=== PATIENT | female | born 1935 | race Caucasian/White ===

== ENCOUNTER 2016-10-29 09:04 | Inpatient (IN) | payer MEDICARE, BC ==
[2016-10-29] MEDS ORDERED: Pantoprazole IV* 40 MG IV ONE (09:26)
[2016-10-29] MEDS ORDERED: Morphine INJ* 4 MG/ML 1 ML CARPUJECT IV ONE (09:26)
[2016-10-29] MEDS ORDERED: Ondansetron INJ* 2 MG/ML VIAL IV ONE ×2 (09:29→16:35)
--- NOTE | 2016-10-29 10:09 | RAD ---
Indication: Vomiting and epigastric pain. History of asthma. Multiple myeloma. Comparison: August 13, 2016 CT abdomen and chest radiograph. Technique: Upright AP 0940 hours Report: Tip of RIGHT chest port at level of superior vena cava RIGHT atrial junction. Elevated lung volumes. Diffuse mild prominence of the interstitial markings without significant change. Mild linear subsegmental atelectasis at the LEFT lower lung zone. Grossly clear pleural spaces. Negative for pneumothorax. The heart, pulmonary vasculature, and mediastinal contours are unremarkable. Negative for free air beneath the diaphragm. IMPRESSION: Stigmata of chronic obstructive pulmonary disease. Mild LEFT basilar subsegmental atelectasis.
[2016-10-29 10:40] LABS: Hematocrit 38 % (35-47); Hemoglobin 12.3 g/dl (12.0-16.0); Mean Corpuscular HGB Conc 33 g/dl (31-36); Mean Corpuscular Hemoglobin 31 pg (27-31); Mean Corpuscular Volume 95 fL (80-97); Mean Platelet Volume 10 um3 (7.4-10.4); Red Blood Count 3.95 10^6/ul (4.0-5.4); Red Cell Distribution Width 17 % (10.5-15); White Blood Count 6.1 10^3/ul (3.5-10.8)
[2016-10-29 10:53] LABS: ALT 22 U/L (7-52); AST 17 U/L (13-39); Alkaline Phosphatase 68 U/L (34-104); Anion Gap 9 mmol/L (2-11); Blood Urea Nitrogen 19 mg/dL (6-24); C Reactive Protein 21.27 mg/L (< 5.00); CO2 Carbon Dioxide 25 mmol/L (22-32); Calcium 9.4 mg/dL (8.6-10.3); Chloride 101 mmol/L (101-111); EGFR African American 98.9 (>60); EGFR Non-African American 76.9 (>60); Globulin 2.5 g/dL (2-4); Glucose 167 mg/dL (70-100); Lipase < 10 U/L (11.0-82.0); Magnesium 1.8 mg/dL (1.9-2.7); Potassium 3.8 mmol/L (3.5-5.0); Sodium 135 mmol/L (133-145); Total Protein 6.5 g/dL (6.4-8.9)
[2016-10-29 11:01] LABS: Add Diff/Slide Review? Slide Review Added; Comments Flag Yes
[2016-10-29] MEDS ORDERED: NS 0.9% 1000 ML* 1,000 ML IV ONE (11:10)
[2016-10-29] MEDS ORDERED: Iohexol 300* (CONTRAST) 10 ML SDV IV ONE (11:11)
[2016-10-29 11:37] LABS: Troponin I 0.02 ng/mL (<0.04)
[2016-10-29 12:10] LABS: Immature Granulocytes 8 % (0-9); Metamyelocytes % 1 % (0-2); Neutrophil % 65 % (38-83)
[2016-10-29 12:11] LABS: RBC Morphology Normal (Normal)
--- NOTE | 2016-10-29 12:15 | RAD ---
INDICATION: Abdominal pain. Multiple myeloma. Previous surgery for bowel obstruction in 1995. Post appendectomy. COMPARISON: August 13, 2016 CT. TECHNIQUE: Multidetector CT images were obtained from the lung bases to the ischial tuberosities with 100 mL Omnipaque 300 IV and oral contrast. Multiplanar reformation. REPORT: Minimal basilar atelectasis. The liver, gallbladder, pancreas, and spleen are unremarkable. Moderate gastric distention. Long segment jejunal small bowel dilatation measuring up to 4 cm diameter without visualized focal transition point. The ileum is decompressed. Negative for pneumatosis or perienteric inflammatory change. Diverticulosis of the colon primarily at the sigmoid colon without findings of diverticulitis. Negative for ascites or free air. Small fat-containing supraumbilical ventral hernia without inflammatory change. Normal adrenal glands. Symmetric nephrograms and pyelograms. Negative for hydronephrosis. No suspicious focal renal lesions. Unremarkable ureters and urinary bladder as well as the diminutive anteverted uterus. No suspicious adnexal region lesions. Negative for lymphadenopathy. Atherosclerotic plaque of the abdominal aorta and iliac arteries. Negative for aortoiliac aneurysm. Partially decompressed inferior vena cava indicating low volume state. Bone density appears decreased throughout. Multiple ill-defined osteolytic lesions throughout consistent with history of multiple myeloma without significant interval change. Chronic finding of mixed lytic and sclerotic lesion at the LEFT acetabulum with pathologic fracture. Advanced degenerative arthropathy of the LEFT hip joint without change. Nondisplaced fractures at the LEFT superior and inferior pubic rami with callus formation without change. Chronic compression fractures at L1, T12, and T10 no new vertebral compression fractures evident. Negative for superficial soft tissue hematoma. IMPRESSION: 1. Mid small bowel obstruction with out narrow transition zone. Unclear etiology for the small bowel obstruction. Consider potential adhesion given previous abdominal surgery. Negative for associated pneumatosis or perienteric inflammatory change. 2. Osteolytic lesions of multiple myeloma with multiple grossly unchanged pathologic fractures as described.
--- NOTE | 2016-10-29 14:21 | ED ---
Agustina Bhatt Matthew, scribed for Nii Nix MD on 10/29/16 at 0927 . Abdominal Pain/Female - HPI Summary HPI Summary: A 81 y/o female presents to the ED with constant diffuse upper abdominal pain since last night. The pain started after the patient ate and is rated 6/10 in severity currently. Associated symptoms include nausea and vomiting - brown. The patient denies diarrhea and a distended abdomen. Her last BM was this morning. She has a Hx of two bowel obstructions. The first was in 1989 and required intervention and the second was July 2016, which resolved on its own. PMHx includes multiple myeloma and her oncologist is Dr. Gonzalez. - History of Current Complaint Chief Complaint: EDAbdPain Stated Complaint: ABD PAIN Time Seen by Provider: 10/29/16 09:19 Hx Obtained From: Patient ?: No Onset/Duration: Lasting Days, Still Present Timing: Constant Severity Initially: Moderate Severity Currently: Moderate Pain Intensity: 6 Pain Scale Used: 0-10 Numeric Location: Diffuse - upper abdomen Radiates: No Associated Signs and Symptoms: Positive: Nausea, Vomiting - brown in apperance. Negative: Diarrhea Allergies/Adverse Reactions: Allergies Allergy/AdvReac Type Severity Reaction Status Date / Time Amoxicillin Allergy Shakes Verified 10/29/16 09:15 Epinephrine Allergy JITTERY Verified 10/29/16 09:15 Home Medications: Home Medications Morphine Sulfate [Ms Contin] 15 mg PO DAILY 10/29/16 [History Confirmed 10/29/16 ] Morphine Sulfate [Ms Contin] 30 mg PO DAILY 10/29/16 [History Confirmed 10/29/16 ] Omeprazole [Prilosec] 20 mg PO DAILY 10/29/16 [History Confirmed 10/29/16] celeCOXIB CAP* [CeleBREX CAP*] 200 mg PO DAILY 10/29/16 [History Confirmed 10/29] PMH/Surg Hx/FS Hx/Imm Hx Endocrine/Hematology History: Reports: Hx Bone Marrow Disease - MULTIPLE MYELOMA , Hx Anemia Denies: Hx Diabetes Cardiovascular History: Reports: Hx Hypertension - CONTROL WITH MED, Other Cardiovascular Problems/Disorders - Diastolic Malfunction Denies: Hx Pacemaker/ICD Respiratory History: Reports: Hx Asthma - PRN INHALER, Hx Seasonal Allergies GI History: Reports: Hx Diverticulosis, Hx Gastroesophageal Reflux Disease - ACID REFLUX, CONTROL WITH MEDS, Hx Irritable Bowel, Hx Obstructive Bowel - with surgery 1995 History: Denies: Hx Renal Disease Musculoskeletal History: Reports: Hx Arthritis, Hx Back Problems, Hx Osteoporosis, Hx Scoliosis, Other Musculoskeletal History Sensory History: Reports: Hx Cataracts - removed, Hx Contacts or Glasses - GLASSES Denies: Hx Hearing Aid Opthamlomology History: Reports: Hx Cataracts - removed, Hx Contacts or Glasses - GLASSES Neurological History: Reports: Other Neuro Impairments/Disorders - PAIN CLINIC PT Psychiatric History: Reports: Hx Anxiety, Hx Depression - CONTROL WITH MEDS, Hx Panic Disorder - Cancer History Cancer Type, Location and Year: MULTIPLE MYELOMA Hx Chemotherapy: Yes - oral Hx Palliative Cancer Treatment: No - Surgical History Surgery Procedure, Year, and Place: Bowel Surgery for Obstruction [place] [facility] [facility] [place]. Breast Reduction 2011 at [place] in [facility];. Appendectomy at age 20 Hx Anesthesia Reactions: No Infectious Disease History: No Infectious Disease History: Denies: Hx of Known/Suspected MRSA, Traveled Outside the in Last 30 Days - Family History Known Family History: Positive: Cardiac Disease, Hypertension Negative: Diabetes - Social History Alcohol Use: None Alcohol Amount: 1-2 glasses of wine/day Substance Use Type: Reports: None Hx Tobacco Use: No Smoking Status (MU): Never Smoked Tobacco Review of Systems Constitutional: Negative Eyes: Negative ENT: Negative Cardiovascular: Negative Respiratory: Negative Positive: Abdominal Pain - Diffuse upper abdominal pain , Vomiting, Nausea. Negative: Diarrhea Genitourinary: Negative Musculoskeletal: Negative Skin: Negative Neurological: Negative Psychological: Normal All Other Systems Reviewed And Are Negative: Yes Physical Exam Triage Information Reviewed: Yes Vital Signs On Initial Exam: Initial Vitals Temp Pulse Resp BP Pulse Ox 97.0 F 113 15 157/100 98 10/29/16 09:05 10/29/16 09:05 10/29/16 09:05 10/29/16 09:05 10/29/16 09:05 Vital Signs Reviewed: Yes Appearance: Positive: Ill-Appearing - nauseated, Obese Skin: Positive: Warm, Skin Color Reflects Adequate Perfusion Head/Face: Positive: Normal Head/Face Inspection ENT: Positive: Normal ENT inspection Neck: Positive: Supple, Nontender Respiratory/Lung Sounds: Positive: Clear to Auscultation, Breath Sounds Present Cardiovascular: Positive: Normal, RRR. Negative: Murmur Abdomen Description: Positive: Other: - mild tender epigastric Musculoskeletal: Positive: Normal, Strength/ROM Intact Neurological: Positive: Normal, Sensory/Motor Intact, Alert, Oriented to Person Place, Time, CN Intact II-III - Chelsie Coma Scale Best Eye Response: 4 - Spontaneous Best Motor Response: 6 - Obeys Commands Best Verbal Response: 5 - Oriented Diagnostics - Vital Signs Vital Signs Temp Pulse Resp BP Pulse Ox 10/29/16 09:05 97.0 F 113 15 157/100 98 - Laboratory Result Diagrams: 10/29/16 10:28 10/29/16 10:28 Lab Statement: Any lab studies that have been ordered have been reviewed, and results considered in the medical decision making process. - Radiology CXR Xray Interpretation: Positive (See Comments) - IMPRESSION: Stigmata of chronic obstructive pulmonary disease. Mild LEFT basilar subsegmental atelectasis. Radiology Interpretation Completed By: Radiologist - CT A/P CT Interpretation: Positive (See Comments) - IMPRESSION: 1. Mid small bowel obstruction with out narrow transition zone. Unclear etiology for the small bowel obstruction. Consider potential adhesion given previous abdominal surgery. Negative for associated pneumatosis or perienteric inflammatory change. 2. Osteolytic lesions of multiple myeloma with multiple grossly unchanged pathologic fractures as described. CT Interpretation Completed By: Radiologist - EKG 10:00 Cardiac Rate: NL, Tachycardia - 110 bpm EKG Rhythm: Sinus Tachycardia EKG Interpretation: Premature Atrial Complexes; T-wave Flattening in inferior leads Abdominal Pain Fem Course/Dx - Course Course Of Treatment: 81 yr old with recurrent SBO, and surgery consulted, Dr Whyte will admit. - Diagnoses Provider Diagnoses: Small bowel obstruction - Provider Notifications Discussed Care Of Patient With: Dr. Whyte (Oncology) at 12:25 -- Notified of patient's history and will admit the patient. Dr. Juarez (Surgery) at 12:31 -- Notified of patient's history and will evalute the patient. Discharge - Discharge Plan Condition: Stable Disposition: ADMITTED TO [facility] Referrals: Destinee Fitzgerald MD [Primary Care Provider] - The documentation as recorded by the Agustina rowe Matthew accurately reflects the service I personally performed and the decisions made by , Nii Nix MD.
[2016-10-29 14:44] LABS: Urine Bacteria Absent (Absent); Urine Bilirubin Negative (Negative); Urine Glucose Negative (Negative); Urine Nitrite Negative (Negative)
[2016-10-29] MEDS ORDERED: Metoprolol Tartrate IV* 1 MG/ML 5 ML VIAL IV PRN (17:17)
[2016-10-29] MEDS ORDERED: HYDROmorphone INJ* 1 MG/ML CARPUJECT SYRINGE IV SLOW PU PRN (17:17)
[2016-10-29] MEDS ORDERED: Albuterol HFA INHALER* 8 gm MDI INH PRN (17:18)
[2016-10-29] MEDS ORDERED: Mometasone 220 MCG MDI INH PRN (17:18)
[2016-10-29] MEDS ORDERED: Ondansetron INJ* 2 MG/ML VIAL IV PRN (17:20)
[2016-10-29] MEDS ORDERED: Metoclopramide IV* 5 MG/ML 2 ML VIAL IV PRN (17:20)
[2016-10-29] MEDS ORDERED: Enoxaparin(*) 40 MG/0.4 ML SYR SUBCUT SCH (18:00)
[2016-10-29] MEDS ORDERED: fentaNYL PATCH 50 MCG/HR TRANSDERM SCH ×2 (18:00→20:00)
[2016-10-29] MEDS: NS 0.9% 1000 ML* 1,000 ML IV SCH (19:04)
[2016-10-29] MEDS: Enoxaparin(*) 40 MG/0.4 ML SYR SUBCUT SCH (20:24)
[2016-10-29] MEDS: fentaNYL Patch Check Q Shift 1 NOTE SCH (20:28)
[2016-10-29] MEDS: Metoprolol Tartrate IV* 1 MG/ML 5 ML VIAL IV SCH (22:10)
--- NOTE | 2016-10-29 22:19 | HP ---
HISTORY AND PHYSICAL: DATE OF ADMISSION: 10/29/16 CHIEF COMPLAINT: Abdominal pain and vomiting. IDENTIFICATION: A 81-year-old female in followup for multiple myeloma presents with second small bowel obstruction, previously admitted in July 2016. HISTORY OF PRESENT ILLNESS: "I am doing well." Ate dinner last night and then developed fairly severe abdominal pain. It started hurting right after dinner and developed some distension. Uneasy all night and vomited at 4 a.m. This morning, still felt distended and nauseous. Came to the emergency room. Small bowel movement, has not been passing any gas through the day. She also has a heartburn feeling. No fevers or chills. No difficulty with urination. She does have chronic back pain and hip pain from myeloma for which she is on long- acting narcotics. On presentation, she has white count of 6.1, hemoglobin 12.3, platelets of 164. Creatinine 0.73, otherwise electrolytes unremarkable, lipase less than 10. Mildly elevated lactic acid at 3.0. She had a CT scan of the abdomen and pelvis , which was reviewed with Dr. Reyes. Mostly jejunal distension, no clear transition point at the distal ileum. The distal small bowel is not distended. No focal lesions. PAST MEDICAL HISTORY: 1. Multiple myeloma, diagnosed in October 2015. Light chain only disease as well as lytic bone lesions. Treated with Zometa, Revlimid, and dexamethasone. Has been stable. To take her last of 21 days' Revlimid tonight. Has been tolerating reasonably well. 2. History of breast cancer. 3. Asthma. 4. Hypertension. 5. Osteoarthritis. 6. Lumbar stenosis. 7. Dementia. She lives independently, but has a caregiver 19 hours a day. Children are responsible for IADLs. 8. Prior small bowel obstruction in 1994. 9. History of diverticulitis. PAST SURGICAL HISTORY: She had an appendectomy when she was 20 and then had surgery for small bowel obstruction in the mid . No other abdominal surgery. HOME MEDICATIONS: 1. Aspirin 81 mg a day. 2. Albuterol p.r.n. 3. Dexamethasone 40 mg weekly. 4. Diltiazem 5 q.12 p.r.n. 5. Fluconazole 1 puff b.i.d. 6. Xyzal 5 mg q.p.m. 7. Losartan 25 mg q.a.m. 8. Singulair 10 mg q.a.m. 9. MS Contin 45 mg b.i.d. and 10 mg p.r.n. 10. Omeprazole 20 mg a day. 11. Fluoxetine 20 mg a day. 12. Ambien 10 mg q.h.s. 13. Celebrex 200 mg daily p.r.n. ALLERGIES: AMOXICILLIN and EPINEPHRINE. FAMILY HISTORY: Mother at 50 of coronary artery disease. Father also had heart disease. SOCIAL HISTORY: . Never smoked. One drink per day. Living situation as discussed above. She also has Meals on Wheels. REVIEW OF SYSTEMS: Constitutional: She is weak. She states she really does not get up at all or walk around during the day just because she does not want to. No fevers, chills. Difficult time narrating the story. Allergic/ Immunologic: Negative. Eyes: Negative. HEENT: Negative. Hematologic/ Lymphatic: Revlimid, otherwise negative. Respiratory: History of COPD, but no symptoms at this time. Cardiac: Negative. GI: As above. : She is incontinent. Otherwise, negative. Musculoskeletal: Hips hurt. Back pain, on narcotics. Neurologic: Forgetful, gets dizzy at times. No focal symptoms. Psychiatric: Negative. PHYSICAL EXAMINATION GENERAL: No distress in the emergency room. VITAL SIGNS: Temperature 97.0, BP 157/100, pulse 108, respirations 15, sat 98% on nasal cannula. HEENT: Mucosa dry. No lesions. NECK: No cervical or supraclavicular lymphadenopathy. LUNGS: Clear to auscultation. HEART: Regular rate and rhythm, S1, S2. Tachy. ABDOMEN: She is distended, mildly tender, has good bowel sounds. No masses. No rebound or guarding. EXTREMITIES: No clubbing, cyanosis, or edema. NEUROLOGIC: Grossly nonfocal. Pleasant and conversational. DIAGNOSTIC/LABORATORY DATA: As noted above, as was the CT scan. Last light chains were in May. ASSESSMENT AND PLAN: A 81-year-old female treated for multiple myeloma in with her third small bowel obstruction, second within 6 months. The prior small bowel obstruction seemed to have a clear transition point, it is less clear on the CT scan today. Symptoms have been present for less than a day. 1. Small bowel obstruction. Dr. Juarez was called, but has not yet seen the patient. This is not a surgical case at this time. I will discuss with Surgery but will continue with medical management. She will be admitted with IV hydration. We will use p.r.n. antiemetics and have a chest x-ray tomorrow morning. 2. Hypertension and tachycardia: She has been on verapamil at home, which she cannot take now. We will give metoprolol 5 mg q.6 p.r.n. 3. Symptoms of heartburn. IV Protonix. 4. Pain. Can take her long-acting narcotics. We will start her on fentanyl 50 mcg and do Dilaudid p.r.n. 5. DVT prophylaxis per protocol with Lovenox. 6. Weakness at home. We will have a PT eval while she is here. I suspect the lack of activity is mostly secondary to her dementia. 7. Multiple myeloma. We are going to hold Revlimid and dexamethasone. I will recheck serum light chains and will check a 24-hour urine while she is here as well, as it is hard to do at home. [id number]/[facility] #: [id number] [facility]
[2016-10-30 00:20] LABS: Hematocrit 38 % (35-47); Mean Corpuscular HGB Conc 32 g/dl (31-36); Mean Corpuscular Hemoglobin 31 pg (27-31); Mean Corpuscular Volume 96 fL (80-97); Mean Platelet Volume 10 um3 (7.4-10.4); Red Blood Count 3.93 10^6/ul (4.0-5.4); Red Cell Distribution Width 17 % (10.5-15); White Blood Count 4.2 10^3/ul (3.5-10.8)
[2016-10-30 00:29] LABS: Albumin 3.9 g/dL (3.2-5.2); BUN/Creatinine Ratio 23.5 (8-20); Calcium 8.4 mg/dL (8.6-10.3); EGFR Non-African American 64.5 (>60); Globulin 1.9 g/dL (2-4); Magnesium 1.9 mg/dL (1.9-2.7); Potassium 4.1 mmol/L (3.5-5.0); Total Bilirubin 0.5 mg/dL (0.2-1.0); Total Protein 5.8 g/dL (6.4-8.9)
[2016-10-30] MEDS: NS 0.9% 1000 ML* 1,000 ML IV SCH ×4 (02:15→20:37)
[2016-10-30] MEDS: Metoprolol Tartrate IV* 1 MG/ML 5 ML VIAL IV SCH ×4 (04:03→22:40)
[2016-10-30] MEDS: fentaNYL Patch Check Q Shift 1 NOTE SCH (06:50)
[2016-10-30] MEDS ORDERED: Pantoprazole IV* 40 MG IV SCH (09:00)
--- NOTE | 2016-10-30 10:41 | RAD ---
Indication: Follow-up small bowel obstruction. Comparison: October 29, 2016 CT. Technique: Supine and LEFT lateral decubitus views of the abdomen Report: Persistent proximal to mid small bowel dilatation measuring up to 3.6 cm diameter at the LEFT abdomen. Small volume of gas and stool throughout the colon. Negative for free intraperitoneal air. Negative for mass effect. Chronic LEFT acetabulum pathologic fracture and advanced hip arthropathy. Calcified formation at LEFT inferior pubic ramus fracture sites. Degenerative reactive sclerosis at the pubic symphysis. IMPRESSION: No significant change in magnitude of proximal to mid small bowel dilatation compared with the CT of one day prior.
[2016-10-30] MEDS ORDERED: oxyCODONE/Acetamin 5/325 MG* TAB PO PRN (11:15)
[2016-10-30] MEDS ORDERED: Diazepam TAB(*) 5 MG PO PRN (11:15)
--- NOTE | 2016-10-30 11:23 | PN ---
Subjective Date of Service: 10/30/16 Interval History: Pt had 3 loose BM's this AM. diet advanced to clears. tolerating it well. denies abd pain. Objective Active Medications: Albuterol (Ventolin Hfa Inhaler*) 1 puff INH QID PRN PRN Reason: SOB/WHEEZING Enoxaparin Sodium (Lovenox(*)) 40 mg SUBCUT 1999 [facility] Last Admin: 10/29/16 20:24 Dose: 40 mg Hydromorphone HCl (Dilaudid Iv*) 1 mg IV SLOW PU Q4H PRN PRN Reason: PAIN Metoclopramide HCl (Reglan Iv*) 10 mg IV Q6H PRN PRN Reason: NAUSEA/VOMITING Last Admin: 10/29/16 18:52 Dose: 10 mg Metoprolol Tartrate (Lopressor Iv*) 5 mg IV Q6H [facility] Last Admin: 10/30/16 10:08 Dose: 5 mg Mometasone Furoate (Asmanex 220 Mcg Mdi *) 2 puff INH BEDTIME PRN PRN Reason: WHEEZING Ondansetron HCl (Zofran Inj*) 4 mg IV Q4H PRN PRN Reason: NAUSEA/VOMITING Last Admin: 10/29/16 20:24 Dose: 4 mg Vital Signs 10/29/16 10/29/16 10/29/16 18:00 19:05 19:21 Temperature 99.0 F 98.6 F Pulse Rate 120 86 Respiratory 14 20 Rate Blood Pressure (mmHg) O2 Sat by Pulse 93 97 Oximetry 10/29/16 10/29/16 10/29/16 19:23 20:25 22:07 Temperature 98.6 F 100.1 F Pulse Rate 124 133 Respiratory 20 18 18 Rate Blood Pressure 146/79 147/87 (mmHg) O2 Sat by Pulse 96 94 Oximetry 10/29/16 10/29/16 10/29/16 22:19 22:44 22:50 Temperature 99.1 F 98.2 F Pulse Rate 66 56 Respiratory 18 18 18 Rate Blood Pressure 166/88 159/89 (mmHg) O2 Sat by Pulse 97 96 Oximetry 10/30/16 10/30/16 10/30/16 03:59 07:47 08:00 Temperature 99.2 F 98.3 F Pulse Rate 106 93 Respiratory 18 16 18 Rate Blood Pressure 139/71 134/65 (mmHg) O2 Sat by Pulse 96 95 Oximetry Oxygen Devices in Use Now: None Appearance: 81 yo F in nAd, AAOx2, very poor short term memory Eyes: No Scleral Icterus, PERRLA Ears/Nose/Mouth/Throat: NL Teeth, Lips, Gums, Mucous Membranes Moist Neck: NL Appearance and Movements; NL JVP, Trachea Midline Respiratory: Symmetrical Chest Expansion and Respiratory Effort, Clear to Auscultation Cardiovascular: NL Sounds; No Murmurs; No JVD, RRR Abdominal: NL Sounds; No Tenderness; No Distention Lymphatic: No Cervical Adenopathy Extremities: No Edema, No Clubbing, Cyanosis Skin: No Rash or Ulcers, No Nodules or Sclerosis Neurological: NL Muscle Strength and Tone Result Diagrams: 10/29/16 23:48 10/29/16 23:48 Assess/Plan/Problems-Billing Assessment: 81 yo F with h/o dementia, MM, HTN, recurrent SBO's presents with another SBO. - Patient Problems (1) SBO (small bowel obstruction) Comment: Dr. Juarez will see pt in consult. It appears that clinicaly it is resolving, although on abd XRays -it still shows SBO. Advancing diet to clears. Restartting PO meds. (2) Multiple myeloma Comment: with painful bbony leasions. Will restart oxycontin-pt has h/o of not feeling well on Fentanyl patch. cont Oxycodone prn cotn Dexamethasone (3) HTN (hypertension) Comment: controlled Losartan restarted. (4) DVT prophylaxis Comment: lovenox (5) DNR (do not resuscitate) Comment: MOLST was updated.
[2016-10-30] MEDS: Morphine TAB Extended Release (*) 15 MG TAB.ER PO SCH (13:17)
[2016-10-30 17:25] LABS: Hematocrit 29 % (35-47); Hemoglobin 9.5 g/dl (12.0-16.0); Mean Corpuscular HGB Conc 33 g/dl (31-36); Mean Corpuscular Hemoglobin 32 pg (27-31); Mean Corpuscular Volume 96 fL (80-97); Mean Platelet Volume 9 um3 (7.4-10.4); Red Cell Distribution Width 17 % (10.5-15); White Blood Count 3.3 10^3/ul (3.5-10.8)
[2016-10-30 17:29] LABS: Comments Flag Yes
[2016-10-30 17:30] LABS: Add Diff/Slide Review? Slide Review Added
--- NOTE | 2016-10-30 19:16 | CONS ---
CONSULTATION REPORT: DATE OF CONSULT: 10/30/16 HISTORY OF PRESENT ILLNESS: The patient is a 81-year-old female admitted by Dr. Whyte with a history of multiple myeloma. She has also had previous small bowel obstruction and presents now with what appears to be recurrence of small bowel obstruction. Her previous surgical history includes an appendectomy in youth and then a small bowel obstruction requiring surgery about 20 years ago. She has had no other abdominal surgery. At the time of admission, she was having severe abdominal pain and bloating and nausea and had not been passing anything per rectum. By this morning, she does note that the pain is gone and she has passed just a little bit of loose stool and a little bit of gas. PHYSICAL EXAM: On examination today, she does not appear acutely ill, color is good. She is not diaphoretic. Vital signs show that she is afebrile with relatively normal vital signs. Abdomen is somewhat obese, soft, nontender, mild tympany, no palpable masses or hernias. Her abdominal x-ray does still show distended proximal small bowel and there is some air in the right colon, probably a little more than what we were seeing yesterday on the CT scan. DIAGNOSTIC STUDIES/LAB DATA: Her laboratory studies are unremarkable. IMPRESSION: A 81-year-old female with signs and symptoms consistent with a small bowel obstruction by clinical exam and by radiologic exam who today seems to be improving with some bowel function and resolution of pain. However, her imaging still does not show normalization, so at this stage I am hopeful that she will recover from this bowel obstruction without requiring additional surgery. However, I do not think that we are there yet. She will need to continue on some intravenous and I think it is reasonable to start some liquids and will continue to follow her along with you. Thanks for allowing us to help in her care. CC: Mat Juarez MD; [facility]; Destinee Fitzgerald MD* [id number]/[facility] #: [id number] [facility]
[2016-10-30] MEDS: Morphine TAB Extended Release (*) 30 MG TAB.ER PO SCH (20:36)
[2016-10-30] MEDS: Enoxaparin(*) 40 MG/0.4 ML SYR SUBCUT SCH (20:36)
[2016-10-30] MEDS: Zolpidem TAB* 10 MG PO SCH (20:36)
[2016-10-31] MEDS: Metoprolol Tartrate IV* 1 MG/ML 5 ML VIAL IV SCH ×4 (04:09→23:16)
[2016-10-31] MEDS: NS 0.9% 1000 ML* 1,000 ML IV SCH (04:54)
[2016-10-31 06:06] LABS: Hematocrit 27 % (35-47); Hemoglobin 8.8 g/dl (12.0-16.0); Mean Corpuscular HGB Conc 33 g/dl (31-36); Mean Corpuscular Hemoglobin 31 pg (27-31); Mean Corpuscular Volume 96 fL (80-97); Mean Platelet Volume 9 um3 (7.4-10.4); Red Blood Count 2.79 10^6/ul (4.0-5.4); Red Cell Distribution Width 18 % (10.5-15)
[2016-10-31 06:07] LABS: Comments Flag Yes; White Blood Count 3.3 10^3/ul (3.5-10.8)
[2016-10-31 06:19] LABS: BUN/Creatinine Ratio 14.5 (8-20); Calcium 6.7 mg/dL (8.6-10.3); EGFR African American 119.4 (>60); EGFR Non-African American 92.9 (>60); Potassium 3.3 mmol/L (3.5-5.0)
[2016-10-31] MEDS: Omeprazole CAP* 20 MG PO SCH (07:20)
--- NOTE | 2016-10-31 08:51 | PN ---
Progress Note - Progress Note SOAP: Subjective: [Pt. reports doing well with full liquids. Denie nausea or vomiting today.She has bee walking with walker and PTx. Pain under good control.Has noted soft BM yesterday.Denies fever or chills.] Objective: [ Vital Signs Temp Pulse Resp BP Pulse Ox 97.6 F 73 16 127/75 96 10/31/16 07:24 10/31/16 07:24 10/31/16 07:24 10/31/16 07:24 10/31/16 07:24 Laboratory Results - last 24 hr 10/30/16 10/31/16 10/31/16 17:19 04:35 05:48 WBC 3.3 L RBC 3.00 L Hgb 9.5 L Hct 29 L MCV 96 MCH 32 H MCHC 33 RDW 17 H Plt Count 137 L MPV 9 Neut % (Auto) 46.8 Lymph % (Auto) 20.6 L Carroll % (Auto) 29.2 H Eos % (Auto) 3.0 Baso % (Auto) 0.4 Absolute Neuts (auto) 1.5 Absolute Lymphs (auto) 0.7 L Absolute Monos (auto) 1.0 H Absolute Eos (auto) 0.1 Absolute Basos (auto) 0 Absolute Nucleated RBC 0.01 Nucleated RBC % 0.3 Sodium 139 Potassium 3.3 L Chloride 109 Carbon Dioxide 26 Anion Gap 4 BUN 9 Creatinine 0.62 Est GFR ( Amer) 119.4 Est GFR (Non-Af Amer) 92.9 BUN/Creatinine Ratio 14.5 Glucose 103 H Calcium 6.7 L U Random Total Protein 63 10/31/16 05:48 WBC 3.3 L RBC 2.79 L Hgb 8.8 L Hct 27 L MCV 96 MCH 31 MCHC 33 RDW 18 H Plt Count 128 L MPV 9 Neut % (Auto) 38.3 Lymph % (Auto) 27.3 Carroll % (Auto) 26.6 H Eos % (Auto) 7.2 H Baso % (Auto) 0.6 Absolute Neuts (auto) 1.3 L Absolute Lymphs (auto) 0.9 L Absolute Monos (auto) 0.9 H Absolute Eos (auto) 0.2 Absolute Basos (auto) 0 Absolute Nucleated RBC 0 Nucleated RBC % 0.1 Sodium Potassium Chloride Carbon Dioxide Anion Gap BUN Creatinine Est GFR ( Amer) Est GFR (Non-Af Amer) BUN/Creatinine Ratio Glucose Calcium U Random Total Protein Albuterol (Ventolin Hfa Inhaler*) 1 puff INH QID PRN PRN Reason: SOB/WHEEZING Aspirin (Aspirin Ec Low Dose*) 81 mg PO QAM [facility] Celecoxib (Celebrex Cap*) 200 mg PO DAILY [facility] Dexamethasone (Decadron Tab*) 10 mg PO DAILY [facility] Diazepam (Valium Tab(*)) 5 mg PO Q12H PRN PRN Reason: ANXIETY Enoxaparin Sodium (Lovenox(*)) 40 mg SUBCUT 1999 [facility] Last Admin: 10/30/16 20:36 Dose: 40 mg Hydromorphone HCl (Dilaudid Iv*) 1 mg IV SLOW PU Q4H PRN PRN Reason: PAIN Sodium Chloride (Ns 0.9% 1000 Ml*) 1,000 mls @ 75 mls/hr IV Q8H [facility] Last Admin: 10/31/16 04:54 Dose: Not Given Losartan Potassium (Cozaar Tab*) 25 mg PO QAM [facility] Metoclopramide HCl (Reglan Iv*) 10 mg IV Q6H PRN PRN Reason: NAUSEA/VOMITING Last Admin: 10/29/16 18:52 Dose: 10 mg Metoprolol Tartrate (Lopressor Iv*) 5 mg IV Q6H [facility] Last Admin: 10/31/16 04:09 Dose: 5 mg Mometasone Furoate (Asmanex 220 Mcg Mdi *) 2 puff INH BEDTIME PRN PRN Reason: WHEEZING Morphine Sulfate (Ms Contin(*)) 15 mg PO DAILY [facility] Last Admin: 10/30/16 13:17 Dose: 15 mg Morphine Sulfate (Ms Contin(*)) 30 mg PO BEDTIME [facility] Last Admin: 10/30/16 20:36 Dose: 30 mg Omeprazole (Prilosec Cap*) 20 mg PO DAILY@0730 [facility] Last Admin: 10/31/16 07:20 Dose: 20 mg Ondansetron HCl (Zofran Inj*) 4 mg IV Q4H PRN PRN Reason: NAUSEA/VOMITING Last Admin: 10/29/16 20:24 Dose: 4 mg Oxycodone/Acetaminophen (Percocet 5/325 Tab*) 1 tab PO Q8H PRN PRN Reason: PAIN - MILD TO MODERATE Last Admin: 10/31/16 07:20 Dose: 1 tab Paroxetine HCl (Paxil Tab*) 20 mg PO QAM [facility] Zolpidem Tartrate (Ambien Tab*) 10 mg PO BEDTIME [facility] Last Admin: 10/30/16 20:36 Dose: 10 mg HEENT dry Lungs CTA COR RRR S1 S2 Abdomen Decreased BS throughout ,sl. distention, NT Ext trace edema left > RT] Assessment: [81 yo with M. Myeloma a/w SBO ,treated with conservative management , fluids..Tolerating full lquid diet . DVT ppx Hypokalemia Deconditioned ] Plan: [ Will obtain AXR today if progressing will advance diet to soft Replete K+ Ambulate with PTx If doing well ..Home soon Hold revlimid/dex for now will be due for Zometa this week.]
[2016-10-31] MEDS: PARoxetine HCL TAB* 20 MG PO SCH (09:58)
[2016-10-31] MEDS: Aspirin EC Low Dose* 81 MG TAB.EC PO SCH (09:58)
[2016-10-31] MEDS: Dexamethasone TAB* 4 MG PO SCH (09:58)
[2016-10-31] MEDS: Losartan TAB* 25 MG PO SCH (09:58)
--- NOTE | 2016-10-31 09:58 | RAD ---
Indication: Small bowel obstruction. Flat and upright views of the abdomen demonstrates no free air. No dilated loops of bowel are noted. Bowel gas pattern is nonspecific. Comparison is made to previous exam dated October 30, 2016. Small bowel dilatation appears to be improved. IMPRESSION: Small bowel dilatation appears to be improved.
[2016-10-31] MEDS: Morphine TAB Extended Release (*) 15 MG TAB.ER PO SCH (09:59)
[2016-10-31] MEDS: celeCOXIB CAP* 200 MG PO SCH (10:01)
[2016-10-31] MEDS: NS 0.45% KCl 20 Meq 1000 ML* 1,000 ML IV SCH ×2 (10:35→23:00)
[2016-10-31] MEDS: Morphine TAB Extended Release (*) 30 MG TAB.ER PO SCH (20:11)
[2016-10-31] MEDS: Enoxaparin(*) 40 MG/0.4 ML SYR SUBCUT SCH (20:11)
[2016-10-31] MEDS: Zolpidem TAB* 10 MG PO SCH (21:34)
[2016-11-01] MEDS: Metoprolol Tartrate IV* 1 MG/ML 5 ML VIAL IV SCH ×2 (04:23→09:44)
[2016-11-01] MEDS: Omeprazole CAP* 20 MG PO SCH (07:38)
[2016-11-01] MEDS: Aspirin EC Low Dose* 81 MG TAB.EC PO SCH (09:35)
[2016-11-01] MEDS: Dexamethasone TAB* 4 MG PO SCH (09:36)
[2016-11-01] MEDS: celeCOXIB CAP* 200 MG PO SCH (09:36)
[2016-11-01] MEDS: Losartan TAB* 25 MG PO SCH (09:37)
[2016-11-01] MEDS: PARoxetine HCL TAB* 20 MG PO SCH (09:37)
[2016-11-01] MEDS: Morphine TAB Extended Release (*) 15 MG TAB.ER PO SCH (09:37)
[2016-11-01 10:42] LABS: BUN/Creatinine Ratio 26.4 (8-20); Calcium 6.9 mg/dL (8.6-10.3); EGFR African American 143.1 (>60); EGFR Non-African American 111.3 (>60); Potassium 3.5 mmol/L (3.5-5.0)
[2016-11-01] MEDS ORDERED: Calcium Gluconate INJ* 2 GM in NS 0.9% 100 ML* 100 ML IV ONE (11:30)
[2016-11-01 11:37] VITALS: BP 120/60
[2016-11-01] MEDS ORDERED: Calcium Carbonate TAB* 1250 MG (CALCIUM 500 MG) PO SCH (12:00)
--- NOTE | 2016-11-01 13:43 | DS ---
DISCHARGE SUMMARY: DATE OF ADMISSION: 10/29/16 DATE OF DISCHARGE: 11/01/16 DISCHARGE DIAGNOSES: 1. Small bowel obstruction: Resolving with medical management. 2. Multiple myeloma: On Revlimid (currently week off), dexamethasone and Zometa (currently on hold due to hypocalcemia). 3. Hypocalcemia: Likely related to dexamethasone treatment and potentially malnutrition, corrected calcium approximately 6.8, therefore we will plan to hold the Zometa for now. 4. Hypertension: Stable on current regimen. 5. Dementia: Lives independently with assisted living, we will add VNS as well. DISCHARGE MEDICATIONS: 1. Calcium carbonate 1250 mg p.o. every day. 2. Polyethylene glycol 17 g p.o. b.i.d. p.r.n. constipation. 3. Senna 2 tabs p.o. b.i.d. p.r.n. constipation. 4. Flovent HFA 1 puff inhaled b.i.d. p.r.n. wheezing. 5. Singulair 10 mg p.o. q.a.m. 6. Levocetirizine 5 mg p.o. at bedtime. 7. Albuterol 1 puff inhaled q.i.d. p.r.n. wheezing. 8. Paroxetine 20 mg p.o. q.a.m. 9. Oxycodone/acetaminophen (5/325 mg) 1 tab p.o. b.i.d. p.r.n. 10. Ondansetron 4 mg p.o. q.6 hours p.r.n. nausea. 11. Losartan 25 mg p.o. q.a.m. 12. Aspirin 81 mg p.o. q.a.m. 13. Dexamethasone 10 mg p.o. every day. 14. Zolpidem 10 mg p.o. at bedtime. 15. Diazepam 5 mg q.12 hours p.r.n. anxiety. 16. Celebrex 200 mg p.o. every day. 17. Omeprazole 20 mg p.o. q.a.m. 18. Morphine sulfate 15 mg p.o. q.a.m. and 30 mg p.o. at bedtime. HOSPITAL COURSE: Please see admission note for full H and P; however, briefly, Ms. Khoury was admitted with recurrent small bowel obstruction (previously admitted in July of 2016 with similar episode). She presented to the ER with acute abdominal pain and was found to have mild small bowel obstruction of unclear etiology on CT of abdomen and pelvis with contrast. She was admitted by her Oncology Service who manages her multiple myeloma with plan for medical management as well as surgical consultation. She was provided with p.r.n. antiemetics and n.p.o. status. Dr. Juarez saw her in consultation from surgery on the morning of 10/30/16. By that morning, she had improved with decreased abdominal pain. She had also passed some gas. By the morning of 10/31/16, Ms. Khoury had produced a semiformed bowel movement with improvement in nausea, no vomiting, and abdominal pain. She has been ambulating with walker and PT assessment. Yesterday on the , Ms Khoury's potassium had decreased and she was provided with IV replacement. Her x-ray yesterday on the also showed improvement in her obstruction. Dr. Juarez of Surgery agreed that she would likely be ready for discharge within the next 24 hours. This a.m., Ms. Khoury states she is feeling reasonably well with good bowel sounds and passing gas, however, no BM today. She denies nausea or vomiting, and tolerated soft diet. Plan of care was discussed with both Ms. Khoury and her daughter, Elizabeth, who agreed she is ready for discharge home. She will be discharged home with VNS services to do nursing assessment and physical therapy assessment. She will follow up with Dr. Gonzalez on the , next week. She has been instructed to hold her Revlimid until being seen by Dr. Gonzalez and we will also hold her Zometa due to her hypocalcemia. She will receive IV calcium prior to discharge and will be started on p.o. calcium replacements. All questions were answered with Elizabeth, her daughter, who is her primary care provider offering no further questions. Ms. Khoury denies further questions as well and is already setup with home care private assistance with ADLs. TIME SPENT: Greater than 40 minutes spent with greater than 30% in face-to- face counseling. VIR[place]IA PRESSLEY, DIVISION CHIEF [id number]/[facility] #: [id number] ANASTACIO
[2016-11-01 15:36] LABS: Urine Kappa Total Light Chain 27.8 mg/dL (<0.9000); Urine Kappa/Lambda Light Chain 18.2; Urine Lambda Total Light Chain 1.53 mg/dL (<0.7000)
[2016-11-01 16:08] LABS: Kappa Free Light Chain 38.4 mg/dL; Kappa/Lambda Free Light Chain 58.3
== END 2016-11-01 15:30 | disposition home or self-care (01) | DRG 389 ==
LOC: ED 09:04 → SSU 17:13
PROVIDERS: ADMIT Internal Medicine Hematology & Oncology; ATTEND Internal Medicine Hematology & Oncology
DX: K56.60 Unspecified intestinal obstruction (principal); C90.00 Multiple myeloma not having achieved remission; F03.90 Unspecified dementia, unspecified severity, without behavioral disturbance, psychotic disturbance, mood disturbance, and anxiety; E83.51 Hypocalcemia; I10 Essential (primary) hypertension; Z66 Do not resuscitate; M19.90 Unspecified osteoarthritis, unspecified site; J45.909 Unspecified asthma, uncomplicated; Z85.3 Personal history of malignant neoplasm of breast; Z79.82 Long term (current) use of aspirin; Z79.891 Long term (current) use of opiate analgesic; Z79.899 Other long term (current) drug therapy; Z88.1 Allergy status to other antibiotic agents; Z88.8 Allergy status to other drugs, medicaments and biological substances; Z82.49 Family history of ischemic heart disease and other diseases of the circulatory system
CPT/HCPCS: 36415; 71010; 74020; 74177; 80048; 80053; 81003; 81015; 83605; 83690; 83735; 83883; 84156; 84484; 85025; 85610; 86140; 93005; 99223; 99232; 99239; A9270-GY; J0610; J1642; J1650; J2270; J2405; J2765; J3490; J8540

== ENCOUNTER 2016-11-24 13:48 | Inpatient (IN) | payer MEDICARE, BC ==
[2016-11-24] MEDS ORDERED: NS 0.9% 1000 ML* 1,000 ML IV ONE (16:13)
[2016-11-24 17:03] LABS: Hematocrit 34 % (35-47); Hemoglobin 11.4 g/dl (12.0-16.0); Mean Corpuscular HGB Conc 33 g/dl (31-36); Mean Corpuscular Hemoglobin 32 pg (27-31); Mean Corpuscular Volume 95 fL (80-97); Mean Platelet Volume 9 um3 (7.4-10.4); Red Blood Count 3.59 10^6/ul (4.0-5.4); Red Cell Distribution Width 18 % (10.5-15); White Blood Count 4.9 10^3/ul (3.5-10.8)
--- NOTE | 2016-11-24 17:07 | RAD ---
INDICATION: Weakness, dizziness. Multiple myeloma. COMPARISON: October 29, [address] and chest radiograph. TECHNIQUE: Dual energy PA and routine lateral views of the chest were obtained. REPORT: Mild linear subsegmental atelectasis at the LEFT lower lobe. Minimal prominence of the interstitial markings. Elevated lung volumes with increased AP thoracic diameter. Negative for pleural effusion or pneumothorax. Mild cardiomegaly. Unremarkable central pulmonary vasculature and mediastinal contours. RIGHT chest port tip at level of superior vena cava RIGHT atrial junction. Bone density appears decreased throughout. No suspicious focal osseous lesions visualized. IMPRESSION: Stigmata of probable chronic obstructive pulmonary disease. Mild LEFT lower lobe linear atelectasis without change.
[2016-11-24 17:21] LABS: Urine Bacteria 1+ (Absent); Urine Bilirubin 1+ (Negative); Urine Glucose Negative (Negative); Urine Nitrite Negative (Negative)
[2016-11-24 17:43] LABS: TSH (Thyroid Stimulating Horm) 1.43 mcIU/mL (0.34-5.60)
[2016-11-24 17:47] LABS: Albumin 3.7 g/dL (3.2-5.2); BUN/Creatinine Ratio 16.3 (8-20); C Reactive Protein 99.77 mg/L (< 5.00); Calcium 8.6 mg/dL (8.6-10.3); EGFR African American 81.9 (>60); EGFR Non-African American 63.7 (>60); Globulin 2.4 g/dL (2-4); Magnesium 1.7 mg/dL (1.9-2.7); Potassium 3.8 mmol/L (3.5-5.0); Total Bilirubin 2.4 mg/dL (0.2-1.0); Total Protein 6.1 g/dL (6.4-8.9)
[2016-11-24 17:49] LABS: Troponin I 0.04 ng/mL (<0.04)
[2016-11-24] MEDS ORDERED: Aspirin EC TAB* 325 MG PO ONE (18:26)
[2016-11-24] MEDS ORDERED: NS 0.9% 1000 ML* 1,000 ML IV SCH ×2 (18:30→20:00)
[2016-11-24] MEDS ORDERED: Aspirin Low Dose CHEW TAB* 81 MG PO ONE (18:34)
[2016-11-24] MEDS ORDERED: Aspirin Low Dose CHEW TAB* 81 MG ONE (18:35)
--- NOTE | 2016-11-24 19:56 | RAD ---
Indication: Increased LFTs. Comparison: October 29, 2016 CT. Technique: RIGHT upper quadrant ultrasound. Report: Appropriate direction flow documented in the portal and hepatic veins. 14.9 cm cephalocaudal liver is echogenic consistent with fatty infiltration . No focal hepatic lesions or biliary dilatation. 4.4 mm common bile duct. Partially contracted gallbladder demonstrates a normal 2.6 mm wall. While incompletely distention limits assessment no stones or sludge are visualized. Negative for pericholecystic fluid. Negative for sonographic Aguilera's sign. Mild prominence of the pancreatic duct measuring up to 3 mm diameter without gross change compared with the previous exam. No focal pancreatic lesions evident. Unremarkable 11.1 x 4.3 x 4.2 cm RIGHT kidney. Negative for ascites. IMPRESSION: 1. Fatty infiltration of the liver. 2. No gross evidence for gallbladder pathology however incomplete distention due to insufficient fasting prior to exam limits assessment.
[2016-11-24] MEDS ORDERED: Famotidine IV* 10 MG/ML 2 ML (20 mg) IV SLOW PU ONE (20:08)
--- NOTE | 2016-11-24 20:10 | ED ---
Efra Bhatt Adam, scribed for Nii Navarro MD on 11/24/16 at 1614 . Complex/Multi-Sys Presentation - HPI Summary HPI Summary: Pt is a 81 year old female presenting with increasing weakness over the past 2 days. Her urine has also been very dark and she states that she has probably not been drinking enough fluids. She also c/o SOB and has been having difficulty swallowing. She denies any burning during urination, cough, fever, or chills. PMHx of multiple myeloma, osteoporosis, GERD, diverticulosis, anemia , and HTN. No Hx of CVA. - History Of Current Complaint Chief Complaint: EDWeakness Time Seen by Provider: 11/24/16 16:07 Hx Obtained From: Patient Onset/Duration: Gradual Onset, Lasting Days, Still Present Timing: Constant Severity Currently: Moderate Severity Initially: Mild Associated Signs And Symptoms: Positive: Weakness, SOB, Other - Dark urine, difficulty swallowing - Allergies/Home Medications Allergies/Adverse Reactions: Allergies Allergy/AdvReac Type Severity Reaction Status Date / Time Amoxicillin Allergy Shakes Verified 10/29/16 09:15 Epinephrine Allergy JITTERY Verified 10/29/16 09:15 Home Medications: Home Medications Lenalidomide (NF) [Revlimid (NF)] 25 mg PO SEE INSTRUCTIONS 11/24/16 [History Confirmed 11/24/16] Polyethylene Glycol 3350* [Miralax*] 17 gm PO DAILY 11/24/16 [History Confirmed 11/24/16] Rabeprazole Sodium 20 mg PO QPM 11/24/16 [History Confirmed 11/24/16] PMH/Surg Hx/FS Hx/Imm Hx Endocrine/Hematology History: Reports: Hx Bone Marrow Disease - MULTIPLE MYELOMA , Hx Anemia Denies: Hx Diabetes Cardiovascular History: Reports: Hx Hypertension, Other Cardiovascular Problems/ Disorders - Diastolic Malfunction Denies: Hx Pacemaker/ICD Respiratory History: Reports: Hx Asthma - PRN INHALER, Hx Seasonal Allergies GI History: Reports: Hx Diverticulosis, Hx Gastroesophageal Reflux Disease - ACID REFLUX, CONTROL WITH MEDS, Hx Irritable Bowel, Hx Obstructive Bowel - with surgery 1995 History: Denies: Hx Renal Disease Musculoskeletal History: Reports: Hx Arthritis, Hx Back Problems, Hx Osteoporosis, Hx Scoliosis, Other Musculoskeletal History - spinal stenosis Sensory History: Reports: Hx Cataracts - removed, Hx Contacts or Glasses - GLASSES Denies: Hx Hearing Aid Opthamlomology History: Reports: Hx Cataracts - removed, Hx Contacts or Glasses - GLASSES Neurological History: Reports: Hx Dementia Denies: Other Neuro Impairments/Disorders Psychiatric History: Reports: Hx Anxiety, Hx Depression - CONTROL WITH MEDS, Hx Panic Disorder - Cancer History Cancer Type, Location and Year: MULTIPLE MYELOMA Hx Chemotherapy: Yes - oral Hx Palliative Cancer Treatment: No - Surgical History Surgery Procedure, Year, and Place: Bowel Surgery for Obstruction Surgical Procedure at [facility] [place] 1995;. Breast Reduction 2012 at [place] in [facility];. Appendectomy at age 20 Hx Anesthesia Reactions: No Infectious Disease History: No Infectious Disease History: Denies: Hx of Known/Suspected MRSA, Traveled Outside the [place] in Last 30 Days - Family History Known Family History: Positive: Cardiac Disease, Hypertension Negative: Diabetes - Social History Occupation: Retired Lives: Alone Alcohol Use: Weekly Alcohol Amount: 1-2 glasses of wine/week Hx Substance Use: No Substance Use Type: Reports: None Hx Tobacco Use: No Smoking Status (MU): Never Smoked Tobacco Review of Systems Negative: Fever, Chills Positive: Shortness Of Breath, Other - Difficulty swallowing. Negative: Cough Positive: other - Dark urine. Negative: burning Positive: Weakness All Other Systems Reviewed And Are Negative: Yes Physical Exam - Summary Physical Exam Summary: Vital signs: reviewed General: Patient is comfortable lying in stretcher with no signs of distress HEENT: within normal limits Lungs: CTA B/L CVS: S1 & S2 present. No murmurs appreciated. ABDOMEN: Soft, non-tender. No signs of distention. No rebound no guarding, and no masses palpated. Bowel sounds are normal. EXTREMITIES: FROM in all major joints, no edema, no cyanosis or clubbing. NEURO: Alert and oriented x 3. No acute neurological deficits. Speech is normal and follows commands. SKIN: Dry and warm Triage Information Reviewed: Yes Vital Signs On Initial Exam: Initial Vitals Temp Pulse Resp BP Pulse Ox 97.5 F 100 20 94/58 98 11/24/16 14:03 11/24/16 14:03 11/24/16 14:03 11/24/16 14:03 11/24/16 14:03 Vital Signs Reviewed: Yes - Chelsie Coma Scale Coma Scale Total: 15 Diagnostics - Vital Signs Vital Signs Temp Pulse Resp BP Pulse Ox 11/24/16 15:30 91 114/67 95 11/24/16 14:03 97.5 F 100 20 94/58 98 - Laboratory Result Diagrams: 11/24/16 16:53 11/24/16 16:53 Lab Statement: Any lab studies that have been ordered have been reviewed, and results considered in the medical decision making process. - Radiology CXR Radiology Interpretation Completed By: Radiologist - IMPRESSION: Stigmata of probable chronic obstructive pulmonary disease. Mild LEFT lower lobe linear atelectasis without change. - EKG 16:09 Cardiac Rate: NL EKG Rhythm: Sinus Rhythm EKG Interpretation: No ST elevations - Additional Comments Diagnostic Additional Comments: Lactic Acid - 2.2 Troponin I - 0.04 Complex Multi-Symp Course/Dx Course Of Treatment: Pt is a 81 year old female presenting with increasing weakness over the past 2 days. Her urine has also been very dark and she states that she has probably not been drinking enough fluids. She also c/o SOB and has been having difficulty swallowing. She denies any burning during urination, cough, fever, or chills. PMHx of multiple myeloma, osteoporosis, GERD, diverticulosis, anemia, and HTN. No Hx of CVA. BW shows a slight anemia. Sodium is 132, lactic acid 2.2, increased LFT's, troponin of 0.04, CRP is 99.77. UA is contaminated. CXR shows stigmata for COPD and atelectasis. EKG shows NSR at [address] elevations. It seems that the pt's symptoms are probably secondary to an increased troponin and we will rule out ACS. Also the LFT's are elvated and therefore I will order ultrasound despite the pt having no abdominal pain. The UA is contaminated and therefore we will repeat the urine. The pt was given IV fluids and an aspirin. I discussed my PE and findings with Dr. Camp who accepted the pt for admission. Assessment/Plan: IMPRESSION: 1. Fatty infiltration of the liver. 2. No gross evidence for gallbladder pathology however incomplete distention due to. insufficient fasting prior to exam limits assessment. U/S was done since patient had increased LFT's - Diagnoses Differential Diagnoses/HQI/PQRI: Urinary Tract Infection - Pneumonia Provider Diagnoses: Increased troponin, rule out NC, Generalized weakness, Increased LFT's - Physician Notifications Discussed Care Of Patient With: Dr. Camp at 18:12. Patient will be admitted. Discharge - Discharge Plan Condition: Stable Disposition: ADMITTED TO [facility] Referrals: Destinee Fitzgerald MD [Primary Care Provider] - The documentation as recorded by the Efra rowe Adam accurately reflects the service I personally performed and the decisions made by me, Nii Navarro MD.
[2016-11-24] MEDS ORDERED: Morphine INJ* 2 MG/ML 1 ML SYRINGE IV ONE (20:41)
[2016-11-24] MEDS ORDERED: Morphine INJ* 4 MG/ML 1 ML SYRINGE ONE (20:43)
--- NOTE | 2016-11-24 21:12 | RAD ---
Indication: Weakness. Dark red urine for 2 days. Denies fever or chills. The patient had a swallowing function exam with barium today. Comparison: October 31, 2016 Technique: Supine and upright views of the abdomen. Report: Negative for free air beneath the diaphragm. Barium contrast is present in the RIGHT colon. No dilated bowel loops to indicate bowel obstruction. No suspicious calcifications or mass effect. Subchondral sclerosis at the pubic symphysis secondary to degenerative arthropathy. Advanced osteoarthritis of the LEFT hip. RIGHT chest port noted. IMPRESSION: No evidence for bowel obstruction. No conspicuous urolithiasis.
[2016-11-24] MEDS ORDERED: Al Hydrox/Mg Hydrox/Simet LIQ* 30 ML UDC PO PRN (21:15)
[2016-11-24] MEDS ORDERED: Magnesium Sulfate 2 GM IV* 2 GM/50 ML BAG IVPB ONE (21:45)
[2016-11-24] MEDS: oxyCODONE/Acetamin 5/325 MG* TAB PO PRN (22:15)
[2016-11-25] MEDS: cefTRIAXone VIAL(*) 1,000 MG in NS 0.9% 50 ML* 50 ML IVPB SCH ×2 (00:35→23:44)
--- NOTE | 2016-11-25 00:39 | HP ---
HISTORY AND PHYSICAL: DATE OF ADMISSION: 11/24/16 PRIMARY CARE PROVIDER: Destinee Fitzgerald MD. ATTENDING PHYSICIAN: Vu Guzman MD* (dictated by Debbi Toussaint NP). CHIEF COMPLAINT: Abdominal pain and weakness. HISTORY OF PRESENT ILLNESS: Ms. Khoury is a 81-year-old female with past medical history significant for bowel obstructions, multiple myeloma followed by Dr. Gonzalez, diverticulitis, hypertension, chronic back pain due to lumbar stenosis, dementia, osteoarthritis, asthma, who presents to the emergency room today with complaints of generalized weakness and abdominal pain. According to the patient, she has been feeling weak and having abdominal pain for the last 2 to 3 days. According to the patient's daughter, the patient has been weak, shaking, and confused. The patient denies any fever, chills, chest pain, nausea , vomiting, diarrhea. She denies any urinary symptoms such as dysuria, new incontinence, the patient is incontinent at baseline, changes in frequency or urgency. The patient reports shortness of breath with exertion. It is to note that the patient was last admitted, 10/29/16 to 11/01/16 for a small bowel obstruction. Based on concern for the patient's presentation, the patient's daughter brought her to the emergency room for further evaluation of her symptoms after she was unable to get a note for an appointment with her other providers today. While in the emergency room, the patient had labs that were fairly unremarkable. She did have a low magnesium with 1.7, slightly elevated lactic acid at 2.2, mildly elevated troponin at 0.04, she is anemic but appears to be near her baseline. The patient does have elevated liver function tests with a total bilirubin of 2.4, AST of 140 and ALT of 519. The patient had an EKG showing a sinus rhythm and old T- wave inversions in lead 3 and V1. The patient had a chest x-ray showing stigmata of probable COPD with a mild left lower lobe linear atelectasis with no changes. She had a urinalysis that showed RBC's 3+, squamous epithelial cells present, bacteria 1+. During the patient's time in the emergency room, she continued to complain of intermittent abdominal pain. She had an abdominal ultrasound showing fatty infiltration of the liver. No gross evidence of gallbladder pathology. However, due to insufficient fasting prior to exam the assessment was limited. Based on concern for the patient's abdominal pain and generalized weakness, the hospitalists were asked to evaluate the patient for admission. PAST MEDICAL HISTORY: 1. Bowel obstruction. 2. Multiple myeloma. 3. Diverticulitis. 4. Hypertension. 5. Chronic back pain related to lumbar stenosis. 6. Dementia. 7. Osteoarthritis. 8. Asthma. PAST SURGICAL HISTORY: 1. Status post appendectomy at age 20. 2. Status post abdominal surgery in the for bowel obstruction. HOME MEDICATIONS: Include: 1. Celebrex 200 mg oral daily. 2. Ambien 10 mg oral daily at bedtime. 3. Rabeprazole 20 mg oral every evening. 4. Paxil 20 mg oral every morning. 5. Oxycodone with acetaminophen 5/325 mg one tablet oral twice daily. 6. MS Contin 15 mg oral every morning. 7. MS Contin 30 mg oral every evening. 8. Singulair 10 mg oral every morning. 9. Cozaar 25 mg oral every morning. 10. Levocetirizine 5 mg oral every evening. 11. Dexamethasone 28 mg oral weekly, patient typically takes on Fridays but took 28 mg on 11/22/16. 12. Aspirin 81 mg oral every morning. 13. Revlimid 25 mg oral weekly, the patient takes on . 14. MiraLax 17 g oral daily. 15. Fluticasone HFA 220 mcg 1 puff inhalation twice daily as needed for shortness of breath or wheeze. 16. Diazepam 5 mg oral every 12 hours as needed for anxiety. ALLERGIES: AMOXICILLIN and EPINEPHRINE. FAMILY HISTORY: The patient's mother passed in her 50s from coronary artery disease and the patient's father had a history of coronary artery disease. The patient also reports a child with a history of coronary artery disease. The patient denies any diabetes mellitus or cancer in her family history. SOCIAL HISTORY: The patient denies tobacco, recreational drug use. She drinks 1 to 2 glasses of wine daily. The patient lives alone but has help from her children and outside help for few hours a day. 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 Her daughter Elizabeth Dewey will be her surrogate decision maker in the event that she is unable to make decisions for herself. REVIEW OF SYSTEMS: I performed a 14-point review of systems. All the pertinent positives and negatives are mentioned in the history of present illness. The remaining review of systems is negative. PHYSICAL EXAMINATION GENERAL: The patient is alert and pleasant, appears to be in no acute distress. VITAL SIGNS: Temperature 97.5, heart rate 89, respiratory rate 15, O2 sat 94% on room air, blood pressure 119/70. HEENT: Normocephalic, atraumatic. Pupils are equal, round and reactive to light. Extraocular movements are intact. RESPIRATORY: There is no accessory muscle use. Lungs are clear to auscultation bilaterally. CARDIOVASCULAR: Regular rate and rhythm. S1 and S2 present. There is no murmurs, rubs, or gallops heard. ABDOMEN: Soft, large and tender in the right upper quadrant. Bowel sounds positive. EXTREMITIES: There is no lower extremities edema. DP and PT pulses are 2+ and symmetric. MUSCULOSKELETAL: There is no clubbing or cyanosis noted. The patient exhibits good strength in all extremities. NEUROLOGIC: The patient is alert and oriented x3 with some intermittent confusion. Cranial nerves II through XII are grossly intact. PSYCHOLOGICAL: The patient is calm and cooperative. SKIN: There is no rashes or abnormalities seen. DIAGNOSTIC STUDIES/LAB DATA: Sodium 132, potassium 3.8, chloride 97, CO2 of 26 , BUN 14, creatinine 0.86, glucose 124, magnesium 1.7. White blood cell count 4.9, hemoglobin 11.4, hematocrit 34, platelet count 110. Lactic acid 2.2, troponin 0.04, CRP 99.77, TSH 1.43, AST 140, ALT 519, total bilirubin 2.4. Urinalysis shows urine protein 1+, urine bilirubin 1+, urobilinogen positive, leukocyte esterase negative, WBCs 2+, RBCs 3+, squamous epithelial cells present , bacteria 1+. EKG shows a sinus rhythm with rate of 89. There is old T-wave inversion in lead 3 and V1. This EKG is similar to previous EKG from 10/29/16 with the exception at that time the patient was noted to be in sinus tachycardia. Chest x-ray from today. Radiologist's impression: Stigmata of probable chronic obstructive pulmonary disease. Mild left lower lobe linear atelectasis without change. Abdominal ultrasound from today. Radiologist's impression: Fatty infiltration of the liver. No gross evidence of gallbladder pathology; however, incomplete distention due to insufficient fasting prior to exam limits assessment. IMPRESSION: Ms. Khoury is a 81-year-old female with past medical history significant for multiple myeloma, bowel obstruction, diverticulitis, hypertension, chronic back pain, and dementia, who presented to the emergency room with complaints of abdominal pain and generalized weakness. She will be admitted as an observation for weakness and possible urinary tract infection. ASSESSMENT: 1. Weakness. We will give the patient gentle IV fluids and have physical therapy evaluation. I suspect this could be related to possible urinary tract infection. 2. Urinary tract infection. The patient's urinalysis revealed 2+ WBCs, 3+ RBCs , bacteria 1+, and squamous epithelial cells present. Although the patient reports any urinary symptoms, she is afebrile and has leukocytosis. She has generalized weakness and some increased confusion. We will start the patient on IV ceftriaxone. 3. Abdominal pain. While in the emergency room, the patient had a gallbladder ultrasound with no significant findings. The patient does have elevated liver function panel. We will get an abdominal x-ray to rule out a bowel obstruction. I will recheck the patient's liver function tests in the morning. The patient has reported what she describes as chest discomfort but when asked where the pain is, she is having epigastric and right upper abdominal pain. This could represent acid reflux and we will place the patient on a PPI. 4. Hypertension. At this time, the patient's blood pressures are controlled. We will continue her losartan. 5. Multiple myeloma. The patient has received her weekly doses of her dexamethasone and Revlimid. 6. Chronic back pain secondary to lumbar stenosis. The patient will be continued on her home oral morphine. 7. History of dementia. The patient will be provided with supportive care. 8. Fluid, electrolytes, and nutrition. The patient will be on a regular diet as long as her abdominal x-ray does not show a bowel obstruction. 9. DVT prophylaxis. The patient is at high risk and will be placed on subcu heparin. 10. Disposition. Observation for weakness and abdominal pain and possible urinary tract infection. TIME SPENT: The time for this admission was 60 minutes; 35 minutes was spent face- to-face with the patient and daughter discussing medications, past medical history, and the events leading up to her arrival today and performing a physical examination. The case has been reviewed with the attending Dr. Guzman who agrees with the plan of care. Reviewed by DEBBI TOUSSAINT, CORY-Charissa 12/07/16 1351 CC: Destinee Fitzgerald MD* [id number]/[facility] #: [id number] ANASTACIO
[2016-11-25] MEDS: Heparin VIAL(*) 5000 UNITS/ML VIAL (FIVE THOUSAND) SUBCUT SCH ×2 (00:42→05:02)
[2016-11-25 06:08] LABS: Comments Flag Yes; Hematocrit 32 % (35-47); Hemoglobin 10.4 g/dl (12.0-16.0); Mean Corpuscular HGB Conc 32 g/dl (31-36); Mean Corpuscular Hemoglobin 32 pg (27-31); Mean Corpuscular Volume 98 fL (80-97); Mean Platelet Volume 10 um3 (7.4-10.4); Red Blood Count 3.31 10^6/ul (4.0-5.4); Red Cell Distribution Width 17 % (10.5-15); White Blood Count 3.9 10^3/ul (3.5-10.8)
[2016-11-25 06:09] LABS: Add Diff/Slide Review? Slide Review Added
[2016-11-25] MEDS: Montelukast Sodium TAB* 10 MG PO SCH (08:17)
[2016-11-25] MEDS: PARoxetine HCL TAB* 20 MG PO SCH (08:17)
[2016-11-25] MEDS: Morphine TAB Extended Release (*) 15 MG TAB.ER PO SCH (08:17)
[2016-11-25] MEDS: Losartan TAB* 25 MG PO SCH (08:17)
[2016-11-25] MEDS: Aspirin EC Low Dose* 81 MG TAB.EC PO SCH (08:17)
[2016-11-25] MEDS: celeCOXIB CAP* 200 MG PO SCH (08:18)
[2016-11-25] MEDS: Polyethylene Glycol 3350* 17 GM PACKET PO SCH (08:31)
[2016-11-25 08:33] LABS: Albumin 3.4 g/dL (3.2-5.2); BUN/Creatinine Ratio 16.4 (8-20); EGFR African American 137.1 (>60); EGFR Non-African American 106.6 (>60); Globulin 2.2 g/dL (2-4); Magnesium 2.2 mg/dL (1.9-2.7); Potassium 3.7 mmol/L (3.5-5.0); Total Bilirubin 1.7 mg/dL (0.2-1.0); Total Protein 5.6 g/dL (6.4-8.9)
[2016-11-25] MEDS ORDERED: Omeprazole CAP* 20 MG PO SCH (18:00)
[2016-11-25] MEDS ORDERED: Morphine TAB Extended Release (*) 30 MG TAB.ER PO SCH (18:00)
[2016-11-25] MEDS ORDERED: Cetirizine* 10 MG TAB PO SCH (18:00)
[2016-11-25] MEDS: oxyCODONE/Acetamin 5/325 MG* TAB PO PRN (23:37)
[2016-11-26 06:04] LABS: Hematocrit 30 % (35-47); Hemoglobin 9.7 g/dl (12.0-16.0); Mean Corpuscular HGB Conc 33 g/dl (31-36); Mean Corpuscular Hemoglobin 32 pg (27-31); Mean Corpuscular Volume 96 fL (80-97); Mean Platelet Volume 10 um3 (7.4-10.4); Red Blood Count 3.08 10^6/ul (4.0-5.4); Red Cell Distribution Width 18 % (10.5-15)
[2016-11-26 06:07] LABS: Comments Flag Yes
[2016-11-26 06:08] LABS: White Blood Count 3.2 10^3/ul (3.5-10.8)
[2016-11-26 06:29] LABS: Albumin 3.1 g/dL (3.2-5.2); Direct Bilirubin 0.3 mg/dL (0.03-0.18); Globulin 2.1 g/dL (2-4); Indirect Bilirubin 0.5 mg/dL (0.3-1.0); Total Bilirubin 0.8 mg/dL (0.2-1.0); Total Protein 5.2 g/dL (6.4-8.9)
[2016-11-26 07:28] VITALS: BP 135/72
[2016-11-26] MEDS: Aspirin EC Low Dose* 81 MG TAB.EC PO SCH (09:18)
[2016-11-26] MEDS: Losartan TAB* 25 MG PO SCH (09:18)
[2016-11-26] MEDS: Morphine TAB Extended Release (*) 15 MG TAB.ER PO SCH (09:18)
[2016-11-26] MEDS: PARoxetine HCL TAB* 20 MG PO SCH (09:19)
[2016-11-26] MEDS: Polyethylene Glycol 3350* 17 GM PACKET PO SCH (09:19)
[2016-11-26] MEDS: Montelukast Sodium TAB* 10 MG PO SCH (09:19)
[2016-11-26] MEDS: celeCOXIB CAP* 200 MG PO SCH (09:19)
--- NOTE | 2016-11-26 09:55 | PN ---
Progress Note - Progress Note SOAP: DISCHARGE NOTE Subjective: [] She feels better. Eating well over last day and no additional abdominal pain. Walking well and moving bowls. Lives alone but has support. Al Hydrox/Mg Hydrox/Simethicone (Maalox Plus*) 30 ml PO Q6H PRN PRN Reason: INDIGESTION Aspirin (Aspirin Ec Low Dose*) 81 mg PO QAM [facility] Last Admin: 11/26/16 09:18 Dose: 81 mg Celecoxib (Celebrex Cap*) 200 mg PO DAILY [facility] Last Admin: 11/26/16 09:19 Dose: 200 mg Cetirizine HCl (Zyrtec*) 10 mg PO QPM [facility] Last Admin: 11/25/16 17:29 Dose: 10 mg Ceftriaxone Sodium 1,000 mg/ (Sodium Chloride) 50 mls @ 200 mls/hr IVPB Q24H [facility] Last Admin: 11/25/16 23:44 Dose: 200 mls/hr Losartan Potassium ([facility]ar Tab*) [facility] [place] Admin: 11/26/16 09:18 Dose: 25 mg Montelukast Sodium (Singulair Tab*) [facility] Admin: 11/26/16 09:19 Dose: 10 mg Morphine Sulfate (Ms Contin(*)) [facility] [place] Admin: 11/26/16 09:18 Dose: 15 mg Morphine Sulfate (Ms Contin(*)) 30 mg PO QPM [facility] Last Admin: 11/25/16 17:28 Dose: 30 mg Omeprazole (Prilosec Cap*) 20 mg PO QPM [facility] PRN Reason: Protocol Last Admin: 11/25/16 17:28 Dose: 20 mg Oxycodone/Acetaminophen (Percocet 5/325 Tab*) 1 tab PO Q6H PRN PRN Reason: PAIN Last Admin: 11/25/16 23:37 Dose: 1 tab Paroxetine HCl (Paxil Tab*) [facility] [place] Admin: 11/26/16 09:19 Dose: 20 mg Polyethylene Glycol/Electrolytes (Miralax*) 17 gm PO DAILY [facility] Last Admin: 11/26/16 09:19 Dose: Not Given Objective: [] Vital Signs Temp Pulse Resp BP Pulse Ox 98.3 F 74 18 135/72 96 11/26/16 07:28 11/26/16 07:28 11/26/16 09:18 11/26/16 07:28 11/26/16 07:28 HEENT: mucosa moist CTA RRR S1S2 Has good BS, NT and no liver edge. No C/C/E AAOx3 Assessment: []81 yo with MM on Revlimid, pain and increased LFTs both improving. DDx: stone that passed, viral illness. Tolerating po intake well. She wants to go home Plan: []1. Discharge home. 2. Will continue home medications, add Bactrim for UTI. Sent to pharmacy from office 3. Follow up on Monday with CMP, our office will call 4. Continue Revlimid per monthly schedule.
--- NOTE | 2016-11-26 23:11 | DS ---
DISCHARGE SUMMARY: DATE OF ADMISSION: 11/25/16 DATE OF DISCHARGE: 11/26/16 IDENTIFICATION: A 81-year-old female with a history of multiple myeloma, currently on therapy with Revlimid and dexamethasone. DISCHARGE DIAGNOSES: 1. Abdominal pain. 2. Elevated liver function tests. 3. Multiple myeloma. HOSPITAL COURSE: She came in to the emergency room with 3 days of weakness and abdominal pain. She also had decreased oral intake. She reported feeling ill and weak for approximately 1 week. On pr esentation, she had elevated liver function tests including an AST of 140 and an ALT of 184. These are new elevations for her. Total bilirubin was 2.4. She was placed on IV fluids. She had an abdom inal ultrasound that did not show acute ductal dilation or stones. She had as needed pain medicatio n. She did relatively well after the first day of admission, pain subsided significantly. Last day , she restarted oral intake and near full diet and tolerated that without difficulty. Today, she fe els pain free and is eating without difficulty. Repeat LFTs today show an ALT of 267 down from a hi gh of 519 and AST of 49, down from a peak of 140 and a bilirubin that is normalized at 0.8. Differential diagnosis is gallstone that passed, acute viral illness, could have had mild pancreatit is from her dexamethasone. She wants to go home. We will plan on discharging her home today. The other issue that came up was positive urine, question of UTI and we will send her home on antibiotics. DISCHARGE MEDICATIONS: Continue: 1. Acetaminophen 325 q.6 p.r.n. 2. AcipHex 20 mg daily. 3. Ambien 10 q.h.s. p.r.n. 4. Celebrex 200 daily. 5. Compazine 10 q.6 p.r.n. 6. Dexamethasone 20 mg weekly. 7. Endocet 5/325 up to 6 a day. 8. Flovent 220 b.i.d. 9. MS Contin 45 mg b.i.d. 10. Ondansetron 4 mg q.6 p.r.n. 11. Paxil 20 mg daily. 12. MiraLAX 1 packet as needed. 13. Proventil inhaler as needed. 14. Revlimid 25 mg daily, 21 days on, 7 days off. Daughter has her schedule. 15. Singulair 10 mg. 16. Xyzal 5 mg daily. Additional medication: Bactrim double strength 1 tablet b.i.d. for 3 days. DISCHARGE INSTRUCTIONS: Followup will be on Monday morning. We will have her come to the office an d recheck her LFTs. Call me over the weekend with any change in symptoms, abdominal pain or concerns. [id number]/[facility] #: [id number]
== END 2016-11-26 11:23 | disposition home or self-care (01) | DRG 392 ==
LOC: ED 13:48 → INTOOBSV 19:54 → MEDTELE 19:54 → OBSVTOIN 11-25 10:00
PROVIDERS: ADMIT Hospitalist; ATTEND Internal Medicine Hematology & Oncology
DX: R10.31 Right lower quadrant pain (principal); C90.00 Multiple myeloma not having achieved remission; F03.90 Unspecified dementia, unspecified severity, without behavioral disturbance, psychotic disturbance, mood disturbance, and anxiety; N39.0 Urinary tract infection, site not specified; R94.5 Abnormal results of liver function studies; B34.9 Viral infection, unspecified; I10 Essential (primary) hypertension; M48.06 Spinal stenosis, lumbar region; M19.90 Unspecified osteoarthritis, unspecified site; M54.9 Dorsalgia, unspecified; J45.909 Unspecified asthma, uncomplicated; Z79.82 Long term (current) use of aspirin; Z79.891 Long term (current) use of opiate analgesic; Z79.899 Other long term (current) drug therapy; Z88.1 Allergy status to other antibiotic agents; Z88.8 Allergy status to other drugs, medicaments and biological substances; Z82.49 Family history of ischemic heart disease and other diseases of the circulatory system
CPT/HCPCS: 36415; 71020; 74020; 74230; 76705; 80053; 80076; 81003; 81015; 83605; 83735; 83880; 84443; 84484; 85025; 85060; 86140; 87086; 93005; 99232; 99239; A9270-GY; G8996-GN-CH; G8997-GN-CH; G8998-GN-CH; J0696; J1644; J2270

== ENCOUNTER 2017-04-27 12:53 | Emergency (ER) | payer MEDICARE, BC ==
[2017-04-27 13:52] LABS: Hematocrit 34 % (35-47); Mean Corpuscular HGB Conc 33 g/dl (31-36); Mean Corpuscular Hemoglobin 31 pg (27-31); Mean Corpuscular Volume 96 fL (80-97); Mean Platelet Volume 10 um3 (7.4-10.4); Red Blood Count 3.52 10^6/ul (4.0-5.4); Red Cell Distribution Width 17 % (10.5-15); White Blood Count 3.5 10^3/ul (3.5-10.8)
[2017-04-27 14:04] LABS: ALT 25 U/L (7-52); Albumin 3.5 g/dL (3.2-5.2); Alkaline Phosphatase 60 U/L (34-104); BUN/Creatinine Ratio 19.1 (8-20); Blood Urea Nitrogen 13 mg/dL (6-24); CO2 Carbon Dioxide 29 mmol/L (22-32); Calcium 8.5 mg/dL (8.6-10.3); Chloride 101 mmol/L (101-111); EGFR African American 107.3 (>60); EGFR Non-African American 83.5 (>60); Globulin 2.3 g/dL (2-4); Glucose 85 mg/dL (70-100); Sodium 134 mmol/L (133-145); Total Protein 5.8 g/dL (6.4-8.9)
[2017-04-27 14:06] LABS: Troponin I 0.02 ng/mL (<0.04)
[2017-04-27 14:14] LABS: Urine Bilirubin Negative (Negative); Urine Glucose Negative (Negative); Urine Nitrite Negative (Negative)
[2017-04-27 14:38] LABS: Anion Gap 4 mmol/L (2-11)
[2017-04-27 14:51] LABS: TSH (Thyroid Stimulating Horm) 1.41 mcIU/mL (0.34-5.60)
--- NOTE | 2017-04-27 15:03 | RAD ---
INDICATION: Weakness. COMPARISON: Comparison is made with a prior chest x-ray study from November 24, 2016. TECHNIQUE: An AP and lateral views of the chest was obtained sitting. FINDINGS: There is a power port central venous catheter present on the right side. The catheter tip projects approximately at the junction of the superior vena cava with right atrium. The heart is within normal limits in size. The lungs are underinflated. There are linear densities at both lung bases most consistent with subsegmental atelectasis. The lungs are otherwise clear. No pleural effusion is seen. IMPRESSION: NO EVIDENCE FOR ACUTE FINDING.
[2017-04-27] MEDS ORDERED: oxyCODONE/Acetamin 5/325 MG* TAB PO ONE (16:05)
--- NOTE | 2017-04-27 16:36 | RAD ---
INDICATION: Confusion COMPARISON: CT brain December 22, 2015 TECHNIQUE: Noncontrast axial source images were acquired from the skull base to the vertex. FINDINGS: Ventricles/sulci: There is age-related cortical atrophy with compensatory dilatation of the CSF spaces. Brain parenchyma: There is periventricular and subcortical white matter change compatible with chronic ischemia. Intracranial hemorrhage:None. Extra-axial spaces: There are no abnormal extra axial fluid collections or evidence of extra-axial mass. Calvarium: There is no calvarial fracture or other calvarial abnormality. Scalp: There is no evidence of scalp or extracalvarial soft tissue abnormality. Paranasal sinuses/mastoid: The paranasal sinuses and mastoid air cells are clear. Other: None. IMPRESSION: CORTICAL ATROPHY WITH CHRONIC MICROVASCULAR ISCHEMIC CHANGES. NO ACUTE FINDINGS.
[2017-04-27 17:01] LABS: Magnesium 1.6 mg/dL (1.9-2.7)
--- NOTE | 2017-04-27 18:13 | RAD ---
INDICATION: Left hip pain COMPARISON: Left hip January 16, 2017 TECHNIQUE: An AP view of the pelvis and AP views of the hip in neutral and abducted position were obtained FINDINGS: Bones: There are no acute bony findings. There are chronic fractures about the left acetabulum and left superior and inferior pubic rami. Joint spaces: The right hip joint space is preserved. There are advanced secondary osteophyte changes about the left hip with deformity of the acetabulum and femoral head. There is medial migration of the femoral head. SI joints/symphysis: The SI joints and symphysis are intact. Other: None IMPRESSION: ADVANCED DEGENERATIVE CHANGE ABOUT THE LEFT HIP WITH CHRONIC FRACTURES OF THE ACETABULUM/LEFT HEMIPELVIS AND PROTRUSIO ACETABULI, UNCHANGED.
[2017-04-27 19:23] VITALS: BP 138/65
--- NOTE | 2017-04-27 20:24 | ED ---
Matthew Bhatt Benjamin, scribed for Angel Powers MD on 04/27/17 at 1343 . Altered Mental Status - HPI Summary HPI Summary: 81yo female BIBA from [facility] for confusion and AMS. Pt's researcher brought in to [facility]. Unable to get full history from the pt. Level 5 caveat - AMS. - History Of Current Complaint Chief Complaint: EDAltMentalStatus Stated Complaint: CONFUSION/CAME FROM [facility] Time Seen by Provider: 04/27/17 12:59 Hx Obtained From: Family/Programming Instructor - researcher, EMS Hx From Patient Unobtainable Due To: Altered Mental Status Onset/Duration: Unknown, Still Present Character: Confusion Aggravating Factor(s): Unknown Alleviating Factor(s): Unknown - Allergies/Home Medications Allergies/Adverse Reactions: Allergies Allergy/AdvReac Type Severity Reaction Status Date / Time Amoxicillin Allergy Shakes Verified 04/27/17 13:39 Epinephrine Allergy JITTERY Verified 04/27/17 13:39 PMH/Surg Hx/FS Hx/Imm Hx Endocrine/Hematology History: Reports: Hx Bone Marrow Disease - MULTIPLE MYELOMA , Hx Anemia Denies: Hx Diabetes Cardiovascular History: Reports: Hx Hypertension, Other Cardiovascular Problems/ Disorders - Diastolic Malfunction Denies: Hx Pacemaker/ICD Respiratory History: Reports: Hx Asthma - PRN INHALER, Hx Seasonal Allergies GI History: Reports: Hx Diverticulosis, Hx Gastroesophageal Reflux Disease - ACID REFLUX, CONTROL WITH MEDS, Hx Irritable Bowel, Hx Obstructive Bowel - with surgery 1995 History: Denies: Hx Renal Disease Musculoskeletal History: Reports: Hx Arthritis, Hx Back Problems, Hx Osteoporosis, Hx Scoliosis, Other Musculoskeletal History - spinal stenosis Sensory History: Reports: Hx Cataracts - removed, Hx Contacts or Glasses - GLASSES, Hx Hearing Aid Opthamlomology History: Reports: Hx Cataracts - removed, Hx Contacts or Glasses - GLASSES Neurological History: Reports: Hx Dementia Denies: Other Neuro Impairments/Disorders Psychiatric History: Reports: Hx Anxiety, Hx Depression - CONTROL WITH MEDS Denies: Hx Panic Disorder - Cancer History Cancer Type, Location and Year: MULTIPLE MYELOMA Hx Chemotherapy: Yes - oral Hx Palliative Cancer Treatment: No - Surgical History Surgery Procedure, Year, and Place: BOWEL SURGERY FOR OBSTYRUCTION. BREAST REDUCTIONS. APPENDIX AGE 20 Hx Anesthesia Reactions: No Infectious Disease History: No Infectious Disease History: Denies: Hx of Known/Suspected MRSA, Traveled Outside the [place] in Last 30 Days - Family History Known Family History: Positive: Cardiac Disease, Hypertension Negative: Diabetes - Social History Occupation: Retired Lives: Alone Alcohol Use: Weekly Alcohol Amount: 1-2 glasses of wine/week Hx Substance Use: No Substance Use Type: Reports: None Hx Tobacco Use: No Smoking Status (MU): Never Smoked Tobacco Review of Systems - ROS Summary Review of Systems Summary: Level 5 caveat - AMS. Neurological: Other - AMS All Other Systems Reviewed And Are Negative: No Physical Exam Triage Information Reviewed: Yes Vital Signs On Initial Exam: Initial Vitals Temp Pulse Resp BP Pulse Ox 96.9 F 85 16 128/85 94 04/27/17 13:00 04/27/17 13:00 04/27/17 13:00 04/27/17 13:00 04/27/17 13:00 Vital Signs Reviewed: Yes Completion Of Physical Exam Limited Due To: Altered Mental Status Appearance: Positive: Well-Appearing, No Pain Distress, Obese Skin: Positive: Warm, Skin Color Reflects Adequate Perfusion, Dry Head/Face: Positive: Normal Head/Face Inspection Eyes: Positive: Normal ENT: Positive: Normal ENT inspection Neck: Positive: Supple, Nontender Respiratory/Lung Sounds: Positive: Clear to Auscultation, Breath Sounds Present Cardiovascular: Positive: RRR Abdomen Description: Positive: Nontender, Soft Bowel Sounds: Positive: Present Musculoskeletal: Positive: Strength/ROM Intact Neurological: Positive: Disoriented. Negative: Alert, Oriented to Person Place , Time Diagnostics - Vital Signs Vital Signs Temp Pulse Resp BP Pulse Ox 04/27/17 13:00 96.9 F 85 16 128/85 94 - Laboratory Lab Results: Lab Results 04/27/17 04/27/17 04/27/17 Range/Units 13:36 13:36 13:36 WBC 3.5 (3.5-10.8) 10^3/ul RBC 3.52 L (4.0-5.4) 10^6/ul Hgb 11.0 L (12.0-16.0) g/dl Hct 34 L (35-47) % MCV 96 (80-97) fL MCH 31 (27-31) pg MCHC 33 (31-36) g/dl RDW 17 H (10.5-15) % Plt Count 106 L (150-450) 10^3/ul MPV 10 (7.4-10.4) um3 Neut % (Auto) 40.1 (38-83) % Lymph % (Auto) 36.1 (25-47) % Story % (Auto) 17.6 H (1-9) % Eos % (Auto) 5.5 (0-6) % Baso % (Auto) 0.7 (0-2) % Absolute Neuts (auto) 1.4 L (1.5-7.7) 10^3/ul Absolute Lymphs (auto) 1.3 (1.0-4.8) 10^3/ul Absolute Monos (auto) 0.6 (0-0.8) 10^3/ul Absolute Eos (auto) 0.2 (0-0.6) 10^3/ul Absolute Basos (auto) 0 (0-0.2) 10^3/ul Absolute Nucleated RBC 0 10^3/ul Nucleated RBC % 0 INR (Anticoag Therapy) (0.89-1.11) Sodium 134 (133-145) mmol/L Potassium TNP Chloride 101 (101-111) mmol/L Carbon Dioxide 29 (22-32) mmol/L Anion Gap 4 (2-11) mmol/L BUN 13 (6-24) mg/dL Creatinine 0.68 (0.51-0.95) mg/dL Est GFR ( Amer) 107.3 (>60) Est GFR (Non-Af Amer) 83.5 (>60) BUN/Creatinine Ratio 19.1 (8-20) Glucose 85 (70-100) mg/dL Lactic Acid 1.0 (0.5-2.0) mmol/L Calcium 8.5 L (8.6-10.3) mg/dL Magnesium TNP Total Bilirubin 0.60 (0.2-1.0) mg/dL AST TNP ALT 25 (7-52) U/L Alkaline Phosphatase 60 (34-104) U/L Troponin I 0.02 (<0.04) ng/mL Total Protein 5.8 L (6.4-8.9) g/dL Albumin 3.5 (3.2-5.2) g/dL Globulin 2.3 (2-4) g/dL Albumin/Globulin Ratio 1.5 (1-3) TSH 1.41 (0.34-5.60) mcIU/mL Urine Color Urine Appearance Urine pH (5-9) Ur Specific [place] (1.010-1.030) Urine Protein (Negative) Urine Ketones (Negative) Urine Blood (Negative) Urine Nitrate (Negative) Urine Bilirubin (Negative) Urine Urobilinogen (Negative) Ur Leukocyte Esterase (Negative) Urine Glucose (Negative) 04/27/17 04/27/17 04/27/17 Range/Units 14:00 14:10 16:20 WBC (3.5-10.8) 10^3/ul RBC (4.0-5.4) 10^6/ul Hgb (12.0-16.0) g/dl Hct (35-47) % MCV (80-97) fL MCH (27-31) pg MCHC (31-36) g/dl RDW (10.5-15) % Plt Count (150-450) 10^3/ul MPV (7.4-10.4) um3 Neut % (Auto) (38-83) % Lymph % (Auto) (25-47) % Story % (Auto) (1-9) % Eos % (Auto) (0-6) % Baso % (Auto) (0-2) % Absolute Neuts (auto) (1.5-7.7) 10^3/ul Absolute Lymphs (auto) (1.0-4.8) 10^3/ul Absolute Monos (auto) (0-0.8) 10^3/ul Absolute Eos (auto) (0-0.6) 10^3/ul Absolute Basos (auto) (0-0.2) 10^3/ul Absolute Nucleated RBC 10^3/ul Nucleated RBC % INR (Anticoag Therapy) 0.95 (0.89-1.11) Sodium (133-145) mmol/L Potassium 3.9 Chloride (101-111) mmol/L Carbon Dioxide (22-32) mmol/L Anion Gap (2-11) mmol/L BUN (6-24) mg/dL Creatinine (0.51-0.95) mg/dL Est GFR ( Amer) (>60) Est GFR (Non-Af Amer) (>60) BUN/Creatinine Ratio (8-20) Glucose (70-100) mg/dL Lactic Acid (0.5-2.0) mmol/L Calcium (8.6-10.3) mg/dL Magnesium 1.6 L Total Bilirubin (0.2-1.0) mg/dL AST 19 ALT (7-52) U/L Alkaline Phosphatase (34-104) U/L Troponin I (<0.04) ng/mL Total Protein (6.4-8.9) g/dL Albumin (3.2-5.2) g/dL Globulin (2-4) g/dL Albumin/Globulin Ratio (1-3) TSH (0.34-5.60) mcIU/mL Urine Color Yellow Urine Appearance Clear Urine pH 6.0 (5-9) Ur Specific [place] 1.015 (1.010-1.030) Urine Protein Negative (Negative) Urine Ketones Negative (Negative) Urine Blood Negative (Negative) Urine Nitrate Negative (Negative) Urine Bilirubin Negative (Negative) Urine Urobilinogen Negative (Negative) Ur Leukocyte Esterase Negative (Negative) Urine Glucose Negative (Negative) Result Diagrams: 04/27/17 13:36 04/27/17 16:20 Lab Statement: Any lab studies that have been ordered have been reviewed, and results considered in the medical decision making process. - Radiology CXR Xray Interpretation: No Acute Changes Radiology Interpretation Completed By: Radiologist Hip XR Xray Interpretation: No Acute Changes - IMPRESSION: ADVANCED DEGENERATIVE CHANGE ABOUT THE LEFT HIP WITH CHRONIC FRACTURES OF THE ACETABULUM/LEFT HEMIPELVIS AND PROTRUSIO ACETABULI, UNCHANGED. Radiology Interpretation Completed By: Radiologist - CT CT Brain WO CT Interpretation: No Acute Changes - IMPRESSION: CORTICAL ATROPHY WITH CHRONIC MICROVASCULAR ISCHEMIC CHANGES. NO ACUTE FINDINGS. CT Interpretation Completed By: Radiologist - EKG 1315. Cardiac Rate: NL - 87bpm EKG Rhythm: Sinus Rhythm ST Segment: Non-Specific - non-specific inferior changes. Altered Mental Statu Course/Dx - Course Course Of Treatment: Reviewed pt's medications list and allergies. Assessment/Plan: Ms. Khoury has underlying dementia but seemed more confused to her caregivers this AM. They brought her in concerned about possible UTI as she has acted this way before with a UTI. No acute problem was found in this visit and she was D/C'd back to [facility]. - Diagnoses Discharge Diagnoses: Weakness, Confusion Discharge - Discharge Plan Condition: Stable Disposition: HOME Patient Education Materials: Altered Mental Status (ED), Weakness (ED) Referrals: Destinee Fitzgerald MD [Primary Care Provider] - Additional Instructions: PLEASE FOLLOW UP WITH YOUR DOCTOR TOMORROW The documentation as recorded by the Matthew rowe Benjamin accurately reflects the service I personally performed and the decisions made by me, Angel Powers MD.
== END 2017-04-27 19:23 | disposition home or self-care (01) ==
LOC: ED 12:53
DX: R53.1 Weakness (principal); R41.0 Disorientation, unspecified
CPT/HCPCS: 36415; 70450; 71020; 80053; 81003; 83605; 83735; 84443; 84484; 85025; 85610; 93005; 99285; A9270-GY

== ENCOUNTER 2017-07-19 02:20 | Emergency (ER) | payer MEDICARE, OTHER ==
[2017-07-19] MEDS ORDERED: Lidocaine 1%* 5 ML VIAL ONE (05:49)
[2017-07-19 05:58] LABS: Hematocrit 33 % (35-47); Hemoglobin 11.2 g/dl (12.0-16.0); Mean Corpuscular HGB Conc 34 g/dl (31-36); Mean Corpuscular Hemoglobin 32 pg (27-31); Mean Corpuscular Volume 93 fL (80-97); Mean Platelet Volume 9 um3 (7.4-10.4); Red Blood Count 3.57 10^6/ul (4.0-5.4); Red Cell Distribution Width 17 % (10.5-15); White Blood Count 7.4 10^3/ul (3.5-10.8)
[2017-07-19 06:11] LABS: Troponin I 0.02 ng/mL (<0.04)
[2017-07-19 06:18] LABS: Albumin 3.5 g/dL (3.2-5.2); BUN/Creatinine Ratio 27.9 (8-20); Calcium 9.1 mg/dL (8.6-10.3); EGFR African American 107.3 (>60); EGFR Non-African American 83.5 (>60); Globulin 2.3 g/dL (2-4); Potassium 4.1 mmol/L (3.5-5.0); Total Bilirubin 0.3 mg/dL (0.2-1.0); Total Protein 5.8 g/dL (6.4-8.9)
[2017-07-19] MEDS ORDERED: Morphine INJ* 4 MG/ML 1 ML CARPUJECT IV ONE (07:33)
--- NOTE | 2017-07-19 07:38 | RAD ---
HISTORY: Fall, left hip pain, injury COMPARISONS: Plain film dated May 24, 2017, CT dated October 29, 2016 TECHNIQUE: Multiple contiguous axial CT images are obtained of the pelvis, with coronal and sagittal multiplanar reconstructions, without intravenous contrast administration. FINDINGS: BONE DENSITY: There is diffuse osteopenia. BONES: There is a longitudinally oriented fracture through the roof of acetabulum, as well as a fracture through the medial wall of acetabulum at the junction with the left superior pubic ramus. There is sclerosis along the margins with callus formation suggestive of a subacute to chronic fracture. Additionally, there are chronic appearing fractures of the left inferior pubic ramus. The acetabular fractures and pubic rami fractures can be identified on the CT examination of October 29, 2016. There is subcortical lucency along the superior acetabulum. Additionally, there are lucent lesions of the left iliac wing anteriorly. These can be identified on the previous CT examination and are stable.. JOINTS: There is advanced osteoarthritis of the left hip. There is mild osteoarthritis of the right hip. There is moderate osteoarthritis of the SI joints. There is facet osteoarthritis. MUSCULATURE: Unremarkable ALIGNMENT: There is no dislocation. SOFT TISSUES: There is atherosclerosis of the abdominal aorta. There is diverticulosis of the sigmoid colon. OTHER FINDINGS: None. IMPRESSION: 1. OSTEOPENIA. 2. THERE ARE MULTIPLE FRACTURES INVOLVING THE LEFT ACETABULUM, WELL OF THE LEFT INFERIOR PUBIC RAMUS, DESCRIBED ABOVE. THESE ARE CHRONIC AND CAN BE IDENTIFIED ON THE OCTOBER 29, 2016 EXAMINATION. 3. THERE ARE STABLE OSTEOLYTIC LESIONS, INCLUDING OF THE LEFT SUPERIOR ACETABULUM, CONSISTENT WITH THE HISTORY OF MULTIPLE MYELOMA. 4. THERE IS ADVANCED OSTEOARTHRITIS OF THE LEFT HIP. THERE IS OSTEOARTHRITIS OF THE RIGHT HIP, SI JOINTS, AND FACET JOINTS
--- NOTE | 2017-07-19 08:19 | RAD ---
INDICATION: Head trauma after falling off of commode COMPARISON: Most recent comparison chest x-ray is dated April 27, 2017 TECHNIQUE: Single AP portable view of the chest was obtained. FINDINGS: Image quality is compromised due to the relative inferiority of a portable chest x-ray. Again seen is a right subclavian vein Mediport with the tip terminating at the cavoatrial junction. The heart and mediastinum exhibit normal size and contour. The lungs are grossly clear. There is no evidence of a large pleural effusion. Visualized bones are normal for the patient's age. IMPRESSION: No radiographic evidence for acute cardiopulmonary abnormality on this portable chest x-ray.
--- NOTE | 2017-07-19 08:21 | ED ---
Bryant Bhatt Abhishek, scribed for Stefan Garcia MD on 07/19/17 at 0346 . Neurological HPI - HPI Summary HPI Summary: This patient is a 81 year old F presenting to [facility] accompanied by female with a chief complaint of weakness since yesterday. The CC is described as constant. The patient rates the pain 4/10 in severity. Symptoms aggravated by nothing. Symptoms alleviated by nothing. Patient reports dizziness, vertigo, diffusive LUE pain s/p fall, and head injury s/p fall. Patient denies neck pain, CP, N/V and syncope. PMHx includes Asthma, HTN, HLD, Multiple myeloma, denies ME, COPD, CAD, DM. - History of Current Complaint Chief Complaint: EDWeakness Stated Complaint: FALL//HEAD LAC/LEFT ARM PAIN Hx Obtained From: Patient, Family/Foundation Director Onset/Duration: Started hours ago - since yesterday, Still Present Timing: Constant Pain Intensity: 4 Pain Scale Used: 0-10 Numeric Character: Dizzy, Motor Weakness, Other: - vertigo Aggravating: Nothing Alleviating: Nothing Associated Signs and Symptoms: Positive: Weakness, Dizziness. Negative: Loss of Consciousness, Decreased Level of Consciousness, Nausea/Vomiting, Chest Pain - Additional Pertinent History Primary Care Physician: - Allergy/Home Medications Allergies/Adverse Reactions: Allergies Allergy/AdvReac Type Severity Reaction Status Date / Time Amoxicillin Allergy Shakes Verified 04/27/17 13:39 Epinephrine Allergy JITTERY Verified 04/27/17 13:39 PMH/Surg Hx/FS Hx/Imm Hx Endocrine/Hematology History: Reports: Hx Bone Marrow Disease - MULTIPLE MYELOMA , Hx Anemia Denies: Hx Diabetes Cardiovascular History: Reports: Hx Hypertension, Other Cardiovascular Problems/ Disorders - Diastolic Malfunction Denies: Hx Coronary Artery Disease, Hx Myocardial Infarction, Hx Pacemaker/ ICD Respiratory History: Reports: Hx Asthma - PRN INHALER, Hx Seasonal Allergies Denies: Hx Chronic Obstructive Pulmonary Disease (COPD) GI History: Reports: Hx Diverticulosis, Hx Gastroesophageal Reflux Disease - ACID REFLUX, CONTROL WITH MEDS, Hx Irritable Bowel, Hx Obstructive Bowel - with surgery 1995 History: Denies: Hx Renal Disease Musculoskeletal History: Reports: Hx Arthritis, Hx Back Problems, Hx Osteoporosis, Hx Scoliosis, Other Musculoskeletal History - spinal stenosis Sensory History: Reports: Hx Cataracts - removed, Hx Contacts or Glasses - GLASSES, Hx Hearing Aid Opthamlomology History: Reports: Hx Cataracts - removed, Hx Contacts or Glasses - GLASSES Neurological History: Reports: Hx Dementia Denies: Other Neuro Impairments/Disorders Psychiatric History: Reports: Hx Anxiety, Hx Depression - CONTROL WITH MEDS Denies: Hx Panic Disorder - Cancer History Cancer Type, Location and Year: MULTIPLE MYELOMA Hx Chemotherapy: Yes - oral Hx Palliative Cancer Treatment: No - Surgical History Surgery Procedure, Year, and Place: BOWEL SURGERY FOR OBSTYRUCTION. BREAST REDUCTIONS. APPENDIX AGE 20 Hx Anesthesia Reactions: No Infectious Disease History: Yes Infectious Disease History: Denies: Hx of Known/Suspected MRSA, Traveled Outside the [place] in Last 30 Days - Family History Known Family History: Positive: Cardiac Disease, Hypertension Negative: Diabetes - Social History Alcohol Use: Weekly Alcohol Amount: 1-2 glasses of wine/week Hx Substance Use: No Substance Use Type: Reports: None Hx Tobacco Use: No Smoking Status (MU): Never Smoked Tobacco Review of Systems Constitutional: Negative Eyes: Negative ENT: Negative Negative: Chest Pain Respiratory: Negative Negative: Vomiting, Nausea Genitourinary: Negative Positive: Other - diffusive LUE pain s/p fall, and head injury s/p fall. Negative neck pain. Skin: Negative Neurological: Other - dizziness, vertigo, Positive: Weakness. Negative: Syncope Psychological: Normal All Other Systems Reviewed And Are Negative: Yes Physical Exam - Summary Physical Exam Summary: Appearance: Well-appearing, Well-nourished Skin: Warm Eyes: Normal ENT: no hyphema, no hypopyon, Extraocular movments intact without pain Neck: Supple, nontender Respiratory: Clear to auscultation, lung sounds normal, Cardiovascular: Normal heart sounds Abdomen: Soft, nontender Bowel: Present Musculoskeletal: Bruising around the left orbit, laceration around the left medial campus, 1 cm linear unclear if it involves tear duct. No midline tenderness, Neurological: Normal, Alert, Oriented to Person Psychiatric: Normal Triage Information Reviewed: Yes Vital Signs On Initial Exam: Initial Vitals Temp Pulse Resp BP Pulse Ox 98.2 F 111 18 141/90 93 07/19/17 02:21 07/19/17 02:21 07/19/17 02:21 07/19/17 02:21 07/19/17 02:21 Vital Signs Reviewed: Yes Diagnostics - Vital Signs Vital Signs Temp Pulse Resp BP Pulse Ox 07/19/17 02:21 98.2 F 111 18 141/90 93 - Laboratory Lab Results: Lab Results 07/19/17 07/19/17 07/19/17 Range/Units 02:37 02:37 02:37 WBC 7.4 (3.5-10.8) 10^3/ul RBC 3.57 L (4.0-5.4) 10^6/ul Hgb 11.2 L (12.0-16.0) g/dl Hct 33 L (35-47) % MCV 93 (80-97) fL MCH 32 H (27-31) pg MCHC 34 (31-36) g/dl RDW 17 H (10.5-15) % Plt Count 167 (150-450) 10^3/ul MPV 9 (7.4-10.4) um3 Neut % (Auto) 61.7 (38-83) % Lymph % (Auto) 21.9 L (25-47) % [place] % (Auto) 14.0 H (1-9) % Eos % (Auto) 1.9 (0-6) % Baso % (Auto) 0.5 (0-2) % Absolute Neuts (auto) 4.6 (1.5-7.7) 10^3/ul Absolute Lymphs (auto) 1.6 (1.0-4.8) 10^3/ul Absolute Monos (auto) 1.0 H (0-0.8) 10^3/ul Absolute Eos (auto) 0.1 (0-0.6) 10^3/ul Absolute Basos (auto) 0 (0-0.2) 10^3/ul Absolute Nucleated RBC 0 10^3/ul Nucleated RBC % 0 INR (Anticoag Therapy) 0.83 L (0.89-1.11) Sodium 136 (133-145) mmol/L Potassium 4.1 (3.5-5.0) mmol/L Chloride 102 (101-111) mmol/L Carbon Dioxide 26 (22-32) mmol/L Anion Gap 8 (2-11) mmol/L BUN 19 (6-24) mg/dL Creatinine 0.68 (0.51-0.95) mg/dL Est GFR ( Amer) 107.3 (>60) Est GFR (Non-Af Amer) 83.5 (>60) BUN/Creatinine Ratio 27.9 H (8-20) Glucose 146 H (70-100) mg/dL Calcium 9.1 (8.6-10.3) mg/dL Total Bilirubin 0.30 (0.2-1.0) mg/dL AST 19 (13-39) U/L ALT 21 (7-52) U/L Alkaline Phosphatase 92 (34-104) U/L Troponin I 0.02 (<0.04) ng/mL Total Protein 5.8 L (6.4-8.9) g/dL Albumin 3.5 (3.2-5.2) g/dL Globulin 2.3 (2-4) g/dL Albumin/Globulin Ratio 1.5 (1-3) Result Diagrams: 07/19/17 02:37 07/19/17 02:37 Lab Statement: Any lab studies that have been ordered have been reviewed, and results considered in the medical decision making process. - CT CT Head CT Interpretation Completed By: Radiologist - CT head reveals laclunar infarctions appear old. ED physicians has reviewed this radiology report and agrees. CT Cervical Spine CT Interpretation Completed By: Radiologist - CT cervical spine reveals degenerative changes in the cervical spine with no fracture. The ED physician has reviewed this report and agrees. Course/Dx - Course Assessment/Plan: ct shows old fractures consistent with osteolytic lesions associated with multiple myeloma, pt able to walk with assistance, requests dc at this time. I spoke with pt and fmaily who is comfortable with plan adn agree to fu with primary care physician and return in 5 days for suture removal. - Diagnoses Provider Diagnoses: Facial laceration, Fall Discharge - Discharge Plan Condition: Improved Disposition: HOME Patient Education Materials: Care For Your Stitches (ED), Facial Laceration (ED ), Fall Prevention for Older Adults (ED) Additional Instructions: 1. PLEASE MAKE AN APPOINTMENT FIRST THING IN THE MORNING TO BE SEEN BY YOUR HADOOP DEVELOPER SOON POSSIBLE 2. PLEASE RETURN IMMEDIATELY TO THE ER IF YOU HAVE ANY WORSENING OR CONCERNING SYMPTOMS 3. PLEASE RETURN TO THE ER IN 5 DAYS FOR SUTURE REMOVAL The documentation as recorded by the Bryant rowe Abhishek accurately reflects the service I personally performed and the decisions made by me, Stefan Garcia MD.
--- NOTE | 2017-07-19 08:21 | RAD ---
Indication: Head injury. CT of the brain was performed without IV contrast. Ventricular structures are midline. No midline shift is noted. The extra-axial spaces are unremarkable. There is no evidence of intracranial mass or hemorrhage. No other high or low density lesions are identified. Mastoid air cells and paranasal sinuses are otherwise unremarkable. IMPRESSION: No intracranial mass or hemorrhage is noted.
--- NOTE | 2017-07-19 08:26 | RAD ---
indication: Left periorbital laceration after a fall from the commode. COMPARISON: None A CT scan of the maxillofacial bones and c-spine was performed without intravenous contrast enhancement. Contiguous axial sections were obtained from the lung apices through the vertex of the skull. FACIAL BONES: There is a small amount of thickening and subcutaneous induration at the left inferior periorbital overlying soft tissues. Bones: There is no displaced fracture or dislocation. The orbital rim is intact. The zygomatic arch is intact. The pterygoid plates are intact Orbits: The globes are round. The optic nerves are symmetric. The extraocular musculature is normal. There is no post septal or intraconal inflammatory change. There is no retrobulbar hematoma. Paranasal Sinuses: The paranasal sinuses are clear. C-SPINE: There is reversal of the normal cervical lordosis of the upper cervical spine and straightening more inferiorly. The vertebral bodies and facet joints are otherwise appropriately aligned. There is no acute fracture or dislocation. There is no widening of the atlantodental interval. Multilevel degenerative changes include loss of intervertebral disc height most severe from C3 through C7 where there is varying degrees of intervertebral disc height loss, marginal osteophyte formation and sclerotic change of the articulating surfaces. On the coronal plane images there is uncovertebral hypertrophy at the same levels. There is no prevertebral soft tissue swelling. There is no hyperdense material in the cervical canal to indicate hemorrhage. The visualized musculature and soft tissues are normal. There is no gross lymphadenopathy visualized. The visualized portion of the lung apices are clear. IMPRESSION: 1. Mild left periorbital subcutaneous cutaneous edema without acute facial bone fractures. 2. Degenerative changes of the cervical spine as described above without acute fracture or dislocation..
--- NOTE | 2017-07-19 08:29 | RAD ---
INDICATION: Left upper terminate pain after a fall from a commode. COMPARISON: None. TECHNIQUE: 4 views of the left shoulder, 2 views of the humerus and 2 views of the forearm were obtained. FINDINGS: The adequately corticated bones are in normal alignment. Joint spaces appear maintained. No fracture, dislocation or focal bony abnormality is seen. IMPRESSION: NO RADIOGRAPHICALLY APPARENT ACUTE FRACTURE OR DISLOCATION INVOLVING THE LEFT UPPER EXTREMITY. If the patient's symptoms persist, follow-up imaging is recommended.
[2017-07-19 08:44] VITALS: BP 130/52
== END 2017-07-19 08:52 | disposition home or self-care (01) ==
LOC: ED 02:20
DX: S01.81XA Laceration without foreign body of other part of head, initial encounter (principal); S01.412A Laceration without foreign body of left cheek and temporomandibular area, initial encounter; W18.11XA Fall from or off toilet without subsequent striking against object, initial encounter; Y93.9 Activity, unspecified; Y92.9 Unspecified place or not applicable; M25.512 Pain in left shoulder; M25.552 Pain in left hip; R53.1 Weakness; R42 Dizziness and giddiness; I10 Essential (primary) hypertension; I50.30 Unspecified diastolic (congestive) heart failure; J45.909 Unspecified asthma, uncomplicated; K21.9 Gastro-esophageal reflux disease without esophagitis; K57.90 Diverticulosis of intestine, part unspecified, without perforation or abscess without bleeding; F41.9 Anxiety disorder, unspecified; F32.9 Major depressive disorder, single episode, unspecified; Z85.79 Personal history of other malignant neoplasms of lymphoid, hematopoietic and related tissues; Z88.1 Allergy status to other antibiotic agents; Z88.8 Allergy status to other drugs, medicaments and biological substances
CPT/HCPCS: 12011; 36415; 70450; 70486; 71010; 72125; 72192; 80053; 84484; 85025; 85610; 96374; 99283; J2270

== ENCOUNTER 2017-10-04 22:57 | Inpatient (IN) | payer MEDICARE, OTHER ==
[2017-10-05 00:04] LABS: Hematocrit 37 % (35-47); Hemoglobin 12.3 g/dl (12.0-16.0); Mean Corpuscular HGB Conc 33 g/dl (31-36); Mean Corpuscular Hemoglobin 31 pg (27-31); Mean Corpuscular Volume 94 fL (80-97); Mean Platelet Volume 8 um3 (7.4-10.4); Platelet Count 171 10^3/ul (150-450); Red Blood Count 3.92 10^6/ul (4.0-5.4); Red Cell Distribution Width 15 % (10.5-15); White Blood Count 13.9 10^3/ul (3.5-10.8)
--- OUTSIDE RECORDS SUMMARY | 2017-10-05 00:07 | XMS REPORT ---
:1935 External Reference #:[id number] Author Organization [facility] Address [address] [address] Phone [phone] Care Team Providers Name Role Phone Destinee Braun MD Primary Care Physician Unavailable Payers Type Date Identification Numbers Payment Provider Subscriber Medicare Primary Effective: Policy Number: Medicare Deloris Khoury 2002 [id number] PayID: [id number] [address] [facility]], [place] [address] Medigap Part B Effective: 2017 Policy Number: BS Kandice Khoury [id number] PayID: [id number] [address] [address] [place] [address] Medigap Part B Expires: 2017 Policy Number: [id number] BS Kandice Khoury PayID: [id number] [address] [address] [place] [address] Medigap Part B Effective: 2011 Policy Number: Kandice Khoury [id number] Expires: 2017 PayID: [id number] [address] [address] [place] [address] Problems Date Description Provider Status Onset: 07/01/2013 Dyspnea Mar Bolanos M.D. Active Onset: 07/01/2013 Essential hypertension Mar Bolanos M.D. Active Onset: 07/01/2013 Obesity Mar Bolanos M.D. Active Onset: 07/01/2013 FH: Cardiovascular disease Mar Bolanos M.D. Active Onset: 11/11/2014 Palpitations Mar Bolanos M.D. Active Onset: 09/28/2015 Localized, primary osteoarthritis of the MaryAlcira Sadler.D. Active pelvic region and thigh Onset: 09/28/2015 Localized, primary osteoarthritis Mary Carcamo M.D. Active Onset: 03/08/2017 Impaired cognition Dagmar Wild M.D. Active Note: MoCA: 09/09: ; 03/11: Onset: 09/19/2017 Chronic diastolic heart failure Mar Bolanos M.D. 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 Work Status Not Currently Working retired Cigarette Use Never Smoked Cigarettes ETOH Use consumes 1-2 glasses of wine per day Smoking Patient has never smoked Recreational Drug Use Denies Drug Use Daily Caffeine Consumes on average 2 cups of hot tea per day Exercise Type/Frequency Exercises rarely Allergies, Adverse Reactions, Alerts Date Description Reaction Status Severity Comments 03/13/2013 Epinephrine Jittery, Flushed active 07/01/2013 Amoxicillin diarrhea active Medications Medication Date Status Form Strength Qnty SIG Indications Ordering Provider Wheelchair 05/19 Active 1unit use for M16.12 s benjamin Valdivia M.D. n Dexamethasone 03/08 Active Tablets 4mg 120ta 5 tabs by Dagmar bs duglas Hays.DJustine Monday Rolling Walker 07/24 Active M16.12 Dirk /2014 Srinivasa Amos Celebrex 03/13 Active Capsules 200mg 1 po qd Dagmar Ravin Wild M.D. Singulair Active Tablets 10mg 1 po qd Unknown /0000 Paroxetine HCL Active Tablets 20mg 30tab 1 by Unknown /0000 s mouth qam Proventil HFA Active Aerosol 108(90Bas 2unit 2 puffs Unknown /0000 e) s by mouth mcg/Act every 4 hours prn Zolpidem Tartrate Active Tablets 10mg 1 tab by Unknown /0000 mouth every night at bedtime Morphine Sulfate Active Tablets 15mg 1 by Unknown /0000 mouth qam Morphine Sulfate Active Tablets 30mg 1 tab po qhs Aspirin Active Tablets 81mg 1 by Unknown /0000 mouth every day Oxycodone HCL Active Tablets 10mg qd GRUPO Saenz Rabeprazole Active Tablets DR 20mg 1 by Unknown Sodium /0000 mouth every day Levocetirizine Active Tablets 5mg [place], Dihydrochloride / Dahiana Sanchez NP Hydrochlorothiazi Active Tablets 25mg 1 by Unknown de /0000 mouth every day Vitamin B12 Active Tablets ER 1000mcg 1 by Unknown /0000 mouth every day Flovent HFA Active Aerosol 220mcg/Ac inhale 3 t puffs once poer day as needed Vitamin B-12 03/20 Hx Tablets take 1 by Dagmar mouth a Cowdery, - day M.D. 05/18 [place] 08/26 Hx Tablets 5-325mg 60tab 1 tablet M17.12 s by mouth Bordoni, - every 4-6 [employer] 03/09 hours needed for pain. Verapamil HCL ER 11/21 Hx Caps ER 240mg 90cap 1 by 785.0 Mar 24HR s mouth Luis Miguel, - every day M.D. 05/22 Fluoxetine HCL Hx Capsules 40mg 1 po qd Unknown / - 03/12 Verapamil HCL ER / Hx Tablets ER 180mg 1 po qd Unknown / - 11/21 Losartan Hx Tablets 25mg 1 po qd Unknown Potassium - 05/18 Ambien CR Hx Tablets ER 12.5mg 1 qhs prn Unknown / - 09/25 Symbicort Hx Aerosol 160-4.5mc 2 puffs Unknown / g/Act po bid - 08/[address] 20mg 1 po qd Unknown / prn - 04/04 Xalatan / Hx Solution 0.005% qhs 1 ggt Unknown / - 05/08 Flonase Hx Suspension 50mcg/Act 1unit 2 Unknown s intranasa - l puffs 03/12 to nostril daily Dicyclomine HCL Hx Capsules 10mg 30cap take 1 Unknown /0000 s capsule - by mouth 05/08 2 times per day for spasm of digestive system as needed Clonazepam Hx Tablets 0.5mg 30tab 1 po bid Unknown /0000 s prn - 05/18 Proventil HFA Hx Aerosol 108(90Bas 1Mon 2 puff(s) Unknown /0000 e) inhalatio - mcg/Act n 1 qid 08/07 prn Econazole Nitrate Hx Cream 1% 30gm apply to Unknown /0000 affected - area 05/18 twice daily as needed Flovent Diskus Hx qid Unknown /0000 - 05/18 Qnasl Hx Aerosol 80mcg/Act 8.700 2 Unknown /0000 gm inhalatio - ns in 05/08 nostril once daily prn Levocetirizine Hx Tablets 5mg 1 by Unknown Dihydrochloride /0000 mouth - every day 09/25 pr Acetaminophen-Cod Hx Tablets 300-30mg 40tab 1 tab by Unknown eine #3 /0000 s mouth at - bedtime 05/18 Xyzal Hx Tablets 5mg 30tab 1 by Unknown /0000 s mouth - every day 05/18 Tylenol With Hx Unknown Codeine #3 /0000 - 09/25 Guaifenesin ac Hx Syrup 1o ml q6h Unknown /0000 prn - 05/18 Tramadol HCL 00 Hx Tablets 50mg 1 bid as Unknown /0000 needed - 05/22 Losartan 00 Hx Tablets 25mg 1 po qd Unknown Potassium /0000 (Hold as - of 12/1611/21/14 /2014 Dicyclomine HCL Hx Capsules 10mg take one Unknown /0000 capsule - by mouth 03/07 every hours as needed Xalatan Hx Solution 0.005% both eyes Unknown /0000 every - night at 03/07 bedtime ggt Oxycodone-Acetami Hx Tablets 5-325mg take 1 Unknown nophen /0000 tablet by - mouth qid 08/29 as needed for pain Revlimid Hx Capsules 25mg 1 by Unknown /0000 mouth - every day 08/29 21 then 7 days off Losartan Hx Tablets 25mg 1 by Unknown Potassium /0000 mouth - every day 03/07 Montelukast Hx Tablets 10mg 1 by Unknown Sodium /0000 mouth - every day 05/22 Sulfamethoxazole/ Hx Tablets 800-160mg Howson, Trimethoprim DS Destinee Duarte, 04/04 Lidocaine Hx Patches 5% apply Unknown patch up - to once a day. Losartan Hx Tablets 25mg Howson, Potassium /0000 Destinee Duarte, 08/29 Medications Administered in Office Medication Date Status Form Strength Qnty SIG Indications Ordering Provider Depomedrol Administered Injection Mary 80MG 015 Srinivasa Carcamo Depomedrol Administered Injection Dirk Dandre, 80MG 014 M.DJustine Depomedrol Administered Injection Dirk Dandre, 80MG 011 M.D. Depomedrol Administered Injection Dirk Dandre, 40MG 010 M.D. Vital Signs Date Vital Result Comment 09/19/2017 Height 62 inches 5'2" Weight 206.50 lb Heart Rate 96 /min BP Systolic Sitting 108 mmHg Rue large cuff BP Diastolic Sitting 72 mmHg Rue large cuff BP Systolic Standing 98 mmHg Rue BP Diastolic Standing 70 mmHg Rue Respiratory Rate 16 /min BMI (Body Mass Index) 37.8 kg/m2 Ejection Fraction 60-65% 05/05/17 05/19/2017 Height 62 inches 5'2" Weight 207.00 lb BP Systolic 110 mmHg BP Diastolic 72 mmHg Respiratory Rate 20 /min Body Temperature 97.8 F Pain Level 6 BMI (Body Mass Index) 37.9 kg/m2 04/05/2017 Height 62 inches 5'2" Weight 207.00 lb Heart Rate 86 /min BP Systolic Sitting 130 mmHg BP Diastolic Sitting 78 mmHg Respiratory Rate 15 /min BMI (Body Mass Index) 37.9 kg/m2 03/08/2017 Height 62 inches 5'2" Weight 207.00 lb Heart Rate 92 /min BP Systolic Sitting 118 mmHg BP Diastolic Sitting 68 mmHg Respiratory Rate 14 /min BMI (Body Mass Index) 37.9 kg/m2 09/07/2016 Height 62 inches 5'2" Weight 197.00 lb Heart Rate 88 /min BP Systolic Sitting 132 mmHg BP Diastolic Sitting 86 mmHg Respiratory Rate 14 /min BMI (Body Mass Index) 36.0 kg/m2 05/23/2016 Height 62 inches 5'2" Weight 188.50 lb Heart Rate 76 /min BP Systolic Sitting 128 mmHg BP Diastolic Sitting 84 mmHg Pain Level 14 BMI (Body Mass Index) 34.5 kg/m2 09/28/2015 Height 62 inches 5'2" Weight 193.00 lb Pain Level 1 BMI (Body Mass Index) 35.3 kg/m2 08/26/2015 Height 62 inches 5'2" Weight 193.00 lb Pain Level 8 BMI (Body Mass Index) 35.3 kg/m2 08/07/2015 Height 62 inches 5'2" Weight 193.00 lb Pain Level 3 BMI (Body Mass Index) 35.3 kg/m2 05/20/2015 Height 62 inches 5'2" Weight 193.00 lb Heart Rate 18 /min BP Systolic Sitting 138 mmHg BP Diastolic Sitting 92 mmHg Respiratory Rate 14 /min BMI (Body Mass Index) 35.3 kg/m2 12/16/2014 Height 62 inches 5'2" Weight 196.00 lb w/o shoes Heart Rate 90 /min reg BP Systolic Sitting 114 mmHg LA, reg cuff BP Diastolic Sitting 72 mmHg LA, reg cuff BP Systolic Standing 108 mmHg LA BP Diastolic Standing 70 mmHg LA Respiratory Rate 16 /min BMI (Body Mass Index) 35.8 kg/m2 11/21/2014 Height 62 inches 5'2" Weight 198.00 lb no shoes Heart Rate 88 /min BP Systolic Sitting 114 mmHg Ra, Lg cuff BP Diastolic Sitting 84 mmHg Ra, Lg cuff BP Systolic Standing 114 mmHg Ra BP Diastolic Standing 80 mmHg Ra Respiratory Rate 16 /min BMI (Body Mass Index) 36.2 kg/m2 11/11/2014 Height 62 inches 5'2" Weight 196.00 lb Heart Rate 92 /min BP Systolic Sitting 108 mmHg Ra large cuff BP Diastolic Sitting 78 mmHg Ra large cuff BP Systolic Standing 106 mmHg Ra BP Diastolic Standing 78 mmHg Ra Respiratory Rate 16 /min BMI (Body Mass Index) 35.8 kg/m2 05/19/2014 Height 61.5 inches 5'1.50" Weight 188.00 lb Heart Rate 71 /min BP Systolic 110 mmHg BP Diastolic 71 mmHg BMI (Body Mass Index) 34.9 kg/m2 05/19/2014 Height 61.5 inches 5'1.50" Weight 188.00 lb BMI (Body Mass Index) 34.9 kg/m2 03/12/2014 Height 61.5 inches 5'1.50" Weight 182.00 lb Heart Rate 72 /min BP Systolic Sitting 110 mmHg BP Diastolic Sitting 76 mmHg Respiratory Rate 16 /min BMI (Body Mass Index) 33.8 kg/m2 08/07/2013 Height 61.5 inches 5'1.50" Weight 182.00 lb Heart Rate 72 /min BP Systolic Sitting 122 mmHg LA reg cuff BP Diastolic Sitting 80 mmHg LA reg cuff BP Systolic Standing 130 mmHg LA BP Diastolic Standing 80 mmHg LA BMI (Body Mass Index) 33.8 kg/m2 07/01/2013 Height 52 inches 4'4" Weight 180.00 lb Heart Rate 66 /min BP Systolic 114 mmHg Ra lg cuff BP Diastolic 78 mmHg Ra lg cuff BP Systolic Sitting 108 mmHg LA BP Diastolic Sitting 74 mmHg LA BP Systolic Standing 110 mmHg LA BP Diastolic Standing 70 mmHg LA Respiratory Rate 18 /min BMI (Body Mass Index) 46.8 kg/m2 03/13/2013 Height 61.5 inches 5'1.50" Weight 174.00 lb Heart Rate 76 /min BP Systolic 112 mmHg BP Diastolic 74 mmHg Respiratory Rate 16 /min BMI (Body Mass Index) 32.3 kg/m2 Results Test Date Test Result H/L Range Note Urinalysis Profile 03/13/2017 Urine Color Yellow 1 Urine Appearance Clear 1 Urine Specific [place] 1.021 1.010-1.030 1 Urine pH 5.0 5-9 1 Urine Urobilinogen Negative Negative 1 Urine Ketones Negative Negative 1 Urine Protein 1+(30 mg/dL) Negative 1 Urine Leukocytes 1+ Negative 1 Urine Blood Negative Negative 1 * * Negative 1, 2 Urine Nitrite Negative Negative 1 Urine Bilirubin Negative Negative 1 Urine Glucose Negative Negative 1 Urine White Blood Cell 2+(11-20/hpf) Absent 1 Urine Red Blood Cell Trace(0-2/hpf) Absent 1 Urine Bacteria Absent Absent 1 Urine Squamous Epithelial Cell Present Absent 1 Vitamin B12 And Folate Serum 03/13/2017 Vitamin B12 236 pg/mL 180-914 3 Folic Acid (Folate) > 20.00 ng/mL >3.99 4 Urinalysis Profile 03/13/2017 Urine Color Yellow Urine Appearance Cloudy Urine Specific [place] 1.015 1.010-1.030 Urine pH 6.0 5-9 Urine Urobilinogen Negative Negative Urine Ketones Negative Negative Urine Protein Negative Negative Urine Leukocytes 3+ Negative Urine Blood 1+ Negative Urine Nitrite Negative Negative Urine Bilirubin Negative Negative Urine Glucose Negative Negative Urine White Blood Cell 3+(>20/hpf) Absent Urine Red Blood Cell 1+(3-5/hpf) Absent Urine Bacteria Absent Absent Urine Squamous Epithelial Cell Present Absent Creatinine 03/13/2017 Creatinine 0.67 mg/dL 0.51-0.95 Egfr Non- 84.9 >60 Egfr 109.2 >60 5 Urine Culture And Sensitivities 03/13/2017 Urine Culture SEE RESULT BELOW 6 1 [id number] 2 *Ascorbic acid is present which may interfere with detection of blood. 3 Normal Range 180 to 914 Indeterminate Range 145 to 180 Deficient Range <145 4 Copy Result to: DESTINEE BRAUN ([id number]) URINE MAY NEED TO BE RE-COLLECTED DUE TO CONTAIMINATION WITH TOILET PAPER- SENT PT HOME WITH EXTRA URINE CONTAINER FOR RE-COLLECTION 5 Because ethnic data is not always readily available, this report includes an eGFR for both -Americans and non- Americans. The National Kidney Disease Education Program (NKDEP) does not endorse the use of the MDRD equation for patients that are not between the ages of 18 and 70, are , have extremes of body size, muscle mass, or nutritional status, or are non- or non-. According to the National Kidney Foundation, irrespective of diagnosis, the stage of the disease is based on the level of kidney function: Stage Description GFR(mL/min/1.73 m(2)) 1 Kidney damage with normal or decreased GFR 90 2 Kidney damage with mild decrease in GFR 60-89 3 Moderate decrease in GFR 30-59 4 Severe decrease in GFR 15-29 5 Kidney failure <15 (or dialysis) 6 SEE RESULT BELOW Name: DELORIS KHOURY : [address]: Dagmar Wild MD Acct: [id number] Unit: [id number] AGE: 81 Location: [facility] Re03/13/17 SEX: F Status: REG REF SPEC: [id number] AROLDO: 03/13/17-[address] [facility] DR: Dagmar Wild MD REQ: [id number] RECD: 03/13/17 STATUS: KIN FLOYD DR: Destinee Braun MD _ SOURCE: URINE SPDESC: ORDERED: Urine Culture Procedure Result Reported Site Urine Culture Final 03/15/17- 1104 ML Organism 1 STREP GROUP B [place] Count 25-50,000 (Moderate) CFU/ML Organism 2 NORMAL DOUG [place] Count 10-25,000 (Moderate) CFU/ML Susceptibility testing of penicillins and other B-lactams approved by FDA for treatment of Streptococcus pyogenes (Group A Strep) and Streptococcus agalactiae (Group B Strep) is not necessary for clinical purposes and need not be done routinely, since as with vancomycin, resistant strains have not been recognized. (CLSI U878-L12;p.66) Positive isolates will be saved for one week. Please call the Microbiology Laboratory if further susceptibility testing is needed. * ML - [facility] . END OF REPORT * ML=Testing performed at Main Lab DEPARTMENT OF PATHOLOGY, [address] [place] [address] Peng Bright M.D. Director [facility] # [id number] Procedures Date CPT Code Description Status Comment 09/19/2017 35421 EKG Tracing & Interpretation Completed 05/05/2017 73532 ECHO Transthoracic, Real-Time 2D With Doppler Completed And Color Flow 03/21/2017 57832 EEG Recording Awake & Drowsy Completed 08/26/2015 Inject/Drain Joint/Bursa Major Completed 08/26/2015 Inject/Drain Joint/Bursa Major Completed 11/13/2014 37443 Holter Monitoring 24 HR New Completed 11/11/2014 64589 EKG Tracing & Interpretation Completed 05/19/2014 13170 Xray Knee 3 Views Completed 05/19/2014 02723 Rad Exam; Knee, Ap&L Completed 05/19/201416774 Inject/Drain Joint/Bursa Major Completed KNEE 05/19/201457234 Inject/Drain Joint/Bursa Major Completed HIP 08/05/2013 04758 Stress Test Completed 07/01/2013 48769 EKG Tracing & Interpretation Completed 06/12/2013 88476 ECHO Transthoracic, Real-Time 2D With Doppler Completed And Color Flow 10/18/2010 40647 Xray Knee 3 Views Completed 10/18/2010 07108 Rad Exam; Knee, Ap&L Completed 10/18/2010 Inject/Drain Joint/Bursa Major Completed 11/30/2009 Inject/Drain Joint/Bursa Major Completed 09/23/2009 Inject/Drain Joint/Bursa Major Completed 09/16/2009 Inject/Drain Joint/Bursa Major Completed 09/10/2009 11888 Rad Exam; Knee Comp Completed 09/10/2009 Inject/Drain Joint/Bursa Major Completed Encounters Type Date Location Provider CPT E/M Dx Office Visit 05/19/2017 [facility] Mary Carcamo M.D. 28833 M25.552 3:15p Of Jannette C90.00 M16.12 Office Visit 04/05/2017 12:00p [facility] Dagmar Wild M.D. 71744 R41.89 Services Of Housecalls Nurse R90.89 Office Visit 03/08/2017 11:30a [facility] Dagmar Wild M.D. 29958 R41.89 Services Of Housecalls Nurse R90.89 C90.00 Office Visit 11/24/2016 2:12p [facility] Mayte Thibodeaux, 23586 R53.1 Assoc,pc [employer] Hospitalists N39.0 R10.11 Office Visit 10/31/2016 7:00a [facility], 30669 K56.60 Ceasar MTere Office Visit 10/30/2016 7:00a [facility], 68608 K56.69 Ceasar M.DJustine Office Visit 10/30/2016 3:01p [facility] Phyllis Blancas, 27225 K56.69 Assoc,pc Hospitalists Srinivasa C90.00 Office Visit 09/07/2016 1:00p [facility] Dagmar Wild M.D. 08066 R41.89 Services Of Housecalls Nurse G25.0 G50.0 R90.89 Office Visit 08/16/2016 7:00a [facility] [place] [address] K56.60 [facility] Office Visit 08/14/2016 7:00a [facility] [place] [address] K56.60 [facility] Office Visit 08/13/2016 7:00a [facility] [place] [address] K56.60 [facility] Office Visit 05/23/2016 11:00a [facility] Dagmar Wild, 03925 G50.0 Services Of Ceasar Bernabe G25.0 R41.89 Office Visit 09/28/2015 9:30a [facility] Mary Carcamo M.D. 19412 M54.32 C.M.A. M16.12 M17.12 M70.62 Office Visit 08/26/2015 10:45a [facility] Mary Carcamo M.D. 80942 M54.32 C.M.A. M16.12 M17.12 Office Visit 08/07/2015 11:00a [facility] Tara Garcia, 71812 M16.12 C.M.A. RPA-C M17.0 Office Visit 07/24/2015 1:00p [facility] T[facility] Garcia, 62623 M16.12 C.M.A. RPA-C Office Visit 05/20/2015 2:15p [facility] Dagmar Wild M.D. 54959 333.1 Services Of Housecalls Nurse 799.59 Office Visit 12/16/2014 11:30a [facility] GRUPO Peoples 31692 785.1 401.9 785.0 786.05 Office Visit 11/21/2014 2:00p [facility] GRUPO Peoples 33578 786.05 785.1 401.9 785.0 Office Visit 11/11/2014 3:45p [facility] Of Mar Bolanos M.D. 24123 786.05 Ceasar 401.9 785.1 Office Visit 05/19/2014 10:15a [facility] Cesar Amos M.D. 59419 726.5 C.M.A. 727.09 715.36 Office Visit 03/12/2014 11:00a [facility] Dagmar Wild M.D. 11344 333.1 Services Of [facility] 729.2 799.59 Office Visit 08/07/2013 10:15a [facility] Of Mar Bolanos M.D. 38849 786.05 [facility] 401.9 Office Visit 07/01/2013 9:45a [facility] Of Mar Bolanos M.D. 55922 786.05 [facility] 401.9 278.00 V17.49 Office Visit 03/13/2013 11:15a [facility] Dagmar Wild M.D. 70346 333.1 Services Of [facility] 729.2 Office Visit 09/12/2012 11:15a [facility] Dagmar Wild M.D. 40540 333.1 Services Of [facility] 729.2 Office Visit 11/30/2009 9:15a [facility] Cesar Amos M.D. 98145 716.96 C.M.A. 836.0 Office Visit 10/26/2009 8:30a [facility] Cesar Amos M.D. 12756 716.96 C.M.A. 836.0 Office Visit 09/10/2009 2:00p [facility] [place] [address] 715.96 C.M.A. Plan of Care Future Appointment(s):11/13/2017 3:00 pm - Mar Bolanos M.D. at [facility]10/24/2017 1:00 pm - [facility] ECHO Schedule at [facility]09/22/2017 1:00 pm - Dagmar Wild M.D. at [facility]09/19/2017 - Mar Bolanos M.D.R06.02 Shortness of breathNew Orders: [id number] Essential (primary) ctburymaxwctC39.8 Other cardiomyopathiesNew Orders:EchocardiogramFollow up:MD or PA/NPI50.32 Chronic diastolic (congestive) heart failureNew Orders:[id number] Obesity, unspecifiedComments:Medeterranian diet.You are overweight, this can lead to diabetes and other health problems.Z91.81 History of falling
[2017-10-05 00:23] LABS: EGFR Non-African American 74.5 (>60)
[2017-10-05] MEDS ORDERED: NS 0.9% 1000 ML*IV.FLUID IV ONE (00:30)
[2017-10-05] MEDS ORDERED: Cefepime(*) 2 GM in NS 0.9% 50 ML* 50 ML IVPB ONE (00:30)
[2017-10-05] MEDS ORDERED: Levofloxacin 750 MG IVPREMIX(* 750 MG/150 ML BAG IVPB ONE (00:30)
[2017-10-05 00:38] LABS: ABS Basophils 0 10^3/ul (0-0.2); ABS Eosinophils 0 10^3/ul (0-0.6); ABS Lymphocytes 1.7 10^3/ul (1.0-4.8); ABS Monocytes 1.6 10^3/ul (0-0.8); ABS Neutrophils 10.5 10^3/ul (1.5-7.7); ABS Nucleated RBC 0 10^3/ul; Eosinophil % 0.3 % (0-6); Lymphocyte % 12.3 % (25-47); Nucleated Red Blood Cells % 0
[2017-10-05] MEDS ORDERED: NS 0.9% 50 ML* 50 ML ONE (00:45)
[2017-10-05] MEDS ORDERED: Cefepime 2 GM in Dextrose(*) 2 GM/50 ML BAG IV ONE (01:00)
[2017-10-05 01:11] LABS: INR 0.91 (0.77-1.02)
[2017-10-05] MEDS ORDERED: Docusate CAP* 100 MG PO PRN (01:47)
[2017-10-05] MEDS ORDERED: Senna TAB PO PRN (01:47)
[2017-10-05] MEDS ORDERED: Al Hydrox/Mg Hydrox/Simet LIQ* 30 ML UDC PO PRN (01:47)
[2017-10-05] MEDS ORDERED: Ondansetron INJ* 2 MG/ML VIAL IV PRN (01:47)
[2017-10-05] MEDS ORDERED: Morphine INJ* 2 MG/ML 1 ML SYRINGE (TWO MG - NEW SYRINGE VERSION) IV PRN (01:47)
[2017-10-05] MEDS ORDERED: oxyCODONE/Acetamin 5/325 MG* TAB PO PRN (01:47)
[2017-10-05] MEDS ORDERED: Albuterol HFA INHALER* 8 gm MDI INH PRN (02:06)
[2017-10-05] MEDS ORDERED: celeCOXIB CAP* 200 MG PO PRN (02:09)
[2017-10-05 02:20] LABS: Urine Appearance C; Urine Color Straw
[2017-10-05 02:21] LABS: Urine Blood N (Negative); Urine Ketones Negative (Negative); Urine Protein N (Negative); Urine Urobilinogen N (Negative)
--- NOTE | 2017-10-05 03:31 | HP ---
CC: Destinee Fitzgerald MD * HISTORY AND PHYSICAL: DATE OF ADMISSION: 10/05/17 TIME OF EVALUATION: 0100. PRIMARY CARE PHYSICIAN: Destinee Fitzgerald MD CHIEF COMPLAINT: Altered mental status, lethargy. HISTORY OF PRESENT ILLNESS: This is a 81-year-old female with a past medical history of multiple myeloma, which unclear if this is a relapse or the patient is stable with the myeloma, who presents to the emergency room with acute onset of altered mental status. The patient has 24-hour care at home. The homecare person Kiara who is at the bedside states around 5 p.m. she came in, she was doing fine. She was visiting with a friend and then around 7 p.m. last evening, there was a dramatic change, she was not eating or drinking. She was very lethargic and confused and her home health aid called EMS for further evaluation. The patient states she has been coughing. She is a poor historian. She states she has some nausea. No chest pain, abdominal discomfort , no fevers or chills, no lower extremity swelling. No headache. She states she feels a lot better than she did earlier. When asked about choking episodes of food, her homecare states she does do that quite often. Last fall was 3 months ago and a railing was placed on her bed, has not fallen since. She does normally ambulate with a walker. Otherwise, remaining review of systems negative. In the emergency room, the patient had labs, imaging. She was given cefepime and 3 L of fluid and referred to the hospitalist service for further evaluation. PAST MEDICAL HISTORY: 1. Multiple myeloma, followed by Dr. Gonzalez. 2. History of small bowel obstruction. 3. History of diverticulitis. 4. Hypertension. 5. History of chronic back pain related to lumbar stenosis. 6. The patient has lytic lesions from her multiple myeloma seen on a recent bone scan from the , shows stable lesions of the skull, left and right humeri , fractures of the left acetabulum and inferior pubic ramus, osteopenia, history of stable compression fractures of T12. 7. Dementia. 8. Osteoarthritis. 9. Asthma. MEDICATIONS: Homecare aide Kiara gave the list to EMS, it is not in the chart and the nursing staff does not have it either. We will call the pharmacy in the morning to get the med rec. ALLERGIES: AMOXICILLIN, EPINEPHRINE. FAMILY HISTORY: Mother in her 50s from CAD. Father from CAD as well. SOCIAL HISTORY: The patient lives at home. She has 24-hour care, though she ambulates with a walker. No history of tobacco use. Drinks about half a glass of wine 1 to 2 times per month. Her daughter, Elizabeth Dewey, is her healthcare proxy, phone number is [phone]. 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 She did bring her MOLST form, which is a DNR/DNI and this was confirmed, there was no change. REVIEW OF SYSTEMS: A 14-point review of systems as mentioned in the HPI, otherwise negative. PHYSICAL EXAMINATION GENERAL: In no acute distress. Resting comfortably with her aide at the bedside. VITAL SIGNS: Temperature 99.4, pulse rate 124, respiratory rate 20, oxygen saturation 92% on 2 L, blood pressure 115/65. HEENT: Head: Normocephalic. Pupils are equal, reactive and anicteric. Oropharynx: Mucous membranes moist. She has noted white patches on the roof of her hard and soft palate. NECK: Supple. No lymphadenopathy. RESPIRATORY: Diminished breath sounds. Rhonchi noted on the right middle lobe. CARDIAC: Tachycardia. Soft systolic murmur heard. ABDOMEN: Soft nontender, nondistended. EXTREMITIES: Trace pretibial edema. +1 DPs. NEUROLOGIC: The patient is alert and oriented x2. Oriented to place and self. No gross focal neurologic deficits. LABORATORY DATA: White count 13.9, hemoglobin 12.3, hematocrit 37, platelets 171,000. INR is 0.91. Sodium 130, potassium 4.1, chloride 96, bicarb 25, BUN 19, creatinine 0.75, lactate is 2.4. RADIOGRAPHIC DATA: Chest x-ray shows prominent interstitial markings in the right middle lobe region and the left pleural effusion. EKG shows sinus tachycardia. ASSESSMENT/PLAN: This is a 81-year-old female with past medical history of multiple myeloma followed by Dr. Gonzalez who presents to the emergency room with acute onset of altered mental status in the setting of coughing and choking episodes with food, found to have what appears to be an aspiration pneumonia. 1. Altered mental status. Assessment: I suspect patient has aspiration pneumonia. She meets sepsis criteria. Plan: We will admit her with IV antibiotics, continue cefepime, continue IV fluids. We will place a speech and swallow eval in the morning and place her on clears for now. 2. Thrush. The patient noted to have oral thrush. We will place her on nystatin as well. 3. Chronic medical problems. We will need to obtain a med rec in the morning to order accordingly. We will contact Oncology to see if they will take over service. 4. FEN. We will place the patient as mentioned on clear liquid diet with IV fluids and we will advance once speech therapy has evaluated her. 5. DVT prophylaxis. The patient scores high risk. Placed her on heparin subcu t.i.d. 6. Code status. The patient is a DNR/DNI. TIME SPENT: Greater than 60 minutes has been spent doing the history and physical, more than half time spent in direct patient contact. [id number] #: [id number] ANASTACIO
[2017-10-05] MEDS: Nystatin SUSPENSION* 100000 UNITS/ML 5 ML UDC PO SCH ×5 (06:02→21:29)
[2017-10-05] MEDS: Heparin VIAL(*) 5000 UNITS/ML VIAL (FIVE THOUSAND) SUBCUT SCH ×3 (06:03→21:29)
[2017-10-05] MEDS: Omeprazole CAP* 20 MG PO SCH (06:03)
[2017-10-05] MEDS: NS 0.9% 1000 ML* 1,000 ML IV SCH ×2 (06:06→14:50)
[2017-10-05 07:33] LABS: ABS Basophils 0 10^3/ul (0-0.2); ABS Eosinophils 0 10^3/ul (0-0.6); ABS Lymphocytes 1.6 10^3/ul (1.0-4.8); ABS Monocytes 1.2 10^3/ul (0-0.8); ABS Nucleated RBC 0 10^3/ul; Eosinophil % 0.3 % (0-6); Hematocrit 33 % (35-47); Hemoglobin 11.6 g/dl (12.0-16.0); Lymphocyte % 14.5 % (25-47); Mean Corpuscular HGB Conc 35 g/dl (31-36); Mean Corpuscular Hemoglobin 33 pg (27-31); Mean Corpuscular Volume 94 fL (80-97); Mean Platelet Volume 8 um3 (7.4-10.4); Nucleated Red Blood Cells % 0; Platelet Count 157 10^3/ul (150-450); Red Blood Count 3.56 10^6/ul (4.0-5.4); Red Cell Distribution Width 15 % (10.5-15); White Blood Count 10.8 10^3/ul (3.5-10.8)
--- NOTE | 2017-10-05 07:48 | RAD ---
INDICATION: Confusion and tachycardia. COMPARISON: Comparison is made with a prior chest x-ray study from July 19, 2017. TECHNIQUE: Dual-energy PA and lateral views of the chest were obtained. FINDINGS: The heart is within normal limits in size. Mediastinal and hilar contours appear within normal limits. There is a power port central venous catheter present on the right side. The catheter tip projects over the right atrium. The lungs are underinflated. There is a small infiltrate at the left lung base. No pleural effusion is seen. IMPRESSION: EXPIRATORY EXAM, SMALL LEFT BASILAR INFILTRATE.
[2017-10-05] MEDS ORDERED: celeCOXIB CAP* 200 MG PO SCH (09:00)
[2017-10-05] MEDS: Aspirin EC Low Dose* 81 MG TAB.EC PO SCH (09:26)
[2017-10-05] MEDS: Morphine TAB Extended Release (*) 15 MG TAB.ER PO SCH (09:27)
[2017-10-05] MEDS: oxyCODONE TAB* 5 MG TAB PO PRN (09:28)
[2017-10-05] MEDS: Acetaminophen TAB* 325 MG PO PRN ×2 (09:29→19:14)
[2017-10-05] MEDS: PARoxetine HCL TAB* 20 MG PO SCH (09:29)
[2017-10-05] MEDS ORDERED: Cefepime(*) 1 GM in NS 0.9% 50 ML* 50 ML IVPB SCH (13:00)
[2017-10-05] MEDS ORDERED: Cefepime 1 GM in Dextrose(*) 1 GM/50 ML BAG IV SCH (13:00)
[2017-10-05] MEDS: Mometasone 220 MCG MDI INH SCH (18:02)
[2017-10-05] MEDS ORDERED: ZOSYN 3.375 GM x ONE DOSE over 30 miuntes IVPB ×2 (18:30)
--- NOTE | 2017-10-05 19:47 | RAD ---
INDICATION: Evaluate for small bowel obstruction COMPARISON: CT July 19, 2017 TECHNIQUE: A single view of the abdomen is submitted. FINDINGS: Bones: There are no acute bony findings. There are old fractures left hemipelvis to include fractures through the acetabulum. There is advanced narrowing about the joint space with hypertrophic change/sclerosis all unchanged. There is osteopenia with levoscoliosis Soft tissues: The soft tissues appear normal. The psoas margins are sharp. Bowel gas pattern: Nonspecific Calcifications: There are no abnormal calcifications. Other: None IMPRESSION: NO ACUTE DIAGNOSTIC FINDINGS.
[2017-10-05] MEDS: Morphine TAB Extended Release (*) 30 MG TAB.ER PO SCH (21:28)
[2017-10-05] MEDS ORDERED: Piperacillin/Tazobac (*) 3.375 GM BAG IVPB SCH (22:00)
[2017-10-06] MEDS: Piperacillin/Tazobactam 13.5 GM IV 24 hour continuous infusion IVPB SCH ×2 (00:30)
[2017-10-06] MEDS: Montelukast Sodium TAB* 10 MG PO SCH ×2 (00:35→22:54)
[2017-10-06] MEDS: NS 0.9% 1000 ML* 1,000 ML IV SCH ×2 (03:38→15:41)
[2017-10-06] MEDS: Omeprazole CAP* 20 MG PO SCH (06:52)
[2017-10-06] MEDS: Heparin VIAL(*) 5000 UNITS/ML VIAL (FIVE THOUSAND) SUBCUT SCH ×3 (06:52→22:59)
[2017-10-06] MEDS: Aspirin EC Low Dose* 81 MG TAB.EC PO SCH (07:48)
[2017-10-06] MEDS: Nystatin SUSPENSION* 100000 UNITS/ML 5 ML UDC PO SCH ×4 (07:48→22:58)
[2017-10-06] MEDS: Morphine TAB Extended Release (*) 15 MG TAB.ER PO SCH (07:48)
[2017-10-06] MEDS: PARoxetine HCL TAB* 20 MG PO SCH (07:48)
[2017-10-06 08:19] LABS: ABS Basophils 0 10^3/ul (0-0.2); ABS Eosinophils 0 10^3/ul (0-0.6); ABS Lymphocytes 1.7 10^3/ul (1.0-4.8); ABS Monocytes 1.1 10^3/ul (0-0.8); ABS Neutrophils 7.9 10^3/ul (1.5-7.7); ABS Nucleated RBC 0 10^3/ul; Eosinophil % 0.4 % (0-6); Hematocrit 32 % (35-47); Hemoglobin 10.9 g/dl (12.0-16.0); Mean Corpuscular HGB Conc 34 g/dl (31-36); Mean Corpuscular Hemoglobin 32 pg (27-31); Mean Corpuscular Volume 94 fL (80-97); Mean Platelet Volume 9 um3 (7.4-10.4); Nucleated Red Blood Cells % 0; Platelet Count 147 10^3/ul (150-450); Red Blood Count 3.38 10^6/ul (4.0-5.4); Red Cell Distribution Width 15 % (10.5-15); White Blood Count 10.8 10^3/ul (3.5-10.8)
[2017-10-06 08:31] LABS: EGFR Non-African American 84.9 (>60)
--- NOTE | 2017-10-06 12:47 | PN ---
Progress Note - Progress Note Date of Service: 10/06/17 SOAP: Subjective: []Seen and examined this AM @ approx. 10am. Feeling better than yesterday, though admits she really doesn't remember yesterday. Daughter does not know if she has been choking or not recently. Says she was able to get up to bathroom today but wants to use bed knox as it just wore her 'right out'. Denies difficulty breathing. Medications: Acetaminophen (Tylenol Tab*) 650 mg PO Q4H PRN PRN Reason: FEVER/PAIN Last Admin: 10/05/17 19:14 Dose: 650 mg Al Hydrox/Mg Hydrox/Simethicone (Maalox Plus*) 30 ml PO Q6H PRN PRN Reason: INDIGESTION Albuterol (Ventolin Hfa Inhaler*) 2 puff INH Q4H PRN PRN Reason: SOB/WHEEZING Aspirin (Aspirin Ec Low Dose*) 81 mg PO DAILY [facility] Last Admin: 10/06/17 07:48 Dose: 81 mg Celecoxib (Celebrex Cap*) 200 mg PO DAILY PRN PRN Reason: PAIN Docusate Sodium (Colace Cap*) 100 mg PO BID PRN PRN Reason: CONSTIPATION Last Admin: 10/05/17 09:26 Dose: 100 mg Heparin Sodium (Porcine) (Heparin Vial(*)) 5,000 units SUBCUT Q8HR [facility] Last Admin: 10/06/17 06:52 Dose: 5,000 units Sodium Chloride (Ns 0.9% 1000 Ml*) 1,000 mls @ 100 mls/hr IV PER RATE [facility] Last Admin: 10/06/17 03:38 Dose: 100 mls/hr Piperacillin Sod/Tazobactam (Sod 13.5 gm/ Sodium Chloride) 500 mls @ 20.833 mls /hr IVPB Q24H [facility] Last Admin: 10/06/17 00:30 Dose: 20.833 mls/hr Mometasone Furoate (Asmanex 220 Mcg Mdi *) 2 puff INH QPM [facility] Last Admin: 10/05/17 18:02 Dose: Not Given Montelukast Sodium (Singulair Tab*) 10 mg PO BEDTIME [facility] Last Admin: 10/06/17 00:35 Dose: 10 mg Morphine Sulfate (Morphine Inj (Syringe)*) 2 mg IV Q4H PRN PRN Reason: PAIN Morphine Sulfate (Ms Contin(*)) 15 mg PO DAILY [facility] Last Admin: 10/06/17 07:48 Dose: 15 mg Morphine Sulfate (Ms Contin(*)) 30 mg PO DAILY@2100 [facility] Last Admin: 10/05/17 21:28 Dose: 30 mg Nystatin (Nystatin Suspension*) 500,000 units PO QID [facility] Stop: 10/12/17 01:51 Last Admin: 10/06/17 12:24 Dose: 500,000 units Omeprazole (Prilosec Cap*) 20 mg PO 0600 [facility] Last Admin: 10/06/17 06:52 Dose: 20 mg Ondansetron HCl (Zofran Inj*) 4 mg IV Q4H PRN PRN Reason: NAUSEA/VOMITING Oxycodone HCl (Roxycodone Tab*) 10 mg PO Q4H PRN PRN Reason: PAIN Last Admin: 10/05/17 09:28 Dose: 10 mg Oxycodone/Acetaminophen (Percocet 5/325 Tab*) 1 tab PO Q4H PRN PRN Reason: Pain Paroxetine HCl (Paxil Tab*) 20 mg PO DAILY [facility] Last Admin: 10/06/17 07:48 Dose: 20 mg Senna (Senokot Tab*) 1 tab PO BID PRN PRN Reason: CONSTIPATION Last Admin: 10/05/17 09:29 Dose: 1 tab Objective: [] Vital Signs Temp Pulse Resp BP Pulse Ox 98.5 F 84 16 116/55 96 10/06/17 07:37 10/06/17 07:37 10/06/17 11:11 10/06/17 07:37 10/06/17 07:37 A&O, EOMI, answers questions appropriately HRR, S1S2 LS clear bilat. +BS, abd. soft and non-tender Laboratory Results - last 24 hr 10/06/17 10/06/17 10/06/17 06:30 06:30 11:08 WBC 10.8 RBC 3.38 L Hgb 10.9 L Hct 32 L MCV 94 MCH 32 H MCHC 34 RDW 15 Plt Count 147 L MPV 9 Neut % (Auto) 73.4 Lymph % (Auto) 16.0 L [place] % (Auto) 10.0 H Eos % (Auto) 0.4 Baso % (Auto) 0.2 Absolute Neuts (auto) 7.9 H Absolute Lymphs (auto) 1.7 Absolute Monos (auto) 1.1 H Absolute Eos (auto) 0 Absolute Basos (auto) 0 Absolute Nucleated RBC 0 Nucleated RBC % 0 Sodium 137 Potassium 3.7 Chloride 105 Carbon Dioxide 26 Anion Gap 6 BUN 9 Creatinine 0.67 Est GFR ( Amer) 109.2 Est GFR (Non-Af Amer) 84.9 BUN/Creatinine Ratio 13.4 Glucose 124 H Lactic Acid 1.4 Calcium 8.4 L Total Bilirubin 0.60 Direct Bilirubin 0.20 H Indirect Bilirubin 0.4 AST 16 ALT 16 Alkaline Phosphatase 62 Total Protein 5.4 L Albumin 3.2 Globulin 2.2 Albumin/Globulin Ratio 1.5 Assessment: []81 yo female followed by oncology due to her diagnosis of multiple myeloma off therapy for almost 4 months due to concern for poor tolerance and pt. declined, however her overall decline to me appears less likely related to her myeloma and more due to declining memory. Her kappa light chains have increased considerably, but I do not feel that is in direct correlation to her admission for infection. Plan: []As per hospitalists, oncology to follow.
[2017-10-06] MEDS: oxyCODONE TAB* 5 MG TAB PO PRN ×2 (14:28→23:51)
[2017-10-06] MEDS: Mometasone 220 MCG MDI INH SCH (17:18)
--- NOTE | 2017-10-06 19:15 | PN ---
Subjective Date of Service: 10/06/17 Interval History: Patient states that she feel better today. Denies N/V/D. Lawson chest pain or shortness of breath. Denies abd pain. Family History: Unchanged from Admission Social History: Unchanged from Admission Past Medical History: Unchanged from Admission Objective Active Medications: Acetaminophen (Tylenol Tab*) 650 mg PO Q4H PRN PRN Reason: FEVER/PAIN Last Admin: 10/05/17 19:14 Dose: 650 mg Al Hydrox/Mg Hydrox/Simethicone (Maalox Plus*) 30 ml PO Q6H PRN PRN Reason: INDIGESTION Albuterol (Ventolin Hfa Inhaler*) 2 puff INH Q4H PRN PRN Reason: SOB/WHEEZING Aspirin (Aspirin Ec Low Dose*) 81 mg PO DAILY [facility] Last Admin: 10/06/17 07:48 Dose: 81 mg Celecoxib (Celebrex Cap*) 200 mg PO DAILY PRN PRN Reason: PAIN Docusate Sodium (Colace Cap*) 100 mg PO BID PRN PRN Reason: CONSTIPATION Last Admin: 10/05/17 09:26 Dose: 100 mg Heparin Sodium (Porcine) (Heparin Vial(*)) 5,000 units SUBCUT Q8HR [facility] Last Admin: 10/06/17 14:21 Dose: 5,000 units Sodium Chloride (Ns 0.9% 1000 Ml*) 1,000 mls @ 100 mls/hr IV PER RATE [facility] Last Admin: 10/06/17 15:41 Dose: 100 mls/hr Piperacillin Sod/Tazobactam (Sod 13.5 gm/ Sodium Chloride) 500 mls @ 20.833 mls /hr IVPB Q24H [facility] Last Admin: 10/06/17 00:30 Dose: 20.833 mls/hr Mometasone Furoate (Asmanex 220 Mcg Mdi *) 2 puff INH QPM [facility] Last Admin: 10/06/17 17:18 Dose: 2 puff Montelukast Sodium (Singulair Tab*) 10 mg PO BEDTIME [facility] Last Admin: 10/06/17 00:35 Dose: 10 mg Morphine Sulfate (Morphine Inj (Syringe)*) 2 mg IV Q4H PRN PRN Reason: PAIN Morphine Sulfate (Ms Contin(*)) 15 mg PO DAILY [facility] Last Admin: 10/06/17 07:48 Dose: 15 mg Morphine Sulfate (Ms Contin(*)) 30 mg PO DAILY@2100 [facility] Last Admin: 10/05/17 21:28 Dose: 30 mg Nystatin (Nystatin Suspension*) 500,000 units PO QID [facility] Stop: 10/12/17 01:51 Last Admin: 10/06/17 17:21 Dose: 500,000 units Omeprazole (Prilosec Cap*) 20 mg PO 0600 [facility] Last Admin: 10/06/17 06:52 Dose: 20 mg Ondansetron HCl (Zofran Inj*) 4 mg IV Q4H PRN PRN Reason: NAUSEA/VOMITING Oxycodone HCl (Roxycodone Tab*) 10 mg PO Q4H PRN PRN Reason: PAIN Last Admin: 10/06/17 14:28 Dose: 10 mg Oxycodone/Acetaminophen (Percocet 5/325 Tab*) 1 tab PO Q4H PRN PRN Reason: Pain Paroxetine HCl (Paxil Tab*) 20 mg PO DAILY [facility] Last Admin: 10/06/17 07:48 Dose: 20 mg Senna (Senokot Tab*) 1 tab PO BID PRN PRN Reason: CONSTIPATION Last Admin: 10/05/17 09:29 Dose: 1 tab Vital Signs - 8 hr 10/06/17 10/06/17 10/06/17 11:11 11:50 14:28 Temperature 99.2 F Pulse Rate 82 Respiratory 16 20 16 Rate Blood Pressure 143/57 (mmHg) O2 Sat by Pulse 97 Oximetry 10/06/17 10/06/17 10/06/17 15:28 16:38 17:21 Temperature 98.4 F Pulse Rate 89 86 Respiratory 16 16 Rate Blood Pressure 133/65 (mmHg) O2 Sat by Pulse 95 92 94 Oximetry 10/06/17 17:22 Temperature Pulse Rate Respiratory 16 Rate Blood Pressure (mmHg) O2 Sat by Pulse Oximetry Oxygen Devices in Use Now: None Appearance: appears well, up sitting in the chair Eyes: No Scleral Icterus Ears/Nose/Mouth/Throat: Clear Oropharnyx, Mucous Membranes Moist Neck: NL Appearance and Movements; NL JVP, Trachea Midline Respiratory: Symmetrical Chest Expansion and Respiratory Effort, - - rhonchi in the left base Cardiovascular: NL Sounds; No Murmurs; No JVD, RRR, No Edema Abdominal: NL Sounds; No Tenderness; No Distention Extremities: No Edema, No Clubbing, Cyanosis Skin: No Rash or Ulcers Neurological: Alert and Oriented x 3, - Nutrition: Taking PO's Result Diagrams: 10/06/17 06:30 10/06/17 06:30 Assess/Plan/Problems-Billing Assessment: Ms. Khoury is a 81 y.o female with a history of Multiple myeloma, followed by Dr. Gonzalez.,small bowel obstruction;diverticulitis, Hypertension; History of chronic back pain related to lumbar stenosis.lytic lesions from her multiple myeloma, osteopenia, history of stable compression fractures of T12, Dementia , Osteoarthritis and Asthma. presented to the emergency room for confusion and cough. She was found to have pneumonia. - Patient Problems (1) DNR (do not resuscitate) Status: Acute Comment: MOLST was updated. (2) DVT prophylaxis Status: Acute Code(s): NMY4722 - SNOMED Code(s): 015960037 Comment: lovenox (3) HTN (hypertension) Status: Acute Code(s): I10 - ESSENTIAL (PRIMARY) HYPERTENSION SNOMED Code(s) : 16430127 Comment: controlled (4) Multiple myeloma Status: Acute Priority: High Onset Date: 12/22/15 Code(s): C90.00 - MULTIPLE MYELOMA NOT HAVING ACHIEVED REMISSION SNOMED Code(s): 804138890 Comment: with painful bony leasions. Will continue morphine and oxycodone (5) Aspiration pneumonia Status: Acute Code(s): J69.0 - PNEUMONITIS DUE TO INHALATION OF FOOD AND VOMIT SNOMED Code(s): 084863504 Comment: will continue zosyn oxygen support as needed swallow evaluation was normal Diet advanced to solids (6) Confusion Status: Acute Code(s): R41.0 - DISORIENTATION, UNSPECIFIED SNOMED Code(s): 441961916 Comment: improved today- alert and oreinted x3 suspect this is related to her pneumonia Status and Disposition: Possible discharge in the tomorrow
[2017-10-06] MEDS: Morphine TAB Extended Release (*) 30 MG TAB.ER PO SCH (22:55)
[2017-10-07] MEDS: Piperacillin/Tazobactam 13.5 GM IV 24 hour continuous infusion IVPB SCH ×2 (02:07)
[2017-10-07] MEDS: NS 0.9% 1000 ML* 1,000 ML IV SCH (02:08)
[2017-10-07] MEDS: Omeprazole CAP* 20 MG PO SCH (05:29)
[2017-10-07] MEDS: Heparin VIAL(*) 5000 UNITS/ML VIAL (FIVE THOUSAND) SUBCUT SCH (05:31)
[2017-10-07 07:55] VITALS: BP 110/68
[2017-10-07] MEDS: PARoxetine HCL TAB* 20 MG PO SCH (08:55)
[2017-10-07] MEDS: Morphine TAB Extended Release (*) 15 MG TAB.ER PO SCH (08:55)
[2017-10-07] MEDS: Nystatin SUSPENSION* 100000 UNITS/ML 5 ML UDC PO SCH ×2 (08:55→13:45)
[2017-10-07] MEDS: Aspirin EC Low Dose* 81 MG TAB.EC PO SCH (08:55)
--- NOTE | 2017-10-08 03:15 | DS ---
CC: Dr. Destinee Fitzgerald; Dr. Gonzalez * DISCHARGE SUMMARY: DATE OF ADMISSION: 10/05/17 DATE OF DISCHARGE: 10/07/17 PRIMARY CARE PROVIDER: Dr. Destinee Fitzgerald. DISCHARGE DIAGNOSES: 1. Left lower lobe pneumonia, questionable aspiration. 2. Altered mental status due to above. SECONDARY DIAGNOSES: 1. History of multiple myeloma. 2. History of progressive cognitive and physical ambulatory decline. 3. History of small bowel obstruction. 4. History of diverticulitis. 5. Hypertension. 6. History of low back pain and lumbar stenosis. 7. History of dementia. 8. Osteoarthritis. 9. Asthma. MEDICATIONS AT DISCHARGE: Include: 1. Cefdinir 300 mg p.o. b.i.d. for the next 5 days. 2. Azithromycin 250 mg p.o. daily for the next 5 days. The remaining medications are unchanged from admission and include: 1. Albuterol inhaler on a p.r.n. basis. 2. Aspirin 81 mg daily. 3. Celebrex 200 mg. 4. Flovent inhaler 3 puffs inhalation b.i.d. 5. Hydrochlorothiazide 25 mg daily. 6. Xyzal 5 mg daily. 7. Lidocaine cream on a p.r.n. basis. 8. Singulair 10 mg daily. 9. Morphine sulfate 15 mg a.m. and 30 mg q.p.m. 10. Oxycodone 5 mg every 4 hours p.r.n. 11. Paxil 20 mg daily. 12. MiraLAX 17 g daily. 13. Rabeprazole 20 mg daily. 14. Ambien 10 mg at bedtime on a p.r.n. basis. LABORATORY DATA: Studies performed during the hospital stay included: On 10/06, white blood cell count of 10.8, hemoglobin of 10.9, hematocrit of 32, and platelets of 147. Sodium was 137, potassium 3.7, chloride 105, carbon dioxide 26, BUN 9, creatinine 0.67. Liver function tests were unremarkable. Microbiology studies were unremarkable. The patient's portable chest x-ray at admission showed, impression: " exam. Small left posterior infiltrate." HOSPITALIZATION COURSE: Deloris Khoury is a 81-year-old female, who has had progressive decline for the past several months with her ambulatory status and dementia. The patient has history of multiple myeloma and was treated and that was stopped several weeks ago. She presented with altered mental status, more lethargy. She was noted to have left lower lobe pneumonia. Aspiration was questioned, although never proven. The patient's swallow evaluation was fine and the patient was okay for regular consistency diet. The patient was treated with Zosyn throughout her hospital stay and did very well. By the time of discharge, she still had ambulatory dysfunction and she ambulates with 1 person in assist. I discussed with the patient and the patient's daughter present by the bedside possibility of short-term rehabilitation placement versus going home with 24/7 care as the patient already has. The patient's daughter preferred for the patient to go home with 24/7 care. We also assisted for the patient and arranged visiting nurse association visits. PHYSICAL EXAMINATION AT THE TIME OF DISCHARGE: Blood pressure 110/78, heart rate of 78 and regular, respiratory rate 20, oxygen saturation 97% on room air, temperature 98.1. General: A very pleasant 81-year-old female, who is in no acute distress. Alert, awake, and oriented x2. HEENT: Head: Atraumatic, normocephalic. Eyes: Pupils are equal and reactive to light and accommodation. Mucosa moist. Neck: Supple. No JVD. No bruit bilaterally. Cardiovascular: Regular rate and rhythm. No murmur. Respiratory: Mild rhonchi at the left lung base, otherwise clear. Abdomen: Soft, nontender. Bowel sounds present in all 4 quadrants. Extremities: There is trace bilateral pedal edema. Pulses +2 bilaterally. There is no clubbing or cyanosis. Neuro Evaluation: Speech clear. Cranial nerves II through XII grossly intact. Motor strength is 5/5 bilaterally. Please note that this is a short summary of the patient's hospitalization. Please refer to full medical records for details. At discharge, the patient is recommended to follow up with Dr. Fitzgerald in approximately 4 to 7 days. [id number]/[facility] #: [id number] ANASTACIO
== END 2017-10-07 13:50 | disposition home health service (06) | DRG 178 ==
LOC: ED 22:57 → MEDTELE 10-05 01:47
PROVIDERS: ADMIT Pediatrics; ATTEND Internal Medicine
DX: J69.0 Pneumonitis due to inhalation of food and vomit (principal); C90.00 Multiple myeloma not having achieved remission; B37.0 Candidal stomatitis; F03.90 Unspecified dementia, unspecified severity, without behavioral disturbance, psychotic disturbance, mood disturbance, and anxiety; I10 Essential (primary) hypertension; M48.061 Spinal stenosis, lumbar region without neurogenic claudication; M19.90 Unspecified osteoarthritis, unspecified site; J45.909 Unspecified asthma, uncomplicated; Z88.1 Allergy status to other antibiotic agents; Z88.8 Allergy status to other drugs, medicaments and biological substances; Z82.49 Family history of ischemic heart disease and other diseases of the circulatory system; Z66 Do not resuscitate
CPT/HCPCS: 36415; 36591; 71046; 74018; 77075; 80048; 80053; 80076; 81003; 82140; 82232; 83605; 83883; 84443; 84484; 85025; 85610; 85730; 87040; 93005; 94640; 94760; 99231; 99283; A9270-GY; J0692; J1642; J1644; J2543

== ENCOUNTER 2017-10-20 11:29 | Inpatient (IN) | payer MEDICARE, OTHER ==
[2017-10-20 12:44] LABS: ABS Basophils 0 10^3/ul (0-0.2); ABS Eosinophils 0 10^3/ul (0-0.6); ABS Lymphocytes 0.8 10^3/ul (1.0-4.8); ABS Monocytes 0.4 10^3/ul (0-0.8); ABS Neutrophils 7.1 10^3/ul (1.5-7.7); ABS Nucleated RBC 0 10^3/ul; Eosinophil % 0.5 % (0-6); Hematocrit 34 % (35-47); Hemoglobin 11.8 g/dl (12.0-16.0); Lymphocyte % 9.2 % (25-47); Mean Corpuscular HGB Conc 34 g/dl (31-36); Mean Corpuscular Hemoglobin 32 pg (27-31); Mean Corpuscular Volume 93 fL (80-97); Mean Platelet Volume 8 um3 (7.4-10.4); Nucleated Red Blood Cells % 0; Platelet Count 197 10^3/ul (150-450); Red Blood Count 3.68 10^6/ul (4.0-5.4); Red Cell Distribution Width 15 % (10.5-15); White Blood Count 8.3 10^3/ul (3.5-10.8)
--- NOTE | 2017-10-20 13:04 | RAD ---
HISTORY: Shortness of breath COMPARISONS: October 04, 2017 VIEWS: 2: Frontal and lateral views of the chest. FINDINGS: CARDIOMEDIASTINAL SILHOUETTE: The cardiomediastinal silhouette is normal. YANELY: The yanely are normal. PLEURA: The costophrenic angles are sharp. No pleural abnormalities are noted. LUNG PARENCHYMA: The lung volumes are low. There is patchy alveolar desiccation of the left lung base. ABDOMEN: The upper abdomen is clear. There is no subphrenic gas. BONES AND SOFT TISSUES: No bone or soft tissue abnormalities are noted. OTHER: The right-sided chest port is noted. IMPRESSION: LOW LUNG VOLUMES WITH PERSISTENT LEFT BASILAR CONSOLIDATION. RECOMMEND FOLLOW-UP TO RESOLUTION TO EXCLUDE UNDERLYING PULMONARY PARENCHYMAL NODULE. IF THE CLINICAL PRESENTATION IS NOT CONSISTENT WITH INFECTION, CONSIDER FURTHER EVALUATION WITH CT OF THE CHEST
[2017-10-20 13:06] LABS: EGFR Non-African American 81.9 (>60)
[2017-10-20] MEDS ORDERED: Aztreonam (*) 2 GM in NS 0.9% 50 ML* 50 ML IVPB ONE (13:28)
[2017-10-20] MEDS ORDERED: Levofloxacin 750 MG IVPREMIX(* 750 MG/150 ML BAG IVPB ONE (13:28)
[2017-10-20] MEDS ORDERED: Iohexol 350* (CONTRAST) 500 ML MDV IV ONE (15:21)
[2017-10-20] MEDS ORDERED: oxyCODONE SR TAB(*) 20 MG TAB.SR PO ONE ×2 (15:31→21:00)
[2017-10-20] MEDS ORDERED: Zolpidem TAB* 10 MG PO PRN (15:32)
[2017-10-20] MEDS ORDERED: Albuterol HFA INHALER* 8 gm MDI INH PRN (15:32)
[2017-10-20] MEDS ORDERED: Mometasone 220 MCG MDI INH PRN (15:32)
[2017-10-20] MEDS ORDERED: Acetaminophen TAB* 325 MG PO PRN (15:34)
--- NOTE | 2017-10-20 15:52 | RAD ---
Indication: Hypoxia, recent pneumonia. Contrast: Administered 69.0 ml of OMNIPAQUE 350 mg/ml. CTA of the chest was performed after IV contrast administration. Coronal and sagittal reconstructed images were obtained. The pulmonary arterial tree is well opacified. There are no filling defects present to suggest pulmonary embolus. Inferior thyroid lobes are unremarkable. No mediastinal or hilar adenopathy is noted. There is cardiomegaly without evidence of pericardial effusion. The aorta demonstrates no aneurysmal dilatation or branch occlusion. The trachea and major bronchi appear patent. There is suggestion of some airspace disease in the lingula which may represent atelectasis. Pleural thickening and dependent changes are noted. No focal masses are identified. IMPRESSION: No evidence of pulmonary embolus is noted. There may be some airspace disease in the lingula. Bibasilar atelectasis is noted. Cardiomegaly without pericardial effusion.
[2017-10-20] MEDS: Heparin VIAL(*) 5000 UNITS/ML VIAL (FIVE THOUSAND) SUBCUT SCH (20:33)
[2017-10-20 20:55] LABS: Urine Appearance Clear; Urine Blood Negative (Negative); Urine Color Straw; Urine Ketones Negative (Negative); Urine Protein Negative (Negative); Urine Specific Gravity 1.032 (1.010-1.030); Urine Urobilinogen Negative (Negative)
--- NOTE | 2017-10-20 21:05 | HP ---
CC: Destinee Fitzgerald MD; Dr. Gonzalez * HISTORY AND PHYSICAL: DATE OF ADMISSION: 10/20/17 PRIMARY CARE PROVIDER: Destinee Fitzgerald MD CHIEF COMPLAINT: Lethargy and generalized weakness. HISTORY OF PRESENT ILLNESS: The patient is an 82-year-old female with history of multiple myeloma, currently not undergoing treatment due to overall deconditioning who was hospitalized from 10/05/17 to 10/07/17 for community acquired pneumonia. She was discharged on a course of Levaquin which she finished approximately a week ago. She had been doing reasonably well, although her mobility is very decreased and she ambulates with assistance and walker. She has 24/ care at home. Today she was noted to be lethargic, had difficulty ambulating even with assistance and walker. She did not eat well. The patient's family also noted that yesterday when she had check with [facility], she was noted to have hypoxemia and she was supposed to have prescribed oxygen by primary care provider which has not happened yet. When she presented to the ER today, she was mildly hypoxemic with oxygen saturation of 88% on room air. Otherwise, apart from lethargy, no other symptoms were noted. After oxygen was placed on the patient, the patient actually became more awake. At the point of my evaluation, I took her oxygen off and she continued to have oxygen saturations above 90% on room air. The patient is going to be observed with a diagnosis of hypoxemia and altered mental status. PAST MEDICAL HISTORY: 1. History of multiple myeloma. Currently on no treatment due to overall deconditioning. 2. History of small bowel obstruction. 3. History of diverticulitis. 4. Hypertension. 5. Chronic back pain related to lumbar stenosis. 6. History of multiple myeloma, lytic lesions throughout bones of the skull, left and right humeri; fractures of the left acetabulum and inferior pubic ramus. Stable compression fractures of T12. Due to that, the patient has chronic pain. 7. History of dementia. 8. Osteoarthritis. 9. Asthma. MEDICATIONS AT HOME: Include: 1. OxyContin 15 mg in the morning and 30 mg at night. 2. Oxycodone 5 mg every 4 hours p.r.n. 3. Celebrex 200 mg daily. 4. Ambien 10 mg at bedtime p.r.n. 5. AcipHex 20 mg daily. 6. Paxil 20 mg daily. 7. Singulair 10 mg daily. 8. Lidoderm patch 5% apply to affected area on the back daily. 9. Xyzal 5 mg daily. 10. Hydrochlorothiazide 25 mg daily. 11. Flovent 3 puffs inhalation b.i.d. p.r.n. 12. Albuterol inhaler 2 puffs up to 4 times a day p.r.n. ALLERGIES: Include AMOXICILLIN and EPINEPHRINE. FAMILY HISTORY: History of mother in the 50s due to heart disease and father from heart disease. SOCIAL HISTORY: The patient lives at home. She has 17/04 care. She ambulates with her walker with help. She denies any current alcohol, tobacco or drug use. Her daughter Elizabeth Dewey is the patient's healthcare proxy. 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 The patient is do not resuscitate and that was confirmed by her daughter. REVIEW OF SYSTEMS: Please see history of present illness. In addition to the above mentioned, the patient had not had any problems with urination. She denies any abdominal pain. Her bowels have been moving regularly. Denies any urinary symptoms. She denies any fever. Currently she has no pain; however, her aid stated that she uses oxycodone for pain almost every 4-hour basis. The patient denies any chest pain or shortness of breath. All the remaining 12 systems reviewed with the patient and were otherwise negative. PHYSICAL EXAMINATION GENERAL: She is a pleasant 82-year-old female who is in no acute distress. Alert and awake and oriented x2. The patient is a poor historian. VITAL SIGNS: Blood pressure 103/55, heart rate of 98 and regular, respiratory rate 16, oxygen saturation 98% on room air, temperature 97.9. HEENT: Head: Atraumatic, normocephalic. Eyes: Pupils are equal, round, and reactive to light and accommodation. Oropharynx clear. Mucosa moist. NECK: Supple. No JVD. No bruits bilaterally. RESPIRATORY: Crackles at bilateral bases, otherwise clear. CARDIOVASCULAR: Regular rate and rhythm. No murmur. ABDOMEN: Soft and nontender. Bowel sounds present in all 4 quadrants. EXTREMITIES: There is +1 pitting pedal edema bilaterally. Pulses +2 bilaterally. There is no clubbing, cyanosis. NEUROLOGIC: Speech clear. Cranial nerves II through XII grossly intact. Motor strength is 5/5 bilaterally. SKIN: On evaluation of the skin, no ecchymotic area of rashes noted. PSYCHIATRIC EVALUATION: The patient is pleasant, cooperative with the evaluation, poor memory. No evidence of anxiety or depression. LABORATORY DATA: White blood cell of 8.3, hemoglobin 11.8, hematocrit of 34 and platelets of 197,000. ABG showed pH of 7.37, pCO2 of 50, pO2 of 17. Sodium 135, potassium 3.8, chloride 100, carbon dioxide 27, BUN 15, creatinine 0.69. Liver function test is unremarkable. C-reactive protein of 21. Brain natriuretic peptide was 36, calcitonin below 0.1, lactic acid 1.7. Influenza tests were negative. CT angiogram of the chest, impression: "No evidence of pulmonary embolus. There may be some airspace disease in the lingula. Bibasilar atelectasis is noted." ASSESSMENT/PLAN: 1. Deloris Khoury is an 82-year-old female with multiple myeloma who presents with hypoxemia. The patient is on chronic narcotics for her multiple myeloma with metastasis. At this point, I discussed the case with patient's daughter. The patient's relatively low CRP in the face of multiple myeloma as well as procalcitonin level was negative in the case. No ongoing bacterial pneumonia. The patient has no symptoms of pneumonia. A CT angiogram shows possibility of infiltrate in the lingula. The patient received antibiotics in the emergency department. They will not be continued. I suspect the patient is lethargic due to her hypoxemia in combination of atelectasis and narcotic use. I suspect she is lethargic and she is not awake enough to take a deep breath. At this point, I discussed it with the patient's daughter. We will try to decrease the patient's OxyContin to 10 mg in the morning and 20 mg at night. I will also start incentive spirometry. It is possible that the patient will require oxygen at discharge to go home with. 2. In regards to DVT prophylaxis, the patient is going to be placed on heparin subcutaneously. 3. In regards to the patient's chronic pain as mentioned above, OxyContin dose is going to be low and the patient is going to be continued on oxycodone on as needed basis. 4. The patient's code status is do not resuscitate and her surrogate is her daughter. TIME SPENT: Approximately 68 minutes was spent on admission of this patient, more than half that time was spent [id number] with the patient doing the interview and physical exam. [id number]/[facility] #: [id number] ANASTACIO
[2017-10-21] MEDS: Heparin VIAL(*) 5000 UNITS/ML VIAL (FIVE THOUSAND) SUBCUT SCH ×3 (05:34→21:01)
[2017-10-21] MEDS: Omeprazole CAP* 20 MG PO SCH (05:34)
[2017-10-21 06:48] LABS: ABS Basophils 0 10^3/ul (0-0.2); ABS Eosinophils 0 10^3/ul (0-0.6); ABS Lymphocytes 1.3 10^3/ul (1.0-4.8); ABS Monocytes 0.6 10^3/ul (0-0.8); ABS Neutrophils 4.4 10^3/ul (1.5-7.7); ABS Nucleated RBC 0 10^3/ul; Eosinophil % 0 % (0-6); Hematocrit 31 % (35-47); Hemoglobin 10.7 g/dl (12.0-16.0); Lymphocyte % 20.6 % (25-47); Mean Corpuscular HGB Conc 35 g/dl (31-36); Mean Corpuscular Hemoglobin 33 pg (27-31); Mean Corpuscular Volume 93 fL (80-97); Mean Platelet Volume 8 um3 (7.4-10.4); Nucleated Red Blood Cells % 0; Platelet Count 170 10^3/ul (150-450); Red Cell Distribution Width 15 % (10.5-15); White Blood Count 6.3 10^3/ul (3.5-10.8)
[2017-10-21 06:59] LABS: EGFR Non-African American 102.1 (>60)
[2017-10-21] MEDS: oxyCODONE SR TAB(*) 10 MG TAB.SR PO SCH (09:36)
[2017-10-21] MEDS: Hydrochlorothiazide TAB* 25 MG PO SCH (09:37)
[2017-10-21] MEDS: Montelukast Sodium TAB* 10 MG PO SCH (09:38)
[2017-10-21] MEDS: PARoxetine HCL TAB* 20 MG PO SCH (09:38)
[2017-10-21] MEDS: celeCOXIB CAP* 200 MG PO SCH (09:39)
[2017-10-21] MEDS: Lidocaine PATCH 5%* 1 PATCH TRANSDERM SCH (09:40)
--- NOTE | 2017-10-21 10:27 | ED ---
Yaneth Bhatt Gabriel, scribed for Nii Navarro MD on 10/20/17 at 1210 . Complex/Multi-Sys Presentation - HPI Summary HPI Summary: This patient is a 82 year old F BIBA to [facility] accompanied by her nurse for seeming off. The patients nurse states she has been weaker than usual. This morning she states she was barely able to walk and has had an O2 sat of 85% on room air with no history of COPD. The patient states she has felt SOB when walking but denies fever, cough, and pain. Patient was diagnosed with bacterial PNA 2 weeks ago and just finished her antibiotic on 10/18/17. - History Of Current Complaint Chief Complaint: EDAltMentalStatus Time Seen by Provider: 10/20/17 11:44 Hx Obtained From: Patient, Family/[employer] Employee - nurse Onset/Duration: Still Present Timing: Constant Severity Currently: Mild Severity Initially: Mild Associated Signs And Symptoms: Positive: Weakness, SOB. Negative: Cough - Allergies/Home Medications Allergies/Adverse Reactions: Allergies Allergy/AdvReac Type Severity Reaction Status Date / Time Amoxicillin Allergy Shakes Verified 10/05/17 01:09 Epinephrine Allergy JITTERY Verified 10/05/17 01:09 Home Medications: Home Medications Albuterol Sulfate [Proventil Hfa] 2 puff INH QID PRN 10/20/17 [History Confirmed 10/20/17] Lidocaine PATCH 5%* [Lidoderm 5% Patch*] 1 patch TRANSDERM DAILY 10/20/17 [ History Confirmed 10/20/17] Morphine TAB Extended Rel(*) [Ms Contin(*)] 15 mg PO BEDTIME 10/20/17 [History Confirmed 10/20/17] Morphine TAB Extended Rel(*) [Ms Contin(*)] 30 mg PO QAM 10/20/17 [History Confirmed 10/20/17] Rabeprazole (NF) [Aciphex (NF)] 20 mg PO DAILY 10/20/17 [History Confirmed 10/20] Zolpidem TAB* [Ambien TAB*] 10 mg PO BEDTIME PRN 10/20/17 [History Confirmed ] PMH/Surg Hx/FS Hx/Imm Hx Endocrine/Hematology History: Reports: Hx Bone Marrow Disease - MULTIPLE MYELOMA , Hx Anemia Denies: Hx Diabetes Cardiovascular History: Reports: Hx Hypertension, Other Cardiovascular Problems/ Disorders - Diastolic Malfunction Denies: Hx Coronary Artery Disease, Hx Myocardial Infarction, Hx Pacemaker/ ICD Respiratory History: Reports: Hx Asthma - PRN INHALER, Hx Seasonal Allergies Denies: Hx Chronic Obstructive Pulmonary Disease (COPD) GI History: Reports: Hx Diverticulosis, Hx Gastroesophageal Reflux Disease - ACID REFLUX, CONTROL WITH MEDS, Hx Irritable Bowel, Hx Obstructive Bowel - with surgery 1995 History: Denies: Hx Renal Disease Musculoskeletal History: Reports: Hx Arthritis, Hx Back Problems, Hx Osteoporosis, Hx Scoliosis, Other Musculoskeletal History - spinal stenosis Sensory History: Reports: Hx Cataracts - removed, Hx Contacts or Glasses Denies: Hx Hearing Aid Opthamlomology History: Reports: Hx Cataracts - removed, Hx Contacts or Glasses Neurological History: Reports: Hx Dementia Denies: Other Neuro Impairments/Disorders Psychiatric History: Reports: Hx Anxiety, Hx Depression - CONTROL WITH MEDS Denies: Hx Panic Disorder - Cancer History Cancer Type, Location and Year: MULTIPLE MYELOMA Hx Chemotherapy: Yes - oral Hx Palliative Cancer Treatment: No - Surgical History Surgery Procedure, Year, and Place: BOWEL SURGERY FOR OBSTYRUCTION. BREAST REDUCTIONS. APPENDIX AGE 20 Hx Anesthesia Reactions: No Infectious Disease History: No Infectious Disease History: Denies: Hx of Known/Suspected MRSA, Traveled Outside the [place] in Last 30 Days - Family History Known Family History: Positive: Cardiac Disease, Hypertension Negative: Diabetes - Social History Alcohol Use: Occasionally Alcohol Amount: 1-2 glasses of wine/week Hx Substance Use: No Substance Use Type: Reports: None Hx Tobacco Use: No Smoking Status (MU): Never Smoked Tobacco Review of Systems Constitutional: Negative - trouble ambulating Negative: Fever Positive: Shortness Of Breath. Negative: Cough Musculoskeletal: Negative - pain Positive: Weakness All Other Systems Reviewed And Are Negative: Yes Physical Exam - Summary Physical Exam Summary: VITAL SIGNS: Reviewed. GENERAL: Patient is an obese female who is lying comfortable in the stretcher and seems to be lethargic but is easily aroused by verbal stimulation. Patient is not in any acute respiratory distress. HEAD AND FACE: No signs of trauma. No ecchymosis, hematomas or skull depressions. No sinus tenderness. EYES: PERRLA, EOMI x 2, No injected conjunctiva, no nystagmus. EARS: Hearing grossly intact. Ear canals and tympanic membranes are within normal limits. MOUTH: Oropharynx within normal limits. NECK: Supple, trachea is midline, no adenopathy, no JVD, no carotid bruit, no c- spine tenderness, neck with full ROM. CHEST: Symmetric, no tenderness at palpation LUNGS: bilateral crackles in both bases but mostly in the right. CVS: Regular rate and rhythm, S1 and S2 present, no murmurs or gallops appreciated. ABDOMEN: Soft, non-tender. No signs of distention. No rebound no guarding, and no masses palpated. Bowel sounds are normal. EXTREMITIES: FROM in all major joints, no edema, no cyanosis or clubbing. NEURO: Alert and oriented x 3. No acute neurological deficits. Speech is normal and follows commands. SKIN: Dry and warm Triage Information Reviewed: Yes Vital Signs On Initial Exam: Initial Vitals Temp Pulse Resp BP Pulse Ox 96.3 F 104 20 112/64 89 10/20/17 11:41 10/20/17 11:41 10/20/17 11:41 10/20/17 11:41 10/20/17 11:41 Vital Signs Reviewed: Yes Diagnostics - Vital Signs Vital Signs Temp Pulse Resp BP Pulse Ox 10/20/17 11:41 96.3 F 104 20 112/64 89 - Laboratory Result Diagrams: 10/20/17 12:30 10/20/17 12:30 Lab Statement: Any lab studies that have been ordered have been reviewed, and results considered in the medical decision making process. - Radiology CXR Radiology Interpretation Completed By: Radiologist - LOW LUNG VOLUMES WITH PERSISTENT LEFT BASILAR CONSOLIDATION. RECOMMEND FOLLOW-UP TO RESOLUTION TO EXCLUDE UNDERLYING PULMONARY PARENCHYMAL NODULE. IF THE CLINICAL PRESENTATION IS NOT CONSISTENT WITH INFECTION, CONSIDER FURTHER EVALUATION WITH CT OF THE CHEST ED physician has reviewed this radiology report. - EKG 12:48 Cardiac Rate: NL EKG Rhythm: Sinus Rhythm - at 96 BPM EKG Interpretation: no ST elevations Complex Multi-Symp Course/Dx Assessment/Plan: This patient is a 82 year old F BIBA to [facility] accompanied by her nurse for seeming off. The patients nurse states she has been weaker than usual. This morning she states she was barely able to walk and has had an O2 sat of 85% on room air with no history of COPD. The patient states she has felt SOB when walking but denies fever, cough, and pain. Patient was diagnosed with bacterial PNA 2 weeks ago and just finished her antibiotic on 10/18/17. Test results show slight anemia, CRP 21.1, and negative influenza. CXR shows LOW LUNG VOLUMES WITH PERSISTENT LEFT BASILAR CONSOLIDATION. RECOMMEND FOLLOW-UP TO. RESOLUTION TO EXCLUDE UNDERLYING PULMONARY PARENCHYMAL NODULE. IF THE CLINICAL. PRESENTATION IS NOT CONSISTENT WITH INFECTION, CONSIDER FURTHER EVALUATION WITH CT OF THE. CHEST,. since the patient used to have PNA the patient was started on Azactam and Levaquin since the patient already finished a full dose of antibiotics, at this point I discussed my physical exam and findings with Dr Wolfe who accepted the patient for admission. Patient is hemodynamically stable and alert and oriented x3 - Diagnoses Differential Diagnoses/HQI/PQRI: Cardiac Ischemia, Sepsis, Urinary Tract Infection, Other - Pneumonia, Bronchitis Provider Diagnoses: PNA (pneumonia) - Physician Notifications Discussed Care Of Patient With: Phyllis Blancas Time Discussed With Above Provider: 14:02 Instructed by Provider To: Other - We discussed patient care with Dr. Blancas and they accepted the patient for admission. Discharge - Discharge Plan Condition: Fair Disposition: ADMITTED TO [facility] documentation as recorded by the Yaneth rowe Gabriel accurately reflects the service I personally performed and the decisions made by me, Nii Navarro MD.
[2017-10-21] MEDS: oxyCODONE TAB* 5 MG TAB PO PRN (17:41)
--- NOTE | 2017-10-21 18:59 | PN ---
Subjective Date of Service: 10/21/17 Interval History: . Interviewed and examined patient at bedside; Reviewed previous notes and radiology results; Spoke with daughter (from [place]) patient much, much more alert than previously described. doing better with lower dose of opiates --> agree that is the main culprit. also, patient has substantial care needs --> 2 persons needed to move patient in bed, assist to BR, etc. - she is on the cusp of requiring NH placement (rehab) and I discussed this with patient and her daughter. Family History: Unchanged from Admission Social History: Unchanged from Admission Past Medical History: Unchanged from Admission Objective Active Medications: Acetaminophen (Tylenol Tab*) 650 mg PO Q4H PRN PRN Reason: FEVER/PAIN Albuterol (Ventolin Hfa Inhaler*) 2 puff INH QID PRN PRN Reason: SHORTNESS OF BREATH Celecoxib (Celebrex Cap*) 200 mg PO DAILY [facility] Last Admin: 10/21/17 09:39 Dose: 200 mg Heparin Sodium (Porcine) (Heparin Vial(*)) 5,000 units SUBCUT Q8HR [facility] Last Admin: 10/21/17 14:10 Dose: 5,000 units Hydrochlorothiazide (Hydrodiuril Tab*) 25 mg PO DAILY [facility] Last Admin: 10/21/17 09:37 Dose: 25 mg Lidocaine (Lidoderm 5% Patch*) 1 patch TRANSDERM DAILY [facility] Last Admin: 10/21/17 09:40 Dose: 1 patch Mometasone Furoate (Asmanex 220 Mcg Mdi *) 2 puff INH BID PRN PRN Reason: WHEEZING Montelukast Sodium (Singulair Tab*) 10 mg PO QAM [facility] Last Admin: 10/21/17 09:38 Dose: 10 mg Omeprazole (Prilosec Cap*) 20 mg PO 0600 [facility] Last Admin: 10/21/17 05:34 Dose: 20 mg Oxycodone HCl (Oxycontin(*)) 10 mg PO DAILY [facility] Last Admin: 10/21/17 09:36 Dose: 10 mg Oxycodone HCl (Roxycodone Tab*) 5 mg PO Q4H PRN PRN Reason: PAIN Last Admin: 10/21/17 17:41 Dose: 5 mg Paroxetine HCl (Paxil Tab*) 20 mg PO QAM [facility] Last Admin: 10/21/17 09:38 Dose: 20 mg Pharmacy Profile Note (Lidocaine Patch Remove*) 1 note PATCH OFF [address] Zolpidem Tartrate (Ambien Tab*) 10 mg PO BEDTIME PRN PRN Reason: SLEEP Vital Signs - 8 hr 10/21/17 10/21/17 10/21/17 11:18 11:57 16:21 Temperature 98.3 F 98.2 F Pulse Rate 92 89 Respiratory 16 16 16 Rate Blood Pressure 127/50 158/82 (mmHg) O2 Sat by Pulse 97 98 Oximetry 10/21/17 17:41 Temperature Pulse Rate Respiratory 16 Rate Blood Pressure (mmHg) O2 Sat by Pulse Oximetry Oxygen Devices in Use Now: None, Nasal Cannula Appearance: elderly, deconditioned. Eyes: No Scleral Icterus Ears/Nose/Mouth/Throat: Clear Oropharnyx Neck: Trachea Midline Respiratory: Symmetrical Chest Expansion and Respiratory Effort, Clear to Auscultation Cardiovascular: NL Sounds; No Murmurs; No JVD Abdominal: NL Sounds; No Tenderness; No Distention Lymphatic: No Cervical Adenopathy Extremities: No Edema Skin: No Rash or Ulcers Neurological: Alert and Oriented x 3 Lines/Tubes/Other Access: Clean, Dry and Intact Peripheral IV Nutrition: Taking PO's Result Diagrams: 10/21/17 06:30 10/21/17 06:30 Assess/Plan/Problems-Billing . Assessment: 82 yo patient with severe chronic pain, now with opiate intoxication (as opposed to pneumonia). Patient is improving, but is not able to go home as she is still requiring TWO strong staff members to move and walk; she is NOT at her baseline and needs further monitoring. what's more, her pain regimen has been substantially changed and needs to be evaluated over a longer time for adequacy, or else patient will need to come directly back to [facility] if pain control. Will admit to inpatient status and continue to manage. . - Patient Problems (1) Multiple myeloma Current Visit: No Status: Acute Priority: High Code(s): C90.00 - MULTIPLE MYELOMA NOT HAVING ACHIEVED REMISSION Comment: with painful bony leasions. Will continue morphine and oxycodone --> but at adjusted doses. (2) Confusion Current Visit: No Status: Acute Priority: High Code(s): R41.0 - DISORIENTATION, UNSPECIFIED Comment: improved today - alert and oreinted x3 suspect this is related to her opiate dosing
[2017-10-21] MEDS ORDERED: Lidocaine Patch REMOVE* 1 NOTE MISC PATCH OFF SCH (21:00)
[2017-10-22] MEDS: Heparin VIAL(*) 5000 UNITS/ML VIAL (FIVE THOUSAND) SUBCUT SCH (05:52)
[2017-10-22] MEDS: Omeprazole CAP* 20 MG PO SCH (05:52)
[2017-10-22 08:21] VITALS: BP 155/87
[2017-10-22] MEDS: Lidocaine PATCH 5%* 1 PATCH TRANSDERM SCH (08:29)
[2017-10-22] MEDS: Montelukast Sodium TAB* 10 MG PO SCH (08:30)
[2017-10-22] MEDS: celeCOXIB CAP* 200 MG PO SCH (08:30)
[2017-10-22] MEDS: Hydrochlorothiazide TAB* 25 MG PO SCH (08:30)
[2017-10-22] MEDS: oxyCODONE SR TAB(*) 10 MG TAB.SR PO SCH (08:30)
[2017-10-22] MEDS: PARoxetine HCL TAB* 20 MG PO SCH (08:30)
--- NOTE | 2017-10-22 10:49 | PN ---
Hospitalist Progress Note Date of Service: 10/22/17 . HOSPITALIST DISCHARGE NOTE: See dc instructions and summary by me. Patient stable for dc dc instructions reviewed with the patient at the bedside. DC patient home today.
[2017-10-22] MEDS: oxyCODONE TAB* 5 MG TAB PO PRN (10:52)
--- NOTE | 2017-10-23 01:41 | DS ---
CC: Dr. Destinee Fitzgerald MD; Dr. Gonzalez * DISCHARGE SUMMARY: DATE OF ADMISSION: 10/20/17 DATE OF DISCHARGE: 10/22/17 PRIMARY CARE PROVIDER: Dr. Destinee Fitzgerald, [facility]. OUTPATIENT ONCOLOGIST: Dr. Henrique Gonzalez of [facility]. STATUS DURING HOSPITALIZATION: Inpatient. DISCHARGE DIAGNOSES: 1. Opiate overdose with altered mental status; opiate dosing adjusted downward with good subsequent effect including adequate pain control. 2. Ongoing anxiety on SSRI, but deferred prescribing benzodiazepines until opiate dosing is stabilized and will be best done under the discretion of the patient's primary team. 3. Hypertension noted with no prescription changes made with systolics in the ~ 150 mmHg range. SECONDARY DIAGNOSES: 1. Multiple myeloma - currently not on treatment secondary to overall deconditioning. 2. History of small bowel obstruction - not presently. 3. History of diverticulitis. 4. Hypertension. 5. Chronic back pain secondary to lumbar stenosis. 6. 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 7. Dementia - mild. 8. Osteoarthritis. 9. Asthma. DISCHARGE MEDICATIONS: 1. New OxyContin dose: 10 mg by mouth in the morning with discontinuation of 15 mg morning dose and 30 mg evening dose [with expectation of further change requirements in the future.] 2. Oxycodone 5 mg by mouth every 4 hours p.r.n. pain 3. Celebrex 200 mg by mouth daily. 4. Ambien 10 mg by mouth at bedtime as needed. 5. Melatonin 3 mg q.h.s. p.r.n. 6. AcipHex 20 mg by mouth daily. 7. Paxil 20 mg by mouth daily. 8. Singulair 10 mg by mouth daily. 9. Lidoderm 5% patch applied to affected area on her back daily. 10. Xyzal 5 mg by mouth daily. 11. Hydrochlorothiazide 25 mg by mouth daily. 12. Flovent 3 puffs inhaled twice daily as needed for shortness of breath/ asthma. 13. Albuterol inhaler 2 puffs up to 4 times daily p.r.n. shortness to breath. HISTORY OF PRESENT ILLNESS AND HOSPITAL COURSE: Please see the H and P by Dr. Phyllis Blancas on 10/20/17. In brief, Ms. Khoury is a pleasant 82-year-old woman who has a history noted above primarily for multiple myeloma, currently not undergoing treatment secondary to deconditioning, who was recently hospitalized between 10/05/17 and 10/07/17 for community-acquired pneumonia. The patient had a course of Levaquin, which she finished one week prior to this admission and she was having hypoxemia at home and was supposed to have oxygen prescribed by her primary, which did not happen by the time of her presentation to the emergency room on 10/20/17. The patient was 88% on room air. She was also lethargic. No other symptoms were reported. The patient had oxygen applied and became more awake. The patient was thought to have perhaps an unnecessarily high dose of OxyContin and that, combined with her recent illness caused her to become lethargic with hydration and holding her opiates. The patient became more lucid. She did initially receive antibiotics out of concern that there was a pneumonia, yet the chest x-ray changes were equivocal. The CT chest ruled out a pulmonary embolism, but did show airspace disease in the lingula and it also showed cardiomegaly. The airspace disease was thought to be old and pursuant to her recent pneumonia. The patient did not receive further antibiotics and continued to subsequently improve. She did not have an appreciable white count nor did she have fevers. The patient had a blood gas at presentation, which showed a pCO2 of 50, a pO2 low at 70, but a preserved pH of 7.37. Her blood chemistries were unremarkable save and elevated BUN to creatinine ratio that was marginal. Her total protein was mildly depressed at 6 , but a preserved albumin was noted at 3.7. Her BNP was unremarkable. She had a urinalysis that was similarly unremarkable and the patient's clinical course was positive overall. Given the substantial decrease in her opiates, I wanted to ensure she had adequate pain control and I kept her till 10/22/17, at which time I reevaluated her. The pain level was between 2 and 3 out of 10 and was addressed by oxycodone given prn. I explained that she could coadminister over- the-counter Tylenol along with the oxycodone, but not to exceed 3 to 4 g of Tylenol daily. Her discharge instructions were reviewed in the presence of her daughter who lives in [place], [place] (near [place]). She is very attentive and was arranging a pickup of the new opiate prescriptions. The patient is going to follow up with Dr. Gonzalez and Dr. Fitzgerald this week. Follow up appointments could not be arranged given she is being discharged on a Monday and those offices are closed. Ms. Khoury was instructed to come back to the emergency room if she has any worrisome symptoms including, but not limited to chest pain, shortness of breath, lightheadedness, further altered mental status , intractable pain or any other worrisome symptoms and she said she would comply with that instruction. The final point of discussion was her significant debility at her best, Ms. Khoury can be assisted with a single individual, but with any decrement in her condition, she requires 2 people and those 2 individuals need to be strong in order to maneuver her even within a bed given her size. The patient is likely going to require facility assistance at some point given the trajectory of her disease processes and her current condition. Both the patient and her daughter appreciated this message, but they want to try independent living with home support for the time being, but I mention this is a place gallego for future discussions that will likely happen with other providers. CONDITION AT DISCHARGE: Stable. [id number]/[facility] #: [id number] ANASTACIO
== END 2017-10-22 12:45 | disposition home or self-care (01) | DRG 918 ==
LOC: ED 11:29 → MED 15:25 → OBSVTOIN 10-21 18:56
PROVIDERS: ADMIT Internal Medicine; ATTEND Internal Medicine
DX: T40.2X1A Poisoning by other opioids, accidental (unintentional), initial encounter (principal); C90.00 Multiple myeloma not having achieved remission; F03.90 Unspecified dementia, unspecified severity, without behavioral disturbance, psychotic disturbance, mood disturbance, and anxiety; F41.9 Anxiety disorder, unspecified; R41.82 Altered mental status, unspecified; Y92.9 Unspecified place or not applicable; X58.XXXA Exposure to other specified factors, initial encounter; I10 Essential (primary) hypertension; M48.061 Spinal stenosis, lumbar region without neurogenic claudication; M19.90 Unspecified osteoarthritis, unspecified site; J45.909 Unspecified asthma, uncomplicated; R09.02 Hypoxemia; M84.454G Pathological fracture, pelvis, subsequent encounter for fracture with delayed healing; M48.54XG Collapsed vertebra, not elsewhere classified, thoracic region, subsequent encounter for fracture with delayed healing; G89.29 Other chronic pain; Z66 Do not resuscitate; Z79.891 Long term (current) use of opiate analgesic; Z79.899 Other long term (current) drug therapy; Z88.1 Allergy status to other antibiotic agents; Z88.8 Allergy status to other drugs, medicaments and biological substances; Z82.49 Family history of ischemic heart disease and other diseases of the circulatory system
CPT/HCPCS: 36415; 36600; 71046; 71275; 80048; 80053; 81003; 82550; 82553; 82803; 83605; 83880; 84145; 84484; 84550; 85025; 85730; 86140; 87040; 87502; 93005; 96366; 99284; A9270-GY; G0378; G8978-GP-CI; G8979-GP-CI; G8980-GP-CI; J1644; Q9967

== ENCOUNTER 2017-11-10 09:47 | Inpatient (IN) | payer MEDICARE, OTHER ==
[2017-11-10 10:47] LABS: Hematocrit 34 % (35-47); Mean Corpuscular HGB Conc 35 g/dl (31-36); Mean Corpuscular Hemoglobin 32 pg (27-31); Mean Corpuscular Volume 91 fL (80-97); Mean Platelet Volume 8 um3 (7.4-10.4); Platelet Count 181 10^3/ul (150-450); Red Blood Count 3.76 10^6/ul (4.0-5.4); Red Cell Distribution Width 15 % (10.5-15); White Blood Count 15.3 10^3/ul (3.5-10.8)
--- NOTE | 2017-11-10 11:09 | RAD ---
Indication: Cough, shortness of breath. Comparison: October 20, 2017 CT Technique: Sitting AP and lateral chest views. Report: Significant cardiomegaly with associated atelectasis at the LEFT lung base without significant change. Additionally the degree of inspiration is suboptimal with crowding of the pulmonary markings and generalized subsegmental atelectasis. No compelling new alveolar consolidation to suggest pneumonia. Grossly clear pleural spaces. Negative for pneumothorax. While suboptimal inspiration limits assessment there is mild prominence of the central pulmonary vasculature without evidence for pulmonary edema. Tip of RIGHT chest port at level of RIGHT atrium. Prominent bilateral first costochondral junction calcifications noted. IMPRESSION: Suboptimal inspiration with crowding of the pulmonary markings and subsegmental atelectasis. Cardiomegaly with resulting compressive atelectasis at the LEFT lung base. No compelling acute cardiopulmonary process evident.
[2017-11-10] MEDS ORDERED: Azithromycin IV* 500 MG ADVAN VIAL/BAG IVPB ONE (11:18)
[2017-11-10 11:33] LABS: Urine Appearance Cloudy; Urine Blood Negative (Negative); Urine Color Yellow; Urine Ketones Negative (Negative); Urine Protein 2+(100 mg/dL) (Negative); Urine Specific Gravity 1.021 (1.010-1.030); Urine Urobilinogen Negative (Negative)
[2017-11-10 11:33] LABS: ABS Basophils 0.1 10^3/ul (0-0.2); ABS Eosinophils 0 10^3/ul (0-0.6); ABS Monocytes 1.6 10^3/ul (0-0.8); ABS Neutrophils 12.6 10^3/ul (1.5-7.7); ABS Nucleated RBC 0 10^3/ul; Eosinophil % 0 % (0-6); Lymphocyte % 6.8 % (25-47); Nucleated Red Blood Cells % 0
[2017-11-10] MEDS ORDERED: NS 0.9% 1000 ML* 1,000 ML IV SCH (13:00)
[2017-11-10] MEDS ORDERED: cefTRIAXone(*) 1 GM in NS 0.9% 50 ML* 50 ML IVPB SCH (13:00)
[2017-11-10] MEDS ORDERED: NS 0.9% 1000 ML* 1,000 ML IV ONE (13:00)
[2017-11-10] MEDS ORDERED: Zolpidem TAB* 10 MG PO PRN (13:01)
[2017-11-10] MEDS ORDERED: Acetaminophen TAB* 325 MG PO PRN (13:01)
[2017-11-10] MEDS ORDERED: Mometasone 220 MCG MDI INH PRN (13:01)
[2017-11-10] MEDS ORDERED: Albuterol HFA INHALER* 8 gm MDI INH PRN (13:01)
[2017-11-10] MEDS ORDERED: oxyCODONE TAB* 5 MG TAB PO PRN (13:04)
[2017-11-10] MEDS ORDERED: Ondansetron INJ* 2 MG/ML VIAL IV PRN (13:08)
[2017-11-10] MEDS ORDERED: cefTRIAXone(*) 1 GM in NS 0.9% 50 ML* 50 ML IVPB ONE (13:14)
[2017-11-10] MEDS ORDERED: cefTRIAXone(*) 1 GM ADVAN/BAG ONE (13:19)
[2017-11-10] MEDS ORDERED: Dexamethasone TAB* 4 MG PO SCH (14:00)
[2017-11-10] MEDS: Enoxaparin(*) 40 MG/0.4 ML SYR SUBCUT SCH (16:13)
[2017-11-10] MEDS: Nystatin SUSPENSION* 100000 UNITS/ML 5 ML UDC PO SCH ×2 (16:17→21:04)
--- NOTE | 2017-11-10 18:10 | ED ---
Zack Bhatt Thomas, scribed for Nii Navarro MD on 11/10/17 at 1045 . Shortness of Breath - HPI Summary HPI Summary: The patient is an 82 year old female presenting with shortness of breath, generalized weakness, malaise, and cough that began yesterday. She denies fever , diaphoresis, and chest pain. - History of Current Complaint Chief Complaint: EDUpperRespComplaint Time Seen by Provider: 11/10/17 09:54 Hx Obtained From: Patient Onset/Duration: Lasting Days - 1, Still Present Timing: Constant Current Severity: Moderate Dyspnea At: Rest Aggrevating Factors: Nothing Alleviating Factors: Nothing Associated Signs & Symptoms: Negative - fever, diaphoresis, CP, Cough ( Nonproductive) Related History: Obesity - Allergy/Home Medications Allergies/Adverse Reactions: Allergies Allergy/AdvReac Type Severity Reaction Status Date / Time amoxicillin Allergy Shakes Verified 11/10/17 13:53 epinephrine Allergy Shakes Verified 11/10/17 13:53 Home Medications: Home Medications Acetaminophen TAB* [Tylenol TAB*] 975 mg PO Q6H PRN MDD 3000mg 11/10/17 [ History Confirmed 11/10/17] Aspirin EC Low Dose* [Ecotrin EC Low Dose 81 MG*] 81 mg PO DAILY 11/10/17 [ History Confirmed 11/10/17] Cyanocobalamin TAB* [Vitamin B12 TAB*] 1,000 mcg PO DAILY 11/10/17 [History Confirmed 11/10/17] Dexamethasone TAB* [Decadron TAB*] 12 mg PO .Fridays11/10/17 [History Confirmed 11/10/17] Melatonin (NF) [Meladox] 3 mg PO BEDTIME 11/10/17 [History Confirmed 11/10/17] Morphine TAB Extended Rel(*) [Ms Contin(*)] 15 mg PO BID 11/10/17 [History Confirmed 11/10/17] PMH/Surg Hx/FS Hx/Imm Hx Endocrine/Hematology History: Reports: Hx Bone Marrow Disease - MULTIPLE MYELOMA , Hx Anemia Denies: Hx Diabetes Cardiovascular History: Reports: Hx Hypertension, Other Cardiovascular Problems/ Disorders - Diastolic Malfunction Denies: Hx Coronary Artery Disease, Hx Myocardial Infarction, Hx Pacemaker/ ICD Respiratory History: Reports: Hx Asthma - PRN INHALER, Hx Seasonal Allergies Denies: Hx Chronic Obstructive Pulmonary Disease (COPD) GI History: Reports: Hx Diverticulosis, Hx Gastroesophageal Reflux Disease - ACID REFLUX, CONTROL WITH MEDS, Hx Irritable Bowel, Hx Obstructive Bowel - with surgery 1995 History: Denies: Hx Renal Disease Musculoskeletal History: Reports: Hx Arthritis, Hx Back Problems, Hx Osteoporosis, Hx Scoliosis, Other Musculoskeletal History - spinal stenosis Sensory History: Reports: Hx Cataracts - removed, Hx Contacts or Glasses Denies: Hx Hearing Aid Opthamlomology History: Reports: Hx Cataracts - removed, Hx Contacts or Glasses Neurological History: Reports: Hx Dementia Denies: Other Neuro Impairments/Disorders Psychiatric History: Reports: Hx Anxiety, Hx Depression - CONTROL WITH MEDS Denies: Hx Panic Disorder - Cancer History Cancer Type, Location and Year: MULTIPLE MYELOMA Hx Chemotherapy: Yes - oral Hx Palliative Cancer Treatment: No - Surgical History Surgery Procedure, Year, and Place: BOWEL SURGERY FOR OBSTYRUCTION. BREAST REDUCTIONS. APPENDIX AGE 20 Hx Anesthesia Reactions: No Infectious Disease History: No Infectious Disease History: Denies: Hx of Known/Suspected MRSA, Traveled Outside the [place] in Last 30 Days - Family History Known Family History: Positive: Cardiac Disease, Hypertension Negative: Diabetes - Social History Alcohol Use: Occasionally Alcohol Amount: 1-2 glasses of wine/week Hx Substance Use: No Substance Use Type: Reports: None Hx Tobacco Use: No Smoking Status (MU): Never Smoked Tobacco Review of Systems Positive: Other - Generalized weakness, malaise. Negative: Fever, Skin Diaphoresis Negative: Chest Pain Positive: Shortness Of Breath, Cough All Other Systems Reviewed And Are Negative: Yes Physical Exam - Summary Physical Exam Summary: VITAL SIGNS: Reviewed. GENERAL: Patient is a well-developed and nourished female who is lying comfortable in the stretcher. She looks a little flushed. Patient is not in any acute respiratory distress. HEAD AND FACE: No signs of trauma. No ecchymosis, hematomas or skull depressions. No sinus tenderness. EYES: PERRLA, EOMI x 2, No injected conjunctiva, no nystagmus. EARS: Hearing grossly intact. Ear canals and tympanic membranes are within normal limits. MOUTH: Oropharynx within normal limits. NECK: Supple, trachea is midline, no adenopathy, no JVD, no carotid bruit, no c- spine tenderness, neck with full ROM. CHEST: Symmetric, no tenderness at palpation LUNGS: She has bilateral crackles. CVS: Tachycardia, regular rhythm, S1 and S2 present, no murmurs or gallops appreciated. ABDOMEN: Soft, non-tender. No signs of distention. No rebound no guarding, and no masses palpated. Bowel sounds are normal. EXTREMITIES: FROM in all major joints, no edema, no cyanosis or clubbing. NEURO: Alert and oriented x 3. No acute neurological deficits. Speech is normal and follows commands. SKIN: Dry and warm. She looks a little flushed. Triage Information Reviewed: Yes Vital Signs On Initial Exam: Initial Vitals Temp Pulse Resp BP Pulse Ox 99.1 F 129 22 130/90 94 11/10/17 10:00 11/10/17 10:00 11/10/17 10:00 11/10/17 10:00 11/10/17 10:00 Vital Signs Reviewed: Yes Diagnostics - Vital Signs Vital Signs Temp Pulse Resp BP Pulse Ox 11/10/17 10:00 99.1 F 129 22 130/90 94 - Laboratory Lab Results: Lab Results 11/10/17 11/10/17 11/10/17 Range/Units 10:27 10:37 10:37 WBC (3.5-10.8) 10^3/ul RBC (4.0-5.4) 10^6/ul Hgb (12.0-16.0) g/dl Hct (35-47) % MCV (80-97) fL MCH (27-31) pg MCHC (31-36) g/dl RDW (10.5-15) % Plt Count (150-450) 10^3/ul MPV (7.4-10.4) um3 Neut % (Auto) (38-83) % Lymph % (Auto) (25-47) % [place] % (Auto) (1-9) % Eos % (Auto) (0-6) % Baso % (Auto) (0-2) % Absolute Neuts (auto) (1.5-7.7) 10^3/ul Absolute Lymphs (auto) (1.0-4.8) 10^3/ul Absolute Monos (auto) (0-0.8) 10^3/ul Absolute Eos (auto) (0-0.6) 10^3/ul Absolute Basos (auto) (0-0.2) 10^3/ul Absolute Nucleated RBC 10^3/ul Nucleated RBC % Sodium 132 L (133-145) mmol/L Potassium 4.0 (3.5-5.0) mmol/L Chloride 97 L (101-111) mmol/L Carbon Dioxide 27 (22-32) mmol/L Anion Gap 8 (2-11) mmol/L BUN 16 (6-24) mg/dL Creatinine 0.80 (0.51-0.95) mg/dL Est GFR ( Amer) 88.8 (>60) Est GFR (Non-Af Amer) 69.0 (>60) BUN/Creatinine Ratio 20.0 (8-20) Glucose 175 H (70-100) mg/dL Lactic Acid (0.5-2.0) mmol/L Calcium 9.1 (8.6-10.3) mg/dL Total Bilirubin 0.50 (0.2-1.0) mg/dL AST 20 (13-39) U/L ALT 19 (7-52) U/L Alkaline Phosphatase 88 (34-104) U/L Total Creatine Kinase 234 H (10-223) U/L Troponin I 0.06 H* (<0.04) ng/mL C-Reactive Protein 74.91 H (< 5.00) mg/L B-Natriuretic Peptide 106 H ( - 100) pg/mL Total Protein 6.3 L (6.4-8.9) g/dL Albumin 3.8 (3.2-5.2) g/dL Globulin 2.5 (2-4) g/dL Albumin/Globulin Ratio 1.5 (1-3) Procalcitonin (<0.6) ng/mL Urine Color Urine Appearance Urine pH (5-9) Ur Specific [place] (1.010-1.030) Urine Protein (Negative) Urine Ketones (Negative) Urine Blood (Negative) Urine Nitrate (Negative) Urine Bilirubin (Negative) Urine Urobilinogen (Negative) Ur Leukocyte Esterase (Negative) Urine WBC (Auto) (Absent) Urine RBC (Auto) (Absent) Ur Squamous Epith Cells (Absent) Urine Bacteria (Absent) Hyaline Casts (Absent) Urine Glucose (Negative) Urine Ascorbic Acid (Negative) Influenza A (Rapid) Negative (Negative) Influenza B (Rapid) Negative (Negative) 11/10/17 11/10/17 11/10/17 Range/Units 10:37 10:37 10:37 WBC 15.3 H (3.5-10.8) 10^3/ul RBC 3.76 L (4.0-5.4) 10^6/ul Hgb 12.0 (12.0-16.0) g/dl Hct 34 L (35-47) % MCV 91 (80-97) fL MCH 32 H (27-31) pg MCHC 35 (31-36) g/dl RDW 15 (10.5-15) % Plt Count 181 (150-450) 10^3/ul MPV 8 (7.4-10.4) um3 Neut % (Auto) 82.4 (38-83) % Lymph % (Auto) 6.8 L (25-47) % [place] % (Auto) 10.5 H (1-9) % Eos % (Auto) 0 (0-6) % Baso % (Auto) 0.3 (0-2) % Absolute Neuts (auto) 12.6 H (1.5-7.7) 10^3/ul Absolute Lymphs (auto) 1.0 (1.0-4.8) 10^3/ul Absolute Monos (auto) 1.6 H (0-0.8) 10^3/ul Absolute Eos (auto) 0 (0-0.6) 10^3/ul Absolute Basos (auto) 0.1 (0-0.2) 10^3/ul Absolute Nucleated RBC 0 10^3/ul Nucleated RBC % 0 Sodium (133-145) mmol/L Potassium (3.5-5.0) mmol/L Chloride (101-111) mmol/L Carbon Dioxide (22-32) mmol/L Anion Gap (2-11) mmol/L BUN (6-24) mg/dL Creatinine (0.51-0.95) mg/dL Est GFR ( Amer) (>60) Est GFR (Non-Af Amer) (>60) BUN/Creatinine Ratio (8-20) Glucose (70-100) mg/dL Lactic Acid 2.5 H* (0.5-2.0) mmol/L Calcium (8.6-10.3) mg/dL Total Bilirubin (0.2-1.0) mg/dL AST (13-39) U/L ALT (7-52) U/L Alkaline Phosphatase (34-104) U/L Total Creatine Kinase (10-223) U/L Troponin I (<0.04) ng/mL C-Reactive Protein (< 5.00) mg/L B-Natriuretic Peptide ( - 100) pg/mL Total Protein (6.4-8.9) g/dL Albumin (3.2-5.2) g/dL Globulin (2-4) g/dL Albumin/Globulin Ratio (1-3) Procalcitonin 3.1 H (<0.6) ng/mL Urine Color Urine Appearance Urine pH (5-9) Ur Specific [place] (1.010-1.030) Urine Protein (Negative) Urine Ketones (Negative) Urine Blood (Negative) Urine Nitrate (Negative) Urine Bilirubin (Negative) Urine Urobilinogen (Negative) Ur Leukocyte Esterase (Negative) Urine WBC (Auto) (Absent) Urine RBC (Auto) (Absent) Ur Squamous Epith Cells (Absent) Urine Bacteria (Absent) Hyaline Casts (Absent) Urine Glucose (Negative) Urine Ascorbic Acid (Negative) Influenza A (Rapid) (Negative) Influenza B (Rapid) (Negative) 11/10/17 Range/Units 11:15 WBC (3.5-10.8) 10^3/ul RBC (4.0-5.4) 10^6/ul Hgb (12.0-16.0) g/dl Hct (35-47) % MCV (80-97) fL MCH (27-31) pg MCHC (31-36) g/dl RDW (10.5-15) % Plt Count (150-450) 10^3/ul MPV (7.4-10.4) um3 Neut % (Auto) (38-83) % Lymph % (Auto) (25-47) % [place] % (Auto) (1-9) % Eos % (Auto) (0-6) % Baso % (Auto) (0-2) % Absolute Neuts (auto) (1.5-7.7) 10^3/ul Absolute Lymphs (auto) (1.0-4.8) 10^3/ul Absolute Monos (auto) (0-0.8) 10^3/ul Absolute Eos (auto) (0-0.6) 10^3/ul Absolute Basos (auto) (0-0.2) 10^3/ul Absolute Nucleated RBC 10^3/ul Nucleated RBC % Sodium (133-145) mmol/L Potassium (3.5-5.0) mmol/L Chloride (101-111) mmol/L Carbon Dioxide (22-32) mmol/L Anion Gap (2-11) mmol/L BUN (6-24) mg/dL Creatinine (0.51-0.95) mg/dL Est GFR ( Amer) (>60) Est GFR (Non-Af Amer) (>60) BUN/Creatinine Ratio (8-20) Glucose (70-100) mg/dL Lactic Acid (0.5-2.0) mmol/L Calcium (8.6-10.3) mg/dL Total Bilirubin (0.2-1.0) mg/dL AST (13-39) U/L ALT (7-52) U/L Alkaline Phosphatase (34-104) U/L Total Creatine Kinase (10-223) U/L Troponin I (<0.04) ng/mL C-Reactive Protein (< 5.00) mg/L B-Natriuretic Peptide ( - 100) pg/mL Total Protein (6.4-8.9) g/dL Albumin (3.2-5.2) g/dL Globulin (2-4) g/dL Albumin/Globulin Ratio (1-3) Procalcitonin (<0.6) ng/mL Urine Color Yellow Urine Appearance Cloudy Urine pH 5.0 (5-9) Ur Specific [place] 1.021 (1.010-1.030) Urine Protein 2+(100 mg/dl) H (Negative) Urine Ketones Negative (Negative) Urine Blood Negative (Negative) Urine Nitrate Negative (Negative) Urine Bilirubin Negative (Negative) Urine Urobilinogen Negative (Negative) Ur Leukocyte Esterase Negative (Negative) Urine WBC (Auto) Trace(0-5/hpf) (Absent) Urine RBC (Auto) 2+(6-10/hpf) H (Absent) Ur Squamous Epith Cells Present H (Absent) Urine Bacteria Absent (Absent) Hyaline Casts Present H (Absent) Urine Glucose Negative (Negative) Urine Ascorbic Acid * H (Negative) Influenza A (Rapid) (Negative) Influenza B (Rapid) (Negative) Result Diagrams: 11/10/17 10:37 11/10/17 10:37 Lab Statement: Any lab studies that have been ordered have been reviewed, and results considered in the medical decision making process. - Radiology CXR Xray Interpretation: No Acute Changes - Suboptimal inspiration with crowding of the pulmonary markings and subsegmental atelectasis. Cardiomegaly with resulting compressive atelectasis at the LEFT lung base. No compelling acute cardiopulmonary process evident. Dr. Navarro has reviewed this report. Radiology Interpretation Completed By: Radiologist - EKG 11:03 Cardiac Rate: Tachycardia EKG Rhythm: Sinus Tachycardia - at 118 BPM EKG Interpretation: No ST elevations. Course/Dx - Course Assessment/Plan: The patient is an 82 year old female presenting with shortness of breath, generalized weakness, malaise, and cough that began yesterday. She denies fever, diaphoresis, and chest pain. Test results show WBC 15.3, [id number], lactic acid 2.5, CRP 74.9, troponin 0.06. Urinalysis is negative for UTI. Influenza A and B are negative. The CXR was read as negative; however, the patient seems to have a left lower lobe pneumonia. Since the patient has a productive cough with phlegm, fever, and increased WBC, the patient was given Rocephin and Azithromycin. I discussed the case with Dr. Hogue, and he accepts the patient for admission. The patient is hemodynamically stable and alert and oriented x 3. - Diagnoses Differential Diagnosis/HQI/PQRI: Positive: Asthma, Bronchitis, CHF, Chest Wall Pain, COPD Exacerbation, Pneumonia Provider Diagnoses: Pneumonia, Increased troponin, rule out ACS - Physician Notifications Discussed Care of Patient With: Nikko Hogue Time Discussed With Above Provider: 12:20 Instructed by Provider To: Admit As Inpatient Discharge - Discharge Plan Condition: Fair Disposition: ADMITTED TO [facility] The documentation as recorded by the Zack rowe Thomas accurately reflects the service I personally performed and the decisions made by , Nii Navarro MD.
[2017-11-10] MEDS: Morphine TAB Extended Release (*) 15 MG TAB.ER PO SCH (20:52)
[2017-11-10] MEDS: Omeprazole CAP* 20 MG PO SCH (20:52)
[2017-11-10] MEDS: Cetirizine* 10 MG TAB PO SCH (20:53)
[2017-11-10] MEDS: CMCS: Melatonin (NF) 3 MG TAB PO SCH (21:25)
--- NOTE | 2017-11-10 21:43 | HP ---
ADMISSION HISTORY AND PHYSICAL: DATE OF ADMISSION: 11/10/17 PRIMARY CARE PROVIDER: Dr. Fitzgerald. HEALTHCARE PROXY: Her daughter. CODE STATUS: DNR/DNI, discussed with the patient and her daughter, updated the [facility]. SOURCE OF INFORMATION: History obtained from interview with the patient and her daughter, review of past medical records. RELIABILITY: Fair. CHIEF COMPLAINT: Increased weakness, shortness of breath. HISTORY OF PRESENT ILLNESS: This is an 82-year-old female, with past medical history of multiple myeloma with lytic lesions much of her body, not on therapy , with her hospital stay for community-acquired pneumonia in the beginning of September, on 10/05/17, and then was readmitted on 10/20/17 for weakness, thought unintentional overdose on opioid medications, been in usual state of health until she was restarted on Revlimid approximately 1 week prior to presentation, which caused increased pain and lethargy. She stopped the medications 3 days prior to presentation and has been doing well, but has had a persistent cough since the time of her discharge from the hospital at the end of September. She has had increasing fatigue and back pain and this a.m. was noted to be "flushed " and could not stand up even with her one assist. She had increased weakness and was noted to be less coherent and her oxygen was "on the low side." Therefore, she was advised to proceed to the emergency room. Currently, she is not on home oxygen and it is unclear if she has been maintaining adequate p.o. intake at home over the last week while she has been on Revlimid. The patient concurrently has a history of dementia and has difficulty relaying much of the history. Her cough has been nonproductive. She noted some increased shortness of breath, although it is difficult to characterize. She denies any lower extremity edema, orthopnea, or PND. She cannot say whether any of her aides have been sick at home. She is unclear if she has had fevers, chills, or night sweats. PAST MEDICAL HISTORY: Includes: 1. Multiple myeloma, was recently on Revlimid, now discontinued. 2. Lytic lesions throughout bone, bones of skull, left and right humerus, acetabulum. 3. Chronic pain secondary to above. 4. History of small bowel obstruction. 5. History of diverticulitis. 6. Hypertension. 7. Chronic lower back pain. 8. History of dementia. 9. Osteoarthritis. 10. Asthma. MEDICATIONS: Medication list reviewed from the paper that the patient brought includes: 1. Aspirin 81 mg daily. 2. Montelukast 10 mg. 3. Paroxetine 20 mg. 4. Celecoxib 200 mg daily. 5. Hydrochlorothiazide 25 mg daily. 6. Vitamin B12. 7. Morphine ER 15 mg twice daily. 8. Dexamethasone 12 mg on Fridays only. 9. Albuterol 2 puffs every 4 hours as needed. 10. Flovent 3 puffs can be given at 6-hour intervals. 11. Ambien 10 mg in evening. 12. Rabeprazole ER 20 mg daily. 13. Levocetirizine 5 mg in the evening. 14. Melatonin in the evening. 15. Flovent as needed. 16. Oxycodone 5 mg every 4 hours as needed for breakthrough pain. 17. Tylenol 975 mg every 6 hours as needed. ALLERGIES: To AMOXICILLIN, causes jitteriness; EPINEPHRINE. FAMILY HISTORY: CAD. SOCIAL HISTORY: No tobacco, alcohol, or illicit's. Has 24x7 care at home, is a one-assist, able to ambulate short distances with a walker. REVIEW OF SYSTEMS: As per HPI, otherwise largely unable to obtain. PHYSICAL EXAMINATION GENERAL: Stated age, fairly lethargic but interactive, in no apparent distress. VITAL SIGNS: In the emergency room, blood pressure 108/56, heart rate when seen by this author 109, respiratory rate is 16, T-max 99.1. She was 93% on room air, increased to 96% on 2 L. HEENT: Oropharynx has thrush, relatively dry mucous membranes. NECK: Non-elevated JVD. No cervical or supraclavicular lymphadenopathy. LUNGS: Have rales in the left base up one-half, right side is relatively clear. HEART: She has tachycardiac heart rate with no murmurs. ABDOMEN: Soft, nontender, and nondistended. EXTREMITIES: Warm and well perfused. NEUROLOGIC: She is alert and oriented x3, but slow to respond to questions. No apparent anxiety, agitation, or depression. DIAGNOSTIC STUDIES/LAB DATA: Labs reviewed: Influenza negative. White blood cell count 15.3, 82% neutrophils, hemoglobin 12, platelets 181. Her lactic acid is 2.5. She has a troponin I of 0.06. Total CK is 234. BNP 103. Urine is positive for protein, red blood cells, squamous epithelial cells, negative for bacteria, leuk esterase, nitrites, and blood. Data reviewed: Chest x-ray, impression: Suboptimal inspiration with crowding of the pulmonary vascular markings and some segmental atelectasis. Cardiomegaly with resultant compressive atelectasis at the left lung base. No compelling acute cardiopulmonary process is evident. EKG: Sinus tachycardia with atrial premature complexes, left axis, normal limit intervals. No ST or T-wave changes. ASSESSMENT AND PLAN: This is an 82-year-old female, past medical history as outlined above including 2 recent hospital stays in September with community- acquired pneumonia and fatigue thought secondary to drug effect, now returning with continued cough, associated shortness of breath, and fatigue and noted low oxygen at home, although not measured or reported. 1. Shortness of breath. Concerning for pneumonia based on ausculatory findings and leukocytosis. I have added on a procalcitonin. I will additionally check urine for Streptococcus pneumoniae and legionella. Check sputum culture. Quite possibly could be viral, although in the setting of her immunocompromised state, threshold should be for treating bacterial process. She has received azithromycin and we will continue azithromycin, add ceftriaxone. Additionally, add 1 L of fluid bolus at this point in addition to 100 cc per hour after that has been completed based on her tachycardia and elevated lactic acid. 2. Lactic acidosis. Mildly elevated, repeat next at 2 p.m., although noted she has only started to receive fluid at this point. Fluids as noted above. 3. Elevated troponin. Suspect type 2 demand ischemia. Repeat again at 2 p.m. No other evidence for active ischemia. 4. Thrush. Nystatin oral. 5. Hypertension. Holding hydrochlorothiazide in the setting of tachycardia and I suspect it is hypovolemia. 6. Multiple myeloma. On no therapy, Revlimid stopped secondary to intolerable side effects 3 days prior. [id number]/[facility] #: [id number] [facility]
[2017-11-11 06:51] LABS: ABS Basophils 0 10^3/ul (0-0.2); ABS Eosinophils 0 10^3/ul (0-0.6); ABS Lymphocytes 0.9 10^3/ul (1.0-4.8); ABS Monocytes 0.4 10^3/ul (0-0.8); ABS Neutrophils 11.9 10^3/ul (1.5-7.7); ABS Nucleated RBC 0 10^3/ul; Eosinophil % 0 % (0-6); Hematocrit 31 % (35-47); Hemoglobin 10.5 g/dl (12.0-16.0); Lymphocyte % 6.7 % (25-47); Mean Corpuscular HGB Conc 34 g/dl (31-36); Mean Corpuscular Hemoglobin 31 pg (27-31); Mean Corpuscular Volume 92 fL (80-97); Mean Platelet Volume 8 um3 (7.4-10.4); Nucleated Red Blood Cells % 0; Platelet Count 162 10^3/ul (150-450); Red Blood Count 3.37 10^6/ul (4.0-5.4); Red Cell Distribution Width 15 % (10.5-15); White Blood Count 13.2 10^3/ul (3.5-10.8)
[2017-11-11 07:06] LABS: EGFR Non-African American 113.5 (>60)
[2017-11-11] MEDS: Aspirin EC Low Dose* 81 MG TAB.EC PO SCH (09:34)
[2017-11-11] MEDS: Montelukast Sodium TAB* 10 MG PO SCH (09:34)
[2017-11-11] MEDS: Cyanocobalamin TAB* 500 MCG PO SCH (09:34)
[2017-11-11] MEDS: Morphine TAB Extended Release (*) 15 MG TAB.ER PO SCH ×2 (09:34→20:45)
[2017-11-11] MEDS: PARoxetine HCL TAB* 20 MG PO SCH (09:35)
[2017-11-11] MEDS: Azithromycin IV(*) 250 MG in NS 0.9% 250 ML* 250 ML IVPB SCH (09:37)
[2017-11-11] MEDS: Nystatin SUSPENSION* 100000 UNITS/ML 5 ML UDC PO SCH ×4 (09:42→20:45)
--- NOTE | 2017-11-11 10:34 | PN ---
Subjective Date of Service: 11/11/17 Interval History: Ms. Khoury states that she is feeling a bit better than yesterday. She continues to be a bit weaker and more short of breath than usual. She is alert and less confused than yesterday. She denies chest pain, nausea, or abdominal pain. Objective Active Medications: Acetaminophen (Tylenol Tab*) 975 mg PO Q6H PRN Albuterol (Ventolin Hfa Inhaler*) 2 puff INH Q6H PRN Aspirin (Aspirin Ec Low Dose*) 81 mg PO DAILY [facility] Celecoxib (Celebrex Cap*) 200 mg PO QAM [facility] Cetirizine HCl (Zyrtec*) 10 mg PO QPM [facility] Cyanocobalamin (Vitamin B12 Tab*) 1,000 mcg PO DAILY [facility] Dexamethasone (Decadron Tab*) 12 mg PO Fr@0900 [facility] Enoxaparin Sodium (Lovenox(*)) 40 mg SUBCUT Q24H [facility] Heparin Sodium (Porcine) (Heparin Flush Port (Ivad)) 5 ml FLUSH DAILY [facility] Azithromycin 250 mg/ Sodium (Chloride) 250 mls @ 250 mls/hr IVPB Q24H [facility] Ceftriaxone Sodium 1 gm/ (Dextrose) 50 mls @ 200 mls/hr IVPB Q24H [facility] Melatonin (Melatonin (Nf)) 3 mg PO BEDTIME [facility] Mometasone Furoate (Asmanex 220 Mcg Mdi *) 2 puff INH BID PRN Montelukast Sodium (Singulair Tab*) 10 mg PO QAM [facility] Morphine Sulfate (Ms Contin(*)) 15 mg PO BID [facility] Nystatin (Nystatin Suspension*) 200,000 units PO QID [facility] Omeprazole (Prilosec Cap*) 20 mg PO BEDTIME [facility] Ondansetron HCl (Zofran Inj*) 4 mg IV Q4H PRN Oxycodone HCl (Roxycodone Tab*) 5 mg PO Q4H PRN Paroxetine HCl (Paxil Tab*) 20 mg PO QAM [facility] Zolpidem Tartrate (Ambien Tab*) 10 mg PO BEDTIME PRN Vital Signs: Temp Pulse Resp BP Pulse Ox 97.7 F 92 18 121/57 98 11/11/17 03:12 11/11/17 03:12 11/11/17 09:34 11/11/17 03:12 11/11/17 08:12 Oxygen Devices in Use Now: Nasal Cannula Appearance: Female sitting up in NAD Eyes: No Scleral Icterus Ears/Nose/Mouth/Throat: Mucous Membranes Moist Neck: Trachea Midline Respiratory: Symmetrical Chest Expansion and Respiratory Effort, - - Rhonchi L base Cardiovascular: NL Sounds; No Murmurs; No JVD, No Edema Abdominal: NL Sounds; No Tenderness; No Distention Extremities: No Edema Skin: No Rash or Ulcers Neurological: Alert and Oriented x 3, NL Muscle Strength and Tone Nutrition: Taking PO's Result Diagrams: 11/11/17 06:30 11/11/17 06:30 Additional Lab and Data: Vital Signs: Temp Pulse Resp BP Pulse Ox 97.7 F 92 18 121/57 98 11/11/17 03:12 11/11/17 03:12 11/11/17 09:34 11/11/17 03:12 11/11/17 08:12 Microbiology and Other Data: . Assess/Plan/Problems-Billing Assessment: Ms. Khoury is an 82 yo F with a PMH of multiple myeloma with diffuse lytic lesions who was admitted on 11/10/17 with weakness and SOB suspected secondary to pneumonia. - Patient Problems (1) Community acquired bacterial pneumonia Comment: - Now on 2L NC. - Chest xray with persistent L lower lobe infiltrate, CRP and procalcitonin elevated. - Negative strep pneumo and legionella antigens. - Continue ceftriaxone and azithromycin. (2) Asthma Comment: - No evidence of exacerbation. - Continue mometasone and montelukast. (3) HTN (hypertension) Comment: - SBP 90-120s. - Hold hctz in setting of acute illness. (4) Multiple myeloma Comment: - Continue MScontin and oxycodone. - Continue dexamathasone. - Off revlimid as could not tolerate side effects. (5) Elevated troponin Comment: - Trop peaked at 0.05. - Denies chest pain. No evidence of ischemia via EKG. - Suspect due to demand ischemia in setting of acute illness. (6) Thrush Comment: - Continue nystatin. (7) Depression Comment: - Continue paxil. (8) DVT prophylaxis Comment: - Lovenox. (9) DNR (do not resuscitate) Comment: Status and Disposition: Inpatient with expected LOS > 2 days. Oncology to take over care tomorrow. Anticipate discharge to home when medically stable.
[2017-11-11] MEDS: celeCOXIB CAP* 200 MG PO SCH (11:51)
[2017-11-11] MEDS ORDERED: cefTRIAXone(*) 1 GM in NS 0.9% 50 ML* 50 ML IVPB SCH (13:00)
[2017-11-11] MEDS: cefTRIAXone(*) 1 GM in D5W 50 ML BAG* 50 ML IVPB SCH (13:42)
[2017-11-11] MEDS: Enoxaparin(*) 40 MG/0.4 ML SYR SUBCUT SCH (13:42)
[2017-11-11] MEDS: Cetirizine* 10 MG TAB PO SCH (17:02)
[2017-11-11] MEDS: CMCS: Melatonin (NF) 3 MG TAB PO SCH (20:45)
[2017-11-11] MEDS: Omeprazole CAP* 20 MG PO SCH (20:45)
[2017-11-12] MEDS: Aspirin EC Low Dose* 81 MG TAB.EC PO SCH (09:09)
[2017-11-12] MEDS: Morphine TAB Extended Release (*) 15 MG TAB.ER PO SCH (09:09)
[2017-11-12] MEDS: Azithromycin IV(*) 250 MG in NS 0.9% 250 ML* 250 ML IVPB SCH (09:10)
[2017-11-12] MEDS: Cyanocobalamin TAB* 500 MCG PO SCH (09:10)
[2017-11-12] MEDS: Montelukast Sodium TAB* 10 MG PO SCH (09:10)
[2017-11-12] MEDS: celeCOXIB CAP* 200 MG PO SCH (09:10)
[2017-11-12] MEDS: Nystatin SUSPENSION* 100000 UNITS/ML 5 ML UDC PO SCH ×2 (09:10→13:28)
[2017-11-12] MEDS: PARoxetine HCL TAB* 20 MG PO SCH (09:10)
[2017-11-12] MEDS: cefTRIAXone(*) 1 GM in D5W 50 ML BAG* 50 ML IVPB SCH (13:28)
[2017-11-12] MEDS: Enoxaparin(*) 40 MG/0.4 ML SYR SUBCUT SCH (13:28)
--- NOTE | 2017-11-12 13:35 | PN ---
Subjective Date of Service: 11/12/17 Interval History: Ms. Khoury reports feeling better today. Nursing staff note that she was able to transfer and ambulate to the bathroom with stand by assist. She reports a continued cough but is not significantly dyspneic with exertion. She denies chest pain, nausea, or abdominal pain and is tolerating oral intake well. Objective Active Medications: Acetaminophen (Tylenol Tab*) 975 mg PO Q6H PRN Albuterol (Ventolin Hfa Inhaler*) 2 puff INH Q6H PRN Aspirin (Aspirin Ec Low Dose*) 81 mg PO DAILY [facility] Celecoxib (Celebrex Cap*) 200 mg PO QAM [facility] Cetirizine HCl (Zyrtec*) 10 mg PO QPM [facility] Cyanocobalamin (Vitamin B12 Tab*) 1,000 mcg PO DAILY [facility] Dexamethasone (Decadron Tab*) 12 mg PO Fr@0900 [facility] Enoxaparin Sodium (Lovenox(*)) 40 mg SUBCUT Q24H [facility] Heparin Sodium (Porcine) (Heparin Flush Port (Ivad)) 5 ml FLUSH DAILY [facility] Azithromycin 250 mg/ Sodium (Chloride) 250 mls @ 250 mls/hr IVPB Q24H [facility] Ceftriaxone Sodium 1 gm/ (Dextrose) 50 mls @ 200 mls/hr IVPB Q24H [facility] Melatonin (Melatonin (Nf)) 3 mg PO BEDTIME [facility] Mometasone Furoate (Asmanex 220 Mcg Mdi *) 2 puff INH BID PRN Montelukast Sodium (Singulair Tab*) 10 mg PO QAM [facility] Morphine Sulfate (Ms Contin(*)) 15 mg PO BID [facility] Nystatin (Nystatin Suspension*) 200,000 units PO QID [facility] Omeprazole (Prilosec Cap*) 20 mg PO BEDTIME [facility] Ondansetron HCl (Zofran Inj*) 4 mg IV Q4H PRN Oxycodone HCl (Roxycodone Tab*) 5 mg PO Q4H PRN Paroxetine HCl (Paxil Tab*) 20 mg PO QAM [facility] Zolpidem Tartrate (Ambien Tab*) 10 mg PO BEDTIME PRN Vital Signs: Temp Pulse Resp BP Pulse Ox 98.1 F 73 16 109/63 97 11/12/17 07:24 11/12/17 07:24 11/12/17 11:47 11/12/17 07:24 11/12/17 07:24 Oxygen Devices in Use Now: None Appearance: Female lying in bed in NAD Eyes: No Scleral Icterus Ears/Nose/Mouth/Throat: NL Teeth, Lips, Gums Neck: NL Appearance and Movements; NL JVP Respiratory: Symmetrical Chest Expansion and Respiratory Effort, Clear to Auscultation Cardiovascular: NL Sounds; No Murmurs; No JVD, No Edema Abdominal: NL Sounds; No Tenderness; No Distention Lymphatic: No Cervical Adenopathy Extremities: No Edema Skin: No Rash or Ulcers Neurological: Alert and Oriented x 3, NL Muscle Strength and Tone Nutrition: Taking PO's Result Diagrams: 11/11/17 06:30 11/11/17 06:30 Additional Lab and Data: . Microbiology and Other Data: . Assess/Plan/Problems-Billing Assessment: Ms. Khoury is an 82 yo F with a PMH of multiple myeloma with diffuse lytic lesions who was admitted on 11/10/17 with weakness and SOB suspected secondary to pneumonia. - Patient Problems (1) Community acquired bacterial pneumonia Comment: - No longer requiring oxygen. - Chest xray with persistent L lower lobe infiltrate, CRP and procalcitonin elevated. - Negative strep pneumo and legionella antigens. - Continue ceftin and azithromycin. (2) Asthma Comment: - No evidence of exacerbation. - Continue mometasone and montelukast. (3) HTN (hypertension) Comment: - SBP 90-120s. - Hold hctz in setting of acute illness. (4) Multiple myeloma Comment: - Continue MScontin and oxycodone. - Continue dexamathasone. - Off revlimid as could not tolerate side effects. (5) Elevated troponin Comment: - Trop peaked at 0.05. - Denies chest pain. No evidence of ischemia via EKG. - Suspect due to demand ischemia in setting of acute illness. (6) Thrush Comment: - Continue nystatin. (7) Depression Comment: - Continue paxil. (8) DVT prophylaxis Comment: - Lovenox. (9) DNR (do not resuscitate) Comment: Status and Disposition: Inpatient with expected LOS > 2 days. Discharge to home.
[2017-11-12 13:41] VITALS: BP 137/66
--- NOTE | 2017-11-13 12:42 | DS ---
CC: Dr. Fitzgerald; Dr. Gonzalez * [facility] MEDICINE DISCHARGE SUMMARY: DATE OF ADMISSION: 11/10/17 DATE OF DISCHARGE: 11/12/17 PRIMARY CARE PHYSICIAN: Dr. Fitzgerald. ONCOLOGIST: Dr. Gonzalez. ATTENDING PHYSICIAN: Dr. Leon Hutchison * (dictation provided by Moraima New NP). PRIMARY DIAGNOSIS: Pneumonia. SECONDARY DIAGNOSES: 1. Multiple myeloma with multiple lytic lesions throughout the bone. 2. Chronic pain secondary to the above. 3. History of small-bowel obstruction. 4. History of diverticulitis. 5. Hypertension. 6. Chronic low back pain. 7. History of dementia. 8. Osteoarthritis. 9. Asthma. MEDICATIONS: Medications at the time of discharge are: 1. Acetaminophen 175 mg as needed. 2. Oxycodone 5 mg q.4 hours as needed. 3. AcipHex 20 mg p.o. daily. 4. Melatonin 3 mg p.o. at bedtime. 5. Levocetirizine 5 mg p.o. q.p.m. 6. Zolpidem 10 mg p.o. at bedtime p.r.n. 7. Albuterol sulfate 2 puffs inhaled q.6 hours p.r.n. 8. Flovent 3 puffs inhaled q.6 hours p.r.n. 9. Dexamethasone 12 mg p.o. on Fridays. 10. MS-Contin 15 mg p.o. b.i.d. 11. Celecoxib 200 mg p.o. q.a.m. 12. Paroxetine 20 mg p.o. q.a.m. 13. Cyanocobalamin 1000 mcg p.o. daily. 14. Montelukast 10 mg p.o. q.a.m. 15. Aspirin 81 mg p.o. daily. 16. Cefuroxime 500 mg p.o. b.i.d. x5 days. 17. Nystatin suspension 100,000 units mouth thrush q.i.d. 18. Azithromycin 250 mg p.o. daily x3 days. HOSPITAL COURSE: Ms. Khoury is an 82-year-old female with a past medical history of multiple myeloma who was admitted to the hospital on 11/10/17 with concern for increased weakness and shortness of breath. Please see the dictated H and P from Nikko Hogue for complete details. In brief, the patient and her daughter reported that the patient had been having increased weakness, lower oxygen saturation and cough in the days immediately prior to admission. The patient has a history of community-acquired pneumonia, admitted to our hospital on September 2017 and then a readmission on 10/20/17 for weakness thought to be secondary to unintentional overdose on opioid medications. In the emergency room, Ms. Khoury had labs which showed leukocytosis with a white blood cell count of 15.3, her CRP was 74.91, her troponin was mildly elevated at 0.06 which was consistent per baseline. She had a chest x-ray that showed question of a persistent left-sided infiltrate, although the read is as follows "suboptimal inspiration with crowding of the pulmonary markings and subsegmental atelectasis, cardiomegaly with a resulting compressive atelectasis at the left lung base. No compelling acute cardiopulmonary process is evident. " Based on the overall picture including the patient's leukocytosis, elevated CRP , and new oxygen requirement, as well as her altered mental status and cough, Ms. Khoury was suspected to have pneumonia. She was treated with ceftriaxone and azithromycin. With this, she has had good butslow improvement of her symptoms. Ms. Khoury is able to ambulate in her room with standby assist. She is no longer requiring oxygen. She is afebrile. She is hemodynamically stable. Ms. Khoury is medically stable for discharge to home. She will be following up with Dr. Gonzalez and her primary care physician Dr. Fitzgerald. During this hospitalization, her hydrochlorothiazide has been held as her blood pressure has been running about 100 systolically. I am recommending that she continue to hold that medication at discharge until she follows up with her primary care physician Dr. Fitzgerald. DISPOSITION: Home. DIET: Regular. ACTIVITY: As tolerated. FOLLOWUP PLANS: 1. Please follow up with Dr. Fitzgerald in the next 4 to 7 days. 2. Please follow up with Dr. Gonzalez in the next 1 to 2 weeks. TIME SPENT: Approximately 60 minutes was spent on the discharge of this patient , more than half the time was spent with the patient at the bedside reviewing the events leading up to this hospitalization, performing the physical examination, and reviewing the plan of care. MORAIMA NEW, RESERVATION AGENT [id number]/[facility] #: [id number] [place]
== END 2017-11-12 15:00 | disposition home or self-care (01) | DRG 194 ==
LOC: ED 09:47 → MED 13:08
PROVIDERS: ADMIT Internal Medicine; ATTEND Internal Medicine
DX: J18.9 Pneumonia, unspecified organism (principal); C90.00 Multiple myeloma not having achieved remission; E87.2 Acidosis; B37.81 Candidal esophagitis; E74.8 Other specified disorders of carbohydrate metabolism; I24.8 Other forms of acute ischemic heart disease; G89.29 Other chronic pain; I10 Essential (primary) hypertension; M54.5 Low back pain; F03.90 Unspecified dementia, unspecified severity, without behavioral disturbance, psychotic disturbance, mood disturbance, and anxiety; M19.90 Unspecified osteoarthritis, unspecified site; J45.909 Unspecified asthma, uncomplicated; Z66 Do not resuscitate; Z79.1 Long term (current) use of non-steroidal anti-inflammatories (NSAID); Z79.82 Long term (current) use of aspirin; Z79.891 Long term (current) use of opiate analgesic; Z79.899 Other long term (current) drug therapy; Z88.1 Allergy status to other antibiotic agents; Z88.8 Allergy status to other drugs, medicaments and biological substances; Z82.49 Family history of ischemic heart disease and other diseases of the circulatory system
CPT/HCPCS: 36415; 71046; 80048; 80053; 81003; 81015; 82550; 83605; 83880; 84145; 84484; 85025; 86140; 87040; 87502; 87899; 93005; 94760; 94762; 99285; A9270-GY; J0456; J0696; J1642; J1650; J8540

== ENCOUNTER 2018-01-01 11:32 | Inpatient (IN) | payer MEDICARE, OTHER ==
[2018-01-01] MEDS ORDERED: cefTRIAXone(*) 1 GM in NS 0.9% 50 ML* 50 ML IVPB ONE (12:02)
[2018-01-01] MEDS: NS 0.9% 1000 ML*IV.FLUID IV ONE ×3 (12:12→15:17)
--- NOTE | 2018-01-01 13:04 | RAD ---
INDICATION: Tachycardia COMPARISON: November 10, 2017 TECHNIQUE: AP seated and lateral views were obtained. FINDINGS: Bones/Soft Tissues: There are no acute bony findings. There is a right-sided [id number] catheter Cardiomediastinal: The heart is normal in size. Lungs: Examination is expiratory with vascular crowding the lung bases Pleura: There are no pleural effusions. Other: None IMPRESSION: EXPIRATORY EXAMINATION. NO ACTIVE DISEASE.
[2018-01-01 13:22] LABS: Hematocrit 31 % (35-47); Hemoglobin 10.5 g/dl (12.0-16.0); Mean Corpuscular HGB Conc 34 g/dl (31-36); Mean Corpuscular Hemoglobin 31 pg (27-31); Mean Corpuscular Volume 94 fL (80-97); Mean Platelet Volume 7.6 um3 (7.4-10.4); Platelet Count 117 10^3/ul (150-450); Red Blood Count 3.36 10^6/ul (4.0-5.4); Red Cell Distribution Width 16 % (10.5-15); White Blood Count 6.5 10^3/ul (3.5-10.8)
[2018-01-01 13:32] LABS: EGFR Non-African American 102.1 (>60)
[2018-01-01 14:15] LABS: ABS Basophils 0 10^3/ul (0-0.2); ABS Eosinophils 0 10^3/ul (0-0.6); ABS Lymphocytes 1.1 10^3/ul (1.0-4.8); ABS Monocytes 0.7 10^3/ul (0-0.8); ABS Neutrophils 4.7 10^3/ul (1.5-7.7)
[2018-01-01 14:28] LABS: INR 0.91 (0.77-1.02)
[2018-01-01 14:33] LABS: Monocytes % 13 % (0-7)
[2018-01-01 15:40] LABS: Urine Appearance Clear; Urine Blood 1+ (Negative); Urine Color Colorless; Urine Ketones Negative (Negative); Urine Protein Negative (Negative); Urine Specific Gravity 1.004 (1.010-1.030); Urine Urobilinogen Negative (Negative)
--- NOTE | 2018-01-01 16:58 | RAD ---
Indication: ALS. Generalized weakness and abdominal pain. Comparison: July 19, 2017 CT. Technique: Noncontrast CT vertex of skull through foramen magnum. Report: Unremarkable cerebral sulci, ventricles, and basal cisterns. Decreased density in the periventricular and subcortical white matter while non-specific is most likely due to chronic microangiopathy. Small chronic lacunar infarcts at the bilateral basal ganglia as on the prior exam. No new lacunar infarct. Negative for new marcus matter white matter obscuration, intra or extra-axial hemorrhage, or mass effect. Unremarkable orbital contents. Unremarkable calvarium and skull base. Clear visualized paranasal sinuses and mastoid air spaces. Unremarkable scalp. IMPRESSION: 1. No acute intracranial process evident. 2. Stigmata of chronic small vessel ischemic disease and unchanged bilateral basal ganglia lacunar infarcts.
[2018-01-01] MEDS ORDERED: Zolpidem TAB* 10 MG PO PRN (18:07)
[2018-01-01] MEDS: Cetirizine* 10 MG TAB PO SCH (21:14)
[2018-01-01] MEDS: Morphine TAB Extended Release (*) 15 MG TAB.ER PO SCH (21:14)
[2018-01-01] MEDS: CMCS: Melatonin (NF) 3 MG TAB PO SCH (21:17)
[2018-01-01] MEDS: Heparin VIAL(*) 5000 UNITS/ML VIAL (FIVE THOUSAND) SUBCUT SCH (21:20)
[2018-01-01] MEDS: Clotrimazole TROCHE* 10 MG TROCHE PO SCH ×2 (21:21→21:23)
--- NOTE | 2018-01-01 22:37 | HP ---
HISTORY AND PHYSICAL: DATE OF ADMISSION: 01/01/18 ADMITTING PROVIDER: Leon Hutchison MD. PRIMARY CARE PROVIDER: Dr. Fitzgerald. OUTPATIENT FLEXIBLE BABYSITTER: Dr. Gonzalez. CHIEF COMPLAINT: Generally feeling unwell, tachycardia, shortness of breath. HISTORY OF PRESENT ILLNESS: Deloris Khoury is an 82-year-old female with past medical history of multiple myeloma (diagnosed in October 2015, just a day prior to admission restarted Revlimid) with lytic lesions and 3 hospitalizations in the last year for pneumonia x2 and opioid overdose, chronic pain, diverticulitis, hypertension, dementia, osteoarthritis, asthma, history of small bowel obstruction. She is a poor historian, but a home health aide is at bedside and presents some of the history and it was with the patient last night, she complained of a sore throat and was "a little out of it" and she 3 days prior had been started on nystatin for suspected thrush. She was reportedly hypoxic to an unknown degree and short of breath and very tachycardic. EMS notes report tachycardia and room air saturations of 93%. She just last night started Revlimid for a course of 21 days. She did admit to her morphine extended release 15 mg, but otherwise took her morning meds. She denies any chest pain, tightness, abdominal pain (although of note, the EMS records quote her as saying she was having belly pain), fevers, chills, nausea, vomiting. She had a regular bowel movement at 9:30 on the morning of admission. She recently between 11/10/17 and 11/12/17 had a diagnosis of pneumonia, although no significant chest imaging findings at that time and also 10/05/17 through 10/07/17, at that time was prescribed Zosyn. She had a negative CT angiogram for pulmonary embolism on 10/20/17 to 10/22/17, at admission for opioid overdose. The patient also reportedly had a "sleep study" with a watch 2 weeks ago and desatted to as low as 86% and was waiting for initiation of home oxygen. In the emergency room, she had a chest x-ray which showed no significant finding, although poor study. CRP was 76, ESR was 85 and she had 12% bands. She was tachycardic to the 116's and intermittently tachypneic. She was started on ceftriaxone and got 2.5 L normal saline for sepsis IV fluid dosing and is referred to the hospitalist service for admission for sepsis of unknown origin. PAST MEDICAL HISTORY: Includes: 1. Multiple myeloma, recently restarted Revlimid. 2. Lytic lesions to the bones, skull, left and right humerus, and acetabulum. 3. Chronic lower back pain secondary to lytic lesions. 4. Small bowel obstruction. 5. Diverticulitis. 6. Hypertension. 7. Dementia. 8. Osteoarthritis. 9. Asthma. MEDICATIONS: Include: 1. Hydrochlorothiazide 25 mg p.o. q.a.m. 2. Aspirin 81 mg q.a.m. 3. Montelukast (Singulair)10 mg q.a.m. 4. Paroxetine (Paxil 20 mg) q.a.m. 5. Celecoxib 200 mg p.o. q.a.m. 6. Vitamin B12, 1000 mcg p.o. q.a.m. 7. Morphine extended release 15 mg b.i.d. 8. Dexamethasone 4 mg tablets, once on Tuesdays and 2 tablets on Fridays. 9. Ambien 10 mg q.p.m. 10. Rabeprazole (Aciphex 20 mg p.o. q.p.m.). 11. Levocetirizine (Xyzal 5 mg p.o. q.p.m.). 12. Melatonin 3 mg p.o. q.p.m. 13. Flovent 3 puffs inhaled q.6 hours p.r.n. 14. Proventil 2 puffs inhaled q.6 hours p.r.n. Recently restarted nystatin and Revlimid 3 and 2 days ago respectively. ALLERGIES: To AMOXICILLIN causing jitteriness and EPINEPHRINE. FAMILY HISTORY: Mother at age 50 of heart disease. Father at age 82 of heart disease. 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 DNR. DIPAK is at home and to brought in by daughter who is her medical surrogate by the name of Elizabeth Dewey. She is a never smoker, formerly "little alcohol use, no other drug use." REVIEW OF SYSTEMS: A complete 14-point review of systems negative except as per HPI. She denies any headaches or rashes, travel, vision changes, or focal weakness. PHYSICAL EXAMINATION GENERAL APPEARANCE: No acute distress, lying in the hospital bed. VITAL SIGNS: Temperature 98.4; heart rate initially 116, currently 102; respiratory rate [id number] and 23; saturating 95% on 2 L; blood pressure is 133/ 71. HEENT: Normocephalic, atraumatic. Pupils are equal, round, and reactive to light. Extraocular motions intact. Suspected thrush on tongue in patchy areas. No other oropharynx lesions. NECK: No neck stiffness or cervical lymphadenopathy. PULMONARY: Clear to auscultation bilaterally. No wheezing, rales or rhonchi. HEART: Regular rate, tachycardiac rhythm. No murmurs, rubs or gallops. ABDOMEN: Soft, slightly tender in the suprapubic area. No rebound or guarding. No Aguilera sign. Slightly obese. EXTREMITIES: Warm and well perfused. No peripheral edema. NEUROLOGIC: Cranial nerves II through XII intact. Biceps 5/5, brazer crawler torch strength 5/ 5, hip extension and plantar and dorsiflexion 5/5 bilaterally. Sensation intact. SKIN: No lesions. No rashes. LABORATORY DATA: White count 6.5, hemoglobin 10.5, hematocrit 31, MCV 94, platelets 117,000, RDW 16, band neutrophils 12%, ESR 85. INR 0.91. APTT 19.6, fibrinogen 511. Sodium 132, potassium 4.1, chloride 99, carbon dioxide 24, BUN 19, creatinine 0.57, glucose 155, lactic acid 0.7 x2, total bili 0.4, AST 20, ALT 21, alk phos 74, ammonia 59, troponin 0.04 x2, CRP 76.5, BNP 80, total protein 5.9, albumin 3.3, procalcitonin 0.1. Urinalysis 1+ blood, specific gravity 1.004. Influenza swabs negative for A and B. IMAGING: Chest x-ray limited by expiratory exam. No active disease. Vascular crowding noticed at the lung bases. CT head demonstrated no acute intracranial process. This was without contrast. There is stigmata of chronic small vessel ischemic disease and unchanged bilateral basal ganglia, lacunar infarcts. EKG demonstrates sinus tachycardia, T-wave inversions in 3, poor R wave progression, normal intervals, rate 114, QTC 418. No ST elevations or depressions. ASSESSMENT AND PLAN: Deloris Khoury is an 82-year-old female with a past medical history of multiple myeloma, just restarting Revlimid the night prior to admission, presenting with tachycardia, subjective shortness of breath elevated ESR and CRP and intermittent tachypnea. She is afebrile, but evidence of bandemia, concerning for infection especially in the setting of new chemotherapy use. We will get CBCs, BMP daily, monitor for any development in neutropenia or other cytopenias. Consideration for Hematology/Oncology consult in the morning. She has evidence of some thrush. We will start clotrimazole troches 10 mg p.o. 5 times daily. We will continue the empiric ceftriaxone and followup blood cultures, get a MRSA nares swab. Of note, her procalcitonin was within normal limits at 0.1. She is not complaining of any cough. We will consider urine Strep and Legionella antigens, but we will hold off for now. Suspicion that possible reaction to the chemotherapy and also in the setting of thrush, we are adding on the D-dimer to investigate any concern for pulmonary embolism given her tachycardia and subjective shortness of breath. She does have a T-wave inversion in lead 3. Of note, she did have, and I guess a CT of the chest back in September 2017. She is get physical therapy to work with her. 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 The patient normally uses a walker at baseline. We will continue her morphine extended release 15 mg p.o. b.i.d. and give her a dose now given that she missed in the a.m. She reportedly has had problems with withdrawal symptoms during prior hospitalizations. We will continue aspirin 81 mg daily, her Ambien 10 mg p.o. q.h.s., her Singulair and inhalers p.r.n., her vitamin B12. We will hold off on redosing her Revlimid while she is in the hospital. Some consideration for adrenal insufficiency given her chronic, but intermittent Decadron dosing. Consider cortisol testing in the a.m., although she is not hypotensive and that currently though formally did complain of some abdominal pain. She is a DNR/ DNI. We will confirm with [facility] or update one copy here. Medical surrogate is Elizabeth Dewey. She is being admitted inpatient status for substance of unknown origin. For her DVT prophylaxis, start heparin 5000 t.i.d. She can eat an unrestricted diet. [id number]/[facility] #: [id number] ANASTACIO
[2018-01-01] MEDS ORDERED: ALPRAZolam TAB* 0.25 MG PO ONE (22:46)
[2018-01-02] MEDS: Clotrimazole TROCHE* 10 MG TROCHE PO SCH ×5 (05:14→20:53)
[2018-01-02] MEDS: Heparin VIAL(*) 5000 UNITS/ML VIAL (FIVE THOUSAND) SUBCUT SCH ×3 (05:14→20:56)
[2018-01-02 05:33] LABS: Hematocrit 30 % (35-47); Hemoglobin 10.4 g/dl (12.0-16.0); Mean Corpuscular HGB Conc 35 g/dl (31-36); Mean Corpuscular Hemoglobin 32 pg (27-31); Mean Corpuscular Volume 92 fL (80-97); Mean Platelet Volume 7.6 um3 (7.4-10.4); Platelet Count 110 10^3/ul (150-450); Red Blood Count 3.28 10^6/ul (4.0-5.4); Red Cell Distribution Width 16 % (10.5-15); White Blood Count 3.8 10^3/ul (3.5-10.8)
[2018-01-02 05:50] LABS: ABS Basophils 0 10^3/ul (0-0.2); ABS Eosinophils 0 10^3/ul (0-0.6); ABS Lymphocytes 0.8 10^3/ul (1.0-4.8); ABS Monocytes 0.3 10^3/ul (0-0.8); ABS Neutrophils 2.6 10^3/ul (1.5-7.7)
[2018-01-02 05:53] LABS: EGFR Non-African American 121.5 (>60)
[2018-01-02 07:20] LABS: ABS Nucleated RBC 0 10^3/ul; Eosinophil % 0.1 % (0-6); Lymphocyte % 22.3 % (25-47); Nucleated Red Blood Cells % 0.1
[2018-01-02] MEDS ORDERED: Magnesium Sulfate IV* 3 GM in NS 0.9% 100 ML* 100 ML IVPB ONE (08:10)
[2018-01-02] MEDS ORDERED: Magnesium Sulfate 2 GM IV IVPB ONE (08:30)
[2018-01-02] MEDS: Montelukast Sodium TAB* 10 MG PO SCH (09:24)
[2018-01-02] MEDS: celeCOXIB CAP* 200 MG PO SCH (09:24)
[2018-01-02] MEDS: PARoxetine HCL TAB* 20 MG PO SCH (09:24)
[2018-01-02] MEDS: Cyanocobalamin TAB* 500 MCG PO SCH (09:24)
[2018-01-02] MEDS: Aspirin EC TAB* 81 MG TAB.EC PO SCH (09:24)
[2018-01-02] MEDS ORDERED: Magnesium Sulfate 1 GM IV* 1 GM/100 ML BAG IV ONE (09:30)
[2018-01-02] MEDS: Morphine TAB Extended Release (*) 15 MG TAB.ER PO SCH ×2 (10:10→20:53)
--- NOTE | 2018-01-02 11:32 | RAD ---
INDICATION: Shortness of breath and elevated d-dimer. COMPARISON: Correlation is made with a prior study from April 03, 2017. TECHNIQUE: Multiple real-time, color flow and Doppler tracings of both lower extremities were obtained. FINDINGS: The common femoral, femoral, profunda femoral and popliteal veins all demonstrate normal compressibility, augmentation with compression and phasic response with respiration. The posterior tibial and peroneal veins demonstrate normal compressibility and augmentation with compression. IMPRESSION: NO EVIDENCE FOR DEEP VENOUS THROMBOSIS.
[2018-01-02] MEDS: cefTRIAXone(*) 1 GM in NS 0.9% 50 ML* 50 ML IVPB SCH (12:27)
--- NOTE | 2018-01-02 14:07 | PN ---
Progress Note - Progress Note Date of Service: 01/02/18 SOAP: Subjective: [This is an 82 yo female with multiple myeloma followed by Dr Gonzalez who presented with c/o progressive malaise and dyspnea. She recently resumed treatment with Revlimid 12/31/17, which was previously stopped due to progressive SEs. She had continued her dexamethasone, dosed at 4 mg three times daily. Patient has moderate dementia and lives at home with 24 hour care. Her daughter reports that she seemed slightly more fatigued than usual when she spoke to her over the phone on the weekend. No focal symptoms at that time. Home nursing noted a slight increase in HR over the last few days. She has been afebrile. No noted cough. No complaints of abd pain, n/v/d. In the ER she was tachycardic with a significant bandemia and admitted for sepsis of unknown origin. CXR was of poor quality, but no obvious infiltrate. UA unremarkable. Blood cultures pending. Today, patient offers no complaints. Her daughter reports that she has been sleeping most of the day, which is slightly unusual for her. Her daughter also has a question of whether she requires home O2 overnight, which had been recommended by her PCP, but denied by [facility].] Objective: [ Aspirin (Aspirin Ec Tab*) 81 mg PO DAILY [facility] Last Admin: 01/02/18 09:24 Dose: 81 mg Celecoxib (Celebrex Cap*) 200 mg PO QAM [facility] Last Admin: 01/02/18 09:24 Dose: 200 mg Cetirizine HCl (Zyrtec*) 10 mg PO QPM [facility] Last Admin: 01/01/18 21:14 Dose: 10 mg Clotrimazole (Mycelex Yakelin*) 10 mg PO FIVE TIMES DAILY [facility] Last Admin: 01/02/18 09:30 Dose: 10 mg Cyanocobalamin (Vitamin B12 Tab*) 1,000 mcg PO DAILY [facility] Last Admin: 01/02/18 09:24 Dose: 1,000 mcg Heparin Sodium (Porcine) (Heparin Vial(*)) 5,000 units SUBCUT Q8HR [facility] Last Admin: 01/02/18 05:14 Dose: 5,000 units Ceftriaxone Sodium 1 gm/ (Sodium Chloride) 50 mls @ 200 mls/hr IVPB Q24H [facility] Last Admin: 01/02/18 12:27 Dose: 200 mls/hr Melatonin (Melatonin (Nf)) 3 mg PO BEDTIME [facility] PRN Reason: Protocol Last Admin: 01/01/18 21:17 Dose: 3 mg Mometasone Furoate (Asmanex 220 Mcg Mdi *) 2 puff INH QPM [facility] Montelukast Sodium (Singulair Tab*) 10 mg PO QAM [facility] Last Admin: 01/02/18 09:24 Dose: 10 mg Morphine Sulfate (Ms Contin(*)) 15 mg PO 0900,2100 [facility] Last Admin: 01/02/18 10:10 Dose: Not Given Paroxetine HCl (Paxil Tab*) 20 mg PO QAM [facility] Last Admin: 01/02/18 09:24 Dose: 20 mg Zolpidem Tartrate (Ambien Tab*) 10 mg PO BEDTIME PRN PRN Reason: SLEEP Last Admin: 01/01/18 21:17 Dose: 10 mg Laboratory Results - last 24 hr 01/01/18 01/01/18 01/01/18 12:30 12:30 12:30 WBC 6.5 RBC 3.36 L Hgb 10.5 L Hct 31 L MCV 94 MCH 31 MCHC 34 RDW 16 H Plt Count 117 L MPV 7.6 Neut % (Auto) Not Reportable Lymph % (Auto) Not Reportable Whitman % (Auto) Not Reportable Eos % (Auto) Not Reportable Baso % (Auto) Not Reportable Absolute Neuts (auto) 4.7 Absolute Lymphs (auto) 1.1 Absolute Monos (auto) 0.7 Absolute Eos (auto) 0 Absolute Basos (auto) 0 Absolute Nucleated RBC Not Reportable Immature Gran % 13 H Neutrophils % 52 Band Neutrophils % 12 H Lymphocytes % 22 L Monocytes % 13 H Eosinophils % 0 Basophils % 0 Metamyelocytes % 1 Nucleated RBC % Not Reportable Abs Neuts (Manual) 3.4 Abs Lymphs (Manual) 1.4 Abs Monocytes (Manual) 0.8 Absolute Eos (Manual) 0 Abs Basophils (Manual) 0 Normal RBC Morphology Normal ESR Cancelled INR (Anticoag Therapy) 0.91 APTT 19.6 L Fibrinogen 511 H D-Dimer, Quantitative > 1050 H Sodium Potassium Chloride Carbon Dioxide Anion Gap BUN Creatinine Est GFR ( Amer) Est GFR (Non-Af Amer) BUN/Creatinine Ratio Glucose Lactic Acid Calcium Magnesium Ammonia Troponin I Procalcitonin 0.1 Urine Color Urine Appearance Urine pH Ur Specific [place] Urine Protein Urine Ketones Urine Blood Urine Nitrate Urine Bilirubin Urine Urobilinogen Ur Leukocyte Esterase Urine WBC (Auto) Urine RBC (Auto) Urine Bacteria Urine Glucose Influenza A (Rapid) Influenza B (Rapid) 01/01/18 01/01/18 01/01/18 15:15 15:21 15:25 WBC RBC Hgb Hct MCV MCH MCHC RDW Plt Count MPV Neut % (Auto) Lymph % (Auto) Whitman % (Auto) Eos % (Auto) Baso % (Auto) Absolute Neuts (auto) Absolute Lymphs (auto) Absolute Monos (auto) Absolute Eos (auto) Absolute Basos (auto) Absolute Nucleated RBC Immature Gran % Neutrophils % Band Neutrophils % Lymphocytes % Monocytes % Eosinophils % Basophils % Metamyelocytes % Nucleated RBC % Abs Neuts (Manual) Abs Lymphs (Manual) Abs Monocytes (Manual) Absolute Eos (Manual) Abs Basophils (Manual) Normal RBC Morphology ESR 85 H INR (Anticoag Therapy) APTT Fibrinogen D-Dimer, Quantitative Sodium Potassium Chloride Carbon Dioxide Anion Gap BUN Creatinine Est GFR ( Amer) Est GFR (Non-Af Amer) BUN/Creatinine Ratio Glucose Lactic Acid Calcium Magnesium Ammonia Troponin I Procalcitonin Urine Color Colorless Urine Appearance Clear Urine pH 7.0 Ur Specific [place] 1.004 L Urine Protein Negative Urine Ketones Negative Urine Blood 1+ A Urine Nitrate Negative Urine Bilirubin Negative Urine Urobilinogen Negative Ur Leukocyte Esterase Negative Urine WBC (Auto) Absent Urine RBC (Auto) Trace(0-2/hpf) Urine Bacteria Absent Urine Glucose Negative Influenza A (Rapid) Negative Influenza B (Rapid) Negative 01/01/18 01/01/18 01/01/18 16:07 16:07 16:07 WBC RBC Hgb Hct MCV MCH MCHC RDW Plt Count MPV Neut % (Auto) Lymph % (Auto) Whitman % (Auto) Eos % (Auto) Baso % (Auto) Absolute Neuts (auto) Absolute Lymphs (auto) Absolute Monos (auto) Absolute Eos (auto) Absolute Basos (auto) Absolute Nucleated RBC Immature Gran % Neutrophils % Band Neutrophils % Lymphocytes % Monocytes % Eosinophils % Basophils % Metamyelocytes % Nucleated RBC % Abs Neuts (Manual) Abs Lymphs (Manual) Abs Monocytes (Manual) Absolute Eos (Manual) Abs Basophils (Manual) Normal RBC Morphology ESR INR (Anticoag Therapy) APTT Fibrinogen D-Dimer, Quantitative Sodium Potassium Chloride Carbon Dioxide Anion Gap BUN Creatinine Est GFR ( Amer) Est GFR (Non-Af Amer) BUN/Creatinine Ratio Glucose Lactic Acid 0.7 Calcium Magnesium Ammonia 59 H Troponin I 0.04 H* Procalcitonin Urine Color Urine Appearance Urine pH Ur Specific [place] Urine Protein Urine Ketones Urine Blood Urine Nitrate Urine Bilirubin Urine Urobilinogen Ur Leukocyte Esterase Urine WBC (Auto) Urine RBC (Auto) Urine Bacteria Urine Glucose Influenza A (Rapid) Influenza B (Rapid) 01/02/18 01/02/18 05:22 05:22 WBC 3.8 RBC 3.28 L Hgb 10.4 L Hct 30 L MCV 92 MCH 32 H MCHC 35 RDW 16 H Plt Count 110 L MPV 7.6 Neut % (Auto) 68.4 Lymph % (Auto) 22.3 L Whitman % (Auto) 9.1 H Eos % (Auto) 0.1 Baso % (Auto) 0.1 Absolute Neuts (auto) 2.6 Absolute Lymphs (auto) 0.8 L Absolute Monos (auto) 0.3 Absolute Eos (auto) 0 Absolute Basos (auto) 0 Absolute Nucleated RBC 0 Immature Gran % Neutrophils % Band Neutrophils % Lymphocytes % Monocytes % Eosinophils % Basophils % Metamyelocytes % Nucleated RBC % 0.1 Abs Neuts (Manual) Abs Lymphs (Manual) Abs Monocytes (Manual) Absolute Eos (Manual) Abs Basophils (Manual) Normal RBC Morphology ESR INR (Anticoag Therapy) APTT Fibrinogen D-Dimer, Quantitative Sodium 138 L Potassium 3.9 Chloride 104 Carbon Dioxide 27 Anion Gap 7 BUN 13 Creatinine 0.49 L Est GFR ( Amer) 156.3 Est GFR (Non-Af Amer) 121.5 BUN/Creatinine Ratio 26.5 H Glucose 163 H Lactic Acid Calcium 9.4 Magnesium 1.6 L Ammonia Troponin I Procalcitonin Urine Color Urine Appearance Urine pH Ur Specific [place] Urine Protein Urine Ketones Urine Blood Urine Nitrate Urine Bilirubin Urine Urobilinogen Ur Leukocyte Esterase Urine WBC (Auto) Urine RBC (Auto) Urine Bacteria Urine Glucose Influenza A (Rapid) Influenza B (Rapid) Vital Signs: Temp Pulse Resp BP Pulse Ox 98.1 F 94 16 130/71 96 01/02/18 02:58 01/02/18 08:02 01/02/18 08:02 01/02/18 08:02 01/02/18 08:02 Exam: Gen: Elderly female, who appears sedated, but easily arousable. Accompanied by her daughter who provides most of the history. HEENT: MMM, no lesions CV: RRR, subtle murmur Resp: technically difficult exam, but faint crackle noted Abd: Soft, nonTTP Ext: Trace edema Psych: Alert, pleasant, specific orientation questions not asked ] Assessment: [82 yo female with multiple myeloma who recently resumed treatment with Revlimid who presented with malaise, dyspnea and tachycardia. Treated for sepsis of unknown source.] Plan: [1. Bandemia with tachycardia and elevated CRP/ESR - question whether these findings are due to sepsis. The bandemia may be due to her dexamethasone use, but likely does not explain the tachycardia which appears to be new. Her elevated inflammatory markers could be attributed to her myeloma. - LE Doppler neg for DVT, but she could have developed a spontaneous PE - Recommend CTA of the chest to eval for PE, but may also suggest a more subtle PNA that was not appreciated on initial CXR - Cont abx until cultures return - if cx neg and no infiltrate noted on CT, can likely stop abx 2. Multiple myeloma - unlikely her Revlimid is related to her current presentation - hold Revlimid at this time, but can likely resume following discharge 3. Dementia - moderate, receives 24h care at home 4. Nighttime hypoxia - check overnight pulse ox this evening - no noted hypoxia since admission ]
[2018-01-02] MEDS ORDERED: Iohexol 350* (CONTRAST) 500 ML MDV IV ONE (14:18)
--- NOTE | 2018-01-02 15:46 | RAD ---
INDICATION: Sepsis. Question pneumonia and pulmonary embolism. History of multiple myeloma. COMPARISON: January 02, 2018 bilateral lower extremity venous ultrasound. January 01, 2018 chest radiograph. October 20, 2017 CT pulmonary angiogram. TECHNIQUE: Multidetector CT images were obtained from the lung apices to the upper abdomen with 74 mL Omnipaque 350 IV contrast. Pulmonary angiogram protocol. Multiplanar reformation including with maximum intensity projection. REPORT: Mild subsegmental atelectasis along the fissures bilaterally. No alveolar consolidation concerning for pneumonia or suspicious focal pulmonary lesions. Negative for pleural effusions. Tip of RIGHT chest port is at the RIGHT atrium. Negative for thoracic lymphadenopathy. Upper normal heart size. Negative for pericardial effusion. Normal diameter thoracic aorta with minimal atherosclerotic plaque. Negative for aortic dissection. No filling defects are identified from the main to the subsegmental pulmonary arteries to indicate presence of a pulmonary embolism. Limited images through the upper abdomen are remarkable for decreased density of the liver consistent with fatty infiltration. Bone density appears decreased throughout. Multiple thoracic and proximal lumbar spine vertebral compression fractures present. The T6 fracture involving the anterior and middle columns with approximate 70% loss of height at the anterior margin without significant compromise of the central canal is new compared with the October 20, 2017 exam. The anterior column fracture at L1 with approximate 50% loss of height is also new. Multiple bilateral rib fractures with callus formation. No definitive focal lytic or blastic osseous lesions visualized. IMPRESSION: 1. Negative for pulmonary embolus. 2. Mild subsegmental atelectasis. No evidence for pneumonia. 3. Multiple thoracic and L1 vertebral compression fractures with new fractures compared with the October 20, 2017 exam as described without evidence for significant compromise of the central canal at any level.
[2018-01-02] MEDS: Acetaminophen TAB* 325 MG PO PRN ×2 (17:12→23:48)
[2018-01-02] MEDS: Cetirizine* 10 MG TAB PO SCH (17:12)
--- NOTE | 2018-01-02 17:25 | PN ---
Subjective Date of Service: 01/02/18 Interval History: got benzo after agitation last night then slept alot. HR trend improvement to mostly 90s. Duplex doppler w/o DVTs heme onc consulted and got CTA w/o e/o PE or pna. Did show new compression fractures L1, thoracic. updated daughter at bedside. Had gotten second opinion with Dr. Schmidt of [place]. previous vacillation about back pains and fatigue with the revlimid. Objective Active Medications: Acetaminophen (Tylenol Tab*) 650 mg PO Q6H PRN PRN Reason: FEVER/PAIN Last Admin: 01/02/18 17:12 Dose: 650 mg Aspirin (Aspirin Ec Tab*) 81 mg PO DAILY [facility] Last Admin: 01/02/18 09:24 Dose: 81 mg Celecoxib (Celebrex Cap*) 200 mg PO QAM [facility] Last Admin: 01/02/18 09:24 Dose: 200 mg Cetirizine HCl (Zyrtec*) 10 mg PO QPM [facility] Last Admin: 01/02/18 17:12 Dose: 10 mg Clotrimazole (Mycelex Yakelin*) 10 mg PO FIVE TIMES DAILY [facility] Last Admin: 01/02/18 17:12 Dose: 10 mg Cyanocobalamin (Vitamin B12 Tab*) 1,000 mcg PO DAILY [facility] Last Admin: 01/02/18 09:24 Dose: 1,000 mcg Heparin Sodium (Porcine) (Heparin Vial(*)) 5,000 units SUBCUT Q8HR [facility] Last Admin: 01/02/18 14:21 Dose: 5,000 units Ceftriaxone Sodium 1 gm/ (Sodium Chloride) 50 mls @ 200 mls/hr IVPB Q24H [facility] Last Admin: 01/02/18 12:27 Dose: 200 mls/hr Melatonin (Melatonin (Nf)) 3 mg PO BEDTIME [facility] PRN Reason: Protocol Last Admin: 01/01/18 21:17 Dose: 3 mg Mometasone Furoate (Asmanex 220 Mcg Mdi *) 2 puff INH QPM [facility] Montelukast Sodium (Singulair Tab*) 10 mg PO QAM [facility] Last Admin: 01/02/18 09:24 Dose: 10 mg Morphine Sulfate (Ms Contin(*)) 15 mg PO 0900,2100 [facility] Last Admin: 01/02/18 10:10 Dose: Not Given Paroxetine HCl (Paxil Tab*) 20 mg PO QAM [facility] Last Admin: 01/02/18 09:24 Dose: 20 mg Zolpidem Tartrate (Ambien Tab*) 10 mg PO BEDTIME PRN PRN Reason: SLEEP Last Admin: 01/01/18 21:17 Dose: 10 mg Vital Signs - 8 hr 01/02/18 16:53 Temperature 98.0 F Pulse Rate 97 Respiratory 20 Rate Blood Pressure 110/55 (mmHg) O2 Sat by Pulse 99 Oximetry Oxygen Devices in Use Now: None Appearance: NAD, easily arousable. Eyes: No Scleral Icterus Ears/Nose/Mouth/Throat: NL Teeth, Lips, Gums, Clear Oropharnyx Respiratory: Symmetrical Chest Expansion and Respiratory Effort, Clear to Auscultation Cardiovascular: NL Sounds; No Murmurs; No JVD, RRR Abdominal: NL Sounds; No Tenderness; No Distention, No Hepatosplenomegaly Extremities: No Edema Skin: No Rash or Ulcers Neurological: NL Sensation, - - oriented to name. Thinks in hometown in [place]. Nutrition: Taking PO's Result Diagrams: 01/02/18 05:22 01/02/18 05:22 Additional Lab and Data: Laboratory Results - last 24 hr 01/02/18 01/02/18 05:22 05:22 WBC 3.8 RBC 3.28 L Hgb 10.4 L Hct 30 L MCV 92 MCH 32 H MCHC 35 RDW 16 H Plt Count 110 L MPV 7.6 Neut % (Auto) 68.4 Lymph % (Auto) 22.3 L Bibb % (Auto) 9.1 H Eos % (Auto) 0.1 Baso % (Auto) 0.1 Absolute Neuts (auto) 2.6 Absolute Lymphs (auto) 0.8 L Absolute Monos (auto) 0.3 Absolute Eos (auto) 0 Absolute Basos (auto) 0 Absolute Nucleated RBC 0 Nucleated RBC % 0.1 Sodium 138 L Potassium 3.9 Chloride 104 Carbon Dioxide 27 Anion Gap 7 BUN 13 Creatinine 0.49 L Est GFR ( Amer) 156.3 Est GFR (Non-Af Amer) 121.5 BUN/Creatinine Ratio 26.5 H Glucose 163 H Calcium 9.4 Magnesium 1.6 L Microbiology and Other Data: Microbiology 01/01/18 12:30 Blood Venous Aerobic Blood Culture - Preliminary No Growth Day 1 01/01/18 12:30 Blood Venous Anaerobic Blood Culture - Preliminary No Growth Day 1 01/01/18 12:24 Blood Venous Aerobic Blood Culture - Preliminary No Growth Day 1 01/01/18 12:24 Blood Venous Anaerobic Blood Culture - Preliminary No Growth Day 1 01/01/18 18:45 Nasal Nasal Screen MRSA (PCR)([facility]) - Final Mrsa Not Detected 01/01/18 15:21 Nasal Influenza Types A,B Antigen ([facility]) - Final Specimen received for Influenza A/B Molecular testing Assess/Plan/Problems-Billing Assessment: 82 yo female PMH MM recently restarted Revlimid p/w tachycardia, subjective SOB , bandemia. CTA w/o e/o PNA or PE. New pathologic back fractures. - Patient Problems (1) SIRS (systemic inflammatory response syndrome) Current Visit: Yes Status: Acute Code(s): R65.10 - SIRS OF NON-INFECTIOUS ORIGIN W/O ACUTE ORGAN DYSFUNCTION SNOMED Code(s): 973386451 Comment: tachycardia, tachypnea, bandemia Cutlures negative to date continue empiric cftx procal 0.1 CRP 76 Tachycardia, subjective SOB and Ddimer elevated and at increased risk given relative immobility and MM. Duplex w/o DVT and CTA w/o PE or pna. (2) HTN (hypertension) Current Visit: No Status: Acute Code(s): I10 - ESSENTIAL (PRIMARY) HYPERTENSION SNOMED Code(s): 74662527 Comment: - Hold hctz in setting of acute illness. (3) Multiple myeloma Current Visit: No Status: Acute Priority: High Onset Date: 12/22/15 Code (s): C90.00 - MULTIPLE MYELOMA NOT HAVING ACHIEVED REMISSION SNOMED Code(s): 375920578 Comment: - Continue MScontin and oxycodone. - holding revlimid for now. - has new pathologic fractures - appreciate heme onc recs. (4) Thrush Current Visit: No Status: Acute Code(s): B37.0 - CANDIDAL STOMATITIS SNOMED Code(s): 89188480 Comment: - Continue clotrimazole trouches 5x /day improved. (5) Dementia Current Visit: Yes Status: Acute Code(s): F03.90 - UNSPECIFIED DEMENTIA WITHOUT BEHAVIORAL DISTURBANCE SNOMED Code(s): 35973421 Comment: gets 24/ care at home (6) Confusion Current Visit: No Status: Acute Priority: High Code(s): R41.0 - DISORIENTATION, UNSPECIFIED SNOMED Code(s): 504493261 Comment: in setting of SIRS + dementia Status and Disposition: medicine inpatient.
[2018-01-02] MEDS ORDERED: Mometasone 220 MCG MDI INH SCH (18:00)
[2018-01-02] MEDS: CMCS: Melatonin (NF) 3 MG TAB PO SCH (20:52)
[2018-01-02] MEDS: traMADol TAB* 50 MG PO PRN (20:52)
[2018-01-03] MEDS: traMADol TAB* 50 MG PO PRN (05:23)
[2018-01-03] MEDS: Heparin VIAL(*) 5000 UNITS/ML VIAL (FIVE THOUSAND) SUBCUT SCH ×2 (05:24→15:27)
[2018-01-03] MEDS: Clotrimazole TROCHE* 10 MG TROCHE PO SCH ×3 (05:24→15:27)
[2018-01-03 05:46] LABS: Hematocrit 28 % (35-47); Hemoglobin 9.7 g/dl (12.0-16.0); Mean Corpuscular HGB Conc 34 g/dl (31-36); Mean Corpuscular Hemoglobin 32 pg (27-31); Mean Corpuscular Volume 93 fL (80-97); Mean Platelet Volume 7.6 um3 (7.4-10.4); Platelet Count 105 10^3/ul (150-450); Red Blood Count 3.07 10^6/ul (4.0-5.4); Red Cell Distribution Width 16 % (10.5-15); White Blood Count 4.1 10^3/ul (3.5-10.8)
[2018-01-03 06:02] LABS: EGFR Non-African American 90.9 (>60)
[2018-01-03 06:05] LABS: ABS Basophils 0 10^3/ul (0-0.2); ABS Eosinophils 0 10^3/ul (0-0.6); ABS Lymphocytes 1.5 10^3/ul (1.0-4.8); ABS Monocytes 0.7 10^3/ul (0-0.8); ABS Neutrophils 1.8 10^3/ul (1.5-7.7); ABS Nucleated RBC 0 10^3/ul; Eosinophil % 0.8 % (0-6); Nucleated Red Blood Cells % 0.1
[2018-01-03 09:15] VITALS: BP 107/64
[2018-01-03] MEDS: Aspirin EC TAB* 81 MG TAB.EC PO SCH (09:30)
[2018-01-03] MEDS: Montelukast Sodium TAB* 10 MG PO SCH (09:30)
[2018-01-03] MEDS: Cyanocobalamin TAB* 500 MCG PO SCH (09:30)
[2018-01-03] MEDS: celeCOXIB CAP* 200 MG PO SCH (09:30)
[2018-01-03] MEDS: Morphine TAB Extended Release (*) 15 MG TAB.ER PO SCH (09:31)
[2018-01-03] MEDS: PARoxetine HCL TAB* 20 MG PO SCH (09:31)
--- NOTE | 2018-01-03 10:17 | PN ---
Progress Note - Progress Note Date of Service: 01/03/18 SOAP: Subjective: [Patient reports feeling well. She is alert today and offers no complaints, she would like to return home. CTA neg for PE and consolidation. New compression fractures noted incidentally on CTA, likely due to her myeloma.] Objective: [ Acetaminophen (Tylenol Tab*) 650 mg PO Q6H PRN PRN Reason: FEVER/PAIN Last Admin: 01/02/18 23:48 Dose: 650 mg Aspirin (Aspirin Ec Tab*) 81 mg PO DAILY [facility] Last Admin: 01/03/18 09:30 Dose: 81 mg Celecoxib (Celebrex Cap*) 200 mg PO QAM [facility] Last Admin: 01/03/18 09:30 Dose: 200 mg Cetirizine HCl (Zyrtec*) 10 mg PO QPM [facility] Last Admin: 01/02/18 17:12 Dose: 10 mg Clotrimazole (Mycelex Yakelin*) 10 mg PO FIVE TIMES DAILY [facility] Last Admin: 01/03/18 09:30 Dose: 10 mg Cyanocobalamin (Vitamin B12 Tab*) 1,000 mcg PO DAILY [facility] Last Admin: 01/03/18 09:30 Dose: 1,000 mcg Heparin Sodium (Porcine) (Heparin Vial(*)) 5,000 units SUBCUT Q8HR [facility] Last Admin: 01/03/18 05:24 Dose: 5,000 units Heparin Sodium (Porcine) (Heparin Flush Port (Ivad)) 5 ml FLUSH DAILY [facility] PRN Reason: Protocol Last Admin: 01/03/18 09:39 Dose: 5 ml Ceftriaxone Sodium 1 gm/ (Sodium Chloride) 50 mls @ 200 mls/hr IVPB Q24H [facility] Last Admin: 01/02/18 12:27 Dose: 200 mls/hr Melatonin (Melatonin (Nf)) 3 mg PO BEDTIME [facility] PRN Reason: Protocol Last Admin: 01/02/18 20:52 Dose: 3 mg Mometasone Furoate (Asmanex 220 Mcg Mdi *) 2 puff INH QPM [facility] Last Admin: 01/02/18 19:56 Dose: 2 inh Montelukast Sodium (Singulair Tab*) 10 mg PO QAM [facility] Last Admin: 01/03/18 09:30 Dose: 10 mg Morphine Sulfate (Ms Contin(*)) 15 mg PO 0900,2100 [facility] Last Admin: 01/03/18 09:31 Dose: 15 mg Paroxetine HCl (Paxil Tab*) 20 mg PO QAM [facility] Last Admin: 01/03/18 09:31 Dose: 20 mg Tramadol HCl (Ultram*) 50 mg PO Q6H PRN PRN Reason: PAIN Last Admin: 01/03/18 05:23 Dose: 50 mg Zolpidem Tartrate (Ambien Tab*) 10 mg PO BEDTIME PRN PRN Reason: SLEEP Last Admin: 01/01/18 21:17 Dose: 10 mg Laboratory Results - last 24 hr 01/03/18 01/03/18 05:31 05:31 WBC 4.1 RBC 3.07 L Hgb 9.7 L Hct 28 L MCV 93 MCH 32 H MCHC 34 RDW 16 H Plt Count 105 L MPV 7.6 Neut % (Auto) 44.0 Lymph % (Auto) 37.0 Holmes % (Auto) 17.7 H Eos % (Auto) 0.8 Baso % (Auto) 0.5 Absolute Neuts (auto) 1.8 Absolute Lymphs (auto) 1.5 Absolute Monos (auto) 0.7 Absolute Eos (auto) 0 Absolute Basos (auto) 0 Absolute Nucleated RBC 0 Nucleated RBC % 0.1 Sodium 140 Potassium 4.2 Chloride 107 Carbon Dioxide 26 Anion Gap 7 BUN 19 Creatinine 0.63 Est GFR ( Amer) 116.9 Est GFR (Non-Af Amer) 90.9 BUN/Creatinine Ratio 30.2 H Glucose 112 H Calcium 8.7 Magnesium 1.9 Vital Signs: Temp Pulse Resp BP Pulse Ox 97.9 F 79 18 107/64 96 01/03/18 07:43 01/03/18 07:43 01/03/18 09:31 01/03/18 07:43 01/03/18 07:43 Exam: Gen: Elderly female, who is alert and well appearing HEENT: MMM, no lesions CV: RRR, subtle murmur Resp: technically difficult exam, but faint crackle noted Abd: Soft, nonTTP Ext: Trace edema Psych: Alert, pleasant, specific orientation questions not asked ] Assessment: [82 yo female with multiple myeloma who recently resumed treatment with Revlimid who presented with malaise, dyspnea and tachycardia. Treated for sepsis of unknown source with negative cultures.] Plan: [1. Bandemia with tachycardia and elevated CRP/ESR - seems less likely that these findings are due to sepsis. The bandemia may be due to her dexamethasone use, but likely does not explain the tachycardia which appears to be new and seems to have resolved spontaneously. She may have been slightly hypovolemic and the tachycardia was compensatory. Her elevated inflammatory markers could be attributed to her myeloma. - CTA neg for PE and LE doppler neg for DVT - Now appears well and desires discharge home - No clear indication to continue antibiotics 2. Multiple myeloma - unlikely her Revlimid is related to her current presentation - can resume Revlimid following discharge 3. Dementia - moderate, receives 24h care at home 4. Nighttime hypoxia - patient's daughter felt that she would benefit from nighttime O2 - overnight pulse ox completed last night that demonstrated a few short desaturations, but longest lasting only 2.5 min which will not qualify her for home O2 Dispo: Discussed with hospitalist, Dr Hutchison, that she appears appropriate for discharge. Follow up with Dr Gonzalez. Plan to resume Revlimid for 21d cycle.
[2018-01-03] MEDS: cefTRIAXone(*) 1 GM in NS 0.9% 50 ML* 50 ML IVPB SCH (12:22)
--- NOTE | 2018-01-03 18:27 | ED ---
Edilberto Bhatt Angela, scribed for Nii Navarro MD on 01/01/18 at 1159 . Complex/Multi-Sys Presentation - HPI Summary HPI Summary: This pt is a 82 y/o female, accompanied by caregiver, presenting to [facility] via EMS from home for generalized weakness and SOB. Per caregiver, when she arrived at 08:30 pt's pulse was 138 and her oxygen saturation was 88%. Over the weekend , pt had a pulse of 106 and 109. Caregiver states the pt began her chemotherapy medication yesterday for myeloma of left hip. Pt is followed up by Dr. Gonzalez, oncologist. Denies fever, diarrhea, nausea, vomiting. At baseline pt is very vocal but her voice is weak, per caregiver. Today pt was whispering, which is not normal per caregiver. 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 Negative: Nausea, Vomiting, Diarrhea, Fever - Allergies/Home Medications Allergies/Adverse Reactions: Allergies Allergy/AdvReac Type Severity Reaction Status Date / Time amoxicillin Allergy Shakes Verified 11/10/17 13:53 epinephrine Allergy Shakes Verified 11/10/17 13:53 Home Medications: Home Medications Hydrochlorothiazide TAB* [Hydrodiuril TAB*] 25 mg PO DAILY 01/01/18 [History Confirmed 01/01/18] PMH/Surg Hx/FS Hx/Imm Hx Endocrine/Hematology History: Reports: Hx Bone Marrow Disease - MULTIPLE MYELOMA , Hx Anemia Denies: Hx Diabetes Cardiovascular History: Reports: Hx Hypertension, Other Cardiovascular Problems/ Disorders - Diastolic Malfunction Denies: Hx Coronary Artery Disease, Hx Myocardial Infarction, Hx Pacemaker/ ICD Respiratory History: Reports: Hx Asthma - PRN INHALER, Hx Seasonal Allergies Denies: Hx Chronic Obstructive Pulmonary Disease (COPD) GI History: Reports: Hx Diverticulosis, Hx Gastroesophageal Reflux Disease - ACID REFLUX, CONTROL WITH MEDS, Hx Irritable Bowel, Hx Obstructive Bowel - with surgery 1995 History: Denies: Hx Renal Disease Musculoskeletal History: Reports: Hx Arthritis, Hx Back Problems, Hx Osteoporosis, Hx Scoliosis, Other Musculoskeletal History - spinal stenosis Sensory History: Reports: Hx Cataracts - removed, Hx Contacts or Glasses Denies: Hx Hearing Aid Opthamlomology History: Reports: Hx Cataracts - removed, Hx Contacts or Glasses Neurological History: Reports: Hx Dementia Denies: Other Neuro Impairments/Disorders Psychiatric History: Reports: Hx Anxiety, Hx Depression - CONTROL WITH MEDS Denies: Hx Panic Disorder - Cancer History Cancer Type, Location and Year: MULTIPLE MYELOMA Hx Chemotherapy: Yes - oral Hx Palliative Cancer Treatment: No - Surgical History Surgery Procedure, Year, and Place: BOWEL SURGERY FOR OBSTYRUCTION. BREAST REDUCTIONS. APPENDIX AGE 20 Hx Anesthesia Reactions: No Infectious Disease History: No Infectious Disease History: Denies: Hx of Known/Suspected MRSA, Traveled Outside the [place] in Last 30 Days - Family History Known Family History: Positive: Cardiac Disease, Hypertension Negative: Diabetes - Social History Alcohol Use: Occasionally Alcohol Amount: 1-2 glasses of wine/week Hx Substance Use: No Substance Use Type: Reports: None Hx Tobacco Use: No Smoking Status (MU): Never Smoked Tobacco Review of Systems Negative: Fever Eyes: Negative Cardiovascular: Other - tachycardic Positive: Shortness Of Breath Negative: Vomiting, Diarrhea Positive: Weakness - generalized All Other Systems Reviewed And Are Negative: Yes Physical Exam - Summary Physical Exam Summary: VITAL SIGNS: Reviewed. GENERAL: Patient is a well-developed and nourished female who is lying comfortable in the stretcher. Patient is not in any acute respiratory distress. HEAD AND FACE: No signs of trauma. No ecchymosis, hematomas or skull depressions. No sinus tenderness. EYES: PERRLA, EOMI x 2, No injected conjunctiva, no nystagmus. EARS: Hearing grossly intact. Ear canals and tympanic membranes are within normal limits. MOUTH: Oropharynx within normal limits. NECK: Supple, trachea is midline, no adenopathy, no JVD, no carotid bruit, no c- spine tenderness, neck with full ROM. CHEST: Symmetric, no tenderness at palpation LUNGS: Crackles in both bases of the lungs. CVS: Tachycardic rate and regular rhythm, S1 and S2 present, no murmurs or gallops appreciated. ABDOMEN: Soft, non-tender. No signs of distention. No rebound no guarding, and no masses palpated. Bowel sounds are normal. EXTREMITIES: FROM in all major joints, no edema, no cyanosis or clubbing. NEURO: Alert and oriented x 3. No acute neurological deficits. Speech is normal and follows commands. SKIN: Diaphoretic and clammy. GCS: 15 Triage Information Reviewed: Yes Vital Signs On Initial Exam: Initial Vitals Temp Pulse Resp BP Pulse Ox 98.4 F 117 21 133/71 95 01/01/18 11:36 01/01/18 11:36 01/01/18 11:36 01/01/18 11:36 01/01/18 11:36 Vital Signs Reviewed: Yes Diagnostics - Vital Signs Vital Signs Temp Pulse Resp BP Pulse Ox 01/01/18 11:41 117 21 93 01/01/18 11:39 133/71 01/01/18 11:36 98.4 F 117 21 133/71 95 - Laboratory Result Diagrams: 01/01/18 12:30 01/01/18 12:30 Lab Statement: Any lab studies that have been ordered have been reviewed, and results considered in the medical decision making process. - Radiology Chest XR Xray Interpretation: No Acute Changes - IMPRESSION: Expiratory examination. No active disease. Dr. Navarro has reviewed this radiology report. Radiology Interpretation Completed By: Radiologist - CT Brain CT CT Interpretation: No Acute Changes - IMPRESSION: 1. No acute intracranial process evident. 2. Stigmata of chronic small vessel ischemic disease and unchanged bilateral basal ganglia lacunar infarcts. Dr. Navarro has reviewed this radiology report. CT Interpretation Completed By: Radiologist - EKG 12:09 Cardiac Rate: Tachycardia EKG Rhythm: Sinus Tachycardia - at 114 bpm EKG Interpretation: No ST elevations. EKG Comparison: No Significant Change - Similar to prior EKG on 11/10/17. Complex Multi-Symp Course/Dx Assessment/Plan: This pt is a 82 y/o female, accompanied by caregiver, presenting to [facility] via EMS from home for generalized weakness and SOB. Per caregiver, when she arrived at 08:30 pt's pulse was 138 and her oxygen saturation was 88%. Over the weekend, pt had a pulse of 106 and 109. Caregiver states the pt began her chemotherapy medication yesterday for myeloma of left hip. Pt is followed up by Dr. Gonzalez, oncologist. Denies fever, diarrhea, nausea , vomiting. At baseline pt is very vocal but her voice is weak, per caregiver. Today pt was whispering, which is not normal per caregiver. Test results without any significant abnormalities except for slight chronic anemia but the pt has 12 bands, fibrinogen is 511 and ESR is 85, CPR of 76.47, troponin is 0.04. Urinalysis is negative for UTI. Influenza A and B are both negative. Chest XR: Expiratory examination. No active disease. Brain CT: 1. No acute intracranial process evident. 2. Stigmata of chronic small vessel ischemic disease and unchanged bilateral basal ganglia lacunar infarcts. Since the pt came to the ED with tachycardia and some hypoxia, the pt was given IV fluids and pt was started on Rocephin as a broad spectrum antibiotic. The pt is feeling better, however, because of her symptoms, including tachycardia, and increased infectious markers I decided to discuss case the case with Dr. Liu , hospitalist, who accepted the pt for admission. Pt is hemodynamically stable , alert and oriented x3. Dx: bandemia, rule out infection and sepsis, elevated troponin, rule out NSTEMI. - Diagnoses Provider Diagnoses: Bandemia, Elevated troponin - Physician Notifications Discussed Care Of Patient With: Iram Liu Time Discussed With Above Provider: 17:07 Instructed by Provider To: Other - I discussed pt care with Dr. Liu, hospitalist, who has agreed to admit the pt. Discharge - Sign-Out/Discharge Documenting (check all that apply): Discharge - admit to [facility] [place] [facility] [place] - Discharge Plan Condition: Stable Disposition: ADMITTED TO [facility] Referrals: Destinee Fitzgerald MD [Primary Care Provider] - The documentation as recorded by the Edilberto rowe Angela accurately reflects the service I personally performed and the decisions made by , Nii Navarro MD.
--- NOTE | 2018-01-04 05:14 | DS ---
DISCHARGE SUMMARY: DATE OF ADMISSION: 01/01/18 DATE OF DISCHARGE: 01/03/18. ADMITTING PROVIDER: Leon Hutchison M.D. ATTENDING PHYSICIAN: Leon Hutchison M.D. PRIMARY CARE PROVIDER: Dr. Fitzgerald. OUTPATIENT CNC TECHNICIAN: Dr. Gonzalez. CHIEF COMPLAINT: Tachycardia, altered mental status, shortness of breath. PRINCIPLE DIAGNOSIS: Suspected altered mental status secondary to increased opioid use, multiple myeloma; possible medication side effect; progressive compression fractures most notably at T6 (70% loss of height) and L1 (50% loss of height), both new. HISTORY OF PRESENT ILLNESS AND HOSPITAL COURSE: Deloris Khoury is an 82-year-old female with past medical history of multiple myeloma diagnosed in October of 2015, who has undergone several rounds of Revlimid and had just started first of 21-day cycle day prior to admission after having secondary opinion of Daniel Gold with Dr. Ty Hickman. Chronic lower back pain secondary to compression fractures, small bowel obstruction, diverticulitis, hypertension, dementia, osteoarthritis, asthma. She reportedly had had additional back pain and had been getting scheduled oxycodone dosage 3 times a day for the last few weeks on top of her OxyContin. She has had three prior admissions over the last several months with similar presentations as this admission where there was some concern for potential lung infection with shortness of breath and altered mental status. It was thought that at least one of these admissions was most likely attributable to opioid overdose. The patient was not a good historian and complete picture of events was pieced together throughout admission as various caregivers presented at bedside. It was ultimately determined that she had taken an extra dose of oxycodone around midnight, night prior to admission for some agitation and the next morning as she was appearing harder to arouse, tachycardic to the 130s and hypoxic to 88%, EMS was called and brought to the emergency room. She had bandemia of 12%, CRP of 76, ESR of 85. There was suspicion of possible SIRS/sepsis secondary to possible lung infection. Chest x-ray; however, did not show any infiltrates. The patient was empirically started on ceftriaxone. Note, she had recently been started on nystatin for suspected thrush 3 days prior to admission and was given clotrimazole troches 10 mg p.o. 5 times daily with quick resolution of mouth thrush. Her initial EKG did have a T-wave inversion in lead 3, poor R-wave progression. She notably has had some issues with the Revlimid before. There has been some concern that it makes her more sedated or increases her back pain. Hematology/Oncology was consulted morning of hospital day #2. The patient had a D-dimer checked, added on admission which was elevated and Duplex Dopplers demonstrated no blood clot, also a CT angio of the chest was obtained, which did not demonstrate any pulmonary embolism or otherwise signs of pneumonia and her tachycardia gradually resolved. She was afebrile throughout admission. Blood cultures were negative x2 days. Influenza swabs were negative. MRSA was negative. She was not productively coughing. The patient was worked up for potential nocturnal hypoxia with indeterminant results not quite qualifying via the requirements of insurance, but still being pursued by Dr. Fitzgerald outpatient. She did have a nocturnal pulse ox test during hospital night #2, which showed 4% times desaturations below 90% and 2.6% desaturations below 88%, none below 80%. The patient was feeling improved. Altered mental status had cleared and given the full story, it was pieced together, suspicion for medication side effects of her opioid medication and possibly her Revlimid for suspected along with additional findings of new compression fractures that were seen on the aforementioned CT chest angiogram with loss of height 70% at T6 and 50% at L1. There was no compromise of the central canal at any level, which was likely related to her progressive multiple myeloma. She is being discharged with follow up recommended with Dr. Gonzalez and Dr. Fitzgerald with caution against excessive nocturnal opioid use. DISCHARGE MEDICATIONS: Include: 1. Acetaminophen 1000 mg p.o. b.i.d. to t.i.d. p.r.n. 2. Albuterol 2 puffs inhale q.6 hours. 3. Aspirin 81 mg daily. 4. Celebrex 200 mg p.o. q.a.m. 5. Cyanocobalamin 1000 microgram p.o. daily. 6. Dexamethasone 4 mg p.o. Tuesdays, 8 mg p.o. Fridays. 7. Flovent 3 puffs inhale q.6 hours. 8. Hydrochlorothiazide 25 mg p.o. daily. 9. Levocetirizine (Xyzal) 5 mg q.p.m. 10. Melatonin 3 mg p.o. at bedtime. 11. Singulair 10 mg p.o. q.a.m. 12. Morphine extended release (MS Contin) 15 mg p.o. b.i.d. 13. Paxil 20 mg p.o. q.a.m. 14. AcipHex 20 mg p.o. q.p.m. 15. Ambien 10 mg p.o. at bedtime. 16. Oxycodone 5 mg tablets q.6 hours as needed for pain. DIET: Heart healthy. ACTIVITY: No restrictions. FOLLOWUP: He is to follow up with Dr. Fitzgerald within 5 days of discharge and Dr. Gonzalez as scheduled on 01/24/18 at 1:20 p.m. TIME SPENT ON DISCHARGE: 35 minutes. [id number]/CPS #: [id number] MTDD
== END 2018-01-03 16:25 | disposition home or self-care (01) | DRG 948 ==
LOC: ED 11:32 → MED 17:43
PROVIDERS: ADMIT Internal Medicine; ATTEND Internal Medicine
DX: R41.82 Altered mental status, unspecified (principal); C90.00 Multiple myeloma not having achieved remission; B37.0 Candidal stomatitis; M84.58XA Pathological fracture in neoplastic disease, other specified site, initial encounter for fracture; G89.29 Other chronic pain; I10 Essential (primary) hypertension; F03.90 Unspecified dementia, unspecified severity, without behavioral disturbance, psychotic disturbance, mood disturbance, and anxiety; M19.90 Unspecified osteoarthritis, unspecified site; J45.909 Unspecified asthma, uncomplicated; M54.5 Low back pain; Z66 Do not resuscitate; K21.9 Gastro-esophageal reflux disease without esophagitis; J30.2 Other seasonal allergic rhinitis; K57.90 Diverticulosis of intestine, part unspecified, without perforation or abscess without bleeding; K58.9 Irritable bowel syndrome, unspecified; M81.0 Age-related osteoporosis without current pathological fracture; M41.9 Scoliosis, unspecified; M48.00 Spinal stenosis, site unspecified; F41.9 Anxiety disorder, unspecified; F32.9 Major depressive disorder, single episode, unspecified; R09.02 Hypoxemia; T40.2X5A Adverse effect of other opioids, initial encounter; R06.02 Shortness of breath; R00.0 Tachycardia, unspecified; T45.1X5A Adverse effect of antineoplastic and immunosuppressive drugs, initial encounter; Z87.01 Personal history of pneumonia (recurrent); Z88.1 Allergy status to other antibiotic agents; Z88.8 Allergy status to other drugs, medicaments and biological substances; Z82.49 Family history of ischemic heart disease and other diseases of the circulatory system; Z98.42 Cataract extraction status, left eye; Z98.41 Cataract extraction status, right eye; Z72.89 Other problems related to lifestyle; Z79.82 Long term (current) use of aspirin; Z79.891 Long term (current) use of opiate analgesic; Y92.9 Unspecified place or not applicable
CPT/HCPCS: 36415; 70450; 71046; 71275; 80048; 80053; 81003; 81015; 82140; 82550; 83605; 83735; 83880; 84145; 84484; 85025; 85379; 85384; 85610; 85652; 85730; 86140; 87040; 87502; 87641; 93005; 93970; 94640; 94762; 99232; 99233; 99283; A9270-GY; G8978-GP-CJ; G8979-GP-CJ; G8980-GP-CJ; J0696; J1642; J1644; J3475; Q9967

== ENCOUNTER 2018-02-07 15:35 | Observation (INO) | payer MEDICARE, OTHER ==
[2018-02-07] MEDS ORDERED: NS 0.9% 1000 ML* 1,000 ML IV SCH ×2 (16:15→19:30)
[2018-02-07 16:48] LABS: Urine Appearance Clear; Urine Blood Negative (Negative); Urine Color Straw; Urine Ketones Negative (Negative); Urine Protein 1+(30 mg/dL) (Negative); Urine Urobilinogen Negative (Negative)
--- NOTE | 2018-02-07 16:48 | RAD ---
INDICATION: Weakness COMPARISON: Chest x-ray January 01, 2018 TECHNIQUE: An AP portable view obtained at 1632 hours is submitted. FINDINGS: Bones/Soft Tissues: There are no acute bony findings. There is a right-sided central venous catheter Cardiomediastinal: The cardiomediastinal silhouette is normal. Lungs: There are no acute infiltrates. There is stable left basilar scarring Pleura: There are no pleural effusions. Other: There is chronic elevation right hemidiaphragm IMPRESSION: NO ACTIVE DISEASE OR INTERVAL CHANGE.
[2018-02-07 17:57] LABS: Hematocrit 28 % (35-47); Hemoglobin 9.6 g/dl (12.0-16.0); Mean Corpuscular HGB Conc 34 g/dl (31-36); Mean Corpuscular Hemoglobin 32 pg (27-31); Mean Corpuscular Volume 93 fL (80-97); Mean Platelet Volume 7.6 um3 (7.4-10.4); Platelet Count 98 10^3/ul (150-450); Red Blood Count 2.99 10^6/ul (4.0-5.4); Red Cell Distribution Width 17 % (10.5-15)
[2018-02-07 18:13] LABS: ABS Basophils 0 10^3/ul (0-0.2); ABS Eosinophils 0 10^3/ul (0-0.6); ABS Lymphocytes 1.2 10^3/ul (1.0-4.8); ABS Monocytes 0.3 10^3/ul (0-0.8); ABS Neutrophils 4.5 10^3/ul (1.5-7.7)
[2018-02-07 18:15] LABS: INR 0.9 (0.77-1.02); Monocytes % 3 % (0-7)
[2018-02-07] MEDS ORDERED: Ondansetron 40 MG VIAL* 2 MG/ML 20 ML VIAL IV PRN (19:28)
[2018-02-07] MEDS ORDERED: Albuterol 2.5 MG/3 ML NEB.SOL* (0.083%) INH PRN (19:28)
[2018-02-07] MEDS ORDERED: Acetaminophen TAB* 325 MG PO PRN (19:28)
[2018-02-07] MEDS ORDERED: Magnesium Sulfate 2 GM IV* 2 GM/50 ML BAG IVPB ONE (19:32)
[2018-02-07] MEDS ORDERED: oxyCODONE TAB* 5 MG TAB PO PRN (19:33)
[2018-02-07] MEDS ORDERED: CMCS: Melatonin (NF) 3 MG TAB PO SCH (21:00)
[2018-02-07] MEDS ORDERED: Fluticasone HFA 220 mcg(NF) MDI INH SCH (21:00)
--- NOTE | 2018-02-07 21:53 | ED ---
Armen Bhatt Jennifer, scribed for Gary Figueroa MD on 02/07/18 at 1712 . 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 The history was given by her trapeze performer due to pts disorientation. The patient has had labored breathing and high heart rate for a few hours. She is very shaky, slow, and has limited mobility. The patient denies problems with urination or bowel movement, chest pain, and fever. The trapeze performer additionally states the patient is normally incontinent and has 24/7 care. The trapeze performer states the patient is mildly disoriented today. - History of Current Complaint Chief Complaint: EDWeakness Time Seen by Provider: 02/07/18 16:55 Hx Obtained From: Family/Client Service Manager Hx From Patient Unobtainable Due To: Other - Mild disorientation Onset/Duration: Sudden Onset, Lasting Hours - couple hours, Still Present, Other - Better/Slow than before Timing: Constant Severity Initially: Mild Severity Currently: Mild Character: Fast Aggravating: Nothing Alleviating: Nothing Associated Signs & Symptoms: Negative - Chest pain, fever, problems with urination or bowel movement, Shortness of Breath - Allergy/Home Medications Allergies/Adverse Reactions: Allergies Allergy/AdvReac Type Severity Reaction Status Date / Time amoxicillin Allergy Shakes Verified 11/10/17 13:53 epinephrine Allergy Shakes Verified 11/10/17 13:53 Home Medications: Home Medications Albuterol Sulfate [Proventil Hfa] 2 puff INH QID PRN 02/07/18 [History Confirmed 02/07/18] Cyanocobalamin TAB* [Vitamin B12 TAB*] 500 mcg PO DAILY 02/07/18 [History Confirmed 02/07/18] Fluticasone HFA 220 mcg(NF) [Flovent HFA 220 Mcg(NF)] 3 puff INH BID 02/07/18 [ History Confirmed 02/07/18] Hydrochlorothiazide TAB* [Hydrodiuril TAB*] 12.5 mg PO DAILY 02/07/18 [History Confirmed 02/07/18] Lenalidomide(NF) [Revlimid (NF)] 10 mg PO QPM 02/07/18 [History Confirmed ] LevoCETirizine TAB (NF) [Xyzal TAB (NF)] 5 mg PO DAILY 02/07/18 [History Confirmed 02/07/18] Lidocaine PATCH 5%* [Lidoderm 5% Patch*] 1 patch TRANSDERM DAILY 02/07/18 [ History Confirmed 02/07/18] Melatonin (NF) [Meladox] 3 mg PO BEDTIME 02/07/18 [History Confirmed 02/07/18] Montelukast Sodium TAB* [Singulair TAB*] 5 mg PO DAILY 02/07/18 [History Confirmed 02/07/18] Morphine Sulfate [Morphine Sulfate ER] 15 mg PO BID 02/07/18 [History Confirmed 02/07/18] PARoxetine HCL TAB* [Paxil TAB*] 20 mg PO DAILY 02/07/18 [History Confirmed ] Rabeprazole (NF) [Aciphex (NF)] 20 mg PO DAILY 02/07/18 [History Confirmed 02/07] Zolpidem TAB* [Ambien TAB*] 10 mg PO BEDTIME PRN 02/07/18 [History Confirmed ] celeCOXIB CAP* [CeleBREX CAP*] 200 mg PO DAILY 02/07/18 [History Confirmed 02/07] oxyCODONE TAB* [Roxycodone TAB 5 mg*] 5 - 10 mg PO BID PRN 02/07/18 [History Confirmed 02/07/18] PMH/Surg Hx/FS Hx/Imm Hx Endocrine/Hematology History: Reports: Hx Bone Marrow Disease - MULTIPLE MYELOMA , Hx Anemia Denies: Hx Diabetes Cardiovascular History: Reports: Hx Hypertension, Other Cardiovascular Problems/ Disorders - Diastolic Malfunction Denies: Hx Coronary Artery Disease, Hx Myocardial Infarction, Hx Pacemaker/ ICD Respiratory History: Reports: Hx Asthma - PRN INHALER, Hx Seasonal Allergies Denies: Hx Chronic Obstructive Pulmonary Disease (COPD) GI History: Reports: Hx Diverticulosis, Hx Gastroesophageal Reflux Disease - ACID REFLUX, CONTROL WITH MEDS, Hx Irritable Bowel, Hx Obstructive Bowel - with surgery 1995 History: Denies: Hx Renal Disease Musculoskeletal History: Reports: Hx Arthritis, Hx Back Problems, Hx Osteoporosis, Hx Scoliosis, Other Musculoskeletal History - spinal stenosis Sensory History: Reports: Hx Cataracts - removed, Hx Contacts or Glasses Denies: Hx Hearing Aid Opthamlomology History: Reports: Hx Cataracts - removed, Hx Contacts or Glasses Neurological History: Reports: Hx Dementia Denies: Other Neuro Impairments/Disorders Psychiatric History: Reports: Hx Anxiety, Hx Depression - CONTROL WITH MEDS Denies: Hx Panic Disorder - Cancer History Cancer Type, Location and Year: MULTIPLE MYELOMA Hx Chemotherapy: Yes - oral Hx Palliative Cancer Treatment: No - Surgical History Surgery Procedure, Year, and Place: BOWEL SURGERY FOR OBSTYRUCTION. BREAST REDUCTIONS. APPENDIX AGE 20 Hx Anesthesia Reactions: No Infectious Disease History: No Infectious Disease History: Denies: Hx of Known/Suspected MRSA, Traveled Outside the [place] in Last 30 Days - Family History Known Family History: Positive: Cardiac Disease, Hypertension Negative: Diabetes - Social History Alcohol Use: Occasionally Alcohol Amount: 1-2 glasses of wine/week Hx Substance Use: No Substance Use Type: Reports: None Hx Tobacco Use: No Smoking Status (MU): Never Smoked Tobacco Review of Systems Negative: Fever Positive: Palpitations - elevated HR. Negative: Chest Pain Positive: Shortness Of Breath Positive: incontinence. Negative: dysuria, frequency, hematuria Neurological: Other - Mild disorientation Positive: Weakness - shakiness All Other Systems Reviewed And Are Negative: Yes Physical Exam - Summary Physical Exam Summary: General: well-appearing, no pain distress Skin: warm, color reflects adequate perfusion, dry Head: normal Eyes: EOMI, IRISH ENT: normal Neck: supple, nontender Respiratory: CTA, breath sounds present Cardiovascular: Tachycardic, regular rhythm Abdomen: soft, nontender Bowel: present Musculoskeletal: normal, strength/ROM intact Neurological: sensory/motor intact, A&O x3 Psychological: affect/mood appropriate Triage Information Reviewed: Yes Vital Signs On Initial Exam: Initial Vitals Temp Pulse Resp BP Pulse Ox 97.6 F 109 17 153/73 95 02/07/18 15:47 02/07/18 15:47 02/07/18 15:47 02/07/18 15:47 02/07/18 15:47 Vital Signs Reviewed: Yes Diagnostics - Vital Signs Vital Signs Temp Pulse Resp BP Pulse Ox 02/07/18 15:47 97.6 F 109 17 153/73 95 - Laboratory Lab Results: Lab Results 02/07/18 Range/Units 16:29 Urine Color Straw Urine Appearance Clear Urine pH 5.0 (5-9) Ur Specific [place] 1.010 (1.010-1.030) Urine Protein 1+(30 mg/dl) A (Negative) Urine Ketones Negative (Negative) Urine Blood Negative (Negative) Urine Nitrate Negative (Negative) Urine Bilirubin Negative (Negative) Urine Urobilinogen Negative (Negative) Ur Leukocyte Esterase Negative (Negative) Urine WBC (Auto) Absent (Absent) Urine RBC (Auto) Absent (Absent) Ur Squamous Epith Cells Present A (Absent) Urine Bacteria Absent (Absent) Urine Glucose 3+(>=500 mg/dl) A (Negative) Result Diagrams: 02/07/18 17:42 02/07/18 17:42 Lab Statement: Any lab studies that have been ordered have been reviewed, and results considered in the medical decision making process. - Radiology CXR Xray Interpretation: No Acute Changes - NO ACTIVE DISEASE OR INTERVAL CHANGE. Dr. Figueroa has reviewed this report. Radiology Interpretation Completed By: Radiologist - EKG 1625 Cardiac Rate: Tachycardia EKG Rhythm: Sinus Tachycardia - [address] Segment: Normal Ectopy: None EKG Interpretation: Probably LVH Course/Dx - Course Course Of Treatment: DISCUSSED WITH NICHOLE ESCOTO/ONC. ADMIT HOSPITALIST. CRITICAL CARE TIME LESS THAN 30 MINUTES. - Diagnoses Provider Diagnoses: Weakness, Hyponatremia Discharge - Sign-Out/Discharge Documenting (check all that apply): Discharge/Admit/Transfer - Discharge Plan Condition: Good Disposition: ADMITTED TO [facility] - Billing Disposition and Condition Condition: GOOD Disposition: [facility] The documentation as recorded by the Armen rowe Jennifer accurately reflects the service I personally performed and the decisions made by , Gary Figueroa MD.
[2018-02-07] MEDS ORDERED: Mometasone 220 MCG MDI INH SCH (21:55)
[2018-02-07] MEDS: Morphine TAB Extended Release (*) 15 MG TAB.ER PO SCH (22:05)
[2018-02-07] MEDS: Heparin VIAL(*) 5000 UNITS/ML VIAL (FIVE THOUSAND) SUBCUT SCH (22:05)
[2018-02-08 00:31] LABS: EGFR Non-African American 66.1 (>60)
--- NOTE | 2018-02-08 03:50 | HP ---
CC: Dr. Fitzgerald; Dr. Gonzalez * HISTORY AND PHYSICAL: DATE OF ADMISSION: 02/07/18 PRIMARY CARE PROVIDER: Dr. Fitzgerald. ATTENDING PROVIDER: Dr. Vu Guzman * (DICTATED BY VIJAY CURTIS NP) CHIEF COMPLAINT: 1. Weakness. 2. Cough. HISTORY OF PRESENT ILLNESS: Mrs. Khoury is an 82-year-old female patient. She has a history of multiple myeloma with lytic lesions to the skull, bilateral humerus, acetabulum and also to her spine. She has a history of chronic pain, has a history of SBO, diverticulitis, hypertension, dementia, arthritis, asthma and compression fracture secondary to lytic lesions. She comes into our ER today. She is really not able to give much history because of dementia. She has short-term memory loss. She can give me some history; but according to the daughter, the patient has 24x7 aid service and visiting nurses and noted in the last 24 hours, she has been having a dry cough that has been nonproductive. She had been having some intermittent wheezing. In addition to this, the last week or so, she has been progressively getting more weak, decreased p.o. intake. She was treated empirically for UTI, although the culture came back negative according to the daughter. She was on Bactrim for this. The patient states that she has just been feeling weak. There has been little bit more confusion. She recently restarted her Revlimid for her multiple myeloma. She took it for 1 day but prior to this, she was having no weakness and she was also having the cough and the wheezing. There have been no reports of fevers or chills. No reports of vomiting or diarrhea. There has been no reports of abdominal pain or chest discomfort, but they were concerned because of the progressive worsening weakness. The visiting nurses felt that the patient should be evaluated here in the hospital and on evaluation in the ED, it was noted that she was hyponatremic. Of note, she is also taking hydrochlorothiazide for her blood pressure. Because of the hyponatremia, the weakness, we were asked to evaluate for admission. PAST MEDICAL HISTORY: Significant for: 1. Multiple myeloma. 2. She has lytic lesions to her skull, bilateral humerus, acetabulum and spine. 3. Chronic pain. 4. SBO. 5. Diverticulitis. 6. Hypertension. 7. Dementia. 8. Arthritis. 9. Asthma. 10. History of compression fracture. PAST SURGICAL HISTORY: She had a surgery when she was 20 years old, but she does not remember what it was. She denies any other surgeries. HOME MEDICATIONS: Include: 1. Revlimid 10 mg daily at bedtime, which she just restarted. 2. Melatonin 3 mg at bedtime. 3. B12 500 mcg p.o. daily. 4. Oxycodone 5 to 10 mg p.o. b.i.d. as needed. 5. AcipHex 20 mg p.o. daily. 6. Paxil 20 mg daily. 7. Singulair 5 mg daily. 8. Levocetirizine 5 mg p.o. daily. 9. Celebrex 200 mg daily. 10. Ambien 10 mg p.o. at bedtime as needed. 11. Hydrochlorothiazide 12.5 mg p.o. daily. 12. Morphine 15 mg p.o. b.i.d. 13. Lidoderm patch 1 patch transdermally daily. 14. Flovent 3 puffs inhaled b.i.d. 15. Albuterol 2 puffs inhaled 4 times a day as needed. ALLERGIES TO MEDICATIONS: Include AMOXICILLIN and EPINEPHRINE. FAMILY HISTORY: Mother and father both had a history of heart disease. SOCIAL HISTORY: The patient does not smoke. She used to drink wine with dinner , but she has not done that in quite sometime. Surrogate decision maker is her daughter. She is also a DNR. REVIEW OF SYSTEMS: There is no documented fever. There was no report of significant weight change. There was no double vision. There is no ear discharge. She denied having any rhinorrhea. There is no sore throat. No thyroid enlargement. Denied having any chest pain. There is no orthopnea. There is no nocturnal dyspnea. Denied having any abdominal pain. No nausea, no vomiting, no dysuria, no frequency. There was no seizure. No loss of consciousness, no pruritus. No skin ulceration. Review of 14 systems completed , all others negative. PHYSICAL EXAMINATION GENERAL: Mrs. Khoury is an 82-year-old female patient. She appears to be well nourished, well developed. She does not appear to be in any acute distress. VITAL SIGNS: Blood pressure 152/73, pulse 109, respiration 17, O2 saturation 95 %, temperature 97.6. HEENT: Head: Atraumatic. Normocephalic. Eyes: EOMs are intact. Sclerae are anicteric and not pale. Throat: Oral mucosa appears to be dry. There is no oropharyngeal erythema. NECK: Supple. LUNGS: Clear to auscultation bilaterally. No wheezes, rales or rhonchi. HEART: Sounds S1, S2. Regular rate and rhythm. No murmurs, rubs or gallops. She is tachycardic. ABDOMEN: Soft, flat, nontender. Bowel sounds were present. EXTREMITIES: Pulses were 2+ throughout. The patient is moving all 4 extremities with 5/5 strength. NEUROLOGIC: The patient is awake. She is alert, she is oriented x3. Her tongue is midline. Vpk Teacher were equal. She had no gross focal deficits. She is only confused to time. SKIN: Intact. LABORATORY DATA: WBC 6.0, RBC of 2.99, hemoglobin 9.6, hematocrit of 28, platelet count was 98. The INR was 0.90. The PTT was 22.2. The sodium was 119 , potassium of 5.3, chloride of 88, bicarb was 22, the BUN was 21, the creatinine was 1.04, the glucose was 267, the lactic 2.7, calcium 9.1, mag 1.5, total bili 0.3, AST 22, ALT 19, alk phos 80, CK 19, CK-MB 1.5, troponin 0.01, CRP 4.2, BNP of 50, albumin of 3.9. Lipase normal, TSH pending. Urine showed 1 + protein, present squamous epithelial cells, 3+ glucose. She also had a chest x-ray obtained today, showed no active disease or interval change. She did have an EKG obtained today showing sinus tachycardia with inverted T wave in lead III which she has had previously, again sinus tach. No ST elevations are noted. It was reviewed to the previous EKG, it is similar, but the rate today is actually little slower, previously it was 114. Old medical records were reviewed. ASSESSMENT AND PLAN: Mrs. Khoury was an 82-year-old female patient coming into the emergency department today with complaints of cough, weakness. On evaluation today, was found to be hyponatremic. She will be admitted under inpatient status for: 1. Hyponatremia: I suspect this is probably related to dehydration, hydrochlorothiazide use. My plan, she is having no neurological symptoms at this point. I will get neuro checks on this patient every 4 hours to make sure she does not become worse. If she does, I would have a low threshold for 3% saline, but my plan at this point as I do think she is dehydrated, go ahead and get a normal saline. We will get urine osmol, serum osmol, urine sodium, urine creatinine, hydrate the patient, hold the hydrochlorothiazide, which I suspect is the culprit. Follow BMPs every 4 hours and we will continue to monitor her closely and I have ordered normal saline at 125 an hour. 2. Multiple myeloma: I am going to hold her Revlimid for the time being given the fact that her immature granulocytes are little elevated and she is having a cough. Just want to make sure we are not masking any infection. 3. History of chronic pain secondary to lytic lesions, continue meds as prescribed. 4. History of hypertension, blood pressure is stable here. We will monitor. If I need to, I will need to add on some Norvasc. 5. Dementia: Continue with supportive care. 6. Arthritis: Continue meds as prescribed. 7. Asthma: P.r.n. albuterol has been ordered, continue her inhalers as prescribed. 8. Chronic compression fractures: Continue meds as prescribed. 9. DVT prophylaxis: She is high risk. I will be placing her on heparin subcu. 10. Code status: She is DNR. 11. Fluids, electrolytes, and nutrition: Regular diet. 12. Elevated immature granulocytes: Again, her band count is normal. She has no white count. No fever here. My plan will be to just monitor closely for fevers or neutropenia. If she spikes fever, I will put her on broad-spectrum antibiotics. She has been pancultured and we will just follow this closely. TIME SPENT: Time spent on the admission was 60 minutes, greater than half of the time was spent [id number] with the patient obtaining history and physical , the other half of the time was spent going over the plan of care with the patient and implementing the plan of care. I did discuss plan of care with my attending, Dr. Guzman, he is in agreement. VIJAYJENNIFER CURTIS NP [id number]/CPS #: [id number] ANASTACIO
[2018-02-08 04:26] LABS: Hematocrit 29 % (35-47); Hemoglobin 9.8 g/dl (12.0-16.0); Mean Corpuscular HGB Conc 34 g/dl (31-36); Mean Corpuscular Hemoglobin 32 pg (27-31); Mean Corpuscular Volume 93 fL (80-97); Mean Platelet Volume 7.3 um3 (7.4-10.4); Platelet Count 92 10^3/ul (150-450); Red Blood Count 3.09 10^6/ul (4.0-5.4); Red Cell Distribution Width 17 % (10.5-15); White Blood Count 5.1 10^3/ul (3.5-10.8)
[2018-02-08 04:39] LABS: EGFR Non-African American 76.7 (>60)
[2018-02-08 04:44] LABS: ABS Basophils 0 10^3/ul (0-0.2); ABS Eosinophils 0 10^3/ul (0-0.6); ABS Lymphocytes 1.2 10^3/ul (1.0-4.8); ABS Monocytes 0.3 10^3/ul (0-0.8); ABS Neutrophils 3.6 10^3/ul (1.5-7.7); ABS Nucleated RBC 0 10^3/ul
[2018-02-08] MEDS: Heparin VIAL(*) 5000 UNITS/ML VIAL (FIVE THOUSAND) SUBCUT SCH (05:02)
[2018-02-08] MEDS ORDERED: Lidocaine PATCH 5%* 1 PATCH TRANSDERM SCH (09:00)
[2018-02-08] MEDS ORDERED: Omeprazole CAP* 20 MG PO SCH (09:00)
[2018-02-08] MEDS ORDERED: PARoxetine HCL TAB* 20 MG PO SCH (09:00)
[2018-02-08] MEDS ORDERED: Cyanocobalamin TAB* 500 MCG PO SCH (09:00)
[2018-02-08] MEDS ORDERED: celeCOXIB CAP* 200 MG PO SCH (09:00)
[2018-02-08] MEDS ORDERED: Cetirizine* 10 MG TAB PO SCH (09:00)
[2018-02-08] MEDS ORDERED: Montelukast Sodium TAB* 5 MG PO SCH (09:00)
[2018-02-08] MEDS: Morphine TAB Extended Release (*) 15 MG TAB.ER PO SCH (09:38)
[2018-02-08 09:46] VITALS: BP 123/56
[2018-02-08] MEDS ORDERED: Lidocaine Patch REMOVE* 1 NOTE MISC PATCH OFF SCH (21:00)
--- NOTE | 2018-02-09 12:52 | DS ---
CC: Dr. Gonzalez; Dr. Fitzgerald DISCHARGE SUMMARY: DATE OF ADMISSION: 02/07/18 DATE OF DISCHARGE: 02/08/18 PRIMARY CARE PROVIDER: Destinee Fitzgerald MD. DISCHARGE DIAGNOSIS: Hyponatremia and dehydration likely due to HCTZ use. SECONDARY DIAGNOSES: 1. History of multiple myeloma, on current Revlimid treatment. 2. History of dementia. 3. History of chronic pain. 4. History of small bowel obstruction. 5. History of diverticulitis. 6. Hypertension. 7. Asthma. 8. History of compression fracture. 10. History of multiple myeloma and lytic lesions in his skull, bilateral humeri, and spine. MEDICATIONS AT DISCHARGE: Include: 1. Revlimid is on hold. 2. Albuterol inhaler 2 puffs every 4 hours p.r.n. 3. Celebrex 200 mg daily. 4. Vitamin B12 at 500 mg once daily. 5. Flovent HFA 220 mcg 3 puffs b.i.d. 6. Xyzal 5 mg daily. 7. Lidoderm patch 5% 1 patch daily. 8. Melatonin 3 mg at bedtime. 9. Singulair 5 mg daily. 10. Morphine sulfate 15 mg b.i.d. 11. Oxycodone 5 to 10 mg p.r.n. 12. Paxil 20 mg daily. 13. Aciphex 20 mg daily. 14. Ambien 10 mg at bedtime p.r.n. LABORATORY DATA: Ordered at discharge was basic metabolic panel to be drawn in approximately 5 days for followup of hyponatremia. The patient's hydrochlorothiazide was held. Laboratory data performed during the hospital stay included on 02/08/18, white blood cell count 5.1, hemoglobin 9.8, hematocrit of 29, and platelets of 92. Sodium was 128, potassium 4.1, chloride was 96, carbon dioxide was 25, BUN 17, and creatinine 0.73. At admission, the patient's sodium level was 119, potassium of 5.3. Microbiology studies at the time of dictation of the discharge none. Urinalysis showed +1 protein and +3 glucose. HOSPITALIZATION COURSE: Deloris Khoury is an 82-year-old female with history of multiple myeloma and dementia, who presented to the hospital with complaints of feeling week. The family noted that a couple of days prior, she had cough and wheezing. She was just started on Revlimid, again, the day prior to presentation. She had a history of feeling weak after her last Revlimid dose which was several weeks ago. She has history of recent treatment for UTI with Bactrim. The patient was noted to have hyponatremia with sodium of 119. She appeared dehydrated. She was treated with intravenous fluids with normal saline. Her hydrochlorothiazide was held. Within 24 hours her sodium dalila to 128. Her fluids were discontinued. The patient was back at baseline and was ready for discharge. The patient's hypomagnesemia was replaced with IV magnesium during her hospital stay. It was also noted that the patient's glucose had been elevated for the past several months of her hospital stay. Her hemoglobin A1c was obtained which was noted to be 7.7. The patient's daughter was advised to keep the patient on diabetic diet and follow up with her primary care provider. The patient is going to be discharged home with recommendations to follow up with Dr. Gonzalez. I contacted the Oncology group and the recommendation was noted to be start Revlimid until the patient is seen by Dr. Gonzalez for follow up. The patient also recommended to follow up by Dr. Destinee Fitzgerald in approximately 4 to 7 days. PHYSICAL EXAMINATION AT THE TIME OF DISCHARGE: Blood pressure of 123/56, heart rate of 80 and regular, respiratory rate 16, oxygen saturation 99% on room air, temperature of 97.3. General: The patient is a pleasant 82-year-old female who is a rather withdrawn historian. She is in no acute distress. She is oriented to self. She is pleasant in conversation. HEENT: Head: Atraumatic, normocephalic. Eyes: Pupils are equal and reactive to light and accommodation. Oropharynx clear. Mucosa moist. Neck: Supple. No JVD. No bruit bilaterally. Cardiovascular: Regular rate and rhythm. No murmur. Respiratory : Clear to auscultation bilaterally. Abdomen: Soft, nontender. Bowel sounds are present in all 4 quadrants. Extremities: Just trace pedal edema. +2 pulses bilaterally. No clubbing or cyanosis. On neuro evaluation, speech clear. Cranial nerves II through XII grossly intact. Motor strength is 5/5 bilaterally. The patient was notified about the new diagnosis of diabetes and again to followup with her primary care provider. Please note that this is a short summary of the patient's hospitalization. Please refer to further medical records for details. TIME SPENT: Approximately 35 minutes was spent on patient's discharge. [id number]/[facility] #: [id number] ANASTACIO
== END 2018-02-08 13:00 | disposition home or self-care (01) ==
LOC: ED 15:35 → MEDTELE 19:23 → INTOOBSV 19:23
PROVIDERS: ADMIT Hospitalist; ATTEND Internal Medicine
DX: E87.1 Hypo-osmolality and hyponatremia (principal); E86.0 Dehydration; C90.00 Multiple myeloma not having achieved remission; Z85.79 Personal history of other malignant neoplasms of lymphoid, hematopoietic and related tissues; F03.90 Unspecified dementia, unspecified severity, without behavioral disturbance, psychotic disturbance, mood disturbance, and anxiety; G89.29 Other chronic pain; Z87.19 Personal history of other diseases of the digestive system; I10 Essential (primary) hypertension; J45.909 Unspecified asthma, uncomplicated
CPT/HCPCS: 36415; 71045; 80048; 80053; 81003; 81015; 82533; 82550; 82553; 83036; 83605; 83690; 83735; 83880; 83930; 84443; 84484; 85025; 85060; 85610; 85730; 86140; 87040; 93005; 94640; 99283; A9270-GY; G0378; G8978-GP-CL; G8979-GP-CL; G8980-GP-CL; G8987-GO-CL; G8988-GO-CL; G8989-GO-CL; J1642; J1644; J3475

== ENCOUNTER 2018-02-25 10:58 | Emergency (ER) | payer MEDICARE, OTHER ==
--- NOTE | 2018-02-25 14:51 | RAD ---
Indication: RIGHT upper extremity pain without known injury. Decreased range of motion. History of multiple myeloma. Comparison: October 02, 2017 bone survey. Technique: AP and lateral views RIGHT humerus. REPORT AND IMPRESSION: Negative for RIGHT humerus fracture or suspicious focal osseous lesions. Unremarkable soft tissue contours accounting for body habitus.
--- NOTE | 2018-02-25 14:53 | RAD ---
Indication: RIGHT upper extremity pain without known injury. Comparison: October 02, 2017 bone survey. Technique: AP and lateral views RIGHT radius and ulna. Report: Nondisplaced fracture at the proximal diaphysis of the radius just distal to the tuberosity insertion site of the biceps tendon. Ill-defined lucency seen in association with the fracture site as well as additional patchy lucencies at the diaphysis of the radius which appear new compared with the October 02, 2017 exam. These lesions are consistent with multiple myeloma given the patient's history. Normal articular alignment. Soft tissue swelling over the dorsal aspect. IMPRESSION: New osteolytic lesions consistent with multiple myeloma at the diaphysis of the humerus with associated grossly nondisplaced pathologic fracture at the proximal diaphysis.
[2018-02-25 16:03] VITALS: BP 110/62
--- NOTE | 2018-02-25 16:20 | ED ---
Upper Extremity Pain - HPI Summary HPI Summary: Patient is an 82-year-old female with a history of multiple myeloma presenting to the ED with aid with complaint of right forearm injury. Aid noticed some bruising to the right forearm and just superior to the right elbow. Patient endorses pain as a 2 days ago, but denies any known trauma. Denies falling out of bed or injury in any way to her knowledge. Aid at bedside states she knows of no trauma. Pain is most notable to the elbow down into the wrist. Denies any hand pain. Denies any pain to the fingers. Denies any pain to the humerus. Denies any shoulder pain. She has been taking hydrocodone at home without relief of symptoms. History of dementia. - History of Current Complaint Chief Complaint: EDExtremityUpper Stated Complaint: ARM PAIN Time Seen by Provider: 02/25/18 13:07 Hx Obtained From: Patient Onset/Duration: Started Days Ago Timing: Constant Severity Initially: Moderate Severity Currently: Moderate Pain Location: Forearm Character: Aching Aggravating Factor(s): Lifting, Internal/External Rotation, Abduction, Adduction Associated Signs & Symptoms: Positive: Bruising. Negative: Swelling, Redness Related History: Dominant Hand Right - Risk Factors Non-Orthopedic Risk Factor: Negative DVT Risk Factors: Negative Septic Arthritis Risk Factor: Negative Compartment Syndrome Risk Factors: Pain - Allergies/Home Medications Allergies/Adverse Reactions: Allergies Allergy/AdvReac Type Severity Reaction Status Date / Time amoxicillin Allergy Shakes Verified 02/25/18 11:32 epinephrine Allergy Shakes Verified 02/25/18 11:32 Home Medications: Home Medications Albuterol HFA INHALER* [Ventolin HFA Inhaler*] 2 puff INH Q6H PRN 02/25/18 [ History Confirmed 02/25/18] Morphine TAB Extended Rel(*) [Ms Contin(*)] 15 mg PO BID 02/25/18 [History Confirmed 02/25/18] PMH/Surg Hx/FS Hx/Imm Hx Previously Healthy: Yes Endocrine/Hematology History: Reports: Hx Bone Marrow Disease - MULTIPLE MYELOMA , Hx Anemia Denies: Hx Diabetes Cardiovascular History: Reports: Hx Hypertension, Other Cardiovascular Problems/ Disorders - Diastolic Malfunction Denies: Hx Coronary Artery Disease, Hx Myocardial Infarction, Hx Pacemaker/ ICD Respiratory History: Reports: Hx Asthma - PRN INHALER, Hx Seasonal Allergies Denies: Hx Chronic Obstructive Pulmonary Disease (COPD) GI History: Reports: Hx Diverticulosis, Hx Gastroesophageal Reflux Disease - ACID REFLUX, CONTROL WITH MEDS, Hx Irritable Bowel, Hx Obstructive Bowel - with surgery 1995 History: Denies: Hx Renal Disease Musculoskeletal History: Reports: Hx Arthritis, Hx Back Problems, Hx Osteoporosis, Hx Scoliosis, Other Musculoskeletal History - spinal stenosis Sensory History: Reports: Hx Cataracts - removed, Hx Contacts or Glasses Denies: Hx Hearing Aid Opthamlomology History: Reports: Hx Cataracts - removed, Hx Contacts or Glasses Neurological History: Reports: Hx Dementia Denies: Other Neuro Impairments/Disorders Psychiatric History: Reports: Hx Anxiety, Hx Depression - CONTROL WITH MEDS Denies: Hx Panic Disorder - Cancer History Cancer Type, Location and Year: MULTIPLE MYELOMA Hx Chemotherapy: Yes - oral Hx Palliative Cancer Treatment: No - Surgical History Surgery Procedure, Year, and Place: BOWEL SURGERY FOR OBSTYRUCTION. BREAST REDUCTIONS. APPENDIX AGE 20 Hx Anesthesia Reactions: No - Immunization History Hx Pertussis Vaccination: No - male Immunizations Up to Date: Unable to Obtain/Confirm Infectious Disease History: No Infectious Disease History: Denies: Hx of Known/Suspected MRSA, Traveled Outside the [place] in Last 30 Days - Family History Known Family History: Positive: Cardiac Disease, Hypertension Negative: Diabetes - Social History Occupation: Disabled Lives: Assisted Living Alcohol Use: Occasionally Alcohol Amount: 1-2 glasses of wine/week Hx Substance Use: No Substance Use Type: Reports: None Hx Tobacco Use: No Smoking Status (MU): Never Smoked Tobacco Review of Systems Constitutional: Negative Negative: Fever, Chills, Fatigue Negative: Palpitations, Chest Pain Negative: Shortness Of Breath, Cough Genitourinary: Negative Positive: no symptoms reported, see HPI Positive: Arthralgia, Myalgia Positive: Bruising Neurological: Negative All Other Systems Reviewed And Are Negative: Yes Physical Exam Triage Information Reviewed: Yes Vital Signs On Initial Exam: Initial Vitals Temp Pulse Resp BP Pulse Ox 97.8 F 86 18 104/58 96 02/25/18 11:15 02/25/18 11:15 02/25/18 11:15 02/25/18 11:15 02/25/18 11:15 Vital Signs Reviewed: Yes Appearance: Positive: Well-Appearing, Well-Nourished Skin: Positive: Warm, Skin Color Reflects Adequate Perfusion, Other - bruising Head/Face: Positive: Normal Head/Face Inspection Neck: Positive: Supple, No Lymphadenopathy Respiratory/Lung Sounds: Positive: Clear to Auscultation, Breath Sounds Present Cardiovascular: Positive: RRR, Pulses are Symmetrical in both Upper and Lower Extremities Musculoskeletal: Positive: Pain @ - right forearm Neurological: Positive: Speech Normal Psychiatric: Positive: Normal, Affect/Mood Appropriate AVPU Assessment: Alert Diagnostics - Vital Signs Vital Signs Temp Pulse Resp BP Pulse Ox 02/25/18 16:01 98 F 80 18 110/62 97 02/25/18 11:15 97.8 F 86 18 104/58 96 - Laboratory Lab Statement: Any lab studies that have been ordered have been reviewed, and results considered in the medical decision making process. Course/Dx - Course Course Of Treatment: Patient is evaluated for right forearm injury. There is bruising noted to the right forearm as well as just superior to the right elbow. No known trauma. X-ray of the humerus and forearm bones obtained. IMPRESSION: New osteolytic lesions consistent with multiple myeloma at the diaphysis of. the humerus with associated grossly nondisplaced pathologic fracture at the proximal. diaphysis. Discussed with this with patient and aid. She will be referred to the orthopedic clinic. I have encouraged her to continue her at home pain medication. Please patient in a long-arm posterior splint as this is a forearm distal humerus injury. Although will not completely eliminate supination/pronation the distal forearm fracture is not complex, patient is fairly bedbound and does not ambulate well and will not be using the arm much and does not require to sugar tong. Sling given. - Diagnoses Differential Diagnosis/HQI/PQRI: Positive: Fracture (Closed) Provider Diagnoses: Distal radial fracture Discharge - Sign-Out/Discharge Documenting (check all that apply): Discharge/Admit/Transfer - Discharge Plan Condition: Stable Disposition: HOME Patient Education Materials: Arm Fracture in Adults (ED) Referrals: Corey Díaz MD [Medical Doctor] - Destinee Fitzgerald MD [Primary Care Provider] - Additional Instructions: Please follow up with Ortho Call monday tracy for appt Keep the sling on when standing or ambulating Do not get the splint wet At home pain medications as needed - Billing Disposition and Condition Condition: STABLE Disposition: HOME
== END 2018-02-25 16:03 | disposition home or self-care (01) ==
LOC: ED 10:58
DX: M84.433A Pathological fracture, right radius, initial encounter for fracture (principal); C90.00 Multiple myeloma not having achieved remission; F03.90 Unspecified dementia, unspecified severity, without behavioral disturbance, psychotic disturbance, mood disturbance, and anxiety; J45.909 Unspecified asthma, uncomplicated; Z88.3 Allergy status to other anti-infective agents; Z88.8 Allergy status to other drugs, medicaments and biological substances
CPT/HCPCS: 99282

== ENCOUNTER 2018-02-26 12:48 | Inpatient (IN) | payer MEDICARE, OTHER ==
[2018-02-26 13:46] LABS: Hematocrit 28 % (35-47); Hemoglobin 9.3 g/dl (12.0-16.0); Mean Corpuscular HGB Conc 34 g/dl (31-36); Mean Corpuscular Hemoglobin 32 pg (27-31); Mean Corpuscular Volume 95 fL (80-97); Mean Platelet Volume 8.1 um3 (7.4-10.4); Platelet Count 68 10^3/ul (150-450); Red Cell Distribution Width 18 % (10.5-15); White Blood Count 8.9 10^3/ul (3.5-10.8)
[2018-02-26 13:54] LABS: INR 0.99 (0.77-1.02)
[2018-02-26 14:04] LABS: EGFR Non-African American 47.8 (>60)
[2018-02-26] MEDS ORDERED: Iodixanol* (CONTRAST) 320 MG/ML 100 ML SDV IV ONE (14:08)
[2018-02-26] MEDS ORDERED: NS 0.9% 1000 ML*IV.FLUID IV ONE (14:16)
--- NOTE | 2018-02-26 14:16 | ED ---
Shortness of Breath - HPI Summary HPI Summary: Patient is an 82-year-old female with history of multiple myeloma, dementia and recent right forearm fracture which was splinted yesterday in the ED presenting to the ED today with shortness of breath, AMS per baseline according to daughter at bedside. She is alert and oriented to person, but not place or time. She wears 2 L oxygen at bedtime but has been requiring it all day this morning and still appears to be in respiratory distress per daughter. Daughter denies any fevers. Patient denies feeling ill otherwise. When asked if she had any complaints she states she is okay. Daughter at this time believes we will need a social work consult for more in-home care. - History of Current Complaint Chief Complaint: EDShortnessOfBreath Time Seen by Provider: 02/26/18 13:00 Hx Obtained From: Family/Information Security Director Hx From Patient Unobtainable Due To: Altered Mental Status Onset/Duration: Sudden Onset Timing: Constant Current Severity: Moderate Associated Signs & Symptoms: Negative - Risk Factors Pulmonary Embolism: Malignancy, Bedrest, Trauma Cardiac: Negative Pseudomonas: Negative - Allergy/Home Medications Allergies/Adverse Reactions: Allergies Allergy/AdvReac Type Severity Reaction Status Date / Time amoxicillin Allergy Shakes Verified 02/26/18 16:21 epinephrine Allergy Shakes Verified 02/26/18 16:21 Home Medications: Home Medications Acetaminophen [Tylenol Extra Strength] 1,000 mg PO Q6HR PRN 02/26/18 [History Confirmed 02/26/18] Aspirin EC TAB* [Ecotrin EC Low Dose 81 MG*] 81 mg PO QAM 02/26/18 [History Confirmed 02/26/18] Cyanocobalamin TAB* [Vitamin B12 TAB*] 1,000 mcg PO QAM 02/26/18 [History Confirmed 02/26/18] Dexamethasone TAB* [Decadron TAB*] 4 mg PO MOWEFR 02/26/18 [History Confirmed ] Montelukast Sodium TAB* [Singulair TAB*] 10 mg PO QAM 02/26/18 [History Confirmed 02/26/18] PARoxetine HCL TAB* [Paxil TAB*] 20 mg PO QAM 02/26/18 [History Confirmed ] Rabeprazole (NF) [Aciphex (NF)] 20 mg PO QPM 02/26/18 [History Confirmed ] PMH/Surg Hx/FS Hx/Imm Hx Previously Healthy: No - multiple myeloma history Endocrine/Hematology History: Reports: Hx Bone Marrow Disease - MULTIPLE MYELOMA , Hx Anemia Denies: Hx Diabetes Cardiovascular History: Reports: Hx Hypertension, Other Cardiovascular Problems/ Disorders - Diastolic Malfunction Denies: Hx Coronary Artery Disease, Hx Myocardial Infarction, Hx Pacemaker/ ICD Respiratory History: Reports: Hx Asthma - PRN INHALER, Hx Seasonal Allergies Denies: Hx Chronic Obstructive Pulmonary Disease (COPD) GI History: Reports: Hx Diverticulosis, Hx Gastroesophageal Reflux Disease - ACID REFLUX, CONTROL WITH MEDS, Hx Irritable Bowel, Hx Obstructive Bowel - with surgery 1995 History: Denies: Hx Renal Disease Musculoskeletal History: Reports: Hx Arthritis, Hx Back Problems, Hx Osteoporosis, Hx Scoliosis, Other Musculoskeletal History - spinal stenosis Sensory History: Reports: Hx Cataracts - removed, Hx Contacts or Glasses Denies: Hx Hearing Aid Opthamlomology History: Reports: Hx Cataracts - removed, Hx Contacts or Glasses Neurological History: Reports: Hx Dementia Denies: Other Neuro Impairments/Disorders Psychiatric History: Reports: Hx Anxiety, Hx Depression - CONTROL WITH MEDS Denies: Hx Panic Disorder - Cancer History Cancer Type, Location and Year: MULTIPLE MYELOMA Hx Chemotherapy: Yes - oral Hx Palliative Cancer Treatment: No - Surgical History Surgery Procedure, Year, and Place: BOWEL SURGERY FOR OBSTYRUCTION. BREAST REDUCTIONS. APPENDIX AGE 20 Hx Anesthesia Reactions: No - Immunization History Hx Pertussis Vaccination: No Immunizations Up to Date: Unable to Obtain/Confirm Infectious Disease History: No Infectious Disease History: Denies: Hx of Known/Suspected MRSA, Traveled Outside the [place] in Last 30 Days - Family History Known Family History: Positive: Cardiac Disease, Hypertension Negative: Diabetes - Social History Occupation: Unemployed Lives: Alone - with aids Alcohol Use: Occasionally Alcohol Amount: 1-2 glasses of wine/week Hx Substance Use: No Substance Use Type: Reports: None Hx Tobacco Use: No Smoking Status (MU): Never Smoked Tobacco Review of Systems Constitutional: Negative Negative: Fever, Chills, Fatigue, Skin Diaphoresis Negative: Palpitations, Chest Pain Positive: Shortness Of Breath. Negative: Cough Negative: Vomiting, Diarrhea Genitourinary: Negative Positive: no symptoms reported, see HPI Positive: Arthralgia - R arm Skin: Negative All Other Systems Reviewed And Are Negative: Yes Physical Exam Triage Information Reviewed: Yes Vital Signs On Initial Exam: Initial Vitals Pulse Resp BP Pulse Ox 124 27 108/75 95 02/26/18 12:55 02/26/18 12:55 02/26/18 12:55 02/26/18 12:55 Vital Signs Reviewed: Yes Appearance: Positive: Well-Appearing, Well-Nourished Skin: Positive: Warm, Skin Color Reflects Adequate Perfusion Head/Face: Positive: Normal Head/Face Inspection Eyes: Positive: EOMI, IRISH, Conjunctiva Clear Neck: Positive: Supple, No Lymphadenopathy Respiratory/Lung Sounds: Positive: Breath Sounds Present Cardiovascular: Positive: Tachycardia. Negative: Leg Edema Left, Leg Edema Right Musculoskeletal: Positive: Normal, Strength/ROM Intact Neurological: Positive: Other - Alert and oriented to person but not place or time AVPU Assessment: Alert Diagnostics - Vital Signs Vital Signs Temp Pulse Resp BP Pulse Ox 02/26/18 14:00 114 24 94 02/26/18 13:55 118 21 96/72 94 02/26/18 13:49 94 02/26/18 13:25 120 17 131/71 94 02/26/18 13:00 123 18 94 02/26/18 12:59 24 02/26/18 12:56 98.3 F 124 18 108/75 95 02/26/18 12:55 124 27 108/75 95 - Laboratory Lab Results: Lab Results 02/26/18 02/26/18 02/26/18 Range/Units 13:34 13:34 13:34 WBC 8.9 (3.5-10.8) 10^3/ul RBC 2.90 L (4.0-5.4) 10^6/ul Hgb 9.3 L (12.0-16.0) g/dl Hct 28 L (35-47) % MCV 95 (80-97) fL MCH 32 H (27-31) pg MCHC 34 (31-36) g/dl RDW 18 H (10.5-15) % Plt Count 68 L (150-450) 10^3/ul MPV 8.1 (7.4-10.4) um3 Neut % (Auto) Pending Lymph % (Auto) Pending [place] % (Auto) Pending Eos % (Auto) Pending Baso % (Auto) Pending Absolute Neuts (auto) Pending Absolute Lymphs (auto) Pending Absolute Monos (auto) Pending Absolute Eos (auto) Pending Absolute Basos (auto) Pending Absolute Nucleated RBC Pending Nucleated RBC % Pending INR (Anticoag Therapy) (0.77-1.02) Sodium 134 L (139-145) mmol/L Potassium 4.9 (3.5-5.0) mmol/L Chloride 99 L (101-111) mmol/L Carbon Dioxide 23 (22-32) mmol/L Anion Gap 12 H (2-11) mmol/L BUN 37 H (6-24) mg/dL Creatinine 1.10 H (0.51-0.95) mg/dL Est GFR ( Amer) 61.5 (>60) Est GFR (Non-Af Amer) 47.8 (>60) BUN/Creatinine Ratio 33.6 H (8-20) Glucose 245 H (70-100) mg/dL Lactic Acid 1.3 (0.5-2.0) mmol/L Calcium 9.3 (8.6-10.3) mg/dL Total Bilirubin 0.40 (0.2-1.0) mg/dL AST 30 (13-39) U/L ALT 25 (7-52) U/L Alkaline Phosphatase 91 (34-104) U/L Total Creatine Kinase 18 (10-223) U/L Troponin I 0.04 H* (<0.04) ng/mL C-Reactive Protein 33.31 H (< 5.00) mg/L Total Protein 7.0 (6.4-8.9) g/dL Albumin 3.8 (3.2-5.2) g/dL Globulin 3.2 (2-4) g/dL Albumin/Globulin Ratio 1.2 (1-3) 02/26/18 Range/Units 13:34 WBC (3.5-10.8) 10^3/ul RBC (4.0-5.4) 10^6/ul Hgb (12.0-16.0) g/dl Hct (35-47) % MCV (80-97) fL MCH (27-31) pg MCHC (31-36) g/dl RDW (10.5-15) % Plt Count (150-450) 10^3/ul MPV (7.4-10.4) um3 Neut % (Auto) Lymph % (Auto) [place] % (Auto) Eos % (Auto) Baso % (Auto) Absolute Neuts (auto) Absolute Lymphs (auto) Absolute Monos (auto) Absolute Eos (auto) Absolute Basos (auto) Absolute Nucleated RBC Nucleated RBC % INR (Anticoag Therapy) 0.99 (0.77-1.02) Sodium (139-145) mmol/L Potassium (3.5-5.0) mmol/L Chloride (101-111) mmol/L Carbon Dioxide (22-32) mmol/L Anion Gap (2-11) mmol/L BUN (6-24) mg/dL Creatinine (0.51-0.95) mg/dL Est GFR ( Amer) (>60) Est GFR (Non-Af Amer) (>60) BUN/Creatinine Ratio (8-20) Glucose (70-100) mg/dL Lactic Acid (0.5-2.0) mmol/L Calcium (8.6-10.3) mg/dL Total Bilirubin (0.2-1.0) mg/dL AST (13-39) U/L ALT (7-52) U/L Alkaline Phosphatase (34-104) U/L Total Creatine Kinase (10-223) U/L Troponin I (<0.04) ng/mL C-Reactive Protein (< 5.00) mg/L Total Protein (6.4-8.9) g/dL Albumin (3.2-5.2) g/dL Globulin (2-4) g/dL Albumin/Globulin Ratio (1-3) Result Diagrams: 02/26/18 13:34 02/26/18 13:34 Lab Statement: Any lab studies that have been ordered have been reviewed, and results considered in the medical decision making process. Course/Dx - Course Course Of Treatment: isDuring the course of treatment, the patient is evaluated for tachycardia, shortness of breath, and increased respirations. Due to a recent trauma/injury to her right forearm with a fracture, she is at an increased risk for PE. She takes daily aspirin, but denies other anticoagulation medications. AMS per daughter, but patient is demented at baseline. She is oriented to person, not place or time. Labs obtained which show a low H&H, mild hyponatremia and elevated CRP at 33.31. Elevated troponin at 0.04, however this is at baseline for patient. Elevated BUN/creatinine at 33.6 and elevated glucose at 245. Daughter states upon last visit she was diagnosed with diabetes based on her lab work; however she was not started on medications. Due to the increased risk for PE, CTA was ordered. Unable to visualize clearly any evidence of PE. Dr. Reyes recommended VQ scan. VQ scan obtained which shows a low probability scan for pulmonary emboli. She is placed on 2 L oxygen on arrival and sat is 95%. She remains tachycardia at 125. During her stay, BP decreased to 94/65 and patient is given 1 L fluids. I 've discussed this case with TRACIE Menjivar. Will admit at this time and obtain a social work consult. - Diagnoses Provider Diagnoses: Shortness of breath, Tachycardia Discharge - Sign-Out/Discharge Documenting (check all that apply): Discharge/Admit/Transfer - Discharge Plan Condition: Stable Disposition: ADMITTED TO [facility] - Billing Disposition and Condition Condition: STABLE Disposition: Admitted to [facility]
--- NOTE | 2018-02-26 15:15 | RAD ---
Indication: Evaluate for pulmonary embolus. Contrast: Administered 79.4 ml of VISAPAQUE 320 mg/ml CTA of the chest performed after IV contrast administration. Coronal and sagittal reconstructed images were obtained. The pulmonary arterial tree is suboptimally visualized. The main pulmonary arteries demonstrates no filling defects. Pulmonary emboli in the smaller branches cannot BE excluded. The aorta demonstrates no evidence of aortic dissection. Atherosclerotic aorta is noted. The lung dunn demonstrate scarring and atelectasis in the major fissure on the right. Dependent changes are noted. No focal nodules are noted. Heart demonstrates no pericardial effusion. Compression fracture of T6 and T12 are noted which is undetermined. These were present previously and has not significantly changed. IMPRESSION: Limited evaluation of the pulmonary arteries due to technical factors. No major pulmonary embolus is noted within the main pulmonary arteries. Atelectasis is noted along the minor fissure and left base. No aortic dissection.
[2018-02-26] MEDS ORDERED: Acetaminophen TAB* 325 MG PO PRN (15:17)
[2018-02-26] MEDS ORDERED: Magnesium Hydroxide LIQ* 30 ML UDC PO PRN (15:17)
[2018-02-26] MEDS ORDERED: Al Hydrox/Mg Hydrox/Simet LIQ* 30 ML UDC PO PRN (15:17)
[2018-02-26] MEDS ORDERED: Ondansetron 40 MG VIAL* 2 MG/ML 20 ML VIAL IV PRN (15:17)
[2018-02-26 15:42] LABS: ABS Basophils 0.9 10^3/ul (0-0.2); ABS Eosinophils 0.2 10^3/ul (0-0.6); ABS Lymphocytes 2.8 10^3/ul (1.0-4.8); ABS Monocytes 6.2 10^3/ul (0-0.8); ABS Neutrophils 5.4 10^3/ul (1.5-7.7)
[2018-02-26 15:43] LABS: Eosinophil % 0.2 % (0-6); Nucleated Red Blood Cells % 2
--- NOTE | 2018-02-26 15:43 | RAD ---
Indication: Chest pain. Single frontal view of the chest performed at 1514 hours was reviewed. Comparison is made with previous exam dated February 07, 2018. No mediastinal shift is noted. Cardiomegaly is noted. Central catheter is in place. No pneumothorax is noted. IMPRESSION: CENTRAL LINE IN PLACE. CARDIOMEGALY WITH NO PNEUMOTHORAX.
[2018-02-26 15:44] LABS: Monocytes % 6 % (0-7)
[2018-02-26] MEDS: Dexamethasone TAB* 4 MG PO SCH (16:18)
--- NOTE | 2018-02-26 16:18 | RAD ---
Indication: Shortness of breath. Ventilation and perfusion lung scan was performed. Ventilation scan was performed after administration of 8.4 mCi of xenon-133. 6.3 mCi of technetium 99 M macroaggregated albumin was then injected for the perfusion study. Ventilation scan demonstrates no evidence of air trapping. Perfusion lung scan demonstrates no evidence of segmental or subsegmental perfusion defects. No definite evidence of pulmonary embolus is noted. This is a low probability scan for pulmonary embolus. IMPRESSION: Low probability scan for pulmonary emboli.
[2018-02-26] MEDS: NS 0.9% 1000 ML* 1,000 ML IV SCH (18:07)
[2018-02-26] MEDS: Cetirizine* 10 MG TAB PO SCH (18:07)
--- NOTE | 2018-02-26 19:05 | HP ---
CC: Dr. Fitzgerald; Dr. Gonzalez * ADMISSION HISTORY AND PHYSICAL: DATE OF ADMISSION: 02/26/18 ATTENDING HOSPITALIST: Dr. Phyllis Blancas.* (DICTATED BY GRUPO CANALES) PRIMARY CARE PHYSICIAN: Dr. Fitzgerald. CHIEF COMPLAINT: Shortness of breath. HISTORY OF PRESENT ILLNESS: Ms. Khoury is a pleasant 82-year-old female who is well known to us from prior recent admission back in mid January, who presented to the emergency room today with complaints of worsening shortness of breath since this morning. The patient has a complicated past medical history significant for advanced multiple myeloma, for which she had multiple lytic lesions noted to the skull and bilateral humerus as well as the acetabulum and also to her spine. She also has a past medical history of asthma without any recent exacerbation as well as chronic back pain, hypertension, and progressive dementia. The patient was seen in the emergency room yesterday with complaints of right arm pain and she had plain x-rays that revealed new lytic lesion at the diaphysis of the humerus showing a large nondisplaced fracture, for which she had a splint and was sent home to be followed up by orthopedic doctors. She went home yesterday in her normal state of health and went to sleep and got up early this morning complaining of some shortness of breath that has gotten worse through the morning. She presented to the emergency room and was found to have oxygen saturation of 94%; however, the patient's breathing was labored and found also to be tachycardic. According to her daughter, she appeared to have rapid heart rate at home this morning; however, she denied any complaints of chest pain, dizziness, headache, or any other associated symptoms. She has had intermittent wheezing in the past; however, she denied any dry cough or productive cough for the past few days. She was seen and evaluated in the emergency room and had laboratory workup that revealed her baseline hemoglobin and hematocrit as well as normal white count of 9000. Her troponin was also elevated; however, at her baseline of 0.04. Her chemistry panel actually revealed significantly improved sodium of 134 compared to lower sodium of 119 back in mid January when she was admitted for hyponatremia. The patient denied any ankle swelling. She was taken to the x-ray room where she had a chest CTA done; however, it was nonconclusive and it was recommended for her to get a V/Q scan, which has been ordered by the ED provider and the results are pending at this time. At the time of her examination, she appears to be very comfortable. She does have a history of asthma, for which she takes a couple of inhalers at home and has been stable at baseline. Given her intermittent shortness of breath as well as her recent right humerus pathologic fracture due to multiple myeloma, we were asked to see the patient for evaluation and possible admission. The patient had her most recent IV infusion for multiple myeloma back on 02/20/18. She has been having difficulties ambulating at home especially after a splint was put on her right upper extremity. I had a good discussion with her daughter who thinks that it could be the time for her to consider placement for short- term rehab or possibly even hospice care. PAST MEDICAL HISTORY: As mentioned above, significant for: 1. Multiple myeloma with multiple lytic lesions to her skull and bilateral humerus, acetabulum and spine. Again, she was seen in the ED yesterday and had a nondisplaced right humeral pathologic fracture at the proximal diaphysis. 2. Chronic back pain. 3. Small bowel obstruction. 4. Diverticulitis. 5. Hypertension. 6. Dementia. 7. Arthritis. 8. Asthma. 9. History of compression fractures. PAST SURGICAL HISTORY: She reports having a surgery done as a teenager when she was 20; however, unclear about for what reason and on what part of her body. CURRENT MEDICATIONS: Her home medications upon admission include: 1. Tylenol Extra Strength 1000 mg p.o. q.6 hours as needed for pain. 2. Albuterol MDI inhaler 2 puffs q.6 hours as needed for shortness of breath. 3. Aspirin 81 mg p.o. daily. 4. Celebrex 200 mg p.o. daily. 5. Vitamin B12 1000 mcg p.o. daily. 6. Decadron 4 mg p.o. q. Monday, Monday and Monday. 7. Flovent MDI 3 puffs inhaled b.i.d. 8. Xyzal tablets 5 mg p.o. q.h.s. 9. Singulair 10 mg p.o. daily. 10. Morphine tablets 15 mg p.o. b.i.d. 11. Oxycodone 5 mg p.o. q.4 hours p.r.n. for pain. 12. Paxil 20 mg p.o. daily. 13. Aciphex 20 mg p.o. daily. 14. Ambien 10 mg p.o. q.h.s. as needed for insomnia. ALLERGIES: She is allergic to AMOXICILLIN and EPINEPHRINE. FAMILY HISTORY: She reports that both parents had history of heart disease. SOCIAL HISTORY: The patient still lives at home. Has a daughter, Elizabeth, who is the healthcare proxy person. She gets some help at home; however, it has been getting more difficult to take care of her at home especially after her right arm was put in a splint due to a pathologic humeral fracture. She is a nonsmoker who denies alcohol intake, and again surrogate decision maker is her daughter, Elizabeth. The patient is also a DNR. REVIEW OF SYSTEMS: I have reviewed 14 systems, all completed and positive pertinent systems were mentioned in history of present illness, otherwise all negative. PHYSICAL EXAMINATION GENERAL: She is a pleasant, slightly demented elderly female, morbidly obese, appears comfortable and in no acute distress or discomfort. VITAL SIGNS: Revealed heart rate of 99, blood pressure of 129/73, respirations of 17, and O2 sat of 97% on 2 L oxygen. HEENT: Head is normocephalic, atraumatic. Sclerae anicteric. PERRLA. EOMs intact. Oropharynx is pink and moist. NECK: Supple. Trachea midline. No cervical adenopathy noted. LUNGS: There are decreased breath sounds at the bases, but no rales, wheezes, or rhonchi. Breathing with ease and there is no accessory muscle use. HEART: Normal sinus rhythm with tachycardia with rate at 100. No rubs, murmurs , or gallops. BACK: With normal curvature and no CVA tenderness noted. BREASTS: Exam deferred at this time. ABDOMEN: Soft, nontender, and nondistended. There are no hernias, masses, or hepatosplenomegaly. EXTREMITIES: Without cyanosis, clubbing, or edema. Right upper extremity is secured at 90-degree elbow flexion with a posterior splint, wrapped with José Miguel wrap. There is no distal swelling noted. Sensation and motor intact to fingers. NEUROLOGIC: Grossly intact. She is alert and oriented x3. Tongue is midline and hand locomotive supervisor were equal and there was no focal deficit noted. RECTAL: Exam deferred at this time. LABORATORY WORKUP: CBC showed white count of 8900, hemoglobin of 9.3, hematocrit of 28, and platelets of 68. Chemistry panel with sodium of 134, potassium 4.9, chloride of 99, CO2 of 23, BUN of 37, and creatinine of 1.1. Her glucose was 245. Troponin 0.04, which again at baseline for the patient. Lactic acid 1.3 and LFTs essentially within normal limits. ACCESSORY DIAGNOSTIC DATA: Portable chest x-ray was done in the ED revealing central line in place attached to her Mediport and there is cardiomegaly and no pneumothorax. Chest CTA was done and the findings are not conclusive, for which V/Q scan was ordered and the results are pending at the time of dictation. IMPRESSION: Ms. Khoury is an 82-year-old female with complicated past medical history significant for multiple myeloma with numerous lytic lesions to her axial and central skeletal system, most recently diagnosed with right humerus pathologic fracture, who presented to the emergency room with complaints of shortness of breath and who has a history of asthma without exacerbation. The patient was found to be slightly dehydrated with elevated BUN and creatinine since she had her last infusion a few days ago and typically she has decreased appetite and decreased p.o. intake leading to her symptoms. ASSESSMENT AND PLAN: The patient will be admitted under inpatient status for: 1. Shortness of breath. I suspect this is more likely related to asthma exacerbation; however, the patient upon presentation denied any wheezing after respiratory treatment. She has been alert with periods of slight confusion. I suspect this could be related to dehydration. We will continue her nebulizers at home and await the results of the V/Q scan to rule out any possibility of pulmonary embolism. 2. Hyponatremia. Seems to be corrected at this admission and we will continue to check her labs on a daily basis. We will continue her hydrochlorothiazide at this point; however, I discussed with her possibility of withholding it if her sodium goes down. 3. Multiple myeloma. The patient with lytic lesions causing pathologic fractures, who had an infusion therapy just a few days ago. She appears to have normal white count at this point and I do not suspect that she has any active infection at this time. We had a long discussion with her daughter, who feels that the patient will benefit greatly from drug abuse social worker consult to discuss placement or even possibly hospice care since it has become a lot difficult for her to ambulate at home and to carry on with her usual daily activities. 4. History of hypertension. Her blood pressure appears to be stable at this point and we will keep monitoring her. 5. Dementia. We will continue her supportive care. 6. Chronic compression fracture and pathologic fracture. We will continue her pain meds as prescribed and add stool softener to use as needed. 7. DVT prophylaxis: The patient is a high risk and will be covered with subcu heparin as well as SCDs. 8. Code status: She is a DNR and daughter has updated MOLST form. I have discussed the case with my attending, Dr. Blancas, who agreed to all the plans and recommendations. TIME SPENT: I have spent approximately 60 minutes on this admission, greater than 50% of this time was spent on [id number] conversation with the patient obtaining history, performing exam, and explaining plan of care. [employer]ES [id number]/CPS #: [id number] ANASTACIO
[2018-02-26] MEDS: oxyCODONE TAB* 5 MG TAB PO PRN (19:25)
[2018-02-26] MEDS: Mometasone 220 MCG MDI INH SCH (20:47)
[2018-02-26] MEDS ORDERED: Fluticasone HFA 220 mcg(NF) MDI INH SCH (21:00)
[2018-02-26] MEDS: Morphine TAB Extended Release (*) 15 MG TAB.ER PO SCH (22:00)
[2018-02-26] MEDS: Heparin VIAL(*) 5000 UNITS/ML VIAL (FIVE THOUSAND) SUBCUT SCH (22:02)
[2018-02-26] MEDS: Zolpidem TAB* 10 MG PO PRN (22:33)
[2018-02-26 22:51] LABS: Urine Appearance Clear; Urine Blood Negative (Negative); Urine Color Straw; Urine Ketones Negative (Negative); Urine Protein 1+(30 mg/dL) (Negative); Urine Specific Gravity 1.016 (1.010-1.030); Urine Urobilinogen Negative (Negative)
[2018-02-27] MEDS: Omeprazole CAP* 20 MG PO SCH (05:12)
[2018-02-27] MEDS: Heparin VIAL(*) 5000 UNITS/ML VIAL (FIVE THOUSAND) SUBCUT SCH ×3 (05:12→20:34)
[2018-02-27 05:50] LABS: ABS Basophils 0 10^3/ul (0-0.2); ABS Eosinophils 0 10^3/ul (0-0.6); ABS Lymphocytes 0.9 10^3/ul (1.0-4.8); ABS Monocytes 0.3 10^3/ul (0-0.8); Hematocrit 22 % (35-47); Hemoglobin 7.7 g/dl (12.0-16.0); Mean Corpuscular HGB Conc 35 g/dl (31-36); Mean Corpuscular Hemoglobin 33 pg (27-31); Mean Corpuscular Volume 95 fL (80-97); Red Blood Count 2.33 10^6/ul (4.0-5.4); Red Cell Distribution Width 18 % (10.5-15); White Blood Count 6.2 10^3/ul (3.5-10.8)
[2018-02-27 05:55] LABS: EGFR Non-African American 90.9 (>60)
[2018-02-27 06:26] LABS: ABS Nucleated RBC 0 10^3/ul; Eosinophil % 0.1 % (0-6); Mean Platelet Volume 8.1 um3 (7.4-10.4); Nucleated Red Blood Cells % 0.6; Platelet Count 58 10^3/ul (150-450)
[2018-02-27] MEDS ORDERED: Albuterol HFA INHALER* 8 gm MDI INH PRN (07:16)
[2018-02-27] MEDS ORDERED: Albuterol 2.5 MG/3 ML NEB.SOL* (0.083%) INH PRN (07:17)
[2018-02-27] MEDS: NS 0.9% 1000 ML* 1,000 ML IV SCH (08:20)
[2018-02-27] MEDS: celeCOXIB CAP* 200 MG PO SCH (08:22)
[2018-02-27] MEDS: Montelukast Sodium TAB* 10 MG PO SCH (08:23)
[2018-02-27] MEDS: Aspirin EC TAB* 81 MG TAB.EC PO SCH (08:23)
[2018-02-27] MEDS: Cyanocobalamin TAB* 500 MCG PO SCH (08:23)
[2018-02-27] MEDS: PARoxetine HCL TAB* 20 MG PO SCH (08:24)
[2018-02-27] MEDS: Morphine TAB Extended Release (*) 15 MG TAB.ER PO SCH ×2 (08:24→20:33)
[2018-02-27] MEDS: Clotrimazole TROCHE* 10 MG TROCHE PO SCH ×3 (09:56→20:34)
[2018-02-27] MEDS: oxyCODONE TAB* 5 MG TAB PO PRN ×2 (09:56→20:32)
--- NOTE | 2018-02-27 12:38 | PN ---
Subjective Date of Service: 02/27/18 Interval History: HOSPITALIST PROGRESS NOTE Patient seen and examined at bedside. Care reviewed and d/w Rosy Miranda RN. She offers no new complaints at this time. She denies pain, dyspnea. She was drinking orange juice during my visit and had frequent coughing. Family History: Unchanged from Admission Social History: Unchanged from Admission Past Medical History: Unchanged from Admission Objective Active Medications: Acetaminophen (Tylenol Tab*) 650 mg PO Q4H PRN PRN Reason: FEVER/PAIN Al Hydrox/Mg Hydrox/Simethicone (Maalox Plus*) 30 ml PO Q6H PRN PRN Reason: INDIGESTION Albuterol (Ventolin 2.5 Mg/3 Ml Neb.Stephanie*) 2.5 mg INH Q4H PRN PRN Reason: SOB/WHEEZING Albuterol (Ventolin Hfa Inhaler*) 2 puff INH Q6H PRN PRN Reason: SOB/WHEEZING Aspirin (Aspirin Ec Tab*) 81 mg PO QAM [facility] Last Admin: 02/27/18 08:23 Dose: 81 mg Celecoxib (Celebrex Cap*) 200 mg PO QAM [facility] Last Admin: 02/27/18 08:22 Dose: 200 mg Cetirizine HCl (Zyrtec*) 10 mg PO QPM [facility] Last Admin: 02/26/18 18:07 Dose: 10 mg Clotrimazole (Mycelex João*) 10 mg PO TID [facility] Last Admin: 02/27/18 09:56 Dose: 10 mg Cyanocobalamin (Vitamin B12 Tab*) 1,000 mcg PO QAM [facility] Last Admin: 02/27/18 08:23 Dose: 1,000 mcg Dexamethasone (Decadron Tab*) 4 mg PO MOWEFR [facility] Last Admin: 02/26/18 16:18 Dose: 4 mg Heparin Sodium (Porcine) (Heparin Vial(*)) 5,000 units SUBCUT Q8HR [facility] Last Admin: 02/27/18 05:12 Dose: 5,000 units Sodium Chloride (Ns 0.9% 1000 Ml*) 1,000 mls @ 75 mls/hr IV PER RATE [facility] Stop: 02/27/18 15:30 Last Admin: 02/27/18 08:20 Dose: 75 mls/hr Magnesium Hydroxide (Milk Of Magnesia Liq*) 30 ml PO Q4H PRN PRN Reason: CONSTIPATION Mometasone Furoate (Asmanex 220 Mcg Mdi *) 2 puff INH BEDTIME [facility] Last Admin: 02/26/18 20:47 Dose: 2 puff Montelukast Sodium (Singulair Tab*) 10 mg PO QAM [facility] Last Admin: 02/27/18 08:23 Dose: 10 mg Morphine Sulfate (Ms Contin(*)) 15 mg PO BID [facility] Last Admin: 02/27/18 08:24 Dose: 15 mg Omeprazole (Prilosec Cap*) 20 mg PO DAILY@0600 [facility] Last Admin: 02/27/18 05:12 Dose: 20 mg Ondansetron HCl (Zofran 40 Mg Vial*) 4 mg IV Q4H PRN PRN Reason: NAUSEA/VOMITING Oxycodone HCl (Roxycodone Tab*) 5 mg PO Q4HR PRN PRN Reason: PAIN Last Admin: 02/27/18 09:56 Dose: 5 mg Paroxetine HCl (Paxil Tab*) 20 mg PO QAM [facility] Last Admin: 02/27/18 08:24 Dose: 20 mg Zolpidem Tartrate (Ambien Tab*) 10 mg PO BEDTIME PRN PRN Reason: SLEEP Last Admin: 02/26/18 22:33 Dose: 10 mg Vital Signs - 8 hr 02/27/18 02/27/18 02/27/18 07:43 07:45 08:24 Temperature 97.8 F Pulse Rate 89 Respiratory 14 14 14 Rate Blood Pressure 107/60 (mmHg) O2 Sat by Pulse 99 Oximetry Oxygen Devices in Use Now: Nasal Cannula - 2 liters Appearance: Elderly lady sitting up in bed in [facility]. Eyes: No Scleral Icterus Ears/Nose/Mouth/Throat: Mucous Membranes Moist Neck: Trachea Midline Respiratory: Symmetrical Chest Expansion and Respiratory Effort, Clear to Auscultation Cardiovascular: RRR - Normal S1 and S2 Abdominal: NL Sounds; No Tenderness; No Distention Neurological: - - AAOx1 (self only), RUE immobilized Result Diagrams: 02/27/18 05:10 02/27/18 05:10 Assess/Plan/Problems-Billing Assessment: Mrs Khoury is an 82yo F with PMH of multiple myeloma with multiple lytic lesions , chronic back pain, HTN, dementia, diverticulosis, arthritis, asthma, recent admission for hyponatremia and dehydration, who presented to ED with c/o shortness of breath, admitted with failure to thrive. - Patient Problems (1) Multiple myeloma Comment: - Suspect some of her symptoms are secondary to MM progression. She's more anemic, more thrombocytopenic. - Oncology consultation requested - is patient candidate for further therapy or is Hospice indicated at this time? - She has multiple lytic lesions - skull, bilateral humeri, acetabulum, spine. Now with pathological fracture of her right humerus with immobilization. (2) Dysphagia Comment: - Suspect patient has dysphagia and aspiration. - Swallow evaluation pending. - No signs of infection at this time. (3) Asthma Comment: - Report of dyspnea in ED, but denies it now. CTA chest and V/Q negative for PE. - No evidence of exacerbation. - Continue mometasone and montelukast. On dexamethasone for MM. (4) Dementia Comment: - Continue supportive care. (5) Oral thrush Comment: - Start clotrimazole joão. (6) Physical deconditioning Comment: - PT/OT evaluations. - Will likely need SNF placement. (7) DVT prophylaxis Comment: - SQ heparin and SCDs. (8) DNR (do not resuscitate) Status and Disposition: Inpatient.
[2018-02-27] MEDS: Cetirizine* 10 MG TAB PO SCH (17:08)
[2018-02-27] MEDS: Mometasone 220 MCG MDI INH SCH (21:39)
[2018-02-28] MEDS: Heparin VIAL(*) 5000 UNITS/ML VIAL (FIVE THOUSAND) SUBCUT SCH ×3 (05:28→21:25)
[2018-02-28] MEDS: Omeprazole CAP* 20 MG PO SCH (05:31)
[2018-02-28] MEDS: oxyCODONE TAB* 5 MG TAB PO PRN (05:31)
[2018-02-28 08:18] LABS: Hematocrit 23 % (35-47); Hemoglobin 7.7 g/dl (12.0-16.0); Mean Corpuscular HGB Conc 34 g/dl (31-36); Mean Corpuscular Hemoglobin 32 pg (27-31); Mean Corpuscular Volume 95 fL (80-97); Mean Platelet Volume 8.5 um3 (7.4-10.4); Platelet Count 64 10^3/ul (150-450); Red Blood Count 2.39 10^6/ul (4.0-5.4); Red Cell Distribution Width 19 % (10.5-15); White Blood Count 6.1 10^3/ul (3.5-10.8)
[2018-02-28 08:33] LABS: EGFR Non-African American 83.3 (>60)
[2018-02-28 08:40] LABS: ABS Basophils 0 10^3/ul (0-0.2); ABS Eosinophils 0 10^3/ul (0-0.6); ABS Lymphocytes 1.6 10^3/ul (1.0-4.8); ABS Monocytes 0.5 10^3/ul (0-0.8)
[2018-02-28 08:42] LABS: Monocytes % 5 % (0-7)
[2018-02-28] MEDS: Aspirin EC TAB* 81 MG TAB.EC PO SCH (09:37)
[2018-02-28] MEDS: PARoxetine HCL TAB* 20 MG PO SCH (09:37)
[2018-02-28] MEDS: Cyanocobalamin TAB* 500 MCG PO SCH (09:37)
[2018-02-28] MEDS: Morphine TAB Extended Release (*) 15 MG TAB.ER PO SCH ×2 (09:37→21:24)
[2018-02-28] MEDS: Clotrimazole TROCHE* 10 MG TROCHE PO SCH ×3 (09:39→21:25)
[2018-02-28] MEDS: Montelukast Sodium TAB* 10 MG PO SCH (09:39)
[2018-02-28] MEDS: celeCOXIB CAP* 200 MG PO SCH (09:39)
--- NOTE | 2018-02-28 11:25 | PN ---
Subjective Date of Service: 02/28/18 Interval History: family wanting to pursue hospice. Dr. Gonzalez recommending 1 u prbc Missed appointment with Dr. Chowdhury for casting of her pathologic right humerous fracture. Hgb 7.7 Somewhat SOB, Family History: Unchanged from Admission Social History: Unchanged from Admission Past Medical History: Unchanged from Admission Objective Active Medications: Acetaminophen (Tylenol Tab*) 650 mg PO Q4H PRN PRN Reason: FEVER/PAIN Al Hydrox/Mg Hydrox/Simethicone (Maalox Plus*) 30 ml PO Q6H PRN PRN Reason: INDIGESTION Albuterol (Ventolin 2.5 Mg/3 Ml Neb.Stephanie*) 2.5 mg INH Q4H PRN PRN Reason: SOB/WHEEZING Albuterol (Ventolin Hfa Inhaler*) 2 puff INH Q6H PRN PRN Reason: SOB/WHEEZING Aspirin (Aspirin Ec Tab*) 81 mg PO QAM [facility] Last Admin: 02/28/18 09:37 Dose: 81 mg Celecoxib (Celebrex Cap*) 200 mg PO QAM [facility] Last Admin: 02/28/18 09:39 Dose: 200 mg Cetirizine HCl (Zyrtec*) 10 mg PO QPM [facility] Last Admin: 02/27/18 17:08 Dose: 10 mg Clotrimazole (Mycelex João*) 10 mg PO TID [facility] Last Admin: 02/28/18 09:39 Dose: 10 mg Cyanocobalamin (Vitamin B12 Tab*) 1,000 mcg PO QAM [facility] Last Admin: 02/28/18 09:37 Dose: 1,000 mcg Dexamethasone (Decadron Tab*) 4 mg PO MOWEFR [facility] Last Admin: 02/26/18 16:18 Dose: 4 mg Heparin Sodium (Porcine) (Heparin Vial(*)) 5,000 units SUBCUT Q8HR [facility] Last Admin: 02/28/18 05:28 Dose: 5,000 units Heparin Sodium (Porcine) (Heparin Flush Port (Ivad)) 5 ml FLUSH DAILY [facility] PRN Reason: Protocol Last Admin: 02/28/18 09:39 Dose: 5 ml Magnesium Hydroxide (Milk Of Magnesia Liq*) 30 ml PO Q4H PRN PRN Reason: CONSTIPATION Mometasone Furoate (Asmanex 220 Mcg Mdi *) 2 puff INH BEDTIME [facility] Last Admin: 02/27/18 21:39 Dose: 2 puff Montelukast Sodium (Singulair Tab*) 10 mg PO QAM [facility] Last Admin: 02/28/18 09:39 Dose: 10 mg Morphine Sulfate (Ms Contin(*)) 15 mg PO BID [facility] Last Admin: 02/28/18 09:37 Dose: 15 mg Omeprazole (Prilosec Cap*) 20 mg PO DAILY@0600 [facility] Last Admin: 02/28/18 05:31 Dose: 20 mg Ondansetron HCl (Zofran 40 Mg Vial*) 4 mg IV Q4H PRN PRN Reason: NAUSEA/VOMITING Oxycodone HCl (Roxycodone Tab*) 5 mg PO Q4HR PRN PRN Reason: PAIN Last Admin: 02/28/18 05:31 Dose: 5 mg Paroxetine HCl (Paxil Tab*) [place] Last Admin: 02/28/18 09:37 Dose: 20 mg Zolpidem Tartrate (Ambien Tab*) 10 mg PO BEDTIME PRN PRN Reason: SLEEP Last Admin: 02/26/18 22:33 Dose: 10 mg Vital Signs - 8 hr 02/28/18 02/28/18 02/28/18 05:31 07:32 08:00 Temperature 98.4 F Pulse Rate 92 Respiratory 18 21 18 Rate Blood Pressure 113/68 (mmHg) O2 Sat by Pulse 99 Oximetry 02/28/18 02/28/18 02/28/18 08:16 09:37 10:13 Temperature Pulse Rate 95 Respiratory 18 18 18 Rate Blood Pressure (mmHg) O2 Sat by Pulse 96 Oximetry Oxygen Devices in Use Now: Nasal Cannula Appearance: NAD, though tearful. Eyes: No Scleral Icterus, PERRLA Ears/Nose/Mouth/Throat: NL Teeth, Lips, Gums, Mucous Membranes Moist Neck: NL Appearance and Movements; NL JVP Respiratory: Symmetrical Chest Expansion and Respiratory Effort, - - rales anteriorly on left lateral chest. no wheezing or rhonchi. Cardiovascular: NL Sounds; No Murmurs; No JVD Abdominal: NL Sounds; No Tenderness; No Distention, No Hepatosplenomegaly Extremities: No Edema, No Clubbing, Cyanosis Skin: No Rash or Ulcers Neurological: Alert and Oriented x 3, NL Sensation Result Diagrams: 02/28/18 08:05 02/28/18 08:05 Additional Lab and Data: Laboratory Results - last 24 hr 02/28/18 02/28/18 08:05 08:05 WBC 6.1 RBC 2.39 L Hgb 7.7 L Hct 23 L MCV 95 MCH 32 H MCHC 34 RDW 19 H Plt Count 64 L MPV 8.5 Neut % (Auto) Not Reportable Lymph % (Auto) Not Reportable [place] % (Auto) Not Reportable Eos % (Auto) Not Reportable Baso % (Auto) Not Reportable Absolute Neuts (auto) 4.0 Absolute Lymphs (auto) 1.6 Absolute Monos (auto) 0.5 Absolute Eos (auto) 0 Absolute Basos (auto) 0 Absolute Nucleated RBC Not Reportable Neutrophils % 64 Lymphocytes % 28 Reactive Lymphs % 3 Monocytes % 5 Eosinophils % 0 Basophils % 0 Nucleated RBC % Not Reportable Abs Neuts (Manual) 3.9 Abs Lymphs (Manual) 1.7 Abs Monocytes (Manual) 0.3 Absolute Eos (Manual) 0 Abs Basophils (Manual) 0 Nucleated RBCs/100 WBC 2 H Normal RBC Morphology Not Reportable Polychromasia 1+ Sodium 136 L Potassium 4.5 Chloride 104 Carbon Dioxide 22 Anion Gap 10 BUN 19 Creatinine 0.68 Est GFR ( Amer) 107.1 Est GFR (Non-Af Amer) 83.3 BUN/Creatinine Ratio 27.9 H Glucose 116 H Calcium 9.6 Microbiology and Other Data: Microbiology 02/26/18 22:30 Urine Urine Culture - Final No Growth (<1,000 CFU/mL) 02/26/18 19:40 Blood Venous Aerobic Blood Culture - Preliminary No Growth Day 1 02/26/18 19:40 Blood Venous Anaerobic Blood Culture - Preliminary No Growth Day 1 02/26/18 13:34 Blood Venous Aerobic Blood Culture - Preliminary No Growth Day 1 02/26/18 13:34 Blood Venous Anaerobic Blood Culture - Preliminary No Growth Day 1 Assess/Plan/Problems-Billing Assessment: Mrs Khoury is an 82yo F with PMH of multiple myeloma with multiple lytic lesions , chronic back pain, HTN, dementia, diverticulosis, arthritis, asthma, recent admission for hyponatremia and dehydration, who presented to ED with c/o shortness of breath, admitted with failure to thrive. Had not been tolerating attempts at Revlimid. Now wanting hospice. - Patient Problems (1) Multiple myeloma Current Visit: Yes Status: Acute Code(s): C90.00 - MULTIPLE MYELOMA NOT HAVING ACHIEVED REMISSION SNOMED Code(s): 909629567 Comment: - Suspect some of her symptoms are secondary to MM progression. She' s more anemic, more thrombocytopenic. -Appreciate Oncology recs. Pt and family wishing hospice placement. She has multiple lytic lesions - skull, bilateral humeri, acetabulum, spine. Now with pathological fracture of her right humerus with immobilization. Will try to get ortho to place cast if able. - transfusion of 1u prbc for symptomatic anemia, hgb goal >8. (2) DVT prophylaxis Current Visit: No Status: Acute Code(s): QQS9588 - SNOMED Code(s): 568406527 Comment: heparin. (3) Dementia Current Visit: No Status: Acute Code(s): F03.90 - UNSPECIFIED DEMENTIA WITHOUT BEHAVIORAL DISTURBANCE SNOMED Code(s): 72392669 Comment: gets 17/04 care at home (4) DNR (do not resuscitate) Current Visit: Yes Status: Acute (5) Asthma Current Visit: Yes Status: Acute Code(s): J45.909 - UNSPECIFIED ASTHMA, UNCOMPLICATED SNOMED Code(s): 946151439 Comment: - Report of dyspnea in ED - CTA chest and V/Q negative for PE. - No evidence of exacerbation. - Continue mometasone and montelukast. On dexamethasone for MM. (6) Dysphagia Current Visit: Yes Status: Acute Code(s): R13.10 - DYSPHAGIA, UNSPECIFIED SNOMED Code(s): 68406738 Comment: - Suspect patient has dysphagia and aspiration. - Swallow evaluation: nectat thick liquids recommended. - No signs of infection at this time. (7) Oral thrush Current Visit: Yes Status: Acute Code(s): B37.0 - CANDIDAL STOMATITIS SNOMED Code(s): 11011193 Comment: - continue clotrimazole joão. Status and Disposition: Inpatient. awaiting hospice placement.
[2018-02-28] MEDS: Dexamethasone TAB* 4 MG PO SCH (15:19)
--- NOTE | 2018-02-28 17:28 | PN ---
Progress Note - Progress Note Date of Service: 02/28/18 Note: Note dictated. R proximal radius pathologic fracture. Other lytic lesions also noted on prior imaging including in the left acetabulum. I would recommend nonoperative treatment for the right radius fracture. We will leave her in the long arm splint for now and probably transition her to a cast in a week or two.
[2018-02-28] MEDS: Cetirizine* 10 MG TAB PO SCH (17:45)
[2018-02-28] MEDS: Mometasone 220 MCG MDI INH SCH (20:14)
[2018-02-28] MEDS: Zolpidem TAB* 10 MG PO PRN (21:24)
--- NOTE | 2018-02-28 23:49 | CONS ---
CONSULTATION REPORT: DATE OF CONSULT: 02/28/18 CHIEF COMPLAINT: Right forearm pathologic fracture. HISTORY OF PRESENT ILLNESS: Deloris is 82 years old. She has multiple myeloma. She came to the ER 3 days ago with right forearm pain and bruising. She was diagnosed with a proximal radius pathologic fracture. 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 She has left acetabular metastases and lysis. She does not walk much anymore; when she does walk, there is pain. She does have dementia. She and her daughter together, they deny pain in other places other than the spine where she has some known pathologic fractures. PAST MEDICAL HISTORY: History of myeloma, chronic back pain, history of small bowel obstruction, diverticulitis, hypertension, dementia, arthritis, asthma, history of compression fractures. PAST SURGICAL HISTORY: History of a surgery done as a teenager when she was 20. CURRENT MEDICATIONS: These were reviewed in the electronic medical record. She is on subcu heparin for DVT prophylaxis. ALLERGIES: AMOXICILLIN and EPINEPHRINE. SOCIAL HISTORY: She lives at home. Her daughter, Elizabeth, is her healthcare proxy. She has been using the chair more and walking less recently. She is a nonsmoker and denies alcohol intake. REVIEW OF SYSTEMS: This is obtained with the assistance of her daughter. Negative except for that mentioned above and some shortness of breath for which she was admitted to the hospital recently. PHYSICAL EXAM: General: Awake and alert, very pleasant. Vital Signs: 98.3, pulse rate 94, satting 99% on room air, respiratory rate is 20, blood pressure 108/54. Skin: I cannot see the skin overlying the fracture because there is a long arm splint in place. The skin margins are healthy. Musculoskeletal: There is a long arm right arm splint in place. She wiggles the fingers nicely. Hand is warm and well perfused. She senses light touch and responds appropriately distally. DIAGNOSTIC STUDIES: I looked at her x-rays from 02/25/18 and she does have a right proximal radius pathologic fracture. She has a mid shaft lytic lesion that involves a fair portion of the diameter of the bone. It looks like there are a couple of lytic lesions on the humerus x-ray as well, but nothing that looks like it is an impending fracture. I did review a CT of the pelvis from 07/19/17. She has destruction and thinning of the left acetabulum. There are a couple of lytic lesions in the proximal femurs, but nothing that looks like an impending fracture. IMPRESSION: Multiple left bony lytic lesions secondary to myeloma with a right proximal radius pathologic fracture and she also has severe lysis of the left acetabulum. PLAN: The fracture is nicely lined up. I would plan to treat this at least for now nonoperatively. She is in a very nice long arm splint. We will just leave that in place; it is actually quite a nice splint. The lysis in the left acetabulum definitely would qualify as an impending fracture; however, she does not walk much anymore, she is not complaining of lot of pain in the left hip and has been doing well with observation since last June, so I think you could continue to observe that as well. She and her daughter have been discussing hospice. That may be something she pursues. For now, we will plan for a nonoperative treatment of the right proximal radius pathologic fracture and leave her in the long arm splint for now. [id number]/[facility] #: [id number] A[place]
[2018-03-01] MEDS: Omeprazole CAP* 20 MG PO SCH (06:14)
[2018-03-01] MEDS: Heparin VIAL(*) 5000 UNITS/ML VIAL (FIVE THOUSAND) SUBCUT SCH (06:14)
[2018-03-01 07:40] LABS: ABS Basophils 0 10^3/ul (0-0.2); ABS Eosinophils 0 10^3/ul (0-0.6); ABS Lymphocytes 1.4 10^3/ul (1.0-4.8); ABS Monocytes 0.5 10^3/ul (0-0.8); ABS Neutrophils 3.6 10^3/ul (1.5-7.7); ABS Nucleated RBC 0.1 10^3/ul; Eosinophil % 0.2 % (0-6); Hematocrit 25 % (35-47); Hemoglobin 8.5 g/dl (12.0-16.0); Lymphocyte % 24.9 % (25-47); Mean Corpuscular HGB Conc 34 g/dl (31-36); Mean Corpuscular Hemoglobin 31 pg (27-31); Mean Corpuscular Volume 91 fL (80-97); Mean Platelet Volume 7.8 um3 (7.4-10.4); Nucleated Red Blood Cells % 1.1; Platelet Count 57 10^3/ul (150-450); Red Blood Count 2.76 10^6/ul (4.0-5.4); Red Cell Distribution Width 22 % (10.5-15); White Blood Count 5.4 10^3/ul (3.5-10.8)
[2018-03-01] MEDS: Aspirin EC TAB* 81 MG TAB.EC PO SCH (07:49)
[2018-03-01] MEDS: celeCOXIB CAP* 200 MG PO SCH (07:49)
[2018-03-01] MEDS: PARoxetine HCL TAB* 20 MG PO SCH (07:49)
[2018-03-01] MEDS: Cyanocobalamin TAB* 500 MCG PO SCH (07:49)
[2018-03-01] MEDS: Montelukast Sodium TAB* 10 MG PO SCH (07:49)
[2018-03-01] MEDS: Clotrimazole TROCHE* 10 MG TROCHE PO SCH (07:50)
[2018-03-01] MEDS: Morphine TAB Extended Release (*) 15 MG TAB.ER PO SCH (07:50)
[2018-03-01 07:57] VITALS: BP 112/61
[2018-03-01 08:59] LABS: Monocytes % 7 % (0-7)
--- NOTE | 2018-03-01 10:07 | DS ---
DISCHARGE SUMMARY: DATE OF ADMISSION: 02/26/18 DATE OF DISCHARGE: 03/01/18 ADMITTING PROVIDER: GRUPO Castellanos PRIMARY CARE PROVIDER: Dr. Fitzgerald PRIMARY ONCOLOGIST: Dr. Gonzalez ATTENDING PHYSICIAN ON DISCHARGE: Leon Hutchison MD. CHIEF COMPLAINT: Shortness of breath. PRINCIPAL DIAGNOSES: Progressive multiple myeloma with symptomatic anemia; recent right proximal radius pathological fracture; initiation of hospice services. HISTORY OF PRESENT ILLNESS AND HOSPITAL COURSE: Deloris Khoury is an 82-year-old female with past medical history of progressive multiple myeloma with multiple lytic lesions, chronic back pain, hypertension, dementia, arthritis, asthma, compression fracture, small bowel obstruction. She has had multiple admissions often in the setting with reattempts at initiating Revlim[facility], presenting with shortness of breath or tachycardia after getting extra doses of opioids to manage flares of back pain. This time, she actually presented to the emergency room day prior with right arm pain, had forearm x-ray, which revealed proximal radius fracture, which was then placed in a splint and was arranged for followup with Dr. Chowdhury to place a cast. She returned home, but complained of shortness of breath and returned to the emergency room. She was found again to be tachycardic with increased work of breathing. She denied any chest pain, dizziness, headaches. Please see H&P Yaw Aragon for full details. She was referred to hospitalist service for admission. Initial troponin was 0.04 near her recent baseline. Sodium was 134 (had a history of hyponatremia). She had a chest CTA, which was nonconclusive and then after admission a V/Q scan, which was low probably for pulmonary embolism. Her initial hemoglobin was 9.3, but hospital day #2 is 7.7, she was seen by Dr. Gonzalez and recommended 1 unit transfusion for symptomatic anemia. He also talked with the daughter and given the progression of the multiple myeloma, fractures, failure to thrive at home, multiple readmissions, the plan was made to enroll patient and hospice services. A bed was arranged at the hospice care facility and she will be discharged there on 03/01/18. She was without leukocytosis or fevers throughout the admission. She had blood cultures, they were negative x2 and no evidence of urinary tract infection on urine culture, no growth. On request of daughter given the patient's missed appointment with Dr. Chowdhury to place cast on the right forearm, Orthopedics was consulted and Dr. Roberts currently consulted and recommended that cast be placed in 1 to 2 weeks and that the long splint looked good for now. DISCHARGE MEDICATIONS: Include: 1. Albuterol 2 puffs inhaled q.6 hours p.r.n. 2. Aspirin 81 mg p.o. q.a.m. 3. Celebrex 200 mg q.a.m. 4. Cyanocobalamin 1000 mcg p.o. q.a.m. 5. Dexamethasone 4 mg p.o. Monday, Monday, Monday. 6. Flovent 1 puff inhaled b.i.d. 7. Levocetirizine 5 mg p.o. q.p.m. 8. Singulair 10 mg p.o. q.a.m. 9. Morphine extended release 15 mg p.o. b.i.d. 10. Oxycodone 5 mg p.o. q.4 hours p.r.n. 11. Paxil 20 mg p.o. q.a.m. 12. Ambien 10 mg p.o. at bedtime p.r.n. 13. Tylenol 1000 mg p.o. q.6 hours p.r.n. 14. Maalox Plus 30 mL p.o. q.6 p.r.n. (new). 15. AcipHex (rabeprazole) 20 mg p.o. q.p.m. DISCHARGE DIET: No restrictions. ACTIVITY LEVEL: No restrictions. FOLLOWUP: The patient is being discharged to hospice care. She should call to office of Dr. Roberts to schedule casting placed on the right forearm in 1 to 2 weeks. Her hemoglobin on discharge was 8.5. She is now DNR, DNI (a MOLST was completed). She is enrolling in hospice services. [id number]/[facility] #: [id number] [facility]ENTERGabbi
== END 2018-03-01 10:55 | disposition hospice, inpatient (51) | DRG 841 ==
LOC: ED 12:48 → MED 15:17
PROVIDERS: ADMIT Internal Medicine; ATTEND Internal Medicine
PROC: 02HV33Z Insertion of Infusion Device into Superior Vena Cava, Percutaneous Approach (ICD-10-PCS; 2018-02-26)
PROC: 30233N1 Transfusion of Nonautologous Red Blood Cells into Peripheral Vein, Percutaneous Approach (ICD-10-PCS; principal; 2018-02-28)
DX: C90.00 Multiple myeloma not having achieved remission (principal); E87.1 Hypo-osmolality and hyponatremia; C79.51 Secondary malignant neoplasm of bone; M84.53 Pathological fracture in neoplastic disease, ulna and radius; B37.0 Candidal stomatitis; R62.7 Adult failure to thrive; F03.90 Unspecified dementia, unspecified severity, without behavioral disturbance, psychotic disturbance, mood disturbance, and anxiety; I10 Essential (primary) hypertension; J45.909 Unspecified asthma, uncomplicated; K57.90 Diverticulosis of intestine, part unspecified, without perforation or abscess without bleeding; K21.9 Gastro-esophageal reflux disease without esophagitis; K58.9 Irritable bowel syndrome, unspecified; M19.90 Unspecified osteoarthritis, unspecified site; M81.0 Age-related osteoporosis without current pathological fracture; M41.9 Scoliosis, unspecified; F32.9 Major depressive disorder, single episode, unspecified; F41.9 Anxiety disorder, unspecified; G89.29 Other chronic pain; M54.9 Dorsalgia, unspecified; E66.01 Morbid (severe) obesity due to excess calories; C80.1 Malignant (primary) neoplasm, unspecified; M48.00 Spinal stenosis, site unspecified; D64.9 Anemia, unspecified; E86.0 Dehydration; D69.6 Thrombocytopenia, unspecified; Z66 Do not resuscitate; R13.10 Dysphagia, unspecified; Z88.1 Allergy status to other antibiotic agents; Z88.8 Allergy status to other drugs, medicaments and biological substances; Z79.1 Long term (current) use of non-steroidal anti-inflammatories (NSAID); Z79.82 Long term (current) use of aspirin; Z79.52 Long term (current) use of systemic steroids; Z79.891 Long term (current) use of opiate analgesic; Z72.89 Other problems related to lifestyle; Z98.42 Cataract extraction status, left eye; Z98.41 Cataract extraction status, right eye; Z92.21 Personal history of antineoplastic chemotherapy; Z82.49 Family history of ischemic heart disease and other diseases of the circulatory system; Z68.34 Body mass index [BMI] 34.0-34.9, adult; Z88.0 Allergy status to penicillin
CPT/HCPCS: 36415; 71045; 71275; 78582; 80048; 80053; 81003; 81015; 82550; 83605; 83880; 84484; 85025; 85060; 85610; 86140; 86850; 86900; 86901; 86922; 87040; 87086; 93005; 94640; 99232; 99233; 99284; A9270-GY; A9540; A9558; G8978-GP-CM; G8979-GP-CL; G8996-GN-CJ; G8997-GN-CI; G8998-GN-CI; J1642; J1644; J8540; P9040; Q9967